=== PATIENT | female | born 1945 | race African-American/Black ===

== ENCOUNTER → 2016-07-07 | Outpatient (CLI) | payer MEDICARE, OTHER ==
[2016-07-07 16:16] LABS: HEMATOCRIT 33.7 % (36.0-47.0); HEMOGLOBIN 10.6 g/dL (12.0-15.5); HGB HCT DIFFERENCE -1.9; MEAN CORPUSCULAR HEMOGLOBIN 27.3 pg (27.0-33.4); MEAN CORPUSCULAR HGB CONC 31.4 g/dL (32.0-36.0); MEAN CORPUSCULAR VOLUME 87 fl (80-97); RED BLOOD COUNT 3.88 10^6/uL (3.72-5.28); RED CELL DISTRIBUTION WIDTH 15.1 % (11.5-14.0); WHITE BLOOD COUNT 7.3 10^3/uL (4.0-10.5)
[2016-07-07 16:33] LABS: APPEARANCE,URINE CLEAR; BILIRUBIN,URINE NEGATIVE (NEGATIVE); GLUCOSE, URINE NEGATIVE (NEGATIVE); KETONES,URINE NEGATIVE (NEGATIVE); LEUKOCYTE ESTERASE,URINE NEGATIVE (NEGATIVE); NITRITE,URINE NEGATIVE (NEGATIVE); PROTEIN,URINE NEGATIVE (NEGATIVE); URINE SPECIFIC GRAVITY 1.006; UROBILINOGEN,URINE NEGATIVE mg/dL (<2.0)
[2016-07-07 16:46] LABS: ANION GAP 14 (5-19); BLOOD UREA NITROGEN 49 mg/dL (7-20); CALCIUM 9.8 mg/dL (8.4-10.2); CARBON DIOXIDE 25 mmol/L (22-30); CHLORIDE 105 mmol/L (98-107); CREATININE RESULT 1.41 mg/dL (0.52-1.25); GLUCOSE 81 mg/dL (75-110); POTASSIUM 4.8 mmol/L (3.6-5.0); SODIUM 144.4 mmol/L (137-145)
[2016-07-09 08:38] LABS: CREATININE URINE 17.7 mg/dL (Not Estab.)
== END ==
LOC: OD 15:00
PROVIDERS: ATTEND Internal Medicine Nephrology
DX: N18.3 Chronic kidney disease, stage 3 (moderate) (principal); E11.9 Type 2 diabetes mellitus without complications; I50.9 Heart failure, unspecified; R80.9 Proteinuria, unspecified
CPT/HCPCS: 36415; 80048; 81001; 82570; 84156; 85027

== ENCOUNTER → 2016-09-15 | Outpatient (CLI) | payer MEDICARE, OTHER | LOC: RAD 15:00 | PROVIDERS: ATTEND Internal Medicine | DX: M75.121 Complete rotator cuff tear or rupture of right shoulder, not specified as traumatic (principal) | CPT/HCPCS: 36415; 80048; 81001; 82043; 82570; 85025 ==

== ENCOUNTER → 2016-09-15 | Outpatient (CLI) | payer MEDICARE, OTHER ==
[2016-09-15 17:27] LABS: ABSOLUTE EOSINOPHILS # (AUTO) 0.2 10^3/uL (0.0-0.6); ABSOLUTE LYMPHOCYTES (AUTO) 2.6 10^3/uL (0.5-4.7); ABSOLUTE MONOCYTES (AUTO) 0.5 10^3/uL (0.1-1.4); ABSOLUTE NEUT (AUTO) 3.2 10^3/uL (1.7-8.2); BASOPHILS % (AUTO) 0.7 % (0-2); EOSINOPHILS % (AUTO) 3.4 % (0-6); HEMATOCRIT 33.7 % (36.0-47.0); HGB HCT DIFFERENCE -0.7; LYMPHOCYTES % (AUTO) 39.8 % (13-45); MEAN CORPUSCULAR HEMOGLOBIN 27.4 pg (27.0-33.4); MEAN CORPUSCULAR HGB CONC 32.6 g/dL (32.0-36.0); MEAN CORPUSCULAR VOLUME 84 fl (80-97); MONOCYTES % (AUTO) 7.8 % (3-13); RED CELL DISTRIBUTION WIDTH 17.4 % (11.5-14.0); SEGMENTED NEUTROPHILS % (AUTO) 48.3 % (42-78); WHITE BLOOD COUNT 6.6 10^3/uL (4.0-10.5)
[2016-09-15 17:35] LABS: APPEARANCE,URINE CLEAR; BILIRUBIN,URINE NEGATIVE (NEGATIVE); GLUCOSE, URINE NEGATIVE (NEGATIVE); KETONES,URINE NEGATIVE (NEGATIVE); LEUKOCYTE ESTERASE,URINE NEGATIVE (NEGATIVE); NITRITE,URINE NEGATIVE (NEGATIVE); PROTEIN,URINE 30 mg/dL (NEGATIVE); URINE SPECIFIC GRAVITY 1.011; UROBILINOGEN,URINE NEGATIVE mg/dL (<2.0)
[2016-09-15 17:49] LABS: ANION GAP 13 (5-19); BLOOD UREA NITROGEN 39 mg/dL (7-20); CALCIUM 9.8 mg/dL (8.4-10.2); CARBON DIOXIDE 27 mmol/L (22-30); CHLORIDE 104 mmol/L (98-107); CREATININE RESULT 1.17 mg/dL (0.52-1.25); GLUCOSE 143 mg/dL (75-110); POTASSIUM 4.8 mmol/L (3.6-5.0); SODIUM 143.5 mmol/L (137-145)
[2016-09-17 07:38] LABS: CREATININE URINE 73.3 mg/dL (Not Estab.); MICROALBUMIN URINE 135.8 ug/mL (Not Estab.)
== END ==
LOC: OD 16:18
PROVIDERS: ATTEND Internal Medicine Nephrology
DX: N18.3 Chronic kidney disease, stage 3 (moderate) (principal); R80.9 Proteinuria, unspecified; E11.9 Type 2 diabetes mellitus without complications; I50.9 Heart failure, unspecified
CPT/HCPCS: 36415; 80048; 81001; 82043; 82570; 85025

== ENCOUNTER → 2016-09-29 | Outpatient (CLI) | payer MEDICARE, OTHER | LOC: OD 11:46 | PROVIDERS: ATTEND Internal Medicine | DX: M79.652 Pain in left thigh (principal) ==

== ENCOUNTER 2016-11-13 16:58 | Emergency (ER) | payer MEDICARE, OTHER ==
--- NOTE | 2016-11-13 19:03 | ER Document Report ---
ED Medical Screen (RME) - General Chief Complaint: Abdominal Pain Stated Complaint: ABDOMINAL PAIN/LEFT LEG PAIN Time Seen by Provider: 11/13/16 19:01 Mode of Arrival: Wheelchair Information source: Patient TRAVEL OUTSIDE OF THE [place] 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 that became infected with poor circulation, she has been seen by her primary care provider for this pain, over the past 2 days she has developed lower abdominal pain with cramping, denies nausea, vomiting or diarrhea, no dysuria or hematuria, no fever or chills, she also reports dry mouth and sore throat, blood sugar at home this morning was 197 - Related Data Allergies/Adverse Reactions: cephalexin monohydrate [From Keflex] Allergy (Unknown, Verified 11/13/16 17:34) nausea/vomiting metformin [Metformin] Allergy (Unknown, Verified 11/13/16 17:34) nausea/vomiting Sulfa (Sulfonamide Antibiotics) Allergy (Unknown, Verified 11/13/16 17:34) itching/rash Past Medical History - Past Medical History Cardiac Medical History: Reports: Hx Coronary Artery Disease, Hx Hypercholesterolemia, Hx Hypertension, Hx Heart Murmur Denies: Hx Atrial Fibrillation, Hx Congestive Heart Failure, Hx Heart Attack , Hx Peripheral Vascular Disease, Hx Pulmonary Embolism Pulmonary Medical History: Reports: Hx Pneumonia, Hx Sleep Apnea Denies: Hx Asthma, Hx Bronchitis, Hx COPD, Hx Respiratory Failure, Hx Tuberculosis Neurological Medical History: Denies: Hx Cerebrovascular Accident, Hx Seizures Endocrine Medical History: Reports: Hx Diabetes Mellitus Type 2, Hx Hypothyroidism - Being followed by logistic manager in [place]. On no medicine for this. Renal/ Medical History: Denies: Hx End Stage Renal Disease, Hx Kidney Stones, Hx Ovarian Cysts, Hx Peritoneal Dialysis, Hx Pelvic Inflammatory Disease Malignancy Medical History: Denies: Hx Breast Cancer, Hx Cervical Cancer, Hx Leukemia, Hx Lung Cancer, Hx Ovarian Cancer GI Medical History: Denies: Hx Crohn's Disease, Hx Gastroesophageal Reflux Disease, Hx Hepatitis, Hx Hiatal Hernia, Hx Irritable Bowel, Hx Liver Failure, Hx Ulcer Musculoskeltal Medical History: Reports Hx Arthritis, Denies Hx Fibromyalgia, Reports Hx Gout, Denies Hx Muscular Dystrophy Skin Medical History: Denies Hx MRSA Psychiatric Medical History: Denies: Hx Depression Traumatic Medical History: Denies: Hx Fractures Infectious Medical History: Denies: Hx Hepatitis, Hx HIV Past Surgical History: Reports: Hx Appendectomy, Hx Cardiac Surgery, Hx Coronary Artery Bypass Graft - July 07, 2014, Hx Gynecologic Surgery, Hx Herniorrhaphy, Hx Hysterectomy, Hx Orthopedic Surgery, Hx Vascular Surgery. Denies: Hx Bowel Surgery, Hx Section, Hx Cholecystectomy, Hx Colostomy , Hx Gastric Bypass Surgery, Hx Mastectomy, Hx Open Heart Surgery, Hx Pacemaker , Hx Tonsillectomy, Hx Tubal Ligation - Immunizations Hx Diphtheria, Pertussis, Tetanus Vaccination: Yes Physical Exam - Vital signs Vitals: Temp Pulse Resp BP Pulse Ox 98.7 F 68 20 169/54 H 99 11/13/16 17:34 11/13/16 17:34 11/13/16 17:34 11/13/16 17:34 11/13/16 17:34 Course - Vital Signs Vital signs: Temp Pulse Resp BP Pulse Ox 98.7 F 68 20 169/54 H 99 11/13/16 17:34 11/13/16 17:34 11/13/16 17:34 11/13/16 17:34 11/13/16 17:34
--- NOTE | 2016-11-13 20:07 | RADIOLOGY REPORT (SQ) ---
EXAM DESCRIPTION: KNEE LEFT 4 VIEW COMPLETED DATE/TIME: 11/13/2016 7:50 pm REASON FOR STUDY: pain, recent BKA COMPARISON: None. NUMBER OF VIEWS: Four views. TECHNIQUE: AP, lateral, and both oblique radiographic images acquired of the left knee. LIMITATIONS: None. FINDINGS: MINERALIZATION: Normal. BONES: No acute fracture or dislocation. Below the knee amputation. No worrisome bone lesions. JOINT: No effusion. SOFT TISSUES: No soft tissue swelling. Surgical clips and vascular stents. OTHER: No other significant finding. IMPRESSION: SURGICAL CHANGES. BELOW THE KNEE AMPUTATION. NO ACUTE FINDINGS. TECHNICAL DOCUMENTATION: JOB ID: [id number] [employer]- All Rights Reserved
[2016-11-13 20:36] LABS: ABSOLUTE EOSINOPHILS # (AUTO) 0.2 10^3/uL (0.0-0.6); ABSOLUTE LYMPHOCYTES (AUTO) 2.7 10^3/uL (0.5-4.7); ABSOLUTE MONOCYTES (AUTO) 0.8 10^3/uL (0.1-1.4); ABSOLUTE NEUT (AUTO) 5.6 10^3/uL (1.7-8.2); BASOPHILS % (AUTO) 0.4 % (0-2); EOSINOPHILS % (AUTO) 1.7 % (0-6); HEMATOCRIT 40.1 % (36.0-47.0); HEMOGLOBIN 12.7 g/dL (12.0-15.5); LYMPHOCYTES % (AUTO) 29.1 % (13-45); MEAN CORPUSCULAR HEMOGLOBIN 27.9 pg (27.0-33.4); MEAN CORPUSCULAR HGB CONC 31.6 g/dL (32.0-36.0); MEAN CORPUSCULAR VOLUME 88 fl (80-97); MONOCYTES % (AUTO) 8.7 % (3-13); RED BLOOD COUNT 4.54 10^6/uL (3.72-5.28); SEGMENTED NEUTROPHILS % (AUTO) 60.1 % (42-78); WHITE BLOOD COUNT 9.3 10^3/uL (4.0-10.5)
[2016-11-13 20:51] LABS: APPEARANCE,URINE CLEAR; BILIRUBIN,URINE NEGATIVE (NEGATIVE); GLUCOSE, URINE NEGATIVE (NEGATIVE); KETONES,URINE NEGATIVE (NEGATIVE); LEUKOCYTE ESTERASE,URINE NEGATIVE (NEGATIVE); NITRITE,URINE NEGATIVE (NEGATIVE); PROTEIN,URINE NEGATIVE (NEGATIVE); URINE SPECIFIC GRAVITY 1.004; UROBILINOGEN,URINE NEGATIVE mg/dL (<2.0)
[2016-11-13 21:01] LABS: ALANINE AMINOTRANSFERASE 42 U/L (9-52); ALBUMIN 4.1 g/dL (3.5-5.0); ALKALINE PHOSPHATASE 136 U/L (38-126); ANION GAP 12 (5-19); ASPARTATE AMINO TRANSFERASE 28 U/L (14-36); BILIRUBIN,DIRECT 0.3 mg/dL (0.0-0.4); BILIRUBIN,TOTAL 0.6 mg/dL (0.2-1.3); BLOOD UREA NITROGEN 39 mg/dL (7-20); CALCIUM 9.9 mg/dL (8.4-10.2); CARBON DIOXIDE 29 mmol/L (22-30); CHLORIDE 102 mmol/L (98-107); CREATININE RESULT 1.55 mg/dL (0.52-1.25); GLUCOSE 132 mg/dL (75-110); LIPASE 61.5 U/L (23-300); POTASSIUM 4.9 mmol/L (3.6-5.0); SODIUM 142.6 mmol/L (137-145); TOTAL PROTEIN 7.7 g/dL (6.3-8.2)
--- NOTE | 2016-11-13 22:13 | ER Document Report ---
ED General - General Chief Complaint: Abdominal Pain Stated Complaint: ABDOMINAL PAIN/LEFT LEG PAIN Time Seen by Provider: 11/13/16 19:01 Mode of Arrival: Wheelchair Notes: Patient is a 71-year-old female with a history of a left BKA who presents with 3 -4 days of stomach pain. Describes it as a severe, stabbing pain whenever she wears a prosthetic or bears weight on the extremity. Denies any pain with a prosthesis was removed and she is just laying in bed. She has an appointment with orthopedic surgeon in 2 days but states the pain became so intense tonight she came to the emergency department for further evaluation. No history of similar symptoms in the past and she had the BKA done in July 2016. Denies any swelling, erythema or discharge from the stump. Denies any injury to the area. She has tried oxycodone without any improvement of the pain. TRAVEL OUTSIDE OF THE [place] IN LAST 30 DAYS: No - Related Data Allergies/Adverse Reactions: cephalexin monohydrate [From Keflex] Allergy (Unknown, Verified 11/13/16 17:34) nausea/vomiting metformin [Metformin] Allergy (Unknown, Verified 11/13/16 17:34) nausea/vomiting Sulfa (Sulfonamide Antibiotics) Allergy (Unknown, Verified 11/13/16 17:34) itching/rash Past Medical History - General Information source: Patient - Social History Smoking Status: Never Smoker Frequency of alcohol use: None Drug Abuse: None Lives with: Family Family History: Reviewed & Not Pertinent, Hypertension Patient has suicidal ideation: No Patient has homicidal ideation: No - Past Medical History Cardiac Medical History: Reports: Hx Coronary Artery Disease, Hx Hypercholesterolemia, Hx Hypertension, Hx Heart Murmur Denies: Hx Atrial Fibrillation, Hx Congestive Heart Failure, Hx Heart Attack , Hx Peripheral Vascular Disease, Hx Pulmonary Embolism Pulmonary Medical History: Reports: Hx Pneumonia, Hx Sleep Apnea Denies: Hx Asthma, Hx Bronchitis, Hx COPD, Hx Respiratory Failure, Hx Tuberculosis Neurological Medical History: Denies: Hx Cerebrovascular Accident, Hx Seizures Endocrine Medical History: Reports: Hx Diabetes Mellitus Type 2, Hx Hypothyroidism - Being followed by wax coating machine tender in [place]. On no medicine for this. Renal/ Medical History: Denies: Hx End Stage Renal Disease, Hx Kidney Stones, Hx Ovarian Cysts, Hx Peritoneal Dialysis, Hx Pelvic Inflammatory Disease Malignancy Medical History: Denies: Hx Breast Cancer, Hx Cervical Cancer, Hx Leukemia, Hx Lung Cancer, Hx Ovarian Cancer GI Medical History: Denies: Hx Crohn's Disease, Hx Gastroesophageal Reflux Disease, Hx Hepatitis, Hx Hiatal Hernia, Hx Irritable Bowel, Hx Liver Failure, Hx Ulcer Musculoskeltal Medical History: Reports Hx Arthritis, Denies Hx Fibromyalgia, Reports Hx Gout, Denies Hx Muscular Dystrophy Skin Medical History: Denies Hx MRSA Psychiatric Medical History: Denies: Hx Depression Traumatic Medical History: Denies: Hx Fractures Infectious Medical History: Denies: Hx Hepatitis, Hx HIV Past Surgical History: Reports: Hx Appendectomy, Hx Cardiac Surgery, Hx Coronary Artery Bypass Graft - July 07, 2014, Hx Gynecologic Surgery, Hx Herniorrhaphy, Hx Hysterectomy, Hx Orthopedic Surgery, Hx Vascular Surgery. Denies: Hx Bowel Surgery, Hx Section, Hx Cholecystectomy, Hx Colostomy , Hx Gastric Bypass Surgery, Hx Mastectomy, Hx Open Heart Surgery, Hx Pacemaker , Hx Tonsillectomy, Hx Tubal Ligation - Immunizations Hx Diphtheria, Pertussis, Tetanus Vaccination: Yes Hx Pneumococcal Vaccination: 02/18/11 Review of Systems - Review of Systems Notes: Constitutional: Negative for fever. HENT: Negative for sore throat. Eyes: Negative for visual changes. Cardiovascular: Negative for chest pain. Respiratory: Negative for shortness of breath. Gastrointestinal: Negative for abdominal pain, vomiting or diarrhea. Genitourinary: Negative for dysuria. Musculoskeletal: Positive for BKA stump pain Skin: Negative for rash. Neurological: Negative for headaches, weakness or numbness. 10 point ROS negative except as marked above and in HPI. Physical Exam - Vital signs Vitals: Temp Pulse Resp BP Pulse Ox 98.7 F 68 20 169/54 H 99 11/13/16 17:34 11/13/16 17:34 11/13/16 17:34 11/13/16 17:34 11/13/16 17:34 Interpretation: Hypertensive Notes: PHYSICAL EXAMINATION: GENERAL: Well-appearing, well-nourished and in no acute distress. HEAD: Atraumatic, normocephalic. EYES: Pupils equal round and reactive to light, extraocular movements intact, sclera anicteric, conjunctiva are normal. ENT: nares patent, oropharynx clear without exudates. Moist mucous membranes. NECK: Normal range of motion, supple without lymphadenopathy LUNGS: Breath sounds clear to auscultation bilaterally and equal. No wheezes rales or rhonchi. HEART: Regular rate and rhythm without murmurs ABDOMEN: Soft, nontender, normoactive bowel sounds. No guarding, no rebound. No masses appreciated. EXTREMITIES: Left BKA; stump without evidence of erythema, edema or induration. No pain on palpation. NEUROLOGICAL: No focal neurological deficits. Moves all extremities spontaneously and on command. PSYCH: Normal mood, normal affect. SKIN: Warm, Dry, normal turgor, no rashes or lesions noted. Course - Re-evaluation Re-evalutation: 11/13/16 22:11 Patient is presenting complaining of pain to her BKA stump on the left. No evidence of infection, edema, x-ray is normal. Labs obtained in triage are also noted to be normal. Exact cause of pain at this time may be related to irritation from her prosthetic. I do not see any indications for acute antibiotics at this time. She patient has an outpatient follow-up with Dr. Ma in 2 days. In triage patient apparently complained of abdominal pain sore throat she denied these complaints both at time of triage as well as to me. I have therefore not proceed with a workup or evaluation for these listed complaints given the patient states that these are not concerns or reasons for her being in the emergency department today. At this time will discharge with return precautions and follow-up recommendations. Verbal discharge instructions given a the bedside and opportunity for questions given. Medication warnings reviewed. Patient is in agreement with this plan and has verbalized understanding of return precautions and the need for primary care follow-up in the next 24-72 hours. 11/13/16 22:15 - Vital Signs Vital signs: Temp Pulse Resp BP Pulse Ox 98.1 F 70 18 156/61 H 99 11/13/16 23:13 11/13/16 23:13 11/13/16 23:13 11/13/16 23:13 11/13/16 23:13 - Laboratory Result Diagrams: 11/13/16 19:55 11/13/16 19:55 Laboratory results interpreted by me: 11/13/16 11/13/16 19:55 19:55 MCHC 31.6 L RDW 16.0 H BUN 39 H Creatinine 1.55 H Est GFR ( Amer) 40 L Est GFR (Non-Af Amer) 33 L Glucose 132 H Alkaline Phosphatase 136 H - Diagnostic Test Radiology reviewed: Image reviewed, Reports reviewed Radiology results interpreted by me: 11/13/16 22:12 Discharge - Discharge Clinical Impression: Amputation stump pain Condition: Good Disposition: HOME, SELF-CARE Additional Instructions: Your x-rays and labs are normal today. Please follow-up with Dr. Ma as directed. For your pain: Take acetaminophen 1000 mg every 6 hours as needed for pain. If this does not control your pain you may take 15 mg of oral morphine every 4 hours as needed. Please be very careful about using the oral morphine and only use this for severe pain. Prescriptions: Morphine Sulfate [Morphine Ir 15 mg Tablet] 15 mg PO Q4HP PRN #12 tablet PRN Reason: Referrals: MARTIN WICK MD [Primary Care Provider] - Follow up as needed JOSEPH MA MD [ACTIVE STAFF] - Follow up as needed
[2016-11-13 23:15] VITALS: BP 156/61
== END 2016-11-13 23:15 | disposition home or self-care (01) ==
LOC: ER 16:58
DX: M79.662 Pain in left lower leg (principal); E11.9 Type 2 diabetes mellitus without complications; I25.10 Atherosclerotic heart disease of native coronary artery without angina pectoris; I10 Essential (primary) hypertension; Z89.512 Acquired absence of left leg below knee; Z88.1 Allergy status to other antibiotic agents; Z88.2 Allergy status to sulfonamides; Z88.8 Allergy status to other drugs, medicaments and biological substances; Z95.1 Presence of aortocoronary bypass graft
CPT/HCPCS: 36415; 80053; 81001; 83690; 85025; 87086; 87088; 87186; 99284

== ENCOUNTER → 2016-12-14 | Outpatient (CLI) | payer MEDICARE, OTHER ==
--- NOTE | 2016-12-14 13:27 | RADIOLOGY REPORT (SQ) ---
EXAM DESCRIPTION: MRI LT LOWER EXTREMITY WITHOUT COMPLETED DATE/TIME: 12/14/2016 12:11 pm REASON FOR STUDY: UNSPECIFIED COMPLICATIONS OF AMPUTATION T87.9 UNSPECIFIED COMPLICATIONS OF AMPUTA TION STUMP COMPARISON: None. TECHNIQUE: Multiplanar imaging of the left knee to include T1 and inversion recovery weighted sequen steve. CONTRAST TYPE AND DOSE: None. RENAL FUNCTION: Not applicable. LIMITATIONS: None. FINDINGS: BONE MARROW: Status post BKA. There is abnormal decreased T1 and increased T2 signal in t he tibial stump. SOFT TISSUES: Approximately 2 cm fluid collection along the posterior margin of the stump. There is a skin ulcer along the anterior margin. OTHER: No other significant finding. IMPRESSION: Positive for osteomyelitis. TECHNICAL DOCUMENTATION: JOB ID: [id number] [employer]- All Rights Reserved
== END ==
LOC: RAD 10:44
PROVIDERS: ATTEND Internal Medicine
DX: T87.9 Unspecified complications of amputation stump (principal)

== ENCOUNTER → 2016-12-29 | Outpatient (CLI) | payer MEDICARE, OTHER ==
[2016-12-29 16:24] LABS: HEMATOCRIT 36.2 % (36.0-47.0); HEMOGLOBIN 11.9 g/dL (12.0-15.5); HGB HCT DIFFERENCE -0.5; MEAN CORPUSCULAR HEMOGLOBIN 29.3 pg (27.0-33.4); MEAN CORPUSCULAR HGB CONC 32.8 g/dL (32.0-36.0); MEAN CORPUSCULAR VOLUME 89 fl (80-97); RED BLOOD COUNT 4.06 10^6/uL (3.72-5.28); RED CELL DISTRIBUTION WIDTH 15.3 % (11.5-14.0); WHITE BLOOD COUNT 7.3 10^3/uL (4.0-10.5)
[2016-12-29 16:26] LABS: APPEARANCE,URINE CLEAR; BILIRUBIN,URINE NEGATIVE (NEGATIVE); GLUCOSE, URINE NEGATIVE (NEGATIVE); KETONES,URINE NEGATIVE (NEGATIVE); LEUKOCYTE ESTERASE,URINE TRACE (NEGATIVE); NITRITE,URINE NEGATIVE (NEGATIVE); PROTEIN,URINE NEGATIVE (NEGATIVE); URINE SPECIFIC GRAVITY 1.009; UROBILINOGEN,URINE NEGATIVE mg/dL (<2.0)
[2016-12-29 16:50] LABS: ANION GAP 15 (5-19); BLOOD UREA NITROGEN 88 mg/dL (7-20); CALCIUM 9.7 mg/dL (8.4-10.2); CARBON DIOXIDE 21 mmol/L (22-30); CHLORIDE 102 mmol/L (98-107); CREATININE RESULT 2.27 mg/dL (0.52-1.25); GLUCOSE 184 mg/dL (75-110); POTASSIUM 5.5 mmol/L (3.6-5.0); SODIUM 138.1 mmol/L (137-145)
[2016-12-31 08:38] LABS: MICROALBUMIN URINE 105.9 ug/mL (Not Estab.)
== END ==
LOC: OD 14:53
PROVIDERS: ATTEND Internal Medicine Nephrology
DX: N18.3 Chronic kidney disease, stage 3 (moderate) (principal); E11.9 Type 2 diabetes mellitus without complications; R80.9 Proteinuria, unspecified; I50.9 Heart failure, unspecified
CPT/HCPCS: 36415; 80048; 81001; 82043; 82570; 85027

== ENCOUNTER → 2017-04-09 | Outpatient (CLI) | payer MEDICARE, OTHER ==
[2017-04-09 12:20] LABS: HEMATOCRIT 34.4 % (36.0-47.0); HEMOGLOBIN 11.3 g/dL (12.0-15.5); HGB HCT DIFFERENCE -0.5; MEAN CORPUSCULAR HEMOGLOBIN 29.2 pg (27.0-33.4); MEAN CORPUSCULAR HGB CONC 32.8 g/dL (32.0-36.0); MEAN CORPUSCULAR VOLUME 89 fl (80-97); RED BLOOD COUNT 3.86 10^6/uL (3.72-5.28); RED CELL DISTRIBUTION WIDTH 14.5 % (11.5-14.0)
[2017-04-09 12:31] LABS: APPEARANCE,URINE CLEAR; BILIRUBIN,URINE NEGATIVE (NEGATIVE); GLUCOSE, URINE NEGATIVE (NEGATIVE); KETONES,URINE NEGATIVE (NEGATIVE); LEUKOCYTE ESTERASE,URINE TRACE (NEGATIVE); NITRITE,URINE NEGATIVE (NEGATIVE); PROTEIN,URINE NEGATIVE (NEGATIVE); UROBILINOGEN,URINE NEGATIVE mg/dL (<2.0)
[2017-04-09 12:44] LABS: ANION GAP 13 (5-19); BLOOD UREA NITROGEN 70 mg/dL (7-20); CALCIUM 9.3 mg/dL (8.4-10.2); CARBON DIOXIDE 27 mmol/L (22-30); CHLORIDE 104 mmol/L (98-107); CREATININE RESULT 2.01 mg/dL (0.52-1.25); GLUCOSE 223 mg/dL (75-110); SODIUM 144.1 mmol/L (137-145)
== END ==
LOC: OD 11:04
PROVIDERS: ATTEND Internal Medicine Nephrology
DX: N18.3 Chronic kidney disease, stage 3 (moderate) (principal); I50.9 Heart failure, unspecified; E11.22 Type 2 diabetes mellitus with diabetic chronic kidney disease; R80.9 Proteinuria, unspecified
CPT/HCPCS: 36415; 80048; 81001; 85027

== ENCOUNTER → 2017-06-04 | Outpatient (CLI) | payer MEDICARE, OTHER ==
[2017-06-04 14:48] LABS: HEMATOCRIT 32.6 % (36.0-47.0); HEMOGLOBIN 10.7 g/dL (12.0-15.5); MEAN CORPUSCULAR HEMOGLOBIN 28.9 pg (27.0-33.4); MEAN CORPUSCULAR HGB CONC 32.7 g/dL (32.0-36.0); MEAN CORPUSCULAR VOLUME 88 fl (80-97); PLATELET COUNT 233 10^3/uL (150-450); RED BLOOD COUNT 3.69 10^6/uL (3.72-5.28); RED CELL DISTRIBUTION WIDTH 14.5 % (11.5-14.0); WHITE BLOOD COUNT 5.8 10^3/uL (4.0-10.5)
[2017-06-04 15:05] LABS: ANION GAP 12 (5-19); BLOOD UREA NITROGEN 83 mg/dL (7-20); CALCIUM 9.4 mg/dL (8.4-10.2); CARBON DIOXIDE 22 mmol/L (22-30); CHLORIDE 108 mmol/L (98-107); GLUCOSE 177 mg/dL (75-110); POTASSIUM 5.3 mmol/L (3.6-5.0); SODIUM 142.3 mmol/L (137-145)
== END ==
LOC: OD 13:12
PROVIDERS: ATTEND Internal Medicine Nephrology
DX: I12.9 Hypertensive chronic kidney disease with stage 1 through stage 4 chronic kidney disease, or unspecified chronic kidney disease (principal); N18.3 Chronic kidney disease, stage 3 (moderate); I50.9 Heart failure, unspecified; E11.9 Type 2 diabetes mellitus without complications; R80.9 Proteinuria, unspecified
CPT/HCPCS: 36415; 80048; 85027

== ENCOUNTER → 2017-07-04 | Outpatient (CLI) | payer MEDICARE, OTHER ==
[2017-07-04 15:31] LABS: HEMATOCRIT 35.7 % (36.0-47.0); HEMOGLOBIN 11.7 g/dL (12.0-15.5); MEAN CORPUSCULAR HEMOGLOBIN 28.9 pg (27.0-33.4); MEAN CORPUSCULAR HGB CONC 32.8 g/dL (32.0-36.0); MEAN CORPUSCULAR VOLUME 88 fl (80-97); PLATELET COUNT 253 10^3/uL (150-450); RED BLOOD COUNT 4.05 10^6/uL (3.72-5.28); RED CELL DISTRIBUTION WIDTH 14.6 % (11.5-14.0); WHITE BLOOD COUNT 6.3 10^3/uL (4.0-10.5)
[2017-07-04 15:45] LABS: APPEARANCE,URINE CLEAR; BILIRUBIN,URINE NEGATIVE (NEGATIVE); COLOR,URINE STRAW; GLUCOSE, URINE NEGATIVE (NEGATIVE); KETONES,URINE NEGATIVE (NEGATIVE); LEUKOCYTE ESTERASE,URINE TRACE (NEGATIVE); NITRITE,URINE NEGATIVE (NEGATIVE); PROTEIN,URINE NEGATIVE (NEGATIVE); URINE SPECIFIC GRAVITY 1.008; UROBILINOGEN,URINE NEGATIVE mg/dL (<2.0)
[2017-07-04 15:55] LABS: ANION GAP 14 (5-19); BLOOD UREA NITROGEN 62 mg/dL (7-20); CALCIUM 10.4 mg/dL (8.4-10.2); CARBON DIOXIDE 23 mmol/L (22-30); CHLORIDE 103 mmol/L (98-107); GLUCOSE 273 mg/dL (75-110); IRON(TIBC) 60.6 ug/dL (37-170); PHOSPHORUS 4.7 mg/dL (2.5-4.5); POTASSIUM 5.2 mmol/L (3.6-5.0); SODIUM 139.5 mmol/L (137-145)
[2017-07-09 16:38] LABS: ALBUMIN 2 3.6 g/dL (2.9-4.4); BETA GLOBULINS 1.1 g/dL (0.7-1.3); GAMMA GLOBULIN 1.2 g/dL (0.4-1.8); GLOBULIN TOTAL 3.5 g/dL (2.2-3.9); MONOCLONAL SPIKE 0.1 g/dL (Not Observed); PROTEIN TOTAL SERUM 7.1 g/dL (6.0-8.5)
== END ==
LOC: OD 14:51
PROVIDERS: ATTEND Internal Medicine Nephrology
DX: E11.22 Type 2 diabetes mellitus with diabetic chronic kidney disease (principal); N18.2 Chronic kidney disease, stage 2 (mild); I50.9 Heart failure, unspecified; E78.5 Hyperlipidemia, unspecified
CPT/HCPCS: 36415; 80048; 81001; 82728; 83540; 83550; 83970; 84100; 84165; 84443; 85027

== ENCOUNTER → 2017-10-05 | Outpatient (CLI) | payer MEDICARE, OTHER ==
[2017-10-05 14:02] LABS: ABSOLUTE EOSINOPHILS # (AUTO) 0.2 10^3/uL (0.0-0.6); ABSOLUTE LYMPHOCYTES (AUTO) 1.9 10^3/uL (0.5-4.7); ABSOLUTE MONOCYTES (AUTO) 0.6 10^3/uL (0.1-1.4); ABSOLUTE NEUT (AUTO) 3.3 10^3/uL (1.7-8.2); BASOPHILS % (AUTO) 0.4 % (0-2); EOSINOPHILS % (AUTO) 3.2 % (0-6); HEMATOCRIT 33.2 % (36.0-47.0); HEMOGLOBIN 10.7 g/dL (12.0-15.5); LYMPHOCYTES % (AUTO) 31.7 % (13-45); MEAN CORPUSCULAR HEMOGLOBIN 28.9 pg (27.0-33.4); MEAN CORPUSCULAR HGB CONC 32.4 g/dL (32.0-36.0); MEAN CORPUSCULAR VOLUME 90 fl (80-97); MONOCYTES % (AUTO) 9.4 % (3-13); PLATELET COUNT 268 10^3/uL (150-450); RED BLOOD COUNT 3.71 10^6/uL (3.72-5.28); RED CELL DISTRIBUTION WIDTH 14.3 % (11.5-14.0); SEGMENTED NEUTROPHILS % (AUTO) 55.3 % (42-78); TOTAL CELLS COUNTED % (AUTO) 100 %
[2017-10-05 14:13] LABS: HEMATOCRIT 33.2 % (36.0-47.0); HEMOGLOBIN 10.7 g/dL (12.0-15.5); MEAN CORPUSCULAR HEMOGLOBIN 28.9 pg (27.0-33.4); MEAN CORPUSCULAR HGB CONC 32.4 g/dL (32.0-36.0); MEAN CORPUSCULAR VOLUME 90 fl (80-97); PLATELET COUNT 268 10^3/uL (150-450); RED BLOOD COUNT 3.71 10^6/uL (3.72-5.28); RED CELL DISTRIBUTION WIDTH 14.3 % (11.5-14.0)
[2017-10-05 14:25] LABS: ALANINE AMINOTRANSFERASE 29 U/L (9-52); ALBUMIN 3.9 g/dL (3.5-5.0); ALKALINE PHOSPHATASE 111 U/L (38-126); ANION GAP 10 (5-19); ASPARTATE AMINO TRANSFERASE 14 U/L (14-36); BILIRUBIN,DIRECT 0.3 mg/dL (0.0-0.4); BILIRUBIN,TOTAL 0.4 mg/dL (0.2-1.3); BLOOD UREA NITROGEN 32 mg/dL (7-20); CARBON DIOXIDE 29 mmol/L (22-30); CHLORIDE 107 mmol/L (98-107); CHOLESTEROL 140.65 mg/dL (0-200); GLUCOSE 137 mg/dL (75-110); POTASSIUM 4.9 mmol/L (3.6-5.0); SODIUM 145.8 mmol/L (137-145); TOTAL PROTEIN 6.8 g/dL (6.3-8.2); TRIGLYCERIDES 142 mg/dL (<150)
[2017-10-05 14:27] LABS: ANION GAP 12 (5-19); BLOOD UREA NITROGEN 32 mg/dL (7-20); CALCIUM 9.2 mg/dL (8.4-10.2); CARBON DIOXIDE 27 mmol/L (22-30); CHLORIDE 106 mmol/L (98-107); GLUCOSE 132 mg/dL (75-110); POTASSIUM 4.8 mmol/L (3.6-5.0); SODIUM 145.4 mmol/L (137-145)
[2017-10-05 14:37] LABS: DIRECT LDL 56 mg/dL (<100)
[2017-10-05 14:44] LABS: FREE T4 (FREE THYROXINE) 1.06 ng/dL (0.78-2.19)
[2017-10-05 14:58] LABS: THYROID STIMULATING HORMONE 1.96 uIU/mL (0.47-4.68)
[2017-10-06 11:38] LABS: CREATININE URINE 113.6 mg/dL (Not Estab.); MICROALBUMIN URINE 125.2 ug/mL (Not Estab.)
== END ==
LOC: OD 12:42
PROVIDERS: ATTEND Internal Medicine
DX: E78.2 Mixed hyperlipidemia (principal); E11.9 Type 2 diabetes mellitus without complications; E55.9 Vitamin D deficiency, unspecified; E66.01 Morbid (severe) obesity due to excess calories; D50.0 Iron deficiency anemia secondary to blood loss (chronic); N18.3 Chronic kidney disease, stage 3 (moderate); I50.9 Heart failure, unspecified
CPT/HCPCS: 36415; 80048; 80053; 80061; 82043; 82306; 82570; 83036; 84439; 84443; 85025; 85027

== ENCOUNTER → 2018-06-17 | Outpatient (CLI) | payer MEDICARE, OTHER ==
[2018-06-17 14:01] LABS: HEMATOCRIT 34.7 % (36.0-47.0); HEMOGLOBIN 11.5 g/dL (12.0-15.5); MEAN CORPUSCULAR HEMOGLOBIN 29.9 pg (27.0-33.4); MEAN CORPUSCULAR HGB CONC 33.2 g/dL (32.0-36.0); MEAN CORPUSCULAR VOLUME 90 fl (80-97); PLATELET COUNT 248 10^3/uL (150-450); RED BLOOD COUNT 3.85 10^6/uL (3.72-5.28); RED CELL DISTRIBUTION WIDTH 14.5 % (11.5-14.0); WHITE BLOOD COUNT 6.6 10^3/uL (4.0-10.5)
[2018-06-17 14:03] LABS: APPEARANCE,URINE CLEAR; BILIRUBIN,URINE NEGATIVE (NEGATIVE); COLOR,URINE STRAW; GLUCOSE, URINE 150 mg/dL (NEGATIVE); KETONES,URINE NEGATIVE (NEGATIVE); LEUKOCYTE ESTERASE,URINE NEGATIVE (NEGATIVE); NITRITE,URINE NEGATIVE (NEGATIVE); PROTEIN,URINE 100 mg/dL (NEGATIVE); URINE SPECIFIC GRAVITY 1.011; UROBILINOGEN,URINE NEGATIVE mg/dL (<2.0)
[2018-06-17 14:22] LABS: ANION GAP 8 (5-19); BLOOD UREA NITROGEN 42 mg/dL (7-20); CALCIUM 9.4 mg/dL (8.4-10.2); CARBON DIOXIDE 28 mmol/L (22-30); CHLORIDE 106 mmol/L (98-107); GLUCOSE 322 mg/dL (75-110); POTASSIUM 5.2 mmol/L (3.6-5.0); SODIUM 142.2 mmol/L (137-145)
== END ==
LOC: OD 13:01
PROVIDERS: ATTEND Internal Medicine Nephrology
DX: I12.9 Hypertensive chronic kidney disease with stage 1 through stage 4 chronic kidney disease, or unspecified chronic kidney disease (principal); N18.3 Chronic kidney disease, stage 3 (moderate); E11.22 Type 2 diabetes mellitus with diabetic chronic kidney disease; D64.9 Anemia, unspecified
CPT/HCPCS: 36415; 80048; 81001; 84550; 85027

== ENCOUNTER → 2018-07-26 | Outpatient (CLI) | payer MEDICARE, OTHER ==
[2018-07-26 08:44] LABS: APPEARANCE,URINE CLEAR; BILIRUBIN,URINE NEGATIVE (NEGATIVE); COLOR,URINE STRAW; GLUCOSE, URINE NEGATIVE (NEGATIVE); KETONES,URINE NEGATIVE (NEGATIVE); LEUKOCYTE ESTERASE,URINE TRACE (NEGATIVE); NITRITE,URINE NEGATIVE (NEGATIVE); PROTEIN,URINE 100 mg/dL (NEGATIVE); UROBILINOGEN,URINE NEGATIVE mg/dL (<2.0)
[2018-07-26 08:46] LABS: HEMATOCRIT 33.4 % (36.0-47.0); HEMOGLOBIN 11.1 g/dL (12.0-15.5); MEAN CORPUSCULAR HEMOGLOBIN 29.7 pg (27.0-33.4); MEAN CORPUSCULAR HGB CONC 33.2 g/dL (32.0-36.0); MEAN CORPUSCULAR VOLUME 89 fl (80-97); PLATELET COUNT 248 10^3/uL (150-450); RED BLOOD COUNT 3.74 10^6/uL (3.72-5.28); RED CELL DISTRIBUTION WIDTH 13.4 % (11.5-14.0); WHITE BLOOD COUNT 6.7 10^3/uL (4.0-10.5)
[2018-07-26 09:21] LABS: ANION GAP 9 (5-19); CALCIUM 9.5 mg/dL (8.4-10.2); CARBON DIOXIDE 28 mmol/L (22-30); CHLORIDE 102 mmol/L (98-107); GLUCOSE 245 mg/dL (75-110); PHOSPHORUS 3.9 mg/dL (2.5-4.5); POTASSIUM 4.4 mmol/L (3.6-5.0); SODIUM 138.9 mmol/L (137-145)
[2018-07-26 09:23] LABS: UR PRO/CREAT RATIO RESULT 2.4 mg/mg (0.0-0.2); URINE PROTEIN 144.5 mg/dL (<12)
[2018-07-26 09:23] LABS: BLOOD UREA NITROGEN 39 mg/dL (7-20)
== END ==
LOC: OD 08:03
PROVIDERS: ATTEND Internal Medicine Nephrology
DX: N18.3 Chronic kidney disease, stage 3 (moderate) (principal); I12.9 Hypertensive chronic kidney disease with stage 1 through stage 4 chronic kidney disease, or unspecified chronic kidney disease
CPT/HCPCS: 36415; 80048; 81001; 82570; 83970; 84100; 84156; 85027

== ENCOUNTER 2019-03-04 15:23 | Emergency (ER) | payer MEDICARE, OTHER ==
[2019-03-04] MEDS ORDERED: MORPHINE SULFATE 10 MG/ML INJ IV ONE (15:49)
[2019-03-04] MEDS ORDERED: ONDANSETRON HCL INJ/PF 4 MG/2 ML SDV IV ONE ×2 (15:49→18:26)
--- NOTE | 2019-03-04 15:51 | ER Document Report ---
ED Medical Screen (RME) - General Chief Complaint: Back Pain Stated Complaint: BACK PAIN/NAUSEA Time Seen by Provider: 03/04/19 15:41 Primary Care Provider: Ubaldo DAVIS MD [Primary Care Provider] - Follow up as needed Notes: Patient is a 73-year-old female who presents to the emergency department with a chief complaint of right low back pain. She had the pain starting yesterday and the pain has progressively gotten worse. She took some Tylenol which helped, but about 1 to 2 hours ago pain got worse. Patient has a past medical history of a triple bypass surgery, diabetes with a left leg amputation, and hypertension. Patient has had a hysterectomy and hernia repair. Exam: Tenderness to right lower back. I have greeted and performed a rapid initial assessment of this patient. A comprehensive ED assessment and evaluation of the patient, analysis of test results and completion of medical decision making process will be conducted by an additional ED providers. TRAVEL OUTSIDE OF THE [place] IN LAST 30 DAYS: No - Related Data Allergies/Adverse Reactions: cephalexin monohydrate [From Keflex] Allergy (Unknown, Verified 03/04/19 15:49) nausea/vomiting metformin [Metformin] Allergy (Unknown, Verified 03/04/19 15:49) nausea/vomiting Sulfa (Sulfonamide Antibiotics) Allergy (Unknown, Verified 03/04/19 15:49) itching/rash Past Medical History - Social History Chew tobacco use (# tins/day): No Frequency of alcohol use: None Drug Abuse: None - Past Medical History Cardiac Medical History: Reports: Hx Coronary Artery Disease, Hx Hypercholesterolemia, Hx Hypertension, Hx Heart Murmur Denies: Hx Atrial Fibrillation, Hx Congestive Heart Failure, Hx Heart Attack, Hx Peripheral Vascular Disease, Hx Pulmonary Embolism Pulmonary Medical History: Reports: Hx Pneumonia, Hx Sleep Apnea Denies: Hx Asthma, Hx Bronchitis, Hx COPD, Hx Respiratory Failure, Hx Tuberculosis Neurological Medical History: Denies: Hx Cerebrovascular Accident, Hx Seizures Endocrine Medical History: Reports: Hx Diabetes Mellitus Type 2, Hx Hypothyroidism - Being followed by vehicle maintenance supervisor in [place]. On no medicine for this. Renal/ Medical History: Denies: Hx End Stage Renal Disease, Hx Kidney Stones, Hx Ovarian Cysts, Hx Peritoneal Dialysis, Hx Pelvic Inflammatory Disease Malignancy Medical History: Denies: Hx Breast Cancer, Hx Cervical Cancer, Hx Leukemia, Hx Lung Cancer, Hx Ovarian Cancer GI Medical History: Denies: Hx Crohn's Disease, Hx Gastroesophageal Reflux Disease, Hx Hepatitis, Hx Hiatal Hernia, Hx Irritable Bowel, Hx Liver Failure, Hx Pancreatitis, Hx Ulcer Musculoskeltal Medical History: Reports Hx Arthritis, Denies Hx Fibromyalgia, Reports Hx Gout, Denies Hx Muscular Dystrophy Skin Medical History: Denies Hx MRSA Psychiatric Medical History: Denies: Hx Depression Traumatic Medical History: Denies: Hx Fractures Infectious Medical History: Denies: Hx Hepatitis, Hx HIV Past Surgical History: Reports: Hx Appendectomy, Hx Cardiac Surgery, Hx Coronary Artery Bypass Graft - July 07, 2014, Hx Gynecologic Surgery, Hx Herniorrhaphy, Hx Hysterectomy, Hx Orthopedic Surgery, Hx Vascular Surgery. Denies: Hx Bowel Surgery, Hx Section, Hx Cholecystectomy, Hx Colostomy, Hx Gastric Bypass Surgery, Hx Mastectomy, Hx Open Heart Surgery, Hx Pacemaker, Hx Tonsillectomy, Hx Tubal Ligation - Immunizations Hx Diphtheria, Pertussis, Tetanus Vaccination: Yes Physical Exam - Vital signs Vitals: Temp Pulse Resp BP Pulse Ox 98.3 F 70 20 221/75 H 98 03/04/19 15:29 03/04/19 15:29 03/04/19 15:29 03/04/19 15:29 03/04/19 15:29 Course - Vital Signs Vital signs: Temp Pulse Resp BP Pulse Ox 98.3 F 70 20 221/75 H 98 03/04/19 15:29 03/04/19 15:29 03/04/19 15:29 03/04/19 15:29 03/04/19 15:29 Doctor's Discharge - Discharge Referrals: Ubaldo DAVIS MD [Primary Care Provider] - Follow up as needed
--- NOTE | 2019-03-04 16:16 | ER Document Report ---
ED General - General Chief Complaint: Back Pain Stated Complaint: BACK PAIN/NAUSEA Time Seen by Provider: 03/04/19 15:41 Primary Care Provider: Ubaldo MIN MD [ACTIVE STAFF] - Follow up as needed Notes: 73-year-old female with past medical history of hypertension, CAD status post triple bypass surgery, diabetes mellitus complicated by a diabetic neuropathy with a left BKA, gout presents to the emergency department with a chief complaint of right low back pain. The pain started yesterday evening and got ac utely worse today when she was driving in her vehicle. She took some Tylenol which helped, but about 1 to 2 hours ago pain got worse. Patient currently complains of nausea with no vomiting, denies acute shortness of breath or chest pain, denies diaphoresis, denies abdominal pain, denies urinary symptoms, denies hematuria. Patient's surgical history consists of a hysterectomy and hernia repair. TRAVEL OUTSIDE OF THE [place] IN LAST 30 DAYS: No - Related Data Allergies/Adverse Reactions: cephalexin monohydrate [From Keflex] Allergy (Unknown, Verified 03/04/19 15:49) nausea/vomiting metformin [Metformin] Allergy (Unknown, Verified 03/04/19 15:49) nausea/vomiting Sulfa (Sulfonamide Antibiotics) Allergy (Unknown, Verified 03/04/19 15:49) itching/rash Past Medical History - Social History Smoking Status: Never Smoker Chew tobacco use (# tins/day): No Frequency of alcohol use: None Drug Abuse: None Family History: Reviewed & Not Pertinent, Hypertension Patient has suicidal ideation: No Patient has homicidal ideation: No - Past Medical History Cardiac Medical History: Reports: Hx Coronary Artery Disease, Hx Hypercholesterolemia, Hx Hypertension, Hx Heart Murmur Denies: Hx Atrial Fibrillation, Hx Congestive Heart Failure, Hx Heart Attack, Hx Peripheral Vascular Disease, Hx Pulmonary Embolism Pulmonary Medical History: Reports: Hx Pneumonia, Hx Sleep Apnea Denies: Hx Asthma, Hx Bronchitis, Hx COPD, Hx Respiratory Failure, Hx Tube rculosis Neurological Medical History: Denies: Hx Cerebrovascular Accident, Hx Seizures Endocrine Medical History: Reports: Hx Diabetes Mellitus Type 2, Hx Hypothyroidism - Being followed by director of cardiology service line in [place]. On no medicine for this. Renal/ Medical History: Denies: Hx End Stage Renal Disease, Hx Kidney Stones, Hx Ovarian Cysts, Hx Peritoneal Dialysis, Hx Pelvic Inflammatory Disease Malignancy Medical History: Denies: Hx Breast Cancer, Hx Cervical Cancer, Hx Leukemia, Hx Lung Cancer, Hx Ovarian Cancer GI Medical History: Denies: Hx Crohn's Disease, Hx Gastroesophageal Reflux Disease, Hx Hepatitis, Hx Hiatal Hernia, Hx Irritable Bowel, Hx Liver Failure, Hx Pancreatitis, Hx Ulcer Musculoskeletal Medical History: Reports Hx Arthritis, Denies Hx Fibromyalgia, Reports Hx Gout, Denies Hx Muscular Dystrophy Skin Medical History: Denies Hx MRSA Psychiatric Medical History: Denies: Hx Depression Traumatic Medical History: Denies: Hx Fractures Infectious Medical History: Denies: Hx Hepatitis, Hx HIV Past Surgical History: Reports: Hx Appendectomy, Hx Cardiac Surgery, Hx Coronary Artery Bypass Graft - July 07, 2014, Hx Gynecologic Surgery, Hx Herniorrhaphy, Hx Hysterectomy, Hx Orthopedic Surgery, Hx Vascular Surgery. Denies: Hx Bowel Surgery, Hx Section, Hx Cholecystectomy, Hx Colostomy, Hx Gastric Bypass Surgery, Hx Mastectomy, Hx Open Heart Surgery, Hx Pacemaker, Hx Tonsillectomy, Hx Tubal Ligation - Immunizations Hx Diphtheria, Pertussis, Tetanus Vaccination: Yes Hx Pneumococcal Vaccination: 02/18/11 Review of Systems - Review of Systems Constitutional: See HPI EENT: No symptoms reported Cardiovascular: See HPI Respiratory: See HPI Gastrointestinal: See HPI Genitourinary: No symptoms reported Female Genitourinary: No symptoms reported Musculoskeletal: See HPI Skin: No symptoms reported Hematologic/Lymphatic: No symptoms reported Neurological/Psychological: No symptoms reported Physical Exam - Vital signs Vitals: Temp Pulse Resp BP Pulse Ox 98.3 F 70 20 221/75 H 98 03/04/19 15:29 03/04/19 15:29 03/04/19 15:29 03/04/19 15:29 03/04/19 15:29 - Notes Notes: PHYSICAL EXAMINATION: Reviewed vital signs and charting by RN GENERAL: Alert, interacts well. No acute distress. HEAD: Normocephalic, atraumatic. EYES: Pupils equal and round. Extraocular movements intact. ENT: Oral mucosa moist, tongue midline. NECK: Full range of motion. Trachea midline. LUNGS: Clear to auscultation bilaterally, no wheezes, rales, or rhonchi. No respiratory distress. HEART: Regular rate and rhythm. No murmur ABDOMEN: soft, non-tender. No distention. Bowel sounds present BACK: Right CVAT EXTREMITIES: Moves all 4 extremities spontaneously. Left lower extremity prosthesis below the knee present PSYCH: Normal affect, normal mood. SKIN: Warm, dry, normal turgor. No rashes or lesions noted. Course - Re-evaluation Re-evalutation: 03/04/19 18:21 Patient initially appears in very mild distress but is very pleasant. Lab work all unremarkable, creatinine 1.39 consistent with patient's history of renal in sufficiency. Patient received morphine 4 mg IV once and reported feeling much better. Patient received Zofran and reports that it improved her nausea. CT abdomen pelvis with IV contrast showed a complex 3.4 cm mass on the lower pole of the right kidney potentially explain her symptoms. I will give her follow-up with Dr. De Paz who is Dr. Min's associate. At this time I explained everything to patient and she understands and agrees with plan. Vital signs all within normal limits. She is stable for discharge - Vital Signs Vital signs: Temp Pulse Resp BP Pulse Ox 98.3 F 70 16 202/67 H 99 03/04/19 15:29 03/04/19 15:29 03/04/19 17:01 03/04/19 17:01 03/04/19 17:09 - Laboratory Result Diagrams: 03/04/19 16:00 03/04/19 16:00 Laboratory results interpreted by me: 03/04/19 03/04/19 03/04/19 16:00 16:00 16:00 RBC 3.59 L Hgb 10.3 L Hct 31.5 L RDW 14.9 H BUN 34 H Creatinine 1.39 H Est GFR ( Amer) 45 L Est GFR (MDRD) Non-Af 37 L Glucose 187 H Urine Protein >=500 H Ur Leukocyte Esterase TRACE H Urine Ascorbic Acid 20 H Discharge - Discharge Clinical Impression: Right flank pain Condition: Good Disposition: HOME, SELF-CARE Additional Instructions: You were seen in the emergency department for right flank pain. Your work-up d id show on CT that you have a mass in your right kidney which could explain your symptoms. There was no infection of your kidneys and all of your blood work was all very reassuring. I have given you information for Dr. De Paz, Dr. Min's associate in nephrology, to follow-up in the morning. Please return to the emergency department if you develop severe abdominal pain, intractable nausea or vomiting, severe chest pain or acute shortness of breath, or you have any other concerning symptoms. Referrals: Ubaldo MIN MD [ACTIVE STAFF] - Follow up as needed BOSSMAN BRUCE MD [ACTIVE STAFF] - 03/05/19
[2019-03-04 16:32] LABS: ABSOLUTE BASOPHILS # (AUTO) 0.1 10^3/uL (0.0-0.2); ABSOLUTE EOSINOPHILS # (AUTO) 0.2 10^3/uL (0.0-0.6); ABSOLUTE MONOCYTES (AUTO) 0.6 10^3/uL (0.1-1.4); ABSOLUTE NEUT (AUTO) 3.4 10^3/uL (1.7-8.2); BASOPHILS % (AUTO) 1.2 % (0-2); EOSINOPHILS % (AUTO) 3.1 % (0-6); HEMATOCRIT 31.5 % (36.0-47.0); HEMOGLOBIN 10.3 g/dL (12.0-15.5); LYMPHOCYTES % (AUTO) 31.5 % (13-45); MEAN CORPUSCULAR HEMOGLOBIN 28.7 pg (27.0-33.4); MEAN CORPUSCULAR HGB CONC 32.8 g/dL (32.0-36.0); MEAN CORPUSCULAR VOLUME 88 fl (80-97); PLATELET COUNT 238 10^3/uL (150-450); RED BLOOD COUNT 3.59 10^6/uL (3.72-5.28); RED CELL DISTRIBUTION WIDTH 14.9 % (11.5-14.0); SEGMENTED NEUTROPHILS % (AUTO) 54.2 % (42-78); TOTAL CELLS COUNTED % (AUTO) 100 %; WHITE BLOOD COUNT 6.3 10^3/uL (4.0-10.5)
[2019-03-04 16:43] LABS: APPEARANCE,URINE CLEAR; BILIRUBIN,URINE NEGATIVE (NEGATIVE); COLOR,URINE YELLOW; GLUCOSE, URINE NEGATIVE (NEGATIVE); KETONES,URINE NEGATIVE (NEGATIVE); LEUKOCYTE ESTERASE,URINE TRACE (NEGATIVE); NITRITE,URINE NEGATIVE (NEGATIVE); PROTEIN,URINE >=500 mg/dL (NEGATIVE); URINE SPECIFIC GRAVITY 1.012; UROBILINOGEN,URINE NEGATIVE mg/dL (<2.0)
[2019-03-04 16:51] LABS: ALBUMIN 3.5 g/dL (3.5-5.0); ALKALINE PHOSPHATASE 117 U/L (38-126); ANION GAP 8 (5-19); ASPARTATE AMINO TRANSFERASE 26 U/L (14-36); BILIRUBIN,DIRECT 0.1 mg/dL (0.0-0.4); BILIRUBIN,TOTAL 0.4 mg/dL (0.2-1.3); BLOOD UREA NITROGEN 34 mg/dL (7-20); CARBON DIOXIDE 29 mmol/L (22-30); CHLORIDE 106 mmol/L (98-107); GLUCOSE 187 mg/dL (75-110); POTASSIUM 4.1 mmol/L (3.6-5.0); TOTAL PROTEIN 6.6 g/dL (6.3-8.2)
--- NOTE | 2019-03-04 17:55 | RADIOLOGY REPORT (SQ) ---
EXAM DESCRIPTION: CT ABD/PELVIS WITH IV ONLY COMPLETED DATE/TIME: 03/04/2019 5:16 pm REASON FOR STUDY: R flank pain, abdominal pain COMPARISON: None. TECHNIQUE: CT scan of the abdomen and pelvis performed using helical scanning technique with dynamic intravenous contrast injection. No oral contrast. Images reviewed with lung, soft tissue, and bone w indows. Reconstructed coronal and sagittal MPR images reviewed. Delayed images for evaluation of the urinary system also acquired. All images stored on PACS. All CT scanners at this facility use dose modulation, iterative reconstruction, and/or weight based d osing when appropriate to reduce radiation dose to as low as reasonably achievable (ALARA). [facility]: Dose Right [facility]: CareDose [facility]: Dose Right [facility]: Teradose 4D [facility]: [facility] CONTRAST TYPE AND DOSE: contrast/concentration: Isovue 300.00 mg/ml; Total Contrast Delivered: 89.0 ml; Total Saline Delivered: 23.0 ml RENAL FUNCTION: BUN 34 creatinine 1.39 RADIATION DOSE: CT Rad equipment meets quality standard of care and radiation dose reduction techniq ues were employed. CTDIvol: 19.8 - 20.9 mGy. DLP: 2162 mGy-cm.. LIMITATIONS: None. FINDINGS: LOWER CHEST: Mild right basilar scarring -pleural thickening. LIVER: Normal size. No enhancing masses. No dilated ducts. SPLEEN: Normal size. No focal lesions. PANCREAS: No masses identified. No significant calcifications. No adjacent inflammation or peripancre atic fluid collections. Pancreatic duct not dilated. GALLBLADDER: No calcified stones. No inflammatory changes to suggest cholecystitis. ADRENAL GLANDS: No significant masses. RIGHT KIDNEY AND URETER: 3.4 cm complex mass in the lower pole of the right kidney. No calcified ston es. No hydronephrosis or hydroureter. Scattered small cysts. LEFT KIDNEY AND URETER: Scattered small cysts identified. No solid masses identified. No calcified st ones. No hydronephrosis or hydroureter. AORTA AND VESSELS: No aneurysm. No dissection. Renal arteries, SMA, celiac without significant stenos is. RETROPERITONEUM: No bulky retroperitoneal adenopathy. BOWEL AND PERITONEAL CAVITY: No obstruction or inflammatory changes. No free fluid. APPENDIX: Not visualized. PELVIS: Prior hysterectomy. No free fluid. Unremarkable bladder. ABDOMINAL WALL: No masses. No hernias. BONES: No acute findings. OTHER: No other significant finding. IMPRESSION: 3.4 cm complex mass in the lower pole of the right kidney. TECHNICAL DOCUMENTATION: JOB ID: [id number] [place]-72 Quality ID # [id number]: Final reports with documentation of one or more dose reduction techniques (e.g., Au tomated exposure control, adjustment of the mA and/or kV according to patient size, use of iterative reconstruction technique) 2010 [employer]- All Rights Reserved Reading location - IP/workstation name: [email or web address]
--- NOTE | 2019-03-04 17:59 | EKG REPORT ---
SEVERITY:- ABNORMAL ECG - SINUS RHYTHM LVH WITH IVCD, LAD AND SECONDARY REPOL ABNRM : Confirmed by: Justyna Estrella 04-Mar-2019 17:59:14
[2019-03-04 18:35] VITALS: BP 193/80
== END 2019-03-04 18:48 | disposition home or self-care (01) ==
LOC: ER 15:23
DX: R10.9 Unspecified abdominal pain (principal); M54.9 Dorsalgia, unspecified; R11.2 Nausea with vomiting, unspecified; I25.10 Atherosclerotic heart disease of native coronary artery without angina pectoris; I10 Essential (primary) hypertension; E11.40 Type 2 diabetes mellitus with diabetic neuropathy, unspecified; Z89.512 Acquired absence of left leg below knee
CPT/HCPCS: 93005; 36415; 83690; 85025; 80053; 81001; 84484; 74177; 93010; J2270; J2405

== ENCOUNTER 2019-03-12 21:51 | Inpatient (IN) | payer MEDICARE, OTHER ==
[2019-03-12 22:18] LABS: ABSOLUTE BASOPHILS # (AUTO) 0.1 10^3/uL (0.0-0.2); ABSOLUTE EOSINOPHILS # (AUTO) 0.2 10^3/uL (0.0-0.6); ABSOLUTE LYMPHOCYTES (AUTO) 1.6 10^3/uL (0.5-4.7); HEMATOCRIT 29.5 % (36.0-47.0); HEMOGLOBIN 9.5 g/dL (12.0-15.5); TOTAL CELLS COUNTED % (AUTO) 100 %; WHITE BLOOD COUNT 9.3 10^3/uL (4.0-10.5)
[2019-03-12 22:21] LABS: ABSOLUTE MONOCYTES (AUTO) 0.9 10^3/uL (0.1-1.4); ABSOLUTE NEUT (AUTO) 6.5 10^3/uL (1.7-8.2); BASOPHILS % (AUTO) 1.3 % (0-2); EOSINOPHILS % (AUTO) 2.4 % (0-6); LYMPHOCYTES % (AUTO) 16.8 % (13-45); MEAN CORPUSCULAR HEMOGLOBIN 28.8 pg (27.0-33.4); MEAN CORPUSCULAR HGB CONC 32.4 g/dL (32.0-36.0); MEAN CORPUSCULAR VOLUME 89 fl (80-97); MONOCYTES % (AUTO) 9.3 % (3-13); PLATELET COUNT 290 10^3/uL (150-450); RED BLOOD COUNT 3.32 10^6/uL (3.72-5.28); SEGMENTED NEUTROPHILS % (AUTO) 70.2 % (42-78)
--- NOTE | 2019-03-12 22:23 | RADIOLOGY REPORT (SQ) ---
EXAM DESCRIPTION: XR CHEST 1 VIEW COMPLETED DATE/TME: 03/12/2019 21:57 CLINICAL HISTORY: 73 years, Female, difficulty breathing COMPARISON: 07/01/2015 chest NUMBER OF VIEWS: 1 TECHNIQUE: Portable chest LIMITATIONS: Heart is mildly enlarged and stable postsurgical change. Mild interstitial edema. Suspected tiny bibasilar effusions. Subsegmental atelectasis bilaterally. No pneumothorax FINDINGS: Mild cardiomegaly. Mild interstitial edema. Tiny bibasilar effusions. IMPRESSION: copyright 2010 [employer]- All Rights Reserved
[2019-03-12] MEDS ORDERED: FUROSEMIDE INJ/PF 100 MG/10 ML SDV IV ONE (22:28)
[2019-03-12] MEDS ORDERED: NITROGLYCERIN 2% OINTMENT 1 GM PACKET TP ONE (22:29)
[2019-03-12] MEDS ORDERED: ENALAPRILAT DIHYDRATE INJ/PF 1.25 MG/1 ML SDV IV ONE (22:35)
[2019-03-12 22:38] LABS: ALBUMIN 3.7 g/dL (3.5-5.0); ALKALINE PHOSPHATASE 162 U/L (38-126); ANION GAP 10 (5-19); ASPARTATE AMINO TRANSFERASE 57 U/L (14-36); BILIRUBIN,DIRECT 0.1 mg/dL (0.0-0.4); BILIRUBIN,TOTAL 0.4 mg/dL (0.2-1.3); BLOOD UREA NITROGEN 48 mg/dL (7-20); CARBON DIOXIDE 25 mmol/L (22-30); CHLORIDE 103 mmol/L (98-107); CREATINE KINASE 114 U/L (30-135); GLUCOSE 231 mg/dL (75-110); POTASSIUM 5.2 mmol/L (3.6-5.0); TOTAL PROTEIN 6.9 g/dL (6.3-8.2)
[2019-03-12] MEDS ORDERED: ONDANSETRON HCL INJ/PF 4 MG/2 ML SDV IV ONE (22:41)
--- NOTE | 2019-03-12 22:41 | ER Document Report ---
ED General - General Chief Complaint: Shortness Of Breath Stated Complaint: SHORTNESS OF BREATH Time Seen by Provider: 03/12/19 22:27 Primary Care Provider: MARTIN WICK MD [Primary Care Provider] - Follow up as needed Mode of Arrival: Medic Information source: Patient TRAVEL OUTSIDE OF THE [place] IN LAST 30 DAYS: No - HPI Notes: Patient is a 73-year-old female history of chronic renal insufficiency with creatinines ago was high as 2.5 in the past in 2017, history of coronary bypass surgery in 2014 with an episode of CHF, and was seen with a creatinine of 1.39 on 03/04/2019 with right flank pain had a CT scan with IV contrast which showed a complex 3.4 cm right renal mass. The patient was sent in follow-up to [place] where she was noted to have a creatinine to rise up to 2.3 and later went up to 2.45 according to the patient. Based upon this, the patient had her Lasix and her lisinopril discontinued and she was noted to have difficulty breathing after IV fluids prior to discharge from [facility]. Prior to discharge they gave her 1 dose of IV Lasix. She went home noticing progressive dyspnea, and when trying to undress, she developed significant dyspnea and dropped her oxygen saturations for EMS in the 70s to 80s. She reports having increased lower extremity swelling over the past week. Patient did report mild prior tightness in the chest, but currently denies any chest pain. The patient still reports the chronic right flank pain which is unchanged over the last 10 days. The patient reports a mild nausea but denies any vomiting. She denies any constipation or diarrhea or dysuria. No fever or chills. No productive cough. No abdominal pain or hematuria. - Related Data Allergies/Adverse Reactions: cephalexin monohydrate [From Keflex] Allergy (Unknown, Verified 03/12/19 22:58) nausea/vomiting metformin [Metformin] Allergy (Unknown, Verified 03/12/19 22:58) nausea/vomiting Sulfa (Sulfonamide Antibiotics) Allergy (Unknown, Verified 03/12/19 22:58) itching/rash promethazine [From Phenergan] Adverse Reaction (Mild, Verified 03/12/19 22:58) Hallucinations Past Medical History - General Information source: Patient - Social History Smoking Status: Never Smoker Chew tobacco use (# tins/day): No Frequency of alcohol use: None Drug Abuse: None Lives with: Family Family History: Reviewed & Not Pertinent, Hypertension Patient has suicidal ideation: No Patient has homicidal ideation: No - Past Medical History Cardiac Medical History: Reports: Hx Coronary Artery Disease, Hx Hypercholesterolemia, Hx Hypertension, Hx Heart Murmur Denies: Hx Atrial Fibrillation, Hx Congestive Heart Failure, Hx Heart Attack, Hx Peripheral Vascular Disease, Hx Pulmonary Embolism Pulmonary Medical History: Reports: Hx Pneumonia, Hx Sleep Apnea Denies: Hx Asthma, Hx Bronchitis, Hx COPD, Hx Respiratory Failure, Hx Tuberculosis Neurological Medical History: Denies: Hx Cerebrovascular Accident, Hx Seizures Endocrine Medical History: Reports: Hx Diabetes Mellitus Type 2, Hx Hypothyroidism - Being followed by bead builder in [place]. On no medicine for this. Renal/ Medical History: Denies: Hx End Stage Renal Disease, Hx Kidney Stones, Hx Ovarian Cysts, Hx Peritoneal Dialysis, Hx Pelvic Inflammatory Disease Malignancy Medical History: Denies: Hx Breast Cancer, Hx Cervical Cancer, Hx Leukemia, Hx Lung Cancer, Hx Ovarian Cancer GI Medical History: Denies: Hx Crohn's Disease, Hx Gastroesophageal Reflux Disease, Hx Hepatitis, Hx Hiatal Hernia, Hx Irritable Bowel, Hx Liver Failure, Hx Pancreatitis, Hx Ulcer Musculoskeletal Medical History: Reports Hx Arthritis, Denies Hx Fibromyalgia, Reports Hx Gout, Denies Hx Muscular Dystrophy Skin Medical History: Denies Hx MRSA Psychiatric Medical History: Denies: Hx Depression Traumatic Medical History: Denies: Hx Fractures Infectious Medical History: Denies: Hx Hepatitis, Hx HIV Past Surgical History: Reports: Hx Appendectomy, Hx Cardiac Surgery, Hx Coronary Artery Bypass Graft - July 07, 2014, Hx Gynecologic Surgery, Hx Herniorrhaphy, Hx Hysterectomy, Hx Orthopedic Surgery, Hx Vascular Surgery. Denies: Hx Bowel Surgery, Hx Section, Hx Cholecystectomy, Hx Colostomy, Hx Gastric Bypass Surgery, Hx Mastectomy, Hx Open Heart Surgery, Hx Pacemaker, Hx Tonsillectomy, Hx Tubal Ligation - Immunizations Hx Diphtheria, Pertussis, Tetanus Vaccination: Yes Hx Pneumococcal Vaccination: 02/18/11 Review of Systems - Review of Systems -: Yes All other systems reviewed and negative Physical Exam - Vital signs Vitals: Temp Pulse Resp BP 98.7 F 99 28 H 205/86 H 03/12/19 21:52 03/12/19 21:52 03/12/19 21:52 03/12/19 21:52 - Notes Notes: PHYSICAL EXAMINATION: GENERAL: Well-appearing, well-nourished and in obvious distress with dyspnea on arrival, but patient quickly improved after BiPAP.. HEAD: Atraumatic, normocephalic. EYES: Pupils equal round and reactive to light, extraocular movements intact, conjunctiva are normal. ENT: Nares patent, oropharynx clear without exudates. Moist mucous membranes. NECK: Normal range of motion, supple without lymphadenopathy. JVD noted. LUNGS: Breath sounds coarse to auscultation bilaterally and equal with obvious mid to lower lung field rales. No rhonchi. HEART: Regular rate and rhythm with a 1/6 NIELS murmur over apex. ABDOMEN: Soft, nontender, nondistended abdomen. No guarding, no rebound. No masses appreciated. Female : deferred Musculoskeletal: Normal range of motion. No cyanosis. Patient has a left BKA. She has 2+ edema right lower extremity. Negative Homans. No palpable cord. NEUROLOGICAL: Cranial nerves grossly intact. Normal speech, normal gait. Normal sensory, motor exams PSYCH: Normal mood, normal affect. SKIN: Warm, Dry, normal turgor, no rashes or lesions noted. Course - Re-evaluation Re-evalutation: 03/12/19 22:44 On arrival, the patient was placed upon BiPAP with significant improvement in her O2 sats went from initial EMS report of 70s to 80s up to 100%. She remained completely alert and interactive throughout. The patient denied ever having any chest pain. Patient was given Lasix 80 mg IV, 2 inches of nitroglycerin paste, IV enalapril, and Zofran for nausea with improvement. Patient diuresed close to 1 L of urine with further improvement in her blood pressure from initial 202/92 and felt much better with O2 sats 98% on 2 L of oxygen. However, when the patient was taken off of oxygen, her O2 sats dropped down to 88% and she developed more dyspnea. Patient was sat upright and placed back on her oxygen with improvement. Repeat lung exam showed no significant wheezing, but this still was mid to lower lung field crackles noted. Initial and repeat troponin were negative. Discussion was undertaken with the patient and her family and they were in agreement with the patient being admitted for further evaluation and care and diuresis and repeat cardiac evaluation. Discussion was undertaken with the hospitalist Dr. Bridges who agreed to admit the patient. No obvious evidence for acute AR or ischemia. No evidence for pneumonia or CHF. Given the gradual worsening of discomfort and dyspnea related to stopping the patient's Lasix and lisinopril, this fits more with the CHF episode. Patient's creatinine of 2.4 is consistent with more recent and also remote values with her chronic renal insufficiency. 03/13/19 05:14 Repeat EKG #2 done at 0 430 as interpreted by me showed normal sinus rhythm heart rate of 63. There again was LVH with repolarization changes. There is no gross evidence for acute AR or ischemia noted. Mild lead placement variation is noted from prior EKG. 03/13/19 05:18 - Vital Signs Vital signs: Temp Pulse Resp BP Pulse Ox 98.7 F 99 21 H 152/67 H 100 03/12/19 21:52 03/12/19 21:52 03/13/19 04:01 03/13/19 04:01 03/13/19 04:01 - Laboratory Result Diagrams: 03/12/19 22:02 03/12/19 22:02 Laboratory results interpreted by me: 03/12/19 03/12/19 03/12/19 22:02 22:02 22:02 RBC 3.32 L Hgb 9.5 L Hct 29.5 L RDW 15.0 H Potassium 5.2 H BUN 48 H Creatinine 2.40 H Est GFR ( Amer) 24 L Est GFR (MDRD) Non-Af 20 L Glucose 231 H Magnesium 2.8 H AST 57 H Alkaline Phosphatase 162 H NT-Pro-B Natriuret Pep Urine Protein 03/12/19 03/12/19 22:02 22:51 RBC Hgb Hct RDW Potassium BUN Creatinine Est GFR ( Amer) Est GFR (MDRD) Non-Af Glucose Magnesium AST Alkaline Phosphatase NT-Pro-B Natriuret Pep 1890 H Urine Protein 100 H - EKG Interpretation by [place] EKG shows normal: Sinus rhythm Additional EKG results interpreted by me: 03/12/19 22:45 EKG is interpreted by oh showed normal sinus rhythm heart rate of 71. There is no gross evidence for acute AR or ischemia noted. There is LVH with repolarization abnormality and nonspecific interventricular conduction delay. No old EKG available for comparison. Discharge - Discharge Clinical Impression: Renal mass, right, Hypoxia, Renal insufficiency CHF (congestive heart failure) Qualifiers: Heart failure type: unspecified Heart failure chronicity: acute on chronic Qualified Code(s): I50.9 - Heart failure, unspecified Condition: Stable Disposition: ADMITTED INPATIENT Admitting Provider: Cyrus (Hospitalist) Unit Admitted: IMCU Referrals: MARTIN WICK MD [Primary Care Provider] - Follow up as needed
[2019-03-12 22:50] LABS: CREATINE KINASE MB 1.05 ng/mL (<4.55)
[2019-03-12 22:55] LABS: TROPONIN I < 0.012 ng/mL
[2019-03-12 23:26] LABS: APPEARANCE,URINE CLEAR; BILIRUBIN,URINE NEGATIVE (NEGATIVE); COLOR,URINE STRAW; GLUCOSE, URINE NEGATIVE (NEGATIVE); KETONES,URINE NEGATIVE (NEGATIVE); LEUKOCYTE ESTERASE,URINE NEGATIVE (NEGATIVE); NITRITE,URINE NEGATIVE (NEGATIVE); PROTEIN,URINE 100 mg/dL (NEGATIVE); UROBILINOGEN,URINE NEGATIVE mg/dL (<2.0)
[2019-03-13] MEDS ORDERED: DEXTROSE 40% GEL 15 GM TUBE PO PRN ×2 (05:17)
[2019-03-13] MEDS ORDERED: DEXTROSE 50%-WATER 25 GM/50 ML DISP.SYRIN IV PRN ×2 (05:17)
[2019-03-13] MEDS ORDERED: GLUCAGON,HUMAN RECOMB 1 MG INJ IM PRN (05:17)
[2019-03-13] MEDS ORDERED: MAGNESIUM HYDROXIDE SUSP 30 ML UDCUP PO PRN (05:17)
[2019-03-13] MEDS: HEPARIN SOD (PORCINE) 5,000 UNIT/ML 1 ML VIAL SUBCUT SCH ×3 (05:36→22:53)
[2019-03-13] MEDS ORDERED: LACTULOSE SYRUP 20 GM/30 ML UDCUP PO ONE (06:00)
--- NOTE | 2019-03-13 06:21 | PDOC H&P ---
History of Present Illness Admission Date/PCP: 03/13/19 05:34 MARTIN WICK Patient complains of: Shortness of breath History of Present Illness: JAQUELIN SKELTON is a 73 year old female with a past medical history of type 2 diabetes, hypertension, dyslipidemia, peripheral vascular disease, coronary artery disease status post bypass graft in 2014, obstructive sleep apnea with noncompliance, CKD 3, 3.4 cm right renal mass. Diet and lifestyle noncompliance. Patient presents with shortness of breath. Patient was seen March 04, 2019 with right flank pain prompting a IV contrasted CT showing a 3.4 cm right renal mass. Subsequent follow-up in [place] she is found to have a creatinine of 2.4 resulting in discontinuation of Lasix and lisinopril. Over the last 5 days she has had significant orthopnea and dyspnea with exertion. EMS records pulse oximetry of 80%. She denies chest pain nausea vomiting or diaphoresis. In the emergency room she is found to have systolic pressure of 210, hypoxia and tachypnea. She receives IV Lasix, BiPAP and referred to the hospitalist for admission. Patient admits to blood sugars in the 250 range, noncompliance with BiPAP and using temazepam for sleep. Past Medical History Cardiac Medical History: Reports: Coronary Artery Disease, Hyperlipidema, Hypertension, Heart Murmur Denies: Atrial Fibrillation, Congestive Heart Failure, Myocardial Infarction, Peripheral Vascular Disease, Pulmonary Embolism Pulmonary Medical History: Reports: Pneumonia, Sleep Apnea Denies: Asthma, Bronchitis, Chronic Obstructive Pulmonary Disease (COPD), Respiratory Failure, Tuberculosis Neurological Medical History: Denies: Seizures Endocrine Medical History: Reports: Diabetes Mellitus Type 2, Hypothyroidism - Being followed by harvesting contractor in [place]. On no medicine for this. Renal/ Medical History: Denies: End Stage Renal Disease Malignancy Medical History: Denies: Breast Cancer, Cervical Cancer, Leukemia, Lung Cancer, Ovarian Cancer GI Medical History: Denies: Crohn's Disease, Gastroesophageal Reflux Disease, Hepatitis, Hiatal Hernia Musculoskeltal Medical History: Reports: Arthritis, Gout Denies: Fibromyalgia Psychiatric Medical History: Denies: Depression Hematology: Denies: Anemia, Hemophilia, Sickle Cell Disease Infectious Medical History: Denies: HIV Past Surgical History Past Surgical History: Reports: Appendectomy, Coronary Artery Bypass Graft - July 07, 2014, Herniorrhaphy, Hysterectomy, Orthopedic Surgery, Vascular Surgery Denies: Amputation, Section, Cholecystectomy, Colostomy, Gastric Bypass Surgery, Mastectomy, Pacemaker, Tonsillectomy, Tubal Ligation Social History Information Source: Patient, [facility] Records Lives with: Family Smoking Status: Never Smoker Electronic Cigarette use?: No Frequency of Alcohol Use: None Hx Recreational Drug Use: No Drugs: None Hx Prescription Drug Abuse: No - Advance Directive Resuscitation Status: Full Code Family History Family History: Hypertension Parental Family History Reviewed: Yes Children Family History Reviewed: Yes Sibling(s) Family History Reviewed.: Yes Medication/Allergy Home Medications: Acetaminophen [Tylenol] 325 mg PO Q6 06/22/15 Allopurinol [Zyloprim 100 mg Tablet] 100 mg PO DAILY 06/22/15 Amlodipine Besylate 5 mg PO DAILY 06/22/15 Atorvastatin Calcium 40 mg PO DAILY 06/22/15 Docusate Sodium [Colace 100 mg Capsule] 100 mg PO DAILY 06/22/15 Furosemide 40 mg PO DAILY 06/22/15 Insulin Glargine,Hum.rec.anlog [Lantus] 20 unit SQ QHS 06/22/15 Insulin Glulisine [Apidra Insulin (Glulisine) 100 unit/mL] 6 unit SUBCUT PRN 06/22/15 Multivit,Calc,Mins/Iron/Folic [Thera M Plus Tablet] 1 each PO DAILY 06/22/15 Polyethylene Glycol 3350 [Miralax Powder 17 gm/Packet] 1 packet PO BID PRN 06/22/15 Spironolactone [Aldactone 25 mg Tablet] 12.5 mg PO ASDIR 06/22/15 Temazepam [Restoril 15 mg Capsule] 15 mg PO QHS PRN 06/22/15 Aspirin [Aspirin 81 mg Chewable Tablet] 81 mg PO DAILY #0 tab.chew 06/25/15 Azithromycin 500 mg PO DAILY #7 tablet 06/25/15 Ferrous Sulfate [Feosol 325 mg Tablet] 325 mg PO BIDPCBS #0 tablet 06/25/15 Hydrocodone/Acetaminophen [[place] 5-325 mg Tablet] 1 tab PO BID #0 06/25/15 Morphine Sulfate [Morphine Ir 15 mg Tablet] 15 mg PO Q4HP PRN #12 tablet 11/13/16 Allergies/Adverse Reactions: cephalexin monohydrate [From Keflex] Allergy (Unknown, Verified 03/12/19 22:58) nausea/vomiting metformin [Metformin] Allergy (Unknown, Verified 03/12/19 22:58) nausea/vomiting Sulfa (Sulfonamide Antibiotics) Allergy (Unknown, Verified 03/12/19 22:58) itching/rash promethazine [From Phenergan] Adverse Reaction (Mild, Verified 03/12/19 22:58) Hallucinations Review of Systems ROS unobtainable: Other - Shortness of breath Physical Exam Vital Signs: Temp Pulse Resp BP Pulse Ox 98.4 F 60 15 152/67 H 97 03/13/19 04:55 03/13/19 05:10 03/13/19 05:45 03/13/19 04:01 03/13/19 05:45 Intake & Output 03/11/19 03/12/19 03/13/19 11:59 11:59 11:59 Output Total 900 Balance -900 Weight 112.8 kg General appearance: PRESENT: cooperative, disheveled, morbidly obese, severe distress, well-developed, well-nourished Head exam: PRESENT: atraumatic, normocephalic Eye exam: PRESENT: conjunctiva pink, EOMI, PERRLA. ABSENT: scleral icterus Ear exam: PRESENT: normal external ear exam Mouth exam: PRESENT: moist, tongue midline Neck exam: PRESENT: JVD. ABSENT: carotid bruit, lymphadenopathy, thyromegaly Respiratory exam: PRESENT: clear to auscultation ricki, crackles, prolonged expiratory phas, wheezes. ABSENT: rales, rhonchi Cardiovascular exam: PRESENT: gallop, RRR. ABSENT: diastolic murmur, rubs, systolic murmur Pulses: PRESENT: normal dorsalis pedis pul Vascular exam: PRESENT: normal capillary refill GI/Abdominal exam: PRESENT: distended, hypoactive bowel sounds, normal bowel s ounds, soft. ABSENT: guarding, mass, organolmegaly, rebound, tenderness Rectal exam: PRESENT: deferred Extremities exam: PRESENT: +1 edema Neurological exam: PRESENT: alert, awake, oriented to person, oriented to place, oriented to time, oriented to situation, CN II-XII grossly intact. ABSENT: motor sensory deficit Psychiatric exam: PRESENT: appropriate affect, normal mood. ABSENT: homicidal ideation, suicidal ideation Skin exam: PRESENT: dry, intact, warm. ABSENT: cyanosis, rash Results Laboratory Results: 03/12/19 22:02 03/12/19 22:02 03/12/19 03/12/19 03/12/19 22:02 22:02 22:02 WBC 9.3 RBC 3.32 L Hgb 9.5 L Hct 29.5 L MCV 89 MCH 28.8 MCHC 32.4 RDW 15.0 H Plt Count 290 Seg Neutrophils % 70.2 Sodium 138.3 Potassium 5.2 H Chloride 103 Carbon Dioxide 25 Anion Gap 10 BUN 48 H Creatinine 2.40 H Est GFR ( Amer) 24 L Glucose 231 H Calcium 9.0 Magnesium 2.8 H Total Bilirubin 0.4 AST 57 H Alkaline Phosphatase 162 H Total Protein 6.9 Albumin 3.7 Urine Color Urine Appearance Urine pH Ur Specific [place] Urine Protein Urine Glucose (UA) Urine Ketones Urine Blood Urine Nitrite Ur Leukocyte Esterase Urine WBC (Auto) Urine RBC (Auto) 03/12/19 22:51 WBC RBC Hgb Hct MCV MCH MCHC RDW Plt Count Seg Neutrophils % Sodium Potassium Chloride Carbon Dioxide Anion Gap BUN Creatinine Est GFR ( Amer) Glucose Calcium Magnesium Total Bilirubin AST Alkaline Phosphatase Total Protein Albumin Urine Color STRAW Urine Appearance CLEAR Urine pH 5.0 Ur Specific [place] 1.010 Urine Protein 100 H Urine Glucose (UA) NEGATIVE Urine Ketones NEGATIVE Urine Blood NEGATIVE Urine Nitrite NEGATIVE Ur Leukocyte Esterase NEGATIVE Urine WBC (Auto) 2 Urine RBC (Auto) 0 03/12/19 03/12/19 03/12/19 22:02 22:02 22:02 Creatine Kinase 114 CK-MB (CK-2) 1.05 Troponin I < 0.012 NT-Pro-B Natriuret Pep 1890 H 03/13/19 01:13 Creatine Kinase CK-MB (CK-2) Troponin I < 0.012 NT-Pro-B Natriuret Pep Impressions: Chest X-Ray 03/12/19 21:57 IMPRESSION: copyright 2010 [employer]- All Rights Reserved Assessment and Plan - Diagnosis (1) CHF (congestive heart failure) Qualifiers: Heart failure type: unspecified Heart failure chronicity: acute on chronic Qualified Code(s): I50.9 - Heart failure, unspecified Is this a current diagnosis for this admission?: Yes Plan: Multifactorial diastolic failure exacerbation secondary to diet and lifestyle noncompliance, CHF care set deployed, gentle diuresis for volume reduction, blood pressure control, nitrate, BiPAP, education (2) Renal mass, right Is this a current diagnosis for this admission?: Yes Plan: Unclear work-up, follow-up medical record from [facility] requested. (3) Anemia Is this a current diagnosis for this admission?: Yes Plan: Follow-up anemia labs (4) CKD (chronic kidney disease) Is this a current diagnosis for this admission?: Yes Plan: Acute exacerbation of chronic kidney disease secondary to aggressive diuresis, avoid nephrotoxic meds and doses, follow-up chemistry (5) Diabetes Is this a current diagnosis for this admission?: Yes Plan: Humalog sliding scale, follow-up medication reconciliation (6) RENETTA treated with BiPAP Is this a current diagnosis for this admission?: Yes Plan: BiPAP ordered, limit temazepam, education (7) Morbid obesity Is this a current diagnosis for this admission?: Yes Plan: Morbid obesity will evaluate for metabolic cause with evaluation of thyroid function and dietitian consultation - Time Time Spent with patient: 35 or more minutes - Inpatient Certification Medical Necessity: Significant Comorbidiites Make Outpatient Treatment Too Risky, Need Close Monitoring Due to Risk of Patient Decompensation
[2019-03-13 06:38] LABS: ABSOLUTE RETICS # 0.059 10^6/uL (0.028-0.122)
[2019-03-13 06:53] LABS: IRON(TIBC) 34.1 ug/dL (37-170)
[2019-03-13 08:12] LABS: FOLATE > 20.00 ng/mL (>2.76)
[2019-03-13] MEDS: INSULIN LISPRO 100 UNIT/ML 3 ML VIAL SUBCUT SCH ×3 (08:57→16:40)
[2019-03-13] MEDS ORDERED: FUROSEMIDE INJ/PF 40 MG/4 ML SDV IV SCH (10:00)
[2019-03-13] MEDS: LACTULOSE SYRUP 20 GM/30 ML UDCUP PO SCH (10:29)
[2019-03-13] MEDS: METOPROLOL TARTRATE 50 MG TABLET PO SCH ×2 (10:29→22:54)
[2019-03-13] MEDS: LOSARTAN POTASSIUM 50 MG TABLET PO SCH (10:30)
[2019-03-13] MEDS: ASPIRIN 81 MG TABLET, ENT COATED PO SCH (10:30)
[2019-03-13] MEDS: NITROGLYCERIN 10 MG (0.4 MG/HR) PATCH.TD24 TD SCH (10:30)
[2019-03-13] MEDS ORDERED: NA PHOS,M-B/NA PHOS,DI-BA (ADULT) 133 ML ENEMA PR PRN (16:11)
[2019-03-13] MEDS ORDERED: BISACODYL 10 MG SUPP.RECT PR ONE (16:30)
[2019-03-13] MEDS: MAG HYDROX/AL HYDROX/SIMETH SUSP 30 ML UDCUP PO PRN (16:40)
[2019-03-13] MEDS: ACETAMINOPHEN 325 MG TABLET PO PRN (16:40)
--- NOTE | 2019-03-13 20:16 | EKG REPORT ---
SEVERITY:- ABNORMAL ECG - SINUS RHYTHM NONSPECIFIC INTRAVENTRICULAR CONDUCTION DELAY LVH WITH SECONDARY REPOLARIZATION ABNORMALITY : Confirmed by: Roxi Anderson MD 13-Mar-2019 20:15:38
--- NOTE | 2019-03-13 20:16 | EKG REPORT ---
SEVERITY:- ABNORMAL ECG - SINUS RHYTHM NONSPECIFIC INTRAVENTRICULAR CONDUCTION DELAY PROBABLE LVH WITH SECONDARY REPOL ABNRM : Confirmed by: Roxi Anderson MD 13-Mar-2019 20:15:43
--- NOTE | 2019-03-13 20:39 | PDOC CONSULTATION ---
Consultation Consult Date: 03/13/19 Provider Consulted: BOSSMAN BRUCE Consult reason:: I was asked to see the patient due to acute worsening of kidney function and the presence of right renal mass. History of Present Illness Admission Date/PCP: 03/13/19 05:34 MARTIN WICK History of Present Illness: JAQUELIN SKELTON is a 73 year old female with history of coronary artery disease status post CABG x3, diabetes mellitus type 2, hypertension, peripheral vascular disease status post left BKA, persistent right pleural effusion status post pleurodesis, obstructive sleep apnea, chronic kidney disease stage III followed [address] Dr[address] Min, and a chronic complex right renal mass who was admitted last n [facility] because of worsening shortness of breath. Patient was admitted at [facility] from March 08 and was discharged yesterday, March 12 because of right flank pain. Patient was found to have this complex 3.4 cm right renal mass from a CT scan of the abdomen with IV contrast on March 04, 2019 when she presented in the emergency room here in the [facility] for the same compla int of right flank pain. Upon my discussion with my partner, Dr. Min, patient actually has this right renal mass for few years but has been stable. After that ER visit on March 04, patient followed up with Dr. Min on March 05 and the pain was improved. Dr. Min gave her 2 options either to be referred to an interventional radiologist for possible drainage of the complex renal mass for a suspicion for hemorrhage causing the right flank pain or be referred to urologist, Dr. Rosales of [facility]. Since the pain is better, the referral to the interventional radiologist was not pursued. Patient was also advised that if the pain gets worse again that she needs to present herself at [facility] emergency room since they have urologist take care of it. So patient just did that and presented at [facility] last March 08. Records from [facility] is currently still unavailable to us. Patient states that she was seen by urologist, Dr. Mathew while she was admitted to [facility]. They did a CT scan and found non-obstructive kidney stone and gallbladder stone. Her creatinine was also elevated to 2.3. Her baseline creatinine for the last few months runs anywhere between 1.6-1.[address] iMn' records. She was told that no intervention can be done which requires contrast because of her worsening kidney function. While she was there the lisinopril and her diuretics, Lasix were held because of the kidney function. Patient was then discharged yesterday, finally made at home at around 6:30 PM. However while at home, her shortness of breath which actually started while she was still at [facility] has gotten worse. A relative of hers check her pulse oxygenation and was found to be 88% and was advised to present herself to the emergency room again. Patient said that when she reached [facility] emergency room her oxygen saturation was 79%. Upon presentation in the emergency room patient had a chest x-ray which showed m ild interstitial edema with tiny by basilar effusion. She had a BUN of 48, creatinine of 2.4 with EGFR of 24. Her potassium was mildly elevated at 5.2. She was given furosemide 80 mg IV x1 dose and started diuresing. She is currently Lasix 40 mg IV daily. Patient said that she presented with leg edema as as well as the shortness of breath. While I am seeing her she said she still feels tired and tight in her body. She still has right flank pain. She has a little bit of nausea. She denies any cough, fever, vomiting nor diarrhea. 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 On no medicine for this. Renal/ Medical History: Reports: Chronic Kidney Disease Stage III, Other - Chronic complex right renal cyst Musculoskeltal Medical History: Reports: Arthritis, Gout Infectious History Note: History of sternal abscess with MSSA August 2014 complicated with cardiac arrest. Hematology Medical History: Reports Anemia Past Surgical History Past Surgical History: Reports: Appendectomy, Coronary Artery Bypass Graft - X3, July 07, 2014, Herniorrhaphy, Hysterectomy, Orthopedic Surgery - 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 on July 2016 Social History Information Source: Patient Lives with: Family - Spouse and daughter Smoking Status: Never Smoker Electronic Cigarette use?: No Frequency of Alcohol Use: None Hx Recreational Drug Use: No Drugs: None Hx Prescription Drug Abuse: No - Advance Directive Resuscitation Status: Full Code Family History Family History: CAD - Her son of [place] at age of 37, Chronic Kidney Disease - Her mother and sister were on dialysis, DM - Runs in the family, Hypertension - Runs in the family Parental Family History Reviewed: Yes Children Family History Reviewed: Yes Sibling(s) Family History Reviewed.: Yes Medication/Allergy Home Medications: Acetaminophen [Tylenol] 650 mg PO DAILYP PRN 03/13/19 Acyclovir 1 applic TP QID 03/13/19 Allopurinol [Zyloprim 100 mg Tablet] 100 mg PO DAILY 03/13/19 Amlodipine Besylate [Norvasc 5 mg Tablet] 5 mg PO DAILY 03/13/19 Aspirin [Ecotrin 81 mg EC Tablet] 81 mg PO DAILY 03/13/19 Atorvastatin Calcium [Lipitor 40 mg Tablet] 40 mg PO QHS 03/13/19 Clopidogrel Bisulfate [Plavix 75 mg Tablet] 75 mg PO DAILY 03/13/19 Ergocalciferol (Vitamin D2) [Vitamin D2] 50 mcg PO Q7D 03/13/19 Fluconazole [Diflucan] 150 mg PO ONCE 03/13/19 Furosemide [Lasix 40 mg Tablet] 40 mg PO DAILY 03/13/19 Gabapentin [Neurontin 100 mg Capsule] 100 mg PO DAILY 03/13/19 Insulin Glargine,Hum.rec.anlog [Lantus Insulin 100 Unit/1 ml 10 ml] 20 unit SUBCUT QHS 03/13/19 Insulin Glulisine [Apidra Insulin (Glulisine) 100 unit/mL] 6 unit SUBCUT DAILY 03/13/19 Lactulose [Kristalose 20 gm Packet] 20 gm PO BID 03/13/19 Lisinopril [Prinivil 5 mg Tablet] 5 mg PO DAILY 03/13/19 Multivitamin [Multivitamins] 1 each PO DAILY 03/13/19 Temazepam [Restoril 15 mg Capsule] 15 mg PO HSP PRN 03/13/19 Triamcinolone Acetonide [Aristocort 0.5% Cream 15 gm] 1 applic TP ASDIR PRN 03/13/19 Valacyclovir HCl [Valtrex] 1,000 mg PO BID 03/13/19 Allergies/Adverse Reactions: cephalexin monohydrate [From Plaxica] Allergy (Unknown, Verified 03/12/19 22:58) nausea/vomiting metformin [Metformin] Allergy (Unknown, Verified 03/12/19 22:58) nausea/vomiting Sulfa (Sulfonamide Antibiotics) Allergy (Unknown, Verified 03/12/19 22:58) itching/rash promethazine [From Phenergan] Adverse Reaction (Mild, Verified 03/12/19 22:58) Hallucinations Review of Systems All systems: reviewed and no additional remarkable complaints except as stated Review of Systems: Constitutional: ABSENT: chills, fatigue, fever(s), headache(s), weight gain, weight loss Eyes: ABSENT: visual disturbances Ears: ABSENT: hearing changes Cardiovascular: ABSENT: chest pain, orthropnea, palpitations; admits dyspnea and leg swelling. Respiratory: ABSENT: cough, hemoptysis Gastrointestinal: ABSENT: abdominal pain, constipation, diarrhea, hematemesis, hematochezia, vomiting; admits nausea Genitourinary: ABSENT: dysuria, hematuria; admits right flank pain Musculoskeletal: ABSENT: joint swelling Integumentary: ABSENT: rash, wounds Neurological: ABSENT: abnormal gait, abnormal speech, confusion, dizziness, focal weakness, numbness, syncope Psychiatric: ABSENT: anxiety, depression Endocrine: ABSENT: cold intolerance, heat intolerance, polydipsia, polyuria Hematologic/Lymphatic: ABSENT: easy bleeding, easy bruising, lymphadenopathy Physical Exam Vital Signs: Temp Pulse Resp BP Pulse Ox 98.7 F 64 14 156/59 H 96 03/13/19 07:48 03/13/19 07:48 03/13/19 08:54 03/13/19 07:48 03/13/19 08:54 Intake & Output 03/12/19 03/13/19 03/14/19 06:59 06:59 06:59 Output Total 2400 Balance -2400 Weight 112.8 kg 109.8 kg Exam: General appearance: No acute distress, cooperative, well-developed, well- nourished Head exam: PRESENT: atraumatic, normocephalic Eye exam: PRESENT: Conjunctiva [place], EOMI, PERRLA. ABSENT: conjunctival injection, scleral icterus Mouth exam: PRESENT: moist, neck supple, tongue midline Neck exam: PRESENT: full ROM. ABSENT: carotid bruit, JVD, lymphadenopathy, thyromegaly Respiratory exam: PRESENT: Diminished to auscultation bilaterally. Positive bilateral basal crackles ABSENT: Rhonchi, stridor, wheezes Cardiovascular exam: PRESENT: RRR, +S1, +S2. ABSENT: systolic murmur Pulses: PRESENT: normal radial pulses, normal dorsalis pedis pulses GI/Abdominal exam: PRESENT: normal bowel sounds, soft. ABSENT: guarding, mass, tenderness Rectal exam: Deferred Extremities exam: PRESENT: full ROM. Status post left BKA ABSENT: calf tenderness, pedal edema Musculoskeletal: PRESENT: full ROM. ABSENT: deformity Neurological exam: PRESENT: alert, Awake, Oriented to person, Oriented to place, Oriented to time, reflexes normal, CN II-XII grossly intact. ABSENT: motor sensory deficit Psychiatric exam: PRESENT: appropriate affect, normal mood. ABSENT: homicidal ideation, suicidal ideation Skin exam: PRESENT: intact, dry, warm. ABSENT: rash Results Laboratory Results: 03/12/19 22:02 03/12/19 22:02 03/12/19 03/12/19 03/12/19 22:02 22:02 22:02 WBC 9.3 RBC 3.32 L Hgb 9.5 L Hct 29.5 L MCV 89 MCH 28.8 MCHC 32.4 RDW 15.0 H Plt Count 290 Seg Neutrophils % 70.2 Retic Count (auto) Sodium 138.3 Potassium 5.2 H Chloride 103 Carbon Dioxide 25 Anion Gap 10 BUN 48 H Creatinine 2.40 H Est GFR ( Amer) 24 L Glucose 231 H Calcium 9.0 Magnesium 2.8 H Iron TIBC % Saturation Ferritin Total Bilirubin 0.4 AST 57 H Alkaline Phosphatase 162 H Total Protein 6.9 Albumin 3.7 Vitamin B12 Folate TSH Urine Color Urine Appearance Urine pH Ur Specific [place] Urine Protein Urine Glucose (UA) Urine Ketones Urine Blood Urine Nitrite Ur Leukocyte Esterase Urine WBC (Auto) Urine RBC (Auto) 03/12/19 03/12/19 03/13/19 22:02 22:51 06:25 WBC RBC Hgb Hct MCV MCH MCHC RDW Plt Count Seg Neutrophils % Retic Count (auto) 1.90 Sodium Potassium Chloride Carbon Dioxide Anion Gap BUN Creatinine Est GFR ( Amer) Glucose Calcium Magnesium Iron TIBC % Saturation Ferritin Total Bilirubin AST Alkaline Phosphatase Total Protein Albumin Vitamin B12 Folate TSH 2.42 Urine Color STRAW Urine Appearance CLEAR Urine pH 5.0 Ur Specific [place] 1.010 Urine Protein 100 H Urine Glucose (UA) NEGATIVE Urine Ketones NEGATIVE Urine Blood NEGATIVE Urine Nitrite NEGATIVE Ur Leukocyte Esterase NEGATIVE Urine WBC (Auto) 2 Urine RBC (Auto) 0 03/13/19 06:25 WBC RBC Hgb Hct MCV MCH MCHC RDW Plt Count Seg Neutrophils % Retic Count (auto) Sodium Potassium Chloride Carbon Dioxide Anion Gap BUN Creatinine Est GFR ( Amer) Glucose Calcium Magnesium Iron 34.1 L TIBC 259 % Saturation 13 Ferritin 64.00 Total Bilirubin AST Alkaline Phosphatase Total Protein Albumin Vitamin B12 828.0 Folate > 20.00 TSH Urine Color Urine Appearance Urine pH Ur Specific [place] Urine Protein Urine Glucose (UA) Urine Ketones Urine Blood Urine Nitrite Ur Leukocyte Esterase Urine WBC (Auto) Urine RBC (Auto) 03/12/19 03/12/19 03/12/19 22:02 22:02 22:02 Creatine Kinase 114 CK-MB (CK-2) 1.05 Troponin I < 0.012 NT-Pro-B Natriuret Pep 1890 H 03/13/19 01:13 Creatine Kinase CK-MB (CK-2) Troponin I < 0.012 NT-Pro-B Natriuret Pep Impressions: Chest X-Ray 03/12/19 21:57 IMPRESSION: copyright 2010 [email or web address]- All Rights Reserved Assessment & Plan - Diagnosis (1) NINI (acute kidney injury) Is this a current diagnosis for this admission?: Yes Plan: No acute worsening of the kidney function essentially be due to the IV contrast given last week and other prerenal factors including acute congestive heart failure. Patient is nonoliguric. Good diuretic response with IV furosemide. Need to monitor kidney function while on furosemide. She currently has no indication for any acute emergent renal replacement therapy. Avoid nephrotoxic medications. Continue to monitor kidney function. (2) Chronic kidney disease, stage 3 Is this a current diagnosis for this admission?: Yes Plan: Patient has baseline creatinine around 1.6-1.9 with known proteinuria. This is most likely secondary to combination of diabetic nephropathy and hypertensive nephrosclerosis. (3) CHF (congestive heart failure) Qualifiers: Heart failure type: unspecified Heart failure chronicity: acute on chronic Qualified Code(s): I50.9 - Heart failure, unspecified Is this a current diagnosis for this admission?: Yes Plan: Ejection fraction was 40 to 50%. Patient presented with decompensation due to holding diuretics for a few days. Currently on IV furosemide. (4) Right flank pain Is this a current diagnosis for this admission?: Yes Plan: Patient's right flank pain currently does not seem to be very impressive as the patient is more concerned about her shortness of breathing. We will monitor this for now. If it worsens drainage of the right complex renal cyst by IR as an inpatient is a consideration otherwise patient can just follow-up with urology on an outpatient basis. (5) Complex renal cyst Is this a current diagnosis for this admission?: Yes Plan: Chronic. Continue to monitor for consideration of possible acute hemorrhage if the pain worsens. (6) Anemia Is this a current diagnosis for this admission?: Yes Plan: Contributory factors would be chronic kidney disease. (8) DM2 (diabetes mellitus, type 2) Is this a current diagnosis for this admission?: Yes Plan: Needs adequate control. (9) Hypertension Is this a current diagnosis for this admission?: Yes Plan: Resume amlodipine. Continue metoprolol. Patient was on lisinopril and is currently on losartan. (10) Morbid obesity Is this a current diagnosis for this admission?: Yes - Notes Notes: Thank you very much for this consultation. I will follow the patient with you. Will review records from [facility] once available. - Time Time Spent: Greater than 70 Minutes
[2019-03-13] MEDS ORDERED: AMLODIPINE BESYLATE 5 MG TABLET PO SCH (22:00)
[2019-03-14] MEDS: HEPARIN SOD (PORCINE) 5,000 UNIT/ML 1 ML VIAL SUBCUT SCH ×3 (05:14→21:48)
[2019-03-14 05:37] LABS: ABSOLUTE BASOPHILS # (AUTO) 0.1 10^3/uL (0.0-0.2); ABSOLUTE EOSINOPHILS # (AUTO) 0.3 10^3/uL (0.0-0.6); ABSOLUTE LYMPHOCYTES (AUTO) 1.5 10^3/uL (0.5-4.7); ABSOLUTE MONOCYTES (AUTO) 0.8 10^3/uL (0.1-1.4); ABSOLUTE NEUT (AUTO) 4.9 10^3/uL (1.7-8.2); BASOPHILS % (AUTO) 0.9 % (0-2); EOSINOPHILS % (AUTO) 3.5 % (0-6); HEMATOCRIT 26.8 % (36.0-47.0); HEMOGLOBIN 8.7 g/dL (12.0-15.5); LYMPHOCYTES % (AUTO) 19.9 % (13-45); MEAN CORPUSCULAR HEMOGLOBIN 28.5 pg (27.0-33.4); MEAN CORPUSCULAR HGB CONC 32.4 g/dL (32.0-36.0); MEAN CORPUSCULAR VOLUME 88 fl (80-97); PLATELET COUNT 276 10^3/uL (150-450); RED BLOOD COUNT 3.05 10^6/uL (3.72-5.28); RED CELL DISTRIBUTION WIDTH 14.6 % (11.5-14.0); SEGMENTED NEUTROPHILS % (AUTO) 64.7 % (42-78); TOTAL CELLS COUNTED % (AUTO) 100 %; WHITE BLOOD COUNT 7.5 10^3/uL (4.0-10.5)
[2019-03-14 06:00] LABS: ANION GAP 6 (5-19); BLOOD UREA NITROGEN 46 mg/dL (7-20); CALCIUM 8.7 mg/dL (8.4-10.2); CARBON DIOXIDE 29 mmol/L (22-30); CHLORIDE 105 mmol/L (98-107); GLUCOSE 187 mg/dL (75-110); POTASSIUM 5.3 mmol/L (3.6-5.0)
[2019-03-14] MEDS: ACETAMINOPHEN 325 MG TABLET PO PRN ×2 (06:10→20:19)
[2019-03-14] MEDS: INSULIN LISPRO 100 UNIT/ML 3 ML VIAL SUBCUT SCH ×4 (08:43→21:57)
--- NOTE | 2019-03-14 09:24 | RADIOLOGY REPORT (SQ) ---
EXAM DESCRIPTION: CHEST SINGLE VIEW COMPLETED DATE/TIME: 03/14/2019 9:13 am REASON FOR STUDY: reassess congestion COMPARISON: 03/12/2019. EXAM PARAMETERS: NUMBER OF VIEWS: One view. TECHNIQUE: Single frontal radiographic view of the chest acquired. RADIATION DOSE: NA LIMITATIONS: None. FINDINGS: LUNGS AND PLEURA: Unchanged right pleural effusion and patchy bibasilar opacities. There is no pneumothorax. MEDIASTINUM AND HILAR STRUCTURES: Stable mediastinal and hilar contours HEART AND VASCULAR STRUCTURES: Stable cardiomegaly. The pulmonary vasculature is distended. BONES: No acute findings. HARDWARE: ACDF hardware in the cervical spine, mediastinal anatomy wires, and mediastinal surgical cl ips. OTHER: No other finding. IMPRESSION: Unchanged radiographic appearance of the chest with a right pleural effusion, cardiomega ly, distention of the pulmonary vasculature, and patchy bibasilar opacities. TECHNICAL DOCUMENTATION: JOB ID: [id number] [email or web address]- All Rights Reserved Reading location - IP/workstation name: [email or web address]
[2019-03-14] MEDS: FUROSEMIDE INJ/PF 40 MG/4 ML SDV IV SCH (10:30)
[2019-03-14] MEDS: LACTULOSE SYRUP 20 GM/30 ML UDCUP PO SCH (10:30)
[2019-03-14] MEDS: NITROGLYCERIN 10 MG (0.4 MG/HR) PATCH.TD24 TD SCH (10:30)
[2019-03-14] MEDS: ASPIRIN 81 MG TABLET, ENT COATED PO SCH (10:41)
[2019-03-14] MEDS: METOPROLOL TARTRATE 50 MG TABLET PO SCH ×2 (10:41→21:46)
--- NOTE | 2019-03-14 12:47 | PDOC PROGRESS REPORT ---
Subjective Progress Note for:: 03/14/19 Subjective:: This is a 73 yr old female with CKD, CAD, prior CABG, DM 2, HTN and PVD with prior left BKA, hx of right pleural effusions with prior pleurodesis and complex right renal mass who was recently discharge at [facility]. She presented with increasing shortness of breath which reports has been worsening since she was still at [facility]. She was found to have acute on chronic renal failure on presentation and was also noted to have pulmonary congestion. Elvira humphries was started on IV Lasix. she was also noted to be hypoxic and required BiPAP. No acute event overnight. She was she says she is her shortness of breath has improved overnight. She has been weaned off BiPAP. She is currently saturating well on 2 L nasal cannula. Right flank pain is better. She is diuresing well. Reason For Visit: CKD, MORBID OBESITY, HEART FAILURE Physical Exam Vital Signs: Temp Pulse Resp BP Pulse Ox 98.3 F 62 16 164/51 H 100 03/14/19 07:33 03/14/19 07:33 03/14/19 07:33 03/14/19 07:33 03/14/19 07:33 Intake & Output 03/13/19 03/14/19 03/15/19 06:59 06:59 06:59 Intake Total 250 Output Total 2400 1850 Balance -2400 -1600 Weight 248 lb 10.903 oz 237 lb 14.06 oz General appearance: PRESENT: no acute distress, obese Head exam: PRESENT: atraumatic, normocephalic Eye exam: PRESENT: conjunctiva pink, EOMI, PERRLA. ABSENT: scleral icterus Ear exam: PRESENT: normal external ear exam Mouth exam: PRESENT: moist, tongue midline Neck exam: ABSENT: carotid bruit, JVD, lymphadenopathy, thyromegaly Respiratory exam: PRESENT: rhonchi. ABSENT: rales, wheezes Cardiovascular exam: PRESENT: RRR. ABSENT: diastolic murmur, rubs, systolic murmur Pulses: PRESENT: normal dorsalis pedis pul GI/Abdominal exam: PRESENT: normal bowel sounds, soft. ABSENT: distended, guarding, mass, organolmegaly, rebound, tenderness Rectal exam: PRESENT: deferred Extremities exam: PRESENT: full ROM. ABSENT: calf tenderness, clubbing, pedal edema Musculoskeletal exam: PRESENT: other - left BKA stump Neurological exam: PRESENT: alert, awake, oriented to person, oriented to place, oriented to time, oriented to situation, CN II-XII grossly intact. ABSENT: motor sensory deficit Results Laboratory Results: 03/14/19 05:15 03/14/19 05:15 03/13/19 03/14/19 03/14/19 06:25 05:15 05:15 WBC 7.5 RBC 3.05 L Hgb 8.7 L Hct 26.8 L MCV 88 MCH 28.5 MCHC 32.4 RDW 14.6 H Plt Count 276 Seg Neutrophils % 64.7 Sodium 140.3 Potassium 5.3 H Chloride 105 Carbon Dioxide 29 Anion Gap 6 BUN 46 H Creatinine 2.13 H Est GFR ( Amer) 27 L Glucose 187 H Calcium 8.7 Iron 34.1 L TIBC 259 % Saturation 13 Ferritin 64.00 Vitamin B12 828.0 Folate > 20.00 03/12/19 03/12/19 03/12/19 22:02 22:02 22:02 Creatine Kinase 114 CK-MB (CK-2) 1.05 Troponin I < 0.012 NT-Pro-B Natriuret Pep 1890 H 03/13/19 01:13 Creatine Kinase CK-MB (CK-2) Troponin I < 0.012 NT-Pro-B Natriuret Pep Impressions: Chest X-Ray 03/12/19 21:57 IMPRESSION: copyright 2010 [employer]- All Rights Reserved Assessment and Plan - Diagnosis (1) Acute respiratory failure with hypoxia Is this a current diagnosis for this admission?: Yes Plan: Secondary to pulmonary congestion/fluid overload. Off BIPAP. Saturating well on 2 L of nasal cannula. (2) CHF (congestive heart failure) Qualifiers: Heart failure type: unspecified Heart failure chronicity: acute on chronic Qualified Code(s): I50.9 - Heart failure, unspecified Is this a current diagnosis for this admission?: Yes Plan: Possibly related to acute on chronic renal failure. Will review records from [place] and see if she had an echo done there. Continue IV Lasix. (3) Acute on chronic renal failure Is this a current diagnosis for this admission?: Yes Plan: Acute renal failure likely multifactorial from recent contrast studies in the setting of being on lisinopril diuretics. Creatinine slightly improved today. Nephrology following. (4) Renal mass, right Is this a current diagnosis for this admission?: Yes Plan: Patient will need close outpatient urology follow-up for this. (5) CAD (coronary artery disease) Is this a current diagnosis for this admission?: Yes Plan: Stable. (6) DM2 (diabetes mellitus, type 2) Is this a current diagnosis for this admission?: Yes (7) Hypertension Is this a current diagnosis for this admission?: Yes - Time Time Spent with patient: 25-34 minutes
[2019-03-14] MEDS ORDERED: CEFTRIAXONE 1 GM/D5W RTU 1 GM/50 ML RTUPB IV SCH (13:00)
--- NOTE | 2019-03-14 13:45 | PDOC PROGRESS REPORT ---
Subjective Progress Note for:: 03/14/19 Subjective:: Patient states that she feels better. She is now on nasal cannula and has been weaned off from BiPAP. She states that her right flank pain is also improved. She continues to make adequate amount of urine output with diuresis and has made 1850 mL of urine for the past 24 hours. Records from [facility] reviewed. Patient had imaging studies including chest CT, CT stone protocol, CT of the abdomen all without contrast and a kidney ultrasound which showed 2.0 cm cyst on the right kidney which is probably the same complex renal cyst of about 3.4 cm seen on his CT with IV contrast done here at [facility] on March 04. Urologist, Dr. Bridges has seen the patient in March 09 at [facility] and recommended an outpatient evaluation which is being arranged anyway with Dr. Rosales. Cholelithiasis was also incidentally found on the CT scans. Reason For Visit: CKD, MORBID OBESITY, HEART FAILURE Physical Exam Vital Signs: Temp Pulse Resp BP Pulse Ox 98.4 F 59 L 16 160/53 H 100 03/14/19 12:05 03/14/19 12:05 03/14/19 12:05 03/14/19 12:05 03/14/19 12:05 Intake & Output 03/13/19 03/14/19 03/15/19 06:59 06:59 06:59 Intake Total 250 Output Total 2400 1850 Balance -2400 -1600 Weight 112.8 kg 107.9 kg Exam: General appearance: PRESENT: no acute distress, cooperative, well-developed, well-nourished Head exam: PRESENT: atraumatic, normocephalic Eye exam: PRESENT: conjunctiva slightly pale, PERRLA. ABSENT: scleral icterus Neck exam: ABSENT: JVD Respiratory exam: PRESENT: Diminished breath sounds. Crackles that I heard yesterday were no longer audible today. ABSENT: crackles, rales, rhonchi, unlabored, wheezes Cardiovascular exam: PRESENT: Regular rate rhythm -+S1, +S2. ABSENT: diastolic murmur, systolic murmur GI/Abdominal exam: PRESENT: normal bowel sounds, soft. ABSENT: guarding, mass, tenderness Extremities exam: ABSENT: No edema; left BKA Neurological exam: PRESENT: alert, awake, oriented to person, place and time. Skin exam: PRESENT: dry, warm, Results Laboratory Results: 03/14/19 05:15 03/14/19 05:15 03/14/19 03/14/19 05:15 05:15 WBC 7.5 RBC 3.05 L Hgb 8.7 L Hct 26.8 L MCV 88 MCH 28.5 MCHC 32.4 RDW 14.6 H Plt Count 276 Seg Neutrophils % 64.7 Sodium 140.3 Potassium 5.3 H Chloride 105 Carbon Dioxide 29 Anion Gap 6 BUN 46 H Creatinine 2.13 H Est GFR ( Amer) 27 L Glucose 187 H Calcium 8.7 03/12/19 03/12/19 03/12/19 22:02 22:02 22:02 Creatine Kinase 114 CK-MB (CK-2) 1.05 Troponin I < 0.012 NT-Pro-B Natriuret Pep 1890 H 03/13/19 01:13 Creatine Kinase CK-MB (CK-2) Troponin I < 0.012 NT-Pro-B Natriuret Pep Impressions: Chest X-Ray 03/14/19 08:30 IMPRESSION: Unchanged radiographic appearance of the chest with a right pleural effusion, cardiomegaly, distention of the pulmonary vasculature, and patchy bibasilar opacities. Assessment & Plan - Diagnosis (1) NINI (acute kidney injury) Is this a current diagnosis for this admission?: Yes Plan: Nonoliguric with improving kidney function. Baseline creatinine around 1.6-1.9. Acute worsening of kidney function likely a combination of IV contrast and CHF. No need of any renal replacement therapy. If the kidney function continues to improve in the next 24 hours I think the patient can be discharged home from nephrology standpoint provided that all other issues are are also improved. (2) Chronic kidney disease, stage 3 Is this a current diagnosis for this admission?: Yes (3) CHF (congestive heart failure) Qualifiers: Heart failure type: unspecified Heart failure chronicity: acute on chronic Qualified Code(s): I50.9 - Heart failure, unspecified Is this a current diagnosis for this admission?: Yes Plan: Clinically improved with diuresis. Continue oral furosemide upon discharge. (4) Right flank pain Is this a current diagnosis for this admission?: Yes Plan: Likely secondary to the complex right renal cyst. Today the patient did not even have tenderness on palpation. I think it is appropriate to just have the patient follow-up as an outpatient with the urologist, Dr. Rosales. Patient received a call from Dr. franklin office today and was told to call his office upon discharge to schedule appointment. (5) Complex renal cyst Is this a current diagnosis for this admission?: Yes Plan: Chronic. (6) Anemia Is this a current diagnosis for this admission?: Yes Plan: Patient is iron deficiency anemia and most likely a combination of anemia of chronic kidney disease. To start with I will give the patient a dose of IV Injectafer today. Patient is to continue with oral ferrous sulfate upon discharge. Check stool for occult blood. Blood count needs to be repeated as an outpatient and possibly needs to be initiated on Procrit upon follow-up with Dr. Min. (7) Hyperkalemia Is this a current diagnosis for this admission?: Yes Plan: Mild secondary to NINI/CKD. Low potassium diet. (8) Hypertension Is this a current diagnosis for this admission?: Yes Plan: Increase amlodipine to 10 mg p.o. daily. (9) DM2 (diabetes mellitus, type 2) Is this a current diagnosis for this admission?: Yes (10) Morbid obesity Is this a current diagnosis for this admission?: Yes - Time Time with patient: 15-25 minutes
[2019-03-14] MEDS ORDERED: FERRIC CARBOXYMALTOSE 750 MG in NORMAL SALINE 100 ML IV ONE (15:00)
[2019-03-14] MEDS: CEFTRIAXONE 1 GM/D5W RTU 1 GM/50 ML RTUPB IV SCH (15:20)
[2019-03-14] MEDS: AMLODIPINE BESYLATE 10 MG TABLET PO SCH (21:46)
[2019-03-14] MEDS: SODIUM CHLORIDE NASAL SPRAY 44 ML NAREB SCH (21:47)
[2019-03-14] MEDS ORDERED: AMLODIPINE BESYLATE 5 MG TABLET PO SCH (22:00)
[2019-03-14] MEDS: MAG HYDROX/AL HYDROX/SIMETH SUSP 30 ML UDCUP PO PRN (23:19)
[2019-03-14] MEDS ORDERED: LACTULOSE SYRUP 20 GM/30 ML UDCUP PO ONE (23:45)
[2019-03-14] MEDS ORDERED: INSULIN GLARGINE,HUM.REC.ANLOG 1,000 UNIT/10 ML VIAL (PYX) SUBCUT PRN (23:47)
[2019-03-15] MEDS ORDERED: INSULIN GLARGINE,HUM.REC.ANLOG 1,000 UNIT/10 ML VIAL SUBCUT ONE (01:00)
[2019-03-15] MEDS ORDERED: INSULIN GLARGINE,HUM.REC.ANLOG 1,000 UNIT/10 ML VIAL (PYX) SUBCUT ONE (02:38)
[2019-03-15] MEDS: ACETAMINOPHEN 325 MG TABLET PO PRN ×2 (02:43→21:24)
[2019-03-15] MEDS: HEPARIN SOD (PORCINE) 5,000 UNIT/ML 1 ML VIAL SUBCUT SCH ×3 (05:33→21:22)
[2019-03-15] MEDS: INSULIN LISPRO 100 UNIT/ML 3 ML VIAL SUBCUT SCH ×4 (07:37→21:23)
[2019-03-15 09:16] LABS: ANION GAP 7 (5-19); BLOOD UREA NITROGEN 39 mg/dL (7-20); CALCIUM 8.9 mg/dL (8.4-10.2); CARBON DIOXIDE 29 mmol/L (22-30); CHLORIDE 103 mmol/L (98-107); GLUCOSE 174 mg/dL (75-110)
[2019-03-15] MEDS: NITROGLYCERIN 10 MG (0.4 MG/HR) PATCH.TD24 TD SCH (09:54)
[2019-03-15] MEDS: LACTULOSE SYRUP 20 GM/30 ML UDCUP PO SCH (09:55)
[2019-03-15] MEDS: ASPIRIN 81 MG TABLET, ENT COATED PO SCH (09:55)
[2019-03-15] MEDS: SODIUM CHLORIDE NASAL SPRAY 44 ML NAREB SCH ×2 (09:55→21:22)
[2019-03-15] MEDS: FUROSEMIDE INJ/PF 40 MG/4 ML SDV IV SCH (09:55)
[2019-03-15] MEDS: METOPROLOL TARTRATE 50 MG TABLET PO SCH ×2 (09:55→21:23)
[2019-03-15] MEDS: CEFTRIAXONE 1 GM/D5W RTU 1 GM/50 ML RTUPB IV SCH (11:58)
--- NOTE | 2019-03-15 13:23 | PDOC PROGRESS REPORT ---
Subjective Progress Note for:: 03/15/19 Subjective:: This is a 73 yr old female with CKD, CAD, CHF, prior CABG, DM 2, HTN and PVD with prior left BKA, hx of right pleural effusions with prior pleurodesis and complex right renal mass who was recently discharge at [facility]. She presented with increasing shortness of breath which reports has been worsening since she was still at [facility]. She was found to have acute on chronic renal failure on presentation and was also noted to have pulmonary congestion. Patient was started on IV Lasix. she was also noted to be hypoxic and required BiPAP. 03/14: She was she says she is her shortness of breath has improved overnight. She has been weaned off BiPAP. She is currently saturating well on 2 L nasal cannula. Right flank pain is better. She is diuresing well. 03/15: No acute event overnight. She says her shortness of breath continued to improve. Denies chest pain. Denies abdominal or flank pain. Reason For Visit: CKD, MORBID OBESITY, HEART FAILURE Physical Exam Vital Signs: Temp Pulse Resp BP Pulse Ox 97.6 F 59 L 18 154/46 H 95 03/15/19 07:27 03/15/19 07:27 03/15/19 07:27 03/15/19 07:27 03/15/19 10:22 Intake & Output 03/14/19 03/15/19 03/16/19 06:59 06:59 06:59 Intake Total 250 1560 Output Total 1850 2700 Balance -1600 -1140 Weight 237 lb 14.06 oz 231 lb 0.711 oz General appearance: PRESENT: no acute distress, well-developed, well-nourished Head exam: PRESENT: atraumatic, normocephalic Eye exam: PRESENT: conjunctiva pink, EOMI, PERRLA. ABSENT: scleral icterus Ear exam: PRESENT: normal external ear exam Mouth exam: PRESENT: moist, tongue midline Neck exam: ABSENT: carotid bruit, JVD, lymphadenopathy, thyromegaly Respiratory exam: PRESENT: rhonchi. ABSENT: rales, wheezes Cardiovascular exam: PRESENT: RRR. ABSENT: diastolic murmur, rubs, systolic murmur Pulses: PRESENT: normal dorsalis pedis pul GI/Abdominal exam: PRESENT: normal bowel sounds, soft. ABSENT: distended, guarding, mass, organolmegaly, rebound, tenderness Rectal exam: PRESENT: deferred Extremities exam: PRESENT: +2 edema Neurological exam: PRESENT: alert, awake, oriented to person, oriented to place, oriented to time, oriented to situation, CN II-XII grossly intact. ABSENT: motor sensory deficit Results Laboratory Results: 03/14/19 05:15 03/15/19 08:52 03/15/19 08:52 Sodium 138.7 Potassium 5.0 Chloride 103 Carbon Dioxide 29 Anion Gap 7 BUN 39 H Creatinine 1.80 H Est GFR ( Amer) 33 L Glucose 174 H Calcium 8.9 03/12/19 03/12/19 03/12/19 22:02 22:02 22:02 Creatine Kinase 114 CK-MB (CK-2) 1.05 Troponin I < 0.012 NT-Pro-B Natriuret Pep 1890 H 03/13/19 01:13 Creatine Kinase CK-MB (CK-2) Troponin I < 0.012 NT-Pro-B Natriuret Pep Impressions: Chest X-Ray 03/14/19 08:30 IMPRESSION: Unchanged radiographic appearance of the chest with a right pleural effusion, cardiomegaly, distention of the pulmonary vasculature, and patchy bibasilar opacities. Assessment and Plan - Diagnosis (1) Acute respiratory failure with hypoxia Is this a current diagnosis for this admission?: Yes Plan: Secondary to pulmonary congestion/fluid overload. Off BIPAP. Saturating well on 2 L of nasal cannula. 03/15: Improving. (2) CHF (congestive heart failure) Qualifiers: Heart failure type: unspecified Heart failure chronicity: acute on chronic Qualified Code(s): I50.9 - Heart failure, unspecified Is this a current diagnosis for this admission?: Yes Plan: Possibly related to acute on chronic renal failure of top of CHF. Will review records from [place] and see if she had an echo done there. Continue IV Lasix. (3) Acute on chronic renal failure Is this a current diagnosis for this admission?: Yes Plan: Acute renal failure likely multifactorial from recent contrast studies in the setting of being on lisinopril diuretics. Creatinine slightly improved today. Nephrology following. 03/15: Continue to improve. Crea down to 1.8. (4) Renal mass, right Is this a current diagnosis for this admission?: Yes Plan: Patient will need close outpatient urology follow-up for this. (5) CAD (coronary artery disease) Is this a current diagnosis for this admission?: Yes Plan: Stable. (6) DM2 (diabetes mellitus, type 2) Is this a current diagnosis for this admission?: Yes (7) Hypertension Is this a current diagnosis for this admission?: Yes
[2019-03-15] MEDS: INSULIN GLARGINE,HUM.REC.ANLOG 1,000 UNIT/10 ML VIAL SUBCUT SCH (21:22)
[2019-03-15] MEDS: AMLODIPINE BESYLATE 10 MG TABLET PO SCH (21:23)
[2019-03-16] MEDS: HEPARIN SOD (PORCINE) 5,000 UNIT/ML 1 ML VIAL SUBCUT SCH ×3 (05:28→21:40)
[2019-03-16 05:55] LABS: ANION GAP 7 (5-19); BLOOD UREA NITROGEN 35 mg/dL (7-20); CARBON DIOXIDE 31 mmol/L (22-30); CHLORIDE 102 mmol/L (98-107); GLUCOSE 93 mg/dL (75-110)
[2019-03-16] MEDS: INSULIN LISPRO 100 UNIT/ML 3 ML VIAL SUBCUT SCH ×4 (08:11→21:43)
--- NOTE | 2019-03-16 09:21 | RADIOLOGY REPORT (SQ) ---
EXAM DESCRIPTION: CHEST SINGLE VIEW COMPLETED DATE/TIME: 03/16/2019 7:48 am REASON FOR STUDY: comparison with previous COMPARISON: 03/14/2019 EXAM PARAMETERS: NUMBER OF VIEWS: One view. TECHNIQUE: Single frontal radiographic view of the chest acquired. RADIATION DOSE: NA LIMITATIONS: None. FINDINGS: LUNGS AND PLEURA: No opacities, masses or pneumothorax. No pleural effusion. MEDIASTINUM AND HILAR STRUCTURES: No masses. Contour normal. HEART AND VASCULAR STRUCTURES: Heart normal in size. Normal vasculature. BONES: No acute findings. HARDWARE: None in the chest. OTHER: No other significant finding. IMPRESSION: Chest radiograph appears clear. Resolved vascular congestion. TECHNICAL DOCUMENTATION: JOB ID: [id number] [employer]- All Rights Reserved Reading location - IP/workstation name: [email or web address]
[2019-03-16] MEDS: CEFTRIAXONE 1 GM/D5W RTU 1 GM/50 ML RTUPB IV SCH (11:17)
[2019-03-16] MEDS: LACTULOSE SYRUP 20 GM/30 ML UDCUP PO SCH (11:17)
[2019-03-16] MEDS: ASPIRIN 81 MG TABLET, ENT COATED PO SCH (11:17)
[2019-03-16] MEDS: NITROGLYCERIN 10 MG (0.4 MG/HR) PATCH.TD24 TD SCH (11:17)
[2019-03-16] MEDS: FUROSEMIDE INJ/PF 40 MG/4 ML SDV IV SCH (11:18)
[2019-03-16] MEDS: SODIUM CHLORIDE NASAL SPRAY 44 ML NAREB SCH ×2 (11:18→21:44)
[2019-03-16] MEDS: METOPROLOL TARTRATE 50 MG TABLET PO SCH ×2 (11:18→21:43)
--- NOTE | 2019-03-16 12:47 | PDOC PROGRESS REPORT ---
Subjective Progress Note for:: 03/16/19 Subjective:: This is a 73 yr old female with CKD, CAD, CHF, prior CABG, DM 2, HTN and PVD with prior left BKA, hx of right pleural effusions with prior pleurodesis and complex right renal mass who was recently discharge at [facility]. She presented with increasing shortness of breath which reports has been worsening since she was still at [facility]. She was found to have acute on chronic renal failure on presentation and was also noted to have pulmonary congestion. Patient was started on IV Lasix. she was also noted to be hypoxic and required BiPAP. 03/14: She was she says she is her shortness of breath has improved overnight. She has been weaned off BiPAP. She is currently saturating well on 2 L nasal cannula. Right flank pain is better. She is diuresing well. 03/15: She says her shortness of breath continued to improve. Denies chest pain. Denies abdominal or flank pain. 03/16: No acute event overnight. She continues to improve. Patient says she feels like she is almost at her baseline. She needs supplemental home oxygen. Reason For Visit: CKD, MORBID OBESITY, HEART FAILURE Physical Exam Vital Signs: Temp Pulse Resp BP Pulse Ox 98.6 F 64 16 153/62 H 100 03/16/19 07:50 03/16/19 07:50 03/16/19 07:50 03/16/19 07:50 03/16/19 07:50 Intake & Output 03/15/19 03/16/19 03/17/19 06:59 06:59 06:59 Intake Total 1560 630 Output Total 2700 2400 Balance -1140 -1770 Weight 231 lb 0.711 oz 228 lb 6.382 oz General appearance: PRESENT: no acute distress, well-developed, well-nourished Head exam: PRESENT: atraumatic, normocephalic Eye exam: PRESENT: conjunctiva pink, EOMI, PERRLA. ABSENT: scleral icterus Ear exam: PRESENT: normal external ear exam Mouth exam: PRESENT: moist, tongue midline Neck exam: ABSENT: carotid bruit, JVD, lymphadenopathy, thyromegaly Respiratory exam: PRESENT: clear to auscultation ricki. ABSENT: rales, rhonchi, wheezes Cardiovascular exam: PRESENT: RRR. ABSENT: diastolic murmur, rubs, systolic murmur Pulses: PRESENT: normal dorsalis pedis pul GI/Abdominal exam: PRESENT: normal bowel sounds, soft. ABSENT: distended, guarding, mass, organolmegaly, rebound, tenderness Rectal exam: PRESENT: deferred Extremities exam: PRESENT: +1 edema Neurological exam: PRESENT: alert, awake, oriented to person, oriented to place, oriented to time, oriented to situation, CN II-XII grossly intact. ABSENT: motor sensory deficit Results Laboratory Results: 03/14/19 05:15 03/16/19 04:37 03/16/19 04:37 Sodium 140.1 Potassium 5.0 Chloride 102 Carbon Dioxide 31 H Anion Gap 7 BUN 35 H Creatinine 1.70 H Est GFR ( Amer) 36 L Glucose 93 Calcium 9.0 03/12/19 03/12/19 03/12/19 22:02 22:02 22:02 Creatine Kinase 114 CK-MB (CK-2) 1.05 Troponin I < 0.012 NT-Pro-B Natriuret Pep 1890 H 03/13/19 01:13 Creatine Kinase CK-MB (CK-2) Troponin I < 0.012 NT-Pro-B Natriuret Pep Impressions: Chest X-Ray 03/16/19 06:00 IMPRESSION: Chest radiograph appears clear. Resolved vascular congestion. Assessment and Plan - Diagnosis (1) Acute respiratory failure with hypoxia Is this a current diagnosis for this admission?: Yes Plan: Secondary to pulmonary congestion/fluid overload. Off BIPAP. Saturating well on 2 L of nasal cannula. 03/15: Improving. 03/15: Patient qualifies for supplemental home O2. (2) CHF (congestive heart failure) Qualifiers: Heart failure type: unspecified Heart failure chronicity: acute on chronic Qualified Code(s): I50.9 - Heart failure, unspecified Is this a current diagnosis for this admission?: Yes Plan: Possibly related to acute on chronic renal failure of top of CHF. Will review records from [place] and see if she had an echo done there. Continue IV Lasix. 03/16: Resolving. Will switch to PO Lasix today. (3) Acute on chronic renal failure Is this a current diagnosis for this admission?: Yes Plan: Acute renal failure likely multifactorial from recent contrast studies in the setting of being on lisinopril diuretics. Creatinine slightly improved today. Nephrology following. 03/15: Continue to improve. Crea down to 1.8. 03/16: Crea cotninue to trend down to 1.7. (4) Renal mass, right Is this a current diagnosis for this admission?: Yes Plan: Patient will need close outpatient urology follow-up for this. (5) CAD (coronary artery disease) Is this a current diagnosis for this admission?: Yes Plan: Stable. (6) DM2 (diabetes mellitus, type 2) Is this a current diagnosis for this admission?: Yes (7) Hypertension Is this a current diagnosis for this admission?: Yes - Time Time Spent with patient: 25-34 minutes
--- NOTE | 2019-03-16 14:40 | EKG REPORT ---
SEVERITY:- ABNORMAL ECG - SINUS RHYTHM NONSPECIFIC IVCD WITH LAD LVH WITH SECONDARY REPOLARIZATION ABNORMALITY : Confirmed by: Roxi Anderson MD 16-Mar-2019 14:40:07
[2019-03-16] MEDS: INSULIN GLARGINE,HUM.REC.ANLOG 1,000 UNIT/10 ML VIAL SUBCUT SCH (21:40)
[2019-03-16] MEDS: LOSARTAN POTASSIUM 50 MG TABLET PO SCH (21:42)
[2019-03-16] MEDS: AMLODIPINE BESYLATE 10 MG TABLET PO SCH (21:43)
[2019-03-17] MEDS: HEPARIN SOD (PORCINE) 5,000 UNIT/ML 1 ML VIAL SUBCUT SCH ×2 (05:29→14:30)
[2019-03-17] MEDS: INSULIN LISPRO 100 UNIT/ML 3 ML VIAL SUBCUT SCH ×2 (09:05→14:29)
[2019-03-17] MEDS: NITROGLYCERIN 10 MG (0.4 MG/HR) PATCH.TD24 TD SCH (09:41)
[2019-03-17] MEDS: SODIUM CHLORIDE NASAL SPRAY 44 ML NAREB SCH (09:41)
[2019-03-17] MEDS: LOSARTAN POTASSIUM 50 MG TABLET PO SCH (09:41)
[2019-03-17] MEDS: METOPROLOL TARTRATE 50 MG TABLET PO SCH (09:41)
[2019-03-17] MEDS: LACTULOSE SYRUP 20 GM/30 ML UDCUP PO SCH (09:41)
[2019-03-17] MEDS: ASPIRIN 81 MG TABLET, ENT COATED PO SCH (09:41)
[2019-03-17] MEDS ORDERED: FUROSEMIDE 40 MG TABLET PO SCH (10:00)
--- NOTE | 2019-03-17 12:55 | PDOC PROGRESS REPORT ---
Subjective Progress Note for:: 03/17/19 Reason For Visit: Patient seen today in the hospital. Reviewed previous notes and discussions were done with the treating nurse. Patient admitted with right flank pains as well as shortness of breath. She was found to be in early congestive heart failure and has responded to conservative measures. Abdominal pain is all relieved currently. She is ready for discharge. No complaints of any fever or chills. Labs and medications were reviewed. Physical Exam Vital Signs: Temp Pulse Resp BP Pulse Ox 98.9 F 64 16 156/45 H 100 03/17/19 08:28 03/17/19 08:28 03/17/19 08:28 03/17/19 08:28 03/17/19 08:28 Intake & Output 03/16/19 03/17/19 03/18/19 06:59 06:59 06:59 Intake Total 630 50 Output Total 2400 700 Balance -1770 -650 Weight 103.6 kg 98.8 kg General appearance: PRESENT: no acute distress Respiratory exam: PRESENT: clear to auscultation ricki, decreased breath sounds. ABSENT: crackles Cardiovascular exam: PRESENT: +S1, +S2 GI/Abdominal exam: PRESENT: normal bowel sounds. ABSENT: organomegaly, soft, tenderness Extremities exam: PRESENT: pedal edema Neurological exam: PRESENT: alert, altered, oriented to person, oriented to place Psychiatric exam: PRESENT: appropriate affect Results Laboratory Results: 03/14/19 05:15 03/16/19 04:37 03/12/19 03/12/19 03/12/19 22:02 22:02 22:02 Creatine Kinase 114 CK-MB (CK-2) 1.05 Troponin I < 0.012 NT-Pro-B Natriuret Pep 1890 H 03/13/19 01:13 Creatine Kinase CK-MB (CK-2) Troponin I < 0.012 NT-Pro-B Natriuret Pep Impressions: Chest X-Ray 03/16/19 06:00 IMPRESSION: Chest radiograph appears clear. Resolved vascular congestion. Assessment & Plan - Diagnosis (1) Acute respiratory failure with hypoxia Is this a current diagnosis for this admission?: Yes Plan: Currently oxygen dependent and being discharged with O2. (2) CHF (congestive heart failure) Qualifiers: Heart failure type: unspecified Heart failure chronicity: acute on chronic Qualified Code(s): I50.9 - Heart failure, unspecified Is this a current diagnosis for this admission?: Yes Plan: Has responded quite well to conservative measures. However still oxygen dependent. As per hospitalist. (3) Cholelithiasis Is this a current diagnosis for this admission?: Yes Plan: Finding on imaging studies. (4) Complex renal cyst Is this a current diagnosis for this admission?: Yes Plan: Possibility of hemorrhage producing acute pain of the right flank. Patient has been arranged to see Dr. Rosales/urology as an outpatient soon. (5) Right flank pain Is this a current diagnosis for this admission?: Yes Plan: Presently relieved. (6) Diabetes Is this a current diagnosis for this admission?: Yes Plan: Advised tight control. (7) Hypertension Is this a current diagnosis for this admission?: Yes Plan: Relatively controlled. (8) RENETTA treated with BiPAP Is this a current diagnosis for this admission?: Yes Plan: Advised compliance.
[2019-03-17 14:06] VITALS: BP 141/44
--- NOTE | 2019-03-17 14:23 | PDOC DISCHARGE SUMMARY ---
Impression - Admit/DC Date/PCP Admission Date/Primary Care Provider: 03/13/19 05:34 MARTIN WICK Discharge Date: 03/17/19 - Discharge Diagnosis (1) Acute respiratory failure with hypoxia Is this a current diagnosis for this admission?: Yes (2) CHF (congestive heart failure) Is this a current diagnosis for this admission?: Yes (3) Acute on chronic renal failure Is this a current diagnosis for this admission?: Yes (4) Renal mass, right Is this a current diagnosis for this admission?: Yes (5) CAD (coronary artery disease) Is this a current diagnosis for this admission?: Yes (6) DM2 (diabetes mellitus, type 2) Is this a current diagnosis for this admission?: Yes (7) Hypertension Is this a current diagnosis for this admission?: Yes - Additional Information Resuscitation Status: Full Code Discharge Diet: Cardiac, Diabetic Discharge Activity: Activity As Tolerated, Balance Activity w/Rest, Weigh Daily Referrals: AUSTIN RODGERS MD [NO LOCAL MD] - 03/24/19 2:15 pm (Will be seen at [place] office. [facility] ) MARTIN WICK MD [Primary Care Provider] - 03/25/19 1:00 pm Ubaldo DAVIS MD [ACTIVE STAFF] - (The office will contact the patient.) Prescriptions: Metoprolol Tartrate [Lopressor 50 mg Tablet] 50 mg PO Q12 #60 tablet Home Medications: Acetaminophen [Tylenol] 650 mg PO DAILYP PRN 03/13/19 Acyclovir 1 applic TP QID 03/13/19 Allopurinol [Zyloprim 100 mg Tablet] 100 mg PO DAILY 03/13/19 Amlodipine Besylate [Norvasc 5 mg Tablet] 5 mg PO DAILY 03/13/19 Aspirin [Ecotrin 81 mg EC Tablet] 81 mg PO DAILY 03/13/19 Atorvastatin Calcium [Lipitor 40 mg Tablet] 40 mg PO QHS 03/13/19 Clopidogrel Bisulfate [Plavix 75 mg Tablet] 75 mg PO DAILY 03/13/19 Ergocalciferol (Vitamin D2) [Vitamin D2] 50 mcg PO Q7D 03/13/19 Furosemide [Lasix 40 mg Tablet] 40 mg PO DAILY 03/13/19 Gabapentin [Neurontin 100 mg Capsule] 100 mg PO DAILY 03/13/19 Insulin Glargine,Hum.rec.anlog [Lantus Insulin 100 Unit/1 ml 10 ml] 20 unit SUBC UT QHS 03/13/19 Insulin Glulisine [Apidra Insulin (Glulisine) 100 unit/mL] 6 unit SUBCUT DAILY 03/13/19 Lactulose [Kristalose 20 gm Packet] 20 gm PO BID 03/13/19 Lisinopril [Prinivil 5 mg Tablet] 5 mg PO DAILY 03/13/19 Multivitamin [Multivitamins] 1 each PO DAILY 03/13/19 Temazepam [Restoril 15 mg Capsule] 15 mg PO HSP PRN 03/13/19 Triamcinolone Acetonide [Aristocort 0.5% Cream 15 gm] 1 applic TP ASDIR PRN 03/13/19 Valacyclovir HCl [Valtrex] 1,000 mg PO BID 03/13/19 Metoprolol Tartrate [Lopressor 50 mg Tablet] 50 mg PO Q12 #60 tablet 03/17/19 History of Present Illiness History of Present Illness: Admitting hospitalist's H&P: JAQUELIN SKELTON is a 73 year old female with a past medical history of type 2 diabetes, hypertension, dyslipidemia, peripheral vascular disease, coronary artery disease status post bypass graft in 2014, obstructive sleep apnea with noncompliance, CKD 3, 3.4 cm right renal mass. Diet and lifestyle noncompliance. Patient presents with shortness of breath. Patient was seen March 04, 2019 with right flank pain prompting a IV contrasted CT showing a 3.4 cm right renal mass. Subsequent follow-up in [place] she is found to have a creatinine of 2.4 resulting in discontinuation of Lasix and lisinopril. Over the last 5 days she has had significant orthopnea and dyspnea with exertion. EMS records pulse oximetry of 80%. She denies chest pain nausea vomiting or diaphoresis. In the emergency room she is found to have systolic pressure of 210, hypoxia and tachypnea. She receives IV Lasix, BiPAP and referred to the hospitalist for admission. Patient admits to blood sugars in the 250 range, noncompliance with BiPAP and using temazepam for sleep. Hospital Course Hospital Course: This is a 73 yr old female with CKD, CAD, CHF, prior CABG, DM 2, HTN and PVD with prior left BKA, hx of right pleural effusions with prior pleurodesis and complex right renal mass who was recently discharge at [facility]. She presented with increasing shortness of breath which reports has been worsening since she was still at [facility]. Her Lasxi was held when she was in [facility] as she was in [place]. She was found to have acute on chronic renal failure on presentation and was also noted to have pulmonary congestion. Patient was started on IV Lasix. She was also noted to be hypoxic and required BiPAP. She significantly responded and improved with IV diuresis. Her congestion resolved on repeat chest x-ray. Her creatinine also improved and significantly trended down to her previous baseline. She is weaned off BiPAP and was only requiring minimal O2 nasal cannula. She did qualify for supplemental home O2. She will be discharged back on her oral Lasix. She will closely follow-up with nephrology and urology for her renal cyst/mass. Physical Exam Vital Signs: Temp Pulse Resp BP Pulse Ox 97.8 F 60 16 141/44 H 100 03/17/19 11:39 03/17/19 11:39 03/17/19 11:39 03/17/19 11:39 03/17/19 11:39 Intake & Output 03/16/19 03/17/19 03/18/19 06:59 06:59 06:59 Intake Total 630 50 Output Total 2400 700 Balance -1770 -650 Weight 228 lb 6.382 oz 217 lb 13.067 oz General appearance: PRESENT: no acute distress, obese Head exam: PRESENT: atraumatic, normocephalic Eye exam: PRESENT: conjunctiva pink, EOMI, PERRLA. ABSENT: scleral icterus Ear exam: PRESENT: normal external ear exam Mouth exam: PRESENT: moist, tongue midline Neck exam: ABSENT: carotid bruit, JVD, lymphadenopathy, thyromegaly Respiratory exam: PRESENT: clear to auscultation ricki. ABSENT: rales, rhonchi, wheezes Cardiovascular exam: PRESENT: RRR. ABSENT: diastolic murmur, rubs, systolic murmur Pulses: PRESENT: normal dorsalis pedis pul GI/Abdominal exam: PRESENT: normal bowel sounds, soft. ABSENT: distended, guarding, mass, organolmegaly, rebound, tenderness Rectal exam: PRESENT: deferred Extremities exam: PRESENT: pedal edema Neurological exam: PRESENT: alert, awake, oriented to person, oriented to place, oriented to time, oriented to situation, CN II-XII grossly intact. ABSENT: motor sensory deficit Results Laboratory Results: WBC 7.5 10^3/uL (4.0-10.5) 03/14/19 05:15 RBC 3.05 10^6/uL (3.72-5.28) L 03/14/19 05:15 Hgb 8.7 g/dL (12.0-15.5) L 03/14/19 05:15 Hct 26.8 % (36.0-47.0) L 03/14/19 05:15 MCV 88 fl (80-97) 03/14/19 05:15 MCH 28.5 pg (27.0-33.4) 03/14/19 05:15 MCHC 32.4 g/dL (32.0-36.0) 03/14/19 05:15 RDW 14.6 % (11.5-14.0) H 03/14/19 05:15 Plt Count 276 10^3/uL (150-450) 03/14/19 05:15 Lymph % (Auto) 19.9 % (13-45) 03/14/19 05:15 [place] % (Auto) 11.0 % (3-13) 03/14/19 05:15 Eos % (Auto) 3.5 % (0-6) 03/14/19 05:15 Baso % (Auto) 0.9 % (0-2) 03/14/19 05:15 Reticulocyte # 0.059 10^6/uL (0.028-0.122) 03/13/19 06:25 Absolute Neuts (auto) 4.9 10^3/uL (1.7-8.2) 03/14/19 05:15 Absolute Lymphs (auto) 1.5 10^3/uL (0.5-4.7) 03/14/19 05:15 Absolute Monos (auto) 0.8 10^3/uL (0.1-1.4) 03/14/19 05:15 Absolute Eos (auto) 0.3 10^3/uL (0.0-0.6) 03/14/19 05:15 Absolute Basos (auto) 0.1 10^3/uL (0.0-0.2) 03/14/19 05:15 Seg Neutrophils % 64.7 % (42-78) 03/14/19 05:15 Retic Count (auto) 1.90 % (0.66-2.85) 03/13/19 06:25 Sodium 140.1 mmol/L (137-145) 03/16/19 04:37 Potassium 5.0 mmol/L (3.6-5.0) 03/16/19 04:37 Chloride 102 mmol/L (98-107) 03/16/19 04:37 Carbon Dioxide 31 mmol/L (22-30) H 03/16/19 04:37 Anion Gap 7 (5-19) 03/16/19 04:37 BUN 35 mg/dL (7-20) H 03/16/19 04:37 Creatinine 1.70 mg/dL (0.52-1.25) H 03/16/19 04:37 Est GFR ( Amer) 36 (>60) L 03/16/19 04:37 Est GFR (MDRD) Non-Af 29 (>60) L 03/16/19 04:37 Glucose 93 mg/dL (75-110) 03/16/19 04:37 POC Glucose 129 mg/dL (70-110) H 03/17/19 11:38 Calcium 9.0 mg/dL (8.4-10.2) 03/16/19 04:37 Magnesium 2.8 mg/dL (1.6-2.3) H 03/12/19 22:02 Iron 34.1 ug/dL (37-170) L 03/13/19 06:25 TIBC 259 ug/dL (250-450) 03/13/19 06:25 % Saturation 13 % 03/13/19 06:25 Ferritin 64.00 ng/mL (11.1-264.0) 03/13/19 06:25 Total Bilirubin 0.4 mg/dL (0.2-1.3) 03/12/19 22:02 Direct Bilirubin 0.1 mg/dL (0.0-0.4) 03/12/19 22:02 Neonat Total Bilirubin Not Reportable 03/12/19 22:02 Neonat Direct Bilirubin Not Reportable 03/12/19 22:02 Neonat Indirect Bili Not Reportable 03/12/19 22:02 AST 57 U/L (14-36) H 03/12/19 22:02 ALT 48 U/L (<35) 03/12/19 22:02 Alkaline Phosphatase 162 U/L (38-126) H 03/12/19 22:02 Creatine Kinase 114 U/L (30-135) 03/12/19 22:02 CK-MB (CK-2) 1.05 ng/mL (<4.55) 03/12/19 22:02 Troponin I < 0.012 ng/mL 03/13/19 01:13 NT-Pro-B Natriuret Pep 1890 pg/mL (5-900) H 03/12/19 22:02 Total Protein 6.9 g/dL (6.3-8.2) 03/12/19 22:02 Albumin 3.7 g/dL (3.5-5.0) 03/12/19 22:02 Vitamin B12 828.0 pg/mL (239-931) 03/13/19 06:25 Folate > 20.00 ng/mL (>2.76) 03/13/19 06:25 TSH 2.42 uIU/mL (0.47-4.68) 03/12/19 22:02 Urine Color STRAW 03/12/19 22:51 Urine Appearance CLEAR 03/12/19 22:51 Urine pH 5.0 (5.0-9.0) 03/12/19 22:51 Ur Specific [place] 1.010 03/12/19 22:51 Urine Protein 100 mg/dL (NEGATIVE) H 03/12/19 22:51 Urine Glucose (UA) NEGATIVE mg/dL (NEGATIVE) 03/12/19 22:51 Urine Ketones NEGATIVE mg/dL (NEGATIVE) 03/12/19 22:51 Urine Blood NEGATIVE (NEGATIVE) 03/12/19 22:51 Urine Nitrite NEGATIVE (NEGATIVE) 03/12/19 22:51 Urine Bilirubin NEGATIVE (NEGATIVE) 03/12/19 22:51 Urine Urobilinogen NEGATIVE mg/dL (<2.0) 03/12/19 22:51 Ur Leukocyte Esterase NEGATIVE (NEGATIVE) 03/12/19 22:51 Urine WBC (Auto) 2 /HPF 03/12/19 22:51 Urine RBC (Auto) 0 /HPF 03/12/19 22:51 U Hyaline Cast (Auto) 3 /LPF 03/12/19 22:51 Urine Bacteria (Auto) TRACE /HPF 03/12/19 22:51 Urine Mucus (Auto) RARE /LPF 03/12/19 22:51 Urine Yeast (Budding) PRESENT /HPF 03/12/19 22:51 Urine Ascorbic Acid NEGATIVE (NEGATIVE) 03/12/19 22:51 03/12/19 03/12/19 03/13/19 22:02 22:02 01:13 CK-MB (CK-2) 1.05 Troponin I < 0.012 < 0.012 NT-Pro-B Natriuret Pep 1890 H Impressions: Chest X-Ray 03/12/19 21:57 IMPRESSION: copyright 2011 [employer]- All Rights Reserved Chest X-Ray 03/14/19 08:30 IMPRESSION: Unchanged radiographic appearance of the chest with a right pleural effusion, cardiomegaly, distention of the pulmonary vasculature, and patchy bibasilar opacities. Chest X-Ray 03/16/19 06:00 IMPRESSION: Chest radiograph appears clear. Resolved vascular congestion. Stroke Is this a Stroke Patient?: No Acute Heart Failure - Is this a Heart Failure Patient?: Yes Documentation of LVEF assessment?: No, Document reason LVEF < 40%?: No- if no continue to question #3 3. Anticoagulant therapy for permanect/persistent/paraoxysmal Afib or Aflutter: N/A
== END 2019-03-17 16:55 | disposition home or self-care (01) | DRG 291 ==
LOC: ER 21:51 → EH 03-13 05:34 → 3W 03-13 07:11
PROVIDERS: ADMIT Internal Medicine; ATTEND Internal Medicine
PROC: 5A09457 Assistance with Respiratory Ventilation, 24-96 Consecutive Hours, Continuous Positive Airway Pressure (ICD-10-PCS; principal; 2019-03-13)
DX: I13.0 Hypertensive heart and chronic kidney disease with heart failure and stage 1 through stage 4 chronic kidney disease, or unspecified chronic kidney disease (principal); I50.33 Acute on chronic diastolic (congestive) heart failure; J96.01 Acute respiratory failure with hypoxia; N17.9 Acute kidney failure, unspecified; E66.01 Morbid (severe) obesity due to excess calories; E11.22 Type 2 diabetes mellitus with diabetic chronic kidney disease; I25.10 Atherosclerotic heart disease of native coronary artery without angina pectoris; E78.5 Hyperlipidemia, unspecified; N18.3 Chronic kidney disease, stage 3 (moderate); Z91.19 Patient's noncompliance with other medical treatment and regimen; G47.33 Obstructive sleep apnea (adult) (pediatric); N28.1 Cyst of kidney, acquired; N20.0 Calculus of kidney; K80.20 Calculus of gallbladder without cholecystitis without obstruction; E03.9 Hypothyroidism, unspecified; M10.9 Gout, unspecified; E11.21 Type 2 diabetes mellitus with diabetic nephropathy; Z95.1 Presence of aortocoronary bypass graft; Z90.710 Acquired absence of both cervix and uterus; Z79.4 Long term (current) use of insulin; Z89.512 Acquired absence of left leg below knee; D50.9 Iron deficiency anemia, unspecified; E87.5 Hyperkalemia; E11.51 Type 2 diabetes mellitus with diabetic peripheral angiopathy without gangrene; Z79.82 Long term (current) use of aspirin; Z79.899 Other long term (current) drug therapy; Z88.1 Allergy status to other antibiotic agents; Z88.2 Allergy status to sulfonamides; Z88.8 Allergy status to other drugs, medicaments and biological substances; Z82.49 Family history of ischemic heart disease and other diseases of the circulatory system; Z84.1 Family history of disorders of kidney and ureter; Z90.49 Acquired absence of other specified parts of digestive tract; D63.1 Anemia in chronic kidney disease
CPT/HCPCS: 36415; 71045; 80048; 80053; 81001; 82550; 82553; 82607; 82728; 82746; 82962; 83540; 83550; 83735; 83880; 84443; 84484; 85025; 85045; 93005; 93010; 94660; 96374; 96375; 99285; J0696; J1439; J1644; J1815; J1940; J2405; J3490; J7050

== ENCOUNTER → 2019-04-01 | Outpatient (CLI) | payer MEDICARE, OTHER ==
[2019-04-01 11:23] LABS: APPEARANCE,URINE SLIGHTLY-CLOUDY; BILIRUBIN,URINE NEGATIVE (NEGATIVE); COLOR,URINE YELLOW; GLUCOSE, URINE NEGATIVE (NEGATIVE); KETONES,URINE NEGATIVE (NEGATIVE); LEUKOCYTE ESTERASE,URINE SMALL (NEGATIVE); NITRITE,URINE NEGATIVE (NEGATIVE); PROTEIN,URINE 100 mg/dL (NEGATIVE); URINE SPECIFIC GRAVITY 1.013; UROBILINOGEN,URINE NEGATIVE mg/dL (<2.0)
[2019-04-01 11:37] LABS: ABSOLUTE BASOPHILS # (AUTO) 0.1 10^3/uL (0.0-0.2); ABSOLUTE EOSINOPHILS # (AUTO) 0.2 10^3/uL (0.0-0.6); ABSOLUTE LYMPHOCYTES (AUTO) 1.7 10^3/uL (0.5-4.7); ABSOLUTE MONOCYTES (AUTO) 0.5 10^3/uL (0.1-1.4); ABSOLUTE NEUT (AUTO) 2.8 10^3/uL (1.7-8.2); EOSINOPHILS % (AUTO) 4.3 % (0-6); HEMATOCRIT 31.6 % (36.0-47.0); HEMOGLOBIN 10.6 g/dL (12.0-15.5); LYMPHOCYTES % (AUTO) 31.5 % (13-45); MEAN CORPUSCULAR HEMOGLOBIN 29.8 pg (27.0-33.4); MEAN CORPUSCULAR HGB CONC 33.5 g/dL (32.0-36.0); MEAN CORPUSCULAR VOLUME 89 fl (80-97); MONOCYTES % (AUTO) 9.4 % (3-13); PLATELET COUNT 232 10^3/uL (150-450); RED BLOOD COUNT 3.56 10^6/uL (3.72-5.28); RED CELL DISTRIBUTION WIDTH 15.5 % (11.5-14.0); SEGMENTED NEUTROPHILS % (AUTO) 53.8 % (42-78); TOTAL CELLS COUNTED % (AUTO) 100 %; WHITE BLOOD COUNT 5.3 10^3/uL (4.0-10.5)
[2019-04-01 11:44] LABS: UR PRO/CREAT RATIO RESULT 1.2 mg/mg (0.0-0.2); URINE CREATININE 109.8 mg/dL (15-278); URINE PROTEIN 135.3 mg/dL (<12)
[2019-04-01 12:04] LABS: ANION GAP 12 (5-19); BLOOD UREA NITROGEN 53 mg/dL (7-20); CALCIUM 9.3 mg/dL (8.4-10.2); CARBON DIOXIDE 24 mmol/L (22-30); CHLORIDE 109 mmol/L (98-107); GLUCOSE 193 mg/dL (75-110); POTASSIUM 4.8 mmol/L (3.6-5.0)
== END ==
LOC: OD 10:21
PROVIDERS: ATTEND Internal Medicine Nephrology
DX: I12.9 Hypertensive chronic kidney disease with stage 1 through stage 4 chronic kidney disease, or unspecified chronic kidney disease (principal); N18.3 Chronic kidney disease, stage 3 (moderate); E11.22 Type 2 diabetes mellitus with diabetic chronic kidney disease; N39.0 Urinary tract infection, site not specified
CPT/HCPCS: 36415; 80048; 81001; 82570; 84156; 85025; 87086

== ENCOUNTER → 2019-04-07 | Outpatient (CLI) | payer MEDICARE, OTHER ==
[2019-04-07 14:23] VITALS: BP 161/52
--- NOTE | 2019-04-07 17:10 | RADIOLOGY REPORT (SQ) ---
EXAM DESCRIPTION: CT ABDOMEN COMBO COMPLETED DATE/TIME: 04/07/2019 10:48 am REASON FOR STUDY: RENAL MASS (N28.89) N28.89 OTHER SPECIFIED DISORDERS OF KIDNEY AND URETER COMPARISON: 03/04/2019 TECHNIQUE: CT scan of the abdomen performed with and without intravenous contrast, and without oral contrast. Contrasted imaging performed using helical scanning technique with dynamic intravenous cont rast injection. Images reviewed with lung, soft tissue, and bone windows. Reconstructed coronal and s agittal MPR images reviewed. Delayed images for evaluation of the urinary system also acquired and ev aluated. All images stored on PACS. All CT scanners at this facility use dose modulation, iterative reconstruction, and/or weight based d osing when appropriate to reduce radiation dose to as low as reasonably achievable (ALARA). [facility]: Dose Right [facility]: CareDose [facility]: Dose Right [facility]: Teradose 4D [facility]: FLS Energy CONTRAST TYPE AND DOSE: contrast/concentration: Isovue 350.00 mg/ml; Total Contrast Delivered: 100.0 ml; Total Saline Delivered: 72.0 ml RENAL FUNCTION: Not recorded here. Refer to certified nuclear medicine technologist's notes. RADIATION DOSE: CT Rad equipment meets quality standard of care and radiation dose reduction techniq ues were employed. CTDIvol: 24.4 - 29.2 mGy. DLP: 2881 mGy-cm.. LIMITATIONS: None. FINDINGS: NONCONTRASTED IMAGING: No significant renal or bladder calcifications. No other significan t organ calcifications. POSTCONTRASTED IMAGING: LOWER CHEST: No significant findings. No nodules or infiltrates. LIVER: Normal size. No masses. No dilated ducts. SPLEEN: Normal size. No focal lesions. PANCREAS: No masses. No significant calcifications. No adjacent inflammation or peripancreatic fluid collections. Pancreatic duct not dilated. GALLBLADDER: No identified stones by CT criteria. No inflammatory changes to suggest cholecystitis. ADRENAL GLANDS: No significant masses or asymmetry. RIGHT KIDNEY AND URETER: There is a 33 mm heterogeneous mass in the mid to lower pole of the right ki dney. No significant calcifications. No hydronephrosis or hydroureter. LEFT KIDNEY AND URETER: No solid masses. No significant calcifications. No hydronephrosis or hydr oureter. AORTA AND VESSELS: No aneurysm. No dissection. Renal arteries, SMA, celiac without stenosis. RETROPERITONEUM: No retroperitoneal adenopathy, hemorrhage or masses. BOWEL AND PERITONEAL CAVITY: No masses or inflammatory changes. No free fluid or peritoneal masses. APPENDIX: Not identified. ABDOMINAL WALL: No masses. No hernias. BONES: No significant or acute findings. OTHER: No other significant finding. IMPRESSION: 33 mm heterogeneous mass in the mid to lower pole the right kidney appears stable. TECHNICAL DOCUMENTATION: JOB ID: [id number] Quality ID # [id number]: Final reports with documentation of one or more dose reduction techniques (e.g., Au tomated exposure control, adjustment of the mA and/or kV according to patient size, use of iterative reconstruction technique) 2010 [employer] ???- All Rights Reserved Reading location - IP/workstation name: [email or web address]
== END ==
LOC: RAD 07:01
PROVIDERS: ATTEND Urology
DX: N28.89 Other specified disorders of kidney and ureter (principal)
CPT/HCPCS: 74170; 96360; 96361

== ENCOUNTER → 2019-04-08 | Outpatient (CLI) | payer MEDICARE, OTHER ==
[2019-04-08 17:51] LABS: ANION GAP 13 (5-19); BLOOD UREA NITROGEN 51 mg/dL (7-20); CARBON DIOXIDE 23 mmol/L (22-30); CHLORIDE 105 mmol/L (98-107); GLUCOSE 208 mg/dL (75-110); POTASSIUM 4.1 mmol/L (3.6-5.0)
== END ==
LOC: OD 16:23
PROVIDERS: ATTEND Internal Medicine Nephrology
DX: N18.3 Chronic kidney disease, stage 3 (moderate) (principal)
CPT/HCPCS: 36415; 80048

== ENCOUNTER → 2019-05-01 | Outpatient (CLI) | payer MEDICARE, OTHER ==
--- NOTE | 2019-05-01 15:13 | RADIOLOGY REPORT (SQ) ---
EXAM DESCRIPTION: NM RENAL SCAN COMPLETED DATE/TIME: 05/01/2019 3:02 pm REASON FOR STUDY: OTHER SPECIFIED DISORDERS OF KIDNEY AND URETER N28.89 OTHER SPECIFIED DISORDERS O F KIDNEY AND URETER COMPARISON: None. RADIONUCLIDE AND DOSE: 5.34 millicuries Tc-99m MAG 3 The route of agent administration: Intravenous TECHNIQUE: Following administration of the radionuclide, flow images of the kidneys were acquired fo llowed by sequential imaging for 30 minutes. Time activity curves were generated. LIMITATIONS: None. FINDINGS: ACTIVITY LEFT KIDNEY: 36.8 %. ACTIVITY RIGHT KIDNEY: 63.2 %. There is prompt uptake of activity in the kidneys bilaterally simultaneous with passage of the aorti c bolus. There is normal excretion with progression of activity from the renal cortex into the myesha ecting system and subsequently into the ureters. Time activity curves demonstrate normal excretory pattern with no abnormal retention. No obstructive changes. IMPRESSION: DIFFERENTIAL RENAL FUNCTION, 36.8% IN THE LEFT KIDNEY AND 63.2% IN THE RIGHT KIDNEY. NO OBSTRUCTIVE CHANGES. TECHNICAL DOCUMENTATION: JOB ID: [id number] [employer]- All Rights Reserved Reading location - IP/workstation name: [email or web address]
== END ==
LOC: RAD 13:05
PROVIDERS: ATTEND Urology
DX: N28.89 Other specified disorders of kidney and ureter (principal)
CPT/HCPCS: 78707; A9562

== ENCOUNTER → 2019-05-20 | Outpatient (CLI) | payer MEDICARE, OTHER ==
[2019-05-20 13:11] LABS: ABSOLUTE BASOPHILS # (AUTO) 0.1 10^3/uL (0.0-0.2); ABSOLUTE EOSINOPHILS # (AUTO) 0.3 10^3/uL (0.0-0.6); ABSOLUTE LYMPHOCYTES (AUTO) 1.9 10^3/uL (0.5-4.7); ABSOLUTE MONOCYTES (AUTO) 0.5 10^3/uL (0.1-1.4); ABSOLUTE NEUT (AUTO) 3.6 10^3/uL (1.7-8.2); EOSINOPHILS % (AUTO) 4.2 % (0-6); HEMATOCRIT 33.5 % (36.0-47.0); HEMOGLOBIN 11.2 g/dL (12.0-15.5); LYMPHOCYTES % (AUTO) 29.5 % (13-45); MEAN CORPUSCULAR HEMOGLOBIN 30.1 pg (27.0-33.4); MEAN CORPUSCULAR HGB CONC 33.6 g/dL (32.0-36.0); MEAN CORPUSCULAR VOLUME 90 fl (80-97); MONOCYTES % (AUTO) 8.6 % (3-13); PLATELET COUNT 239 10^3/uL (150-450); RED BLOOD COUNT 3.74 10^6/uL (3.72-5.28); RED CELL DISTRIBUTION WIDTH 14.6 % (11.5-14.0); SEGMENTED NEUTROPHILS % (AUTO) 56.7 % (42-78); TOTAL CELLS COUNTED % (AUTO) 100 %; WHITE BLOOD COUNT 6.3 10^3/uL (4.0-10.5)
[2019-05-20 13:35] LABS: ALBUMIN 3.8 g/dL (3.5-5.0); ALKALINE PHOSPHATASE 109 U/L (38-126); ANION GAP 12 (5-19); ASPARTATE AMINO TRANSFERASE 16 U/L (14-36); BILIRUBIN,DIRECT 0.2 mg/dL (0.0-0.4); BILIRUBIN,TOTAL 0.6 mg/dL (0.2-1.3); BLOOD UREA NITROGEN 39 mg/dL (7-20); CALCIUM 9.3 mg/dL (8.4-10.2); CARBON DIOXIDE 27 mmol/L (22-30); CHLORIDE 103 mmol/L (98-107); GLUCOSE 271 mg/dL (75-110); PHOSPHORUS 4.7 mg/dL (2.5-4.5); POTASSIUM 4.2 mmol/L (3.6-5.0); TOTAL PROTEIN 7.2 g/dL (6.3-8.2)
[2019-05-20 13:41] LABS: APPEARANCE,URINE CLEAR; BILIRUBIN,URINE NEGATIVE (NEGATIVE); COLOR,URINE YELLOW; GLUCOSE, URINE 50 mg/dL (NEGATIVE); KETONES,URINE NEGATIVE (NEGATIVE); LEUKOCYTE ESTERASE,URINE TRACE (NEGATIVE); NITRITE,URINE NEGATIVE (NEGATIVE); PROTEIN,URINE >=500 mg/dL (NEGATIVE); URINE SPECIFIC GRAVITY 1.011; UROBILINOGEN,URINE NEGATIVE mg/dL (<2.0)
== END ==
LOC: OD 12:35
PROVIDERS: ATTEND Internal Medicine Nephrology
DX: I13.0 Hypertensive heart and chronic kidney disease with heart failure and stage 1 through stage 4 chronic kidney disease, or unspecified chronic kidney disease (principal); I50.9 Heart failure, unspecified; N18.3 Chronic kidney disease, stage 3 (moderate); E11.22 Type 2 diabetes mellitus with diabetic chronic kidney disease
CPT/HCPCS: 36415; 80053; 81001; 83970; 84100; 85025

== ENCOUNTER → 2019-06-16 | Outpatient (CLI) | payer MEDICARE, OTHER ==
[2019-06-16 14:30] LABS: APPEARANCE,URINE CLEAR; BILIRUBIN,URINE NEGATIVE (NEGATIVE); COLOR,URINE YELLOW; GLUCOSE, URINE NEGATIVE (NEGATIVE); KETONES,URINE NEGATIVE (NEGATIVE); LEUKOCYTE ESTERASE,URINE NEGATIVE (NEGATIVE); NITRITE,URINE NEGATIVE (NEGATIVE); PROTEIN,URINE 100 mg/dL (NEGATIVE); URINE SPECIFIC GRAVITY 1.009; UROBILINOGEN,URINE NEGATIVE mg/dL (<2.0)
== END ==
LOC: OD 13:09
PROVIDERS: ATTEND Internal Medicine Nephrology
DX: N18.3 Chronic kidney disease, stage 3 (moderate) (principal); R30.9 Painful micturition, unspecified
CPT/HCPCS: 81001

== ENCOUNTER → 2019-07-24 | Outpatient (CLI) | payer MEDICARE, OTHER ==
--- NOTE | 2019-07-24 17:14 | RADIOLOGY REPORT (SQ) ---
EXAM DESCRIPTION: CT CHEST WITHOUT COMPLETED DATE/TIME: 07/24/2019 3:45 pm REASON FOR STUDY: C64.1 MALIGNANT NEOPLASM OF RIGHT KIDNEY, EXCEPT RENAL PELVIS, N28.89 OTHER C64.1 MALIGNANT NEOPLASM OF RIGHT KIDNEY, EXCEPT RENAL PELVI N28.89 OTHER SPECIFIED DISORDERS OF KIDNEY A ND URETER COMPARISON: CT chest 08/28/2014, 02/12/2010 TECHNIQUE: CT scan performed of the chest without intravenous contrast. Images reviewed with lung, soft tissue and bone windows. Reconstructed coronal and sagittal MPR images reviewed. All images st ored on PACS. All CT scanners at this facility use dose modulation, iterative reconstruction, and/or weight based d osing when appropriate to reduce radiation dose to as low as reasonably achievable (ALARA). [facility]: Dose Right [facility]: CareDose [facility]: Dose Right [facility]: Teradose 4D [facility]: [employer] RADIATION DOSE: CT Rad equipment meets quality standard of care and radiation dose reduction techniq ues were employed. CTDIvol: 18.6 mGy. DLP: 725 mGy-cm. mGy. LIMITATIONS: No technical limitations. FINDINGS: LUNGS AND PLEURA: Minimal chronic scarring is present in the right lung base. No worrisome pulmonary nodules or metastatic disease. No pleural effusion. No pneumothorax. Minima l pleural thickening/ pleural calcification in the anterior right upper chest. HILAR AND MEDIASTINAL STRUCTURES: No identified masses or abnormal nodes. No obvious aneurysm. HEART AND VASCULAR STRUCTURES: Mild cardiomegaly. Old sternotomy for CABG. UPPER ABDOMEN: Right lower pole renal mass seen on CT exam 04/07/2019 is not in the field of view THYROID AND OTHER SOFT TISSUES: No masses. No adenopathy. BONES: No significant finding. HARDWARE: None in the chest. OTHER: No other significant findings. IMPRESSION: No gross evidence of metastatic disease to the chest given history of right renal neopla sm TECHNICAL DOCUMENTATION: JOB ID: [id number] Quality ID # [id number]: Final reports with documentation of one or more dose reduction techniques (e.g., Au tomated exposure control, adjustment of the mA and/or kV according to patient size, use of iterative reconstruction technique) 2010 [employer]- All Rights Reserved Reading location - IP/workstation name: [email or web address]
== END ==
LOC: RAD 15:00
PROVIDERS: ATTEND Internal Medicine Cardiovascular Disease
DX: C64.1 Malignant neoplasm of right kidney, except renal pelvis (principal)
CPT/HCPCS: 71250; 82565

== ENCOUNTER → 2019-08-01 | Outpatient (CLI) | payer MEDICARE, OTHER ==
[2019-08-01 10:15] LABS: APPEARANCE,URINE SLIGHTLY-CLOUDY; BILIRUBIN,URINE NEGATIVE (NEGATIVE); COLOR,URINE STRAW; GLUCOSE, URINE NEGATIVE (NEGATIVE); KETONES,URINE NEGATIVE (NEGATIVE); LEUKOCYTE ESTERASE,URINE TRACE (NEGATIVE); NITRITE,URINE NEGATIVE (NEGATIVE); PROTEIN,URINE 100 mg/dL (NEGATIVE); URINE SPECIFIC GRAVITY 1.009; UROBILINOGEN,URINE NEGATIVE mg/dL (<2.0)
[2019-08-01 10:17] LABS: ABSOLUTE EOSINOPHILS # (AUTO) 0.2 10^3/uL (0.0-0.6); ABSOLUTE LYMPHOCYTES (AUTO) 1.9 10^3/uL (0.5-4.7); ABSOLUTE MONOCYTES (AUTO) 0.5 10^3/uL (0.1-1.4); ABSOLUTE NEUT (AUTO) 2.8 10^3/uL (1.7-8.2); BASOPHILS % (AUTO) 0.8 % (0-2); EOSINOPHILS % (AUTO) 3.3 % (0-6); HEMATOCRIT 31.8 % (36.0-47.0); HEMOGLOBIN 10.8 g/dL (12.0-15.5); LYMPHOCYTES % (AUTO) 34.6 % (13-45); MEAN CORPUSCULAR HEMOGLOBIN 30.2 pg (27.0-33.4); MEAN CORPUSCULAR HGB CONC 33.9 g/dL (32.0-36.0); MEAN CORPUSCULAR VOLUME 89 fl (80-97); MONOCYTES % (AUTO) 9.2 % (3-13); PLATELET COUNT 207 10^3/uL (150-450); RED BLOOD COUNT 3.57 10^6/uL (3.72-5.28); RED CELL DISTRIBUTION WIDTH 14.8 % (11.5-14.0); SEGMENTED NEUTROPHILS % (AUTO) 52.1 % (42-78); TOTAL CELLS COUNTED % (AUTO) 100 %; WHITE BLOOD COUNT 5.3 10^3/uL (4.0-10.5)
[2019-08-01 10:37] LABS: ALBUMIN 3.7 g/dL (3.5-5.0); ALKALINE PHOSPHATASE 110 U/L (38-126); ANION GAP 8 (5-19); ASPARTATE AMINO TRANSFERASE 22 U/L (14-36); BILIRUBIN,TOTAL 0.4 mg/dL (0.2-1.3); BLOOD UREA NITROGEN 70 mg/dL (7-20); CALCIUM 8.9 mg/dL (8.4-10.2); CARBON DIOXIDE 24 mmol/L (22-30); CHLORIDE 107 mmol/L (98-107); GLUCOSE 214 mg/dL (75-110); POTASSIUM 4.5 mmol/L (3.6-5.0); TOTAL PROTEIN 6.8 g/dL (6.3-8.2)
[2019-08-01 10:45] LABS: UR PRO/CREAT RATIO RESULT 1.5 mg/mg (0.0-0.2); URINE CREATININE 47.1 mg/dL (15-278); URINE PROTEIN 72.5 mg/dL (<12)
== END ==
LOC: OD 09:43
PROVIDERS: ATTEND Internal Medicine Nephrology
DX: I13.0 Hypertensive heart and chronic kidney disease with heart failure and stage 1 through stage 4 chronic kidney disease, or unspecified chronic kidney disease (principal); I50.9 Heart failure, unspecified; N18.3 Chronic kidney disease, stage 3 (moderate); E11.22 Type 2 diabetes mellitus with diabetic chronic kidney disease
CPT/HCPCS: 36415; 80053; 81001; 82306; 82570; 83970; 84156; 85025

== ENCOUNTER → 2019-09-17 | Outpatient (CLI) | payer MEDICARE, OTHER ==
[2019-09-17 17:10] LABS: ABSOLUTE EOSINOPHILS # (AUTO) 0.2 10^3/uL (0.0-0.6); ABSOLUTE LYMPHOCYTES (AUTO) 1.1 10^3/uL (0.5-4.7); ABSOLUTE MONOCYTES (AUTO) 0.6 10^3/uL (0.1-1.4); ABSOLUTE NEUT (AUTO) 2.4 10^3/uL (1.7-8.2); BASOPHILS % (AUTO) 0.6 % (0-2); HEMATOCRIT 30.6 % (36.0-47.0); HEMOGLOBIN 10.4 g/dL (12.0-15.5); LYMPHOCYTES % (AUTO) 25.8 % (13-45); MEAN CORPUSCULAR HEMOGLOBIN 30.1 pg (27.0-33.4); MEAN CORPUSCULAR VOLUME 88 fl (80-97); MONOCYTES % (AUTO) 13.3 % (3-13); PLATELET COUNT 165 10^3/uL (150-450); RED BLOOD COUNT 3.47 10^6/uL (3.72-5.28); RED CELL DISTRIBUTION WIDTH 15.3 % (11.5-14.0); SEGMENTED NEUTROPHILS % (AUTO) 56.3 % (42-78); TOTAL CELLS COUNTED % (AUTO) 100 %; WHITE BLOOD COUNT 4.3 10^3/uL (4.0-10.5)
[2019-09-17 17:28] LABS: ANION GAP 10 (5-19); BLOOD UREA NITROGEN 47 mg/dL (7-20); CALCIUM 8.6 mg/dL (8.4-10.2); CARBON DIOXIDE 24 mmol/L (22-30); CHLORIDE 105 mmol/L (98-107); GLUCOSE 105 mg/dL (75-110); POTASSIUM 4.3 mmol/L (3.6-5.0)
== END ==
LOC: OD 16:10
PROVIDERS: ATTEND Internal Medicine Nephrology
DX: I12.9 Hypertensive chronic kidney disease with stage 1 through stage 4 chronic kidney disease, or unspecified chronic kidney disease (principal); N18.3 Chronic kidney disease, stage 3 (moderate); E11.22 Type 2 diabetes mellitus with diabetic chronic kidney disease
CPT/HCPCS: 36415; 80048; 85025

== ENCOUNTER 2019-09-20 17:52 | Emergency (ER) | payer MEDICARE, OTHER ==
--- NOTE | 2019-09-20 18:16 | ER Document Report ---
ED General - General Chief Complaint: Shortness Of Breath Stated Complaint: FEVER Time Seen by Provider: 09/20/19 18:11 Primary Care Provider: Ubaldo DAVIS MD [Primary Care Provider] - Follow up as needed Mode of Arrival: Ambulatory Information source: Patient TRAVEL OUTSIDE OF THE [place] IN LAST 30 DAYS: No - HPI Onset: Other - over the last week Onset/Duration: Gradual Quality of pain: No pain Severity: Moderate Pain Level: Denies Associated symptoms: Nonproductive cough, Fever - low grade, Shortness of breath, Weakness, Other - leg swelling Exacerbated by: Denies Relieved by: Denies Similar symptoms previously: Yes - with prior fluid retention Recently seen / treated by doctor: Yes - patient had radiation of her kidney the first 2 weeks of August Notes: 74 year old female with a history of Kidney Cancer currently undergoing Radiation (last done 2 weeks ago), DM, HTN, HLD, CAD, PVD s/p left leg amputation, Hypothyroidism here in the ER for 1 week of shortness of breath, generalized weakness, sensation of fluid retention, and low grade fevers. Exertion and laying flat make her breathing worse. The patient says she has felt like this before when she was volume overloaded. The patient is on lasix and she took an extra dose last Sunday and Yesterday. The patient apparently called the [facility] COVID line and was told to come to the ER to be tested but the patient is not endorsing URI like symptoms. - Related Data Allergies/Adverse Reactions: cephalexin monohydrate [From Keflex] Allergy (Unknown, Verified 03/12/19 22:58) nausea/vomiting metformin [Metformin] Allergy (Unknown, Verified 03/12/19 22:58) nausea/vomiting Sulfa (Sulfonamide Antibiotics) Allergy (Unknown, Verified 03/12/19 22:58) itching/rash promethazine [From Phenergan] Adverse Reaction (Mild, Verified 03/12/19 22:58) Hallucinations Past Medical History - General Information source: Patient - Social History Smoking Status: Never Smoker Frequency of alcohol use: None Drug Abuse: None Lives with: Family Family History: Hypertension Patient has homicidal ideation: No - Past Medical History Cardiac Medical History: Reports: Hx Coronary Artery Disease, Hx Hypercholester olemia, Hx Hypertension, Hx Peripheral Vascular Disease, Hx Heart Murmur Denies: Hx Atrial Fibrillation, Hx Congestive Heart Failure, Hx Heart Attack, Hx Pulmonary Embolism Pulmonary Medical History: Reports: Hx Pneumonia, Hx Sleep Apnea - Currently not using CPAP. Denies: Hx Asthma, Hx Bronchitis, Hx COPD, Hx Respiratory Failure, Hx Tuberculosis Neurological Medical History: Denies: Hx Cerebrovascular Accident, Hx Seizures Endocrine Medical History: Reports: Hx Diabetes Mellitus Type 2, Hx Hypothyroidism - Being followed by manager development in [place]. On no medicine for this. Renal/ Medical History: Denies: Hx End Stage Renal Disease, Hx Kidney Stones, Hx Ovarian Cysts, Hx Peritoneal Dialysis, Hx Pelvic Inflammatory Disease Malignancy Medical History: Denies: Hx Breast Cancer, Hx Cervical Cancer, Hx Leukemia, Hx Lung Cancer, Hx Ovarian Cancer GI Medical History: Denies: Hx Crohn's Disease, Hx Gastroesophageal Reflux Disease, Hx Hepatitis, Hx Hiatal Hernia, Hx Irritable Bowel, Hx Liver Failure, Hx Pancreatitis, Hx Ulcer Musculoskeletal Medical History: Reports Hx Arthritis, Denies Hx Fibromyalgia, Reports Hx Gout, Denies Hx Muscular Dystrophy Skin Medical History: Denies Hx MRSA Psychiatric Medical History: Denies: Hx Depression Traumatic Medical History: Denies: Hx Fractures Infectious Medical History: Denies: Hx Hepatitis, Hx HIV Past Surgical History: Reports: Hx Appendectomy, Hx Cardiac Surgery, Hx Coronary Artery Bypass Graft - X3, July 07, 2014, Hx Gynecologic Surgery, Hx Herniorrhaphy, Hx Hysterectomy, Hx Orthopedic Surgery - 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 on July 2016, Hx Vascular Surgery. Denies: Hx Bowel Surgery, Hx Section, Hx Cholecystectomy, Hx Colostomy, Hx Gastric Bypass Surgery, Hx Mastectomy, Hx Open Heart Surgery, Hx Pacemaker, Hx Tonsillectomy, Hx Tubal Ligation - Immunizations Hx Diphtheria, Pertussis, Tetanus Vaccination: Yes Hx Pneumococcal Vaccination: 02/18/11 Review of Systems - Review of Systems Constitutional: Fever - loew grade EENT: No symptoms reported Cardiovascular: Orthopnea, Dyspnea Respiratory: Cough, Short of breath Gastrointestinal: No symptoms reported Genitourinary: No symptoms reported Female Genitourinary: No symptoms reported Musculoskeletal: No symptoms reported Skin: No symptoms reported Hematologic/Lymphatic: No symptoms reported Neurological/Psychological: No symptoms reported -: Yes All other systems reviewed and negative Physical Exam - Vital signs Vitals: Temp Pulse Resp BP Pulse Ox 98.6 F 70 20 157/67 H 96 09/20/19 17:55 09/20/19 17:55 09/20/19 17:55 09/20/19 17:55 09/20/19 17:55 - Notes Notes: GENERAL: Well-appearing, well-nourished and in no acute distress. HEAD: Atraumatic, normocephalic. EYES: Pupils equal round and reactive to light, extraocular movements intact, sclera anicteric, conjunctiva are normal. ENT: External ears normal, nares patent, oropharynx clear without exudates. Moist mucous membranes. NECK: Normal range of motion, supple without lymphadenopathy or JVD. LUNGS: Breath sounds clear to auscultation bilaterally and equal. No wheezes rales or rhonchi. HEART: Regular rate and rhythm without murmurs, rubs or gallops. ABDOMEN: Soft, nontender, normoactive bowel sounds. No guarding, no rebound. No masses appreciated. EXTREMITIES: Left leg ampuation. Normal range of motion, mild leg edema. No clubbing or cyanosis. NEUROLOGICAL: Cranial nerves II through XII grossly intact. Normal speech, normal gait. PSYCH: Normal mood, normal affect. SKIN: Warm, Dry, normal turgor, no rashes or lesions noted. Course - Re-evaluation Re-evalutation: 09/20/19 21:04 The patient is here for shortness of breath and feeling volume overloaded. She recently had radiation on her right kidney tumor. Patient's BNP is slightly up from her baseline and her chest xray looks slightly volume overloaded to me but Radiology read it as normal. Patient was given 40mg IV Lasix in the ER. Patient's UA looks infected. Will culture urine and treat with Cipro. Patient told to follow up with her PCP. No need for admission at this time. - Vital Signs Vital signs: Temp Pulse Resp BP Pulse Ox 98.3 F 70 24 H 172/66 H 93 09/20/19 19:55 09/20/19 19:55 09/20/19 20:14 09/20/19 20:14 09/20/19 20:14 - Laboratory Result Diagrams: 09/20/19 19:50 09/20/19 19:50 Laboratory results interpreted by me: 09/20/19 09/20/19 09/20/19 19:50 19:50 19:50 RBC 3.67 L Hgb 11.0 L Hct 32.6 L RDW 15.0 H Potassium 5.1 H BUN 53 H Creatinine 2.02 H Est GFR ( Amer) 29 L Est GFR (MDRD) Non-Af 24 L Glucose 72 L NT-Pro-B Natriuret Pep 2090 H Urine Protein Ur Leukocyte Esterase 09/20/19 20:24 RBC Hgb Hct RDW Potassium BUN Creatinine Est GFR ( Amer) Est GFR (MDRD) Non-Af Glucose NT-Pro-B Natriuret Pep Urine Protein 100 H Ur Leukocyte Esterase MODERATE H - Diagnostic Test Radiology reviewed: Image reviewed, Reports reviewed - EKG Interpretation by Me EKG shows normal: Sinus rhythm Rate: Normal Rhythm: NSR Brutus/QRS: Left axis deviation Additional EKG results interpreted by me: 09/20/19 21:02 Atrial Premature Complexes, Intraventricular Conduction Delay Discharge - Discharge Clinical Impression: UTI (urinary tract infection) Qualifiers: Urinary tract infection type: site unspecified Hematuria presence: without hematuria Qualified Code(s): N39.0 - Urinary tract infection, site not specified Heart failure Qualifiers: Heart failure type: unspecified Heart failure chronicity: acute Qualified Code(s): I50.9 - Heart failure, unspecified Condition: Stable Disposition: HOME, SELF-CARE Instructions: Urinary Tract Infection ([facility]), Congestive Heart Failure ([facility]) Additional Instructions: Take Levaquin (antibiotic) as prescribed. Follow up with your primary care doctor to ensure resolution of symptoms. You can take an extra dose of lasix if you feel volume overloaded. Prescriptions: Levofloxacin [Levaquin 750 mg Tablet] 750 mg PO DAILY #5 tablet Referrals: Ubaldo DAVIS MD [Primary Care Provider] - Follow up as needed
[2019-09-20 20:11] LABS: ABSOLUTE BASOPHILS # (AUTO) 0.1 10^3/uL (0.0-0.2); ABSOLUTE EOSINOPHILS # (AUTO) 0.2 10^3/uL (0.0-0.6); ABSOLUTE LYMPHOCYTES (AUTO) 1.3 10^3/uL (0.5-4.7); ABSOLUTE MONOCYTES (AUTO) 0.5 10^3/uL (0.1-1.4); ABSOLUTE NEUT (AUTO) 2.5 10^3/uL (1.7-8.2); BASOPHILS % (AUTO) 1.2 % (0-2); EOSINOPHILS % (AUTO) 4.5 % (0-6); HEMATOCRIT 32.6 % (36.0-47.0); MEAN CORPUSCULAR HEMOGLOBIN 30.1 pg (27.0-33.4); MEAN CORPUSCULAR HGB CONC 33.8 g/dL (32.0-36.0); MEAN CORPUSCULAR VOLUME 89 fl (80-97); MONOCYTES % (AUTO) 11.6 % (3-13); PLATELET COUNT 189 10^3/uL (150-450); RED BLOOD COUNT 3.67 10^6/uL (3.72-5.28); SEGMENTED NEUTROPHILS % (AUTO) 54.7 % (42-78); TOTAL CELLS COUNTED % (AUTO) 100 %; WHITE BLOOD COUNT 4.5 10^3/uL (4.0-10.5)
[2019-09-20 20:31] LABS: ALBUMIN 4.1 g/dL (3.5-5.0); ALKALINE PHOSPHATASE 117 U/L (38-126); ANION GAP 8 (5-19); ASPARTATE AMINO TRANSFERASE 23 U/L (14-36); BILIRUBIN,TOTAL 0.6 mg/dL (0.2-1.3); BLOOD UREA NITROGEN 53 mg/dL (7-20); CALCIUM 9.2 mg/dL (8.4-10.2); CARBON DIOXIDE 28 mmol/L (22-30); CHLORIDE 104 mmol/L (98-107); GLUCOSE 72 mg/dL (75-110); POTASSIUM 5.1 mmol/L (3.6-5.0); TOTAL PROTEIN 7.3 g/dL (6.3-8.2)
[2019-09-20 20:39] LABS: NT PRO BNP 2090 pg/mL (<125)
--- NOTE | 2019-09-20 20:39 | RADIOLOGY REPORT (SQ) ---
EXAM DESCRIPTION: XR CHEST 1 VIEW COMPLETED DATE/TME: 09/20/2019 18:14 CLINICAL HISTORY: 74 years Female eval for SOB COMPARISON: 07/23/2049. FINDINGS: Cardiac enlargement. Median sternotomy wires are present. There is a small linear area of scarring or atelectasis in the left upper lobe which was present on the patient's previous CT examination. Some increased density in the lateral right lung base which may correlate with previous area of scarring and/or atelectasis. No new infiltrate is noted. IMPRESSION: Stable appearance of the chest when compared to previous CT
[2019-09-20 20:40] LABS: TROPONIN I < 0.012 ng/mL
[2019-09-20] MEDS ORDERED: FUROSEMIDE INJ/PF 20 MG/2 ML SDV IV ONE (20:56)
[2019-09-20] MEDS ORDERED: FUROSEMIDE INJ/PF 40 MG/4 ML SDV IV ONE (21:02)
[2019-09-20 21:08] LABS: APPEARANCE,URINE SLIGHTLY-CLOUDY; BILIRUBIN,URINE NEGATIVE (NEGATIVE); COLOR,URINE STRAW; GLUCOSE, URINE NEGATIVE (NEGATIVE); KETONES,URINE NEGATIVE (NEGATIVE); LEUKOCYTE ESTERASE,URINE MODERATE (NEGATIVE); NITRITE,URINE NEGATIVE (NEGATIVE); PROTEIN,URINE 100 mg/dL (NEGATIVE); URINE SPECIFIC GRAVITY 1.009; UROBILINOGEN,URINE NEGATIVE mg/dL (<2.0)
[2019-09-20] MEDS ORDERED: LEVOFLOXACIN 750 MG TABLET PO ONE (21:15)
[2019-09-20] MEDS ORDERED: FUROSEMIDE 40 MG TABLET PO ONE (21:18)
--- NOTE | 2019-09-20 21:23 | EKG REPORT ---
SEVERITY:- ABNORMAL ECG - SINUS RHYTHM MULTIPLE ATRIAL PREMATURE COMPLEXES NONSPECIFIC INTRAVENTRICULAR CONDUCTION DELAY LVH WITH SECONDARY REPOLARIZATION ABNORMALITY : Confirmed by: Roxi Anderson MD 20-Sep-2019 21:23:19
[2019-09-20 21:52] VITALS: BP 166/55
== END 2019-09-20 21:52 | disposition home or self-care (01) ==
LOC: ER 17:52
DX: I11.0 Hypertensive heart disease with heart failure (principal); I50.9 Heart failure, unspecified; N39.0 Urinary tract infection, site not specified; R06.02 Shortness of breath; R06.01 Orthopnea; R50.9 Fever, unspecified; R05 Cough; R53.1 Weakness; I49.1 Atrial premature depolarization; C64.9 Malignant neoplasm of unspecified kidney, except renal pelvis; E11.51 Type 2 diabetes mellitus with diabetic peripheral angiopathy without gangrene; I25.10 Atherosclerotic heart disease of native coronary artery without angina pectoris; Z95.5 Presence of coronary angioplasty implant and graft; Z79.899 Other long term (current) drug therapy; Z89.512 Acquired absence of left leg below knee; Z88.1 Allergy status to other antibiotic agents; Z88.8 Allergy status to other drugs, medicaments and biological substances; Z88.2 Allergy status to sulfonamides
CPT/HCPCS: 93005; 99285; 36415; 87086; 85025; 87088; 80053; 81001; 84484; 87186; 83880; 71045; 93010; A9270 ×2

== ENCOUNTER → 2019-10-24 | Outpatient (CLI) | payer MEDICARE, OTHER ==
--- NOTE | 2019-10-24 10:24 | RADIOLOGY REPORT (SQ) ---
EXAM DESCRIPTION: CHEST PA/LATERAL IMAGES COMPLETED DATE/TIME: 10/24/2019 10:07 am REASON FOR STUDY: CHRONIC SYSTOLIC (CONGESTIVE) HEART FAILURE COMPARISON: AP view of the chest from 09/20/2019 EXAM PARAMETERS: NUMBER OF VIEWS: Two views. TECHNIQUE: PA and lateral views of the chest were obtained. RADIATION DOSE: NA. LIMITATIONS: None. FINDINGS: LUNGS AND PLEURA: Calcified pleural plaques and mild acute prominence of the interstitium. The costophrenic sulci are blunted. The linear opacities in the mid aspect of the left hemithorax are unchanged. There is no pneumothorax. MEDIASTINUM AND HILAR STRUCTURES: Stable mediastinal and hilar contours. HEART AND VASCULAR STRUCTURES: Stable enlarged cardiac silhouette. BONES: No acute findings. HARDWARE: Status post median sternotomy. OTHER: No other finding. IMPRESSION: Cardiomegaly, bilateral pleural effusions and mild acute prominence of the interstitium. Clinical correlation for signs and symptoms of CHF/interstitial edema is recommended. TECHNICAL DOCUMENTATION: JOB ID: [id number] 2010 [employer]- All Rights Reserved Reading location - IP/workstation name: [email or web address]
== END ==
LOC: OD 09:55
PROVIDERS: ATTEND Physician Assistant Medical
DX: I50.22 Chronic systolic (congestive) heart failure (principal); I51.7 Cardiomegaly; J90 Pleural effusion, not elsewhere classified
CPT/HCPCS: 71046

== ENCOUNTER 2019-11-05 14:00 | Outpatient (CLI) | payer MEDICARE, OTHER ==
[2019-11-05 14:22] VITALS: BP 173/51
[2019-11-05] MEDS ORDERED: FERRIC CARBOXYMALTOSE 750 MG in NORMAL SALINE 250 ML IV ONE (15:00)
== END 2019-11-05 15:18 | disposition home or self-care (01) ==
LOC: II 14:00 → 5TH 14:08 → II 15:18
PROVIDERS: ATTEND Physician Assistant Medical
DX: D50.8 Other iron deficiency anemias (principal)
CPT/HCPCS: 96365; J7050; J1439

== ENCOUNTER 2019-11-18 18:44 | Emergency (ER) | payer MEDICARE ==
--- NOTE | 2019-11-18 19:51 | ER Document Report ---
ED Medical Screen (RME) - General Chief Complaint: Leg Pain Stated Complaint: LEFT LEG PAIN, SWELLING Time Seen by Provider: 11/18/19 19:38 Primary Care Provider: LUIS OCASIO PA-C [Primary Care Provider] - Follow up as needed Notes: Patient states that she had a stump revision 6 days ago. Patient complains of increased pain and swelling to the lower extremity with shortness of breath. Patient states she was advised by her surgeon to come here for evaluation for possible blood clot in the leg. I have greeted and performed a rapid initial assessment of this patient. A comprehensive ED assessment and evaluation of the patient, analysis of test results and completion of the medical decision making process will be conducted by additional ED providers. TRAVEL OUTSIDE OF THE [place] IN LAST 30 DAYS: No - Related Data Allergies/Adverse Reactions: cephalexin monohydrate [From Keflex] Allergy (Unknown, Verified 11/18/19 19:49) nausea/vomiting metformin [Metformin] Allergy (Unknown, Verified 11/18/19 19:49) nausea/vomiting Sulfa (Sulfonamide Antibiotics) Allergy (Unknown, Verified 11/18/19 19:49) itching/rash promethazine [From Phenergan] Adverse Reaction (Mild, Verified 11/18/19 19:49) Hallucinations Past Medical History - Past Medical History Cardiac Medical History: Reports: Hx Coronary Artery Disease, Hx Hypercholesterolemia, Hx Hypertension, Hx Peripheral Vascular Disease, Hx Heart Murmur Denies: Hx Atrial Fibrillation, Hx Congestive Heart Failure, Hx Heart Attack, Hx Pulmonary Embolism Pulmonary Medical History: Reports: Hx Pneumonia, Hx Sleep Apnea - Currently not using CPAP. Denies: Hx Asthma, Hx Bronchitis, Hx COPD, Hx Respiratory Failure, Hx Tuberculosis Neurological Medical History: Denies: Hx Cerebrovascular Accident, Hx Seizures Endocrine Medical History: Reports: Hx Diabetes Mellitus Type 2, Hx Hypothyroidism - Being followed by machine brusher in [place]. On no medicine for this. Renal/ Medical History: Denies: Hx End Stage Renal Disease, Hx Kidney Stones, Hx Ovarian Cysts, Hx Peritoneal Dialysis, Hx Pelvic Inflammatory Disease Malignancy Medical History: Denies: Hx Breast Cancer, Hx Cervical Cancer, Hx Leukemia, Hx Lung Cancer, Hx Ovarian Cancer GI Medical History: Denies: Hx Crohn's Disease, Hx Gastroesophageal Reflux Disease, Hx Hepatitis, Hx Hiatal Hernia, Hx Irritable Bowel, Hx Liver Failure, Hx Pancreatitis, Hx Ulcer Musculoskeltal Medical History: Reports Hx Arthritis, Denies Hx Fibromyalgia, Reports Hx Gout, Denies Hx Muscular Dystrophy Skin Medical History: Denies Hx MRSA Psychiatric Medical History: Denies: Hx Depression Traumatic Medical History: Denies: Hx Fractures Infectious Medical History: Denies: Hx Hepatitis, Hx HIV Past Surgical History: Reports: Hx Appendectomy, Hx Cardiac Surgery, Hx Coronary Artery Bypass Graft - X3, July 07, 2014, Hx Gynecologic Surgery, Hx Herniorrhaphy, Hx Hysterectomy, Hx Orthopedic Surgery - 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 on July 2016, Hx Vascular Surgery. Denies: Hx Bowel Surgery, Hx Section, Hx Cholecystectomy, Hx Colostomy, Hx Gastric Bypass Surgery, Hx Mastectomy, Hx Open Heart Surgery, Hx Pacemaker, Hx Tonsillectomy, Hx Tubal Ligation - Immunizations Hx Diphtheria, Pertussis, Tetanus Vaccination: Yes Physical Exam - Vital signs Vitals: Temp Pulse Resp BP Pulse Ox 98.9 F 62 20 172/44 H 96 11/18/19 18:50 11/18/19 18:50 11/18/19 18:50 11/18/19 18:50 11/18/19 18:50 - Extremities General lower extremity: Tender - Left BKA stump with dressing in place Course - Vital Signs Vital signs: Temp Pulse Resp BP Pulse Ox 98.9 F 62 20 172/44 H 96 11/18/19 18:50 11/18/19 18:50 11/18/19 18:50 11/18/19 18:50 11/18/19 18:50 Doctor's Discharge - Discharge Referrals: LUIS OCASIO PA-C [Primary Care Provider] - Follow up as needed
--- NOTE | 2019-11-18 20:23 | RADIOLOGY REPORT (SQ) ---
EXAM DESCRIPTION: X-ray, two views of the chest CLINICAL HISTORY: 74 years Female, sob COMPARISON: Two views of the chest 10/24/2019 FINDINGS: Lungs: Scattered linear volume loss is present in the midlungs bilaterally. There is mild upper lobe vessel recruitment and distention. Trace fluid is seen in the fissure. When compared to the previous examination the appearance is similar. Mediastinum: Heart size is enlarged and the mediastinum is widened. Bones: Postsurgical change in the sternum and lower cervical spine. There is flowing syndesmophytes in the thoracic spine. IMPRESSION: Linear volume loss in the lung bases with probable small pleural effusions. The appearance is similar to the previous exam.
[2019-11-18 21:01] LABS: ABSOLUTE EOSINOPHILS # (AUTO) 0.3 10^3/uL (0.0-0.6); ABSOLUTE MONOCYTES (AUTO) 0.7 10^3/uL (0.1-1.4); ABSOLUTE NEUT (AUTO) 5.6 10^3/uL (1.7-8.2); BASOPHILS % (AUTO) 0.5 % (0-2); EOSINOPHILS % (AUTO) 3.9 % (0-6); HEMATOCRIT 30.5 % (36.0-47.0); HEMOGLOBIN 9.8 g/dL (12.0-15.5); MEAN CORPUSCULAR HEMOGLOBIN 29.4 pg (27.0-33.4); MEAN CORPUSCULAR HGB CONC 32.3 g/dL (32.0-36.0); MEAN CORPUSCULAR VOLUME 91 fl (80-97); MONOCYTES % (AUTO) 9.7 % (3-13); PLATELET COUNT 206 10^3/uL (150-450); RED BLOOD COUNT 3.35 10^6/uL (3.72-5.28); RED CELL DISTRIBUTION WIDTH 17.3 % (11.5-14.0); SEGMENTED NEUTROPHILS % (AUTO) 72.9 % (42-78); TOTAL CELLS COUNTED % (AUTO) 100 %; WHITE BLOOD COUNT 7.7 10^3/uL (4.0-10.5)
[2019-11-18 21:30] LABS: ALBUMIN 3.9 g/dL (3.5-5.0); ALKALINE PHOSPHATASE 98 U/L (38-126); ANION GAP 7 (5-19); ASPARTATE AMINO TRANSFERASE 17 U/L (14-36); BILIRUBIN,TOTAL 0.8 mg/dL (0.2-1.3); BLOOD UREA NITROGEN 76 mg/dL (7-20); CALCIUM 9.4 mg/dL (8.4-10.2); CARBON DIOXIDE 30 mmol/L (22-30); CHLORIDE 100 mmol/L (98-107); GLUCOSE 193 mg/dL (75-110); POTASSIUM 4.5 mmol/L (3.6-5.0); TOTAL PROTEIN 7.1 g/dL (6.3-8.2)
--- NOTE | 2019-11-18 22:13 | ER Document Report ---
ED General - General Chief Complaint: Leg Pain Stated Complaint: LEFT LEG PAIN, SWELLING Time Seen by Provider: 11/18/19 19:38 Primary Care Provider: LUIS OCASIO PA-C [Primary Care Provider] - Follow up tomorrow Mode of Arrival: Wheelchair Information source: Patient Notes: 74-year-old female presented to ED for complaint of increased swelling to bilateral lower extremities. She states she had a recent revision of her left stump and was advised by her surgeon to come to the emergency room to have evaluation for blood clots to the stump. She states she had said shortness of breath for a long time and there is no new notes to the shortness of breath. She denied any chest pain. She states the main reason she came to the emergency room was to be evaluated for any blood clots. TRAVEL OUTSIDE OF THE [place] IN LAST 30 DAYS: No - HPI Onset: Other - Stump revision was done since 6 days ago she was advised by her surgeon to come to the emergency room on 12/18/2019 Onset/Duration: Gradual Quality of pain: Pressure Severity: Moderate Pain Level: 2 Associated symptoms: Leg swelling Exacerbated by: Other - When legs are hanging down Relieved by: Denies Similar symptoms previously: Yes Recently seen / treated by doctor: Yes - Related Data Allergies/Adverse Reactions: cephalexin monohydrate [From Keflex] Allergy (Unknown, Verified 11/18/19 19:49) nausea/vomiting metformin [Metformin] Allergy (Unknown, Verified 11/18/19 19:49) nausea/vomiting Sulfa (Sulfonamide Antibiotics) Allergy (Unknown, Verified 11/18/19 19:49) itching/rash promethazine [From Phenergan] Adverse Reaction (Mild, Verified 11/18/19 19:49) Hallucinations Past Medical History - General Information source: Patient - Social History Smoking Status: Never Smoker Frequency of alcohol use: None Drug Abuse: None Lives with: Family Family History: Hypertension Patient has homicidal ideation: No - Past Medical History Cardiac Medical History: Reports: Hx Coronary Artery Disease, Hx H ypercholesterolemia, Hx Hypertension, Hx Peripheral Vascular Disease, Hx Heart Murmur Pulmonary Medical History: Reports: Hx Pneumonia, Hx Sleep Apnea - Currently not using CPAP. EENT Medical History: Reports: None Neurological Medical History: Reports: None Endocrine Medical History: Reports: Hx Diabetes Mellitus Type 2, Hx Hypothyroidism - Being followed by inbound telemarketer in [place]. On no medicine for this. Renal/ Medical History: Reports: None Malignancy Medical History: Reports: Hx Renal (Kidney) Cancer - XRT Musculoskeletal Medical History: Reports Hx Arthritis, Reports Hx Gout Skin Medical History: Reports None Psychiatric Medical History: Reports: None Traumatic Medical History: Reports: None Infectious Medical History: Reports: None Past Surgical History: Reports: Hx Appendectomy, Hx Cardiac Surgery, Hx Coronary Artery Bypass Graft - X3, July 07, 2014, Hx Gynecologic Surgery, Hx Herniorrhaphy, Hx Hysterectomy, Hx Orthopedic Surgery - 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 on July 2016 revision 11/12/19, Hx Vascular Surgery - Immunizations Hx Diphtheria, Pertussis, Tetanus Vaccination: Yes Hx Pneumococcal Vaccination: 02/18/11 Review of Systems - Review of Systems Constitutional: No symptoms reported EENT: No symptoms reported Cardiovascular: Edema Respiratory: No symptoms reported Gastrointestinal: No symptoms reported Genitourinary: No symptoms reported Female Genitourinary: No symptoms reported Musculoskeletal: Leg swelling Skin: No symptoms reported Hematologic/Lymphatic: No symptoms reported Neurological/Psychological: No symptoms reported -: Yes All other systems reviewed and negative Physical Exam - Vital signs Vitals: Temp Pulse Resp BP Pulse Ox 98.9 F 62 20 172/44 H 96 11/18/19 18:50 11/18/19 18:50 11/18/19 18:50 11/18/19 18:50 11/18/19 18:50 Interpretation: Normal - General General appearance: Appears well, Alert - HEENT Head: Normocephalic, Atraumatic Eyes: Normal Pupils: PERRL - Respiratory Respiratory status: No respiratory distress Chest status: Nontender Breath sounds: Normal Chest palpation: Normal - Cardiovascular Rhythm: Regular Heart sounds: Normal auscultation Murmur: No - Abdominal Inspection: Normal Distension: No distension Bowel sounds: Normal Tenderness: Nontender Organomegaly: No organomegaly - Back Back: Normal, Nontender - Extremities General upper extremity: Nontender, Normal color, Normal ROM, Normal temperature General lower extremity: Nontender, Normal color, Normal ROM, Normal temperature, Normal weight bearing. No: Sumaya's sign Thigh: Other - Edema Knee: Other - Edema Calf: Other - Left BKA, bilateral edema Ankle: Other - Left BKA, edema right Foot: Tender - Left BKA edema right - Neurological Neuro grossly intact: Yes Cognition: Normal Orientation: AAOx4 Keke Coma Scale Eye Opening: Spontaneous Ruth Coma Scale Verbal: Oriented Ruth Coma Scale Motor: Obeys Commands Keke Coma Scale Total: 15 Speech: Normal Motor strength normal: LUE, RUE, LLE, RLE Sensory: Normal - Psychological Associated symptoms: Normal affect, Normal mood - Skin Skin Temperature: Warm Skin Moisture: Dry Skin Color: Normal Course - Re-evaluation Re-evalutation: 11/19/19 08:42 Labs and Doppler discussed with patient and written report of labs and Doppler given the patient to follow-up with primary care and surgeon. Patient verbalized understanding and agreement with treatment plan patient was discharged home. - Vital Signs Vital signs: Temp Pulse Resp BP Pulse Ox 98.2 F 60 20 152/52 H 100 11/18/19 23:58 11/18/19 23:58 11/18/19 23:58 11/18/19 23:58 11/18/19 23:58 - Laboratory Result Diagrams: 11/18/19 20:32 11/18/19 20:32 Laboratory results interpreted by me: 11/18/19 11/18/19 20:32 20:32 RBC 3.35 L Hgb 9.8 L Hct 30.5 L RDW 17.3 H Sodium 136.5 L BUN 76 H Creatinine 2.14 H Est GFR ( Amer) 27 L Est GFR (MDRD) Non-Af 23 L Glucose 193 H - Diagnostic Test Radiology reviewed: Image reviewed, Reports reviewed Discharge - Discharge Clinical Impression: Swelling of left lower extremity Condition: Stable Disposition: HOME, SELF-CARE Additional Instructions: Your venous Doppler did not show any deep vein thrombosis in either leg. Edema, Peripheral You have swelling in your legs. This is called peripheral edema. It can be caused by "leaky capillaries," inflammation, disease of the leg veins, or excess salt and water in your body. Edema may be a sign of heart, kidney, or liver disease. A medical evaluation can determine if there is a serious underlying cause for your edema. Avoid prolonged standing. If you must sit for a long time, occasionally get up and walk around or elevate your legs. Support stockings can be helpful in limiting swelling. Often diuretic or water pills are used to remove excess salt and water from your body. Call the doctor or return if you develop increased swelling, pain, or redness, shortness of breath, chest pain, or any other significant change. I have given you a copy of your Doppler report as well as your lab reports. Please take these with you to your primary care your surgeon and your kidney doctor. FOLLOW-UP CARE: If you have been referred to a physician for follow-up care, call the physicians office for an appointment as you were instructed or within the next two days. If you experience worsening or a significant change in your symptoms, notify the physician immediately or return to the Emergency Department at any time for re-evaluation. Forms: Elevated Blood Pressure Referrals: LUIS OCASIO PA-C [Primary Care Provider] - Follow up tomorrow
--- NOTE | 2019-11-18 22:17 | RADIOLOGY REPORT (SQ) ---
EXAM DESCRIPTION: [facility]: US EXTREMITY VEINS BILATERAL CLINICAL HISTORY: 74 years Female; LE pain, swelling, hx surgery, sob TECHNIQUE: Multiple grayscale sonographic images of both legs were obtained utilizing a high-frequency linear array transducer supplemented with color Doppler, compression and augmentation techniques. COMPARISON: None. FINDINGS: Right leg veins: Common femoral: normal Greater saphenous: normal upper Superficial femoral: normal mid Superficial femoral: normal lower Superficial femoral: normal Popliteal: normal Posterior Tibial: normal Left leg veins: Common femoral: normal Greater saphenous: normal upper Superficial femoral: normal mid Superficial femoral: normal lower Superficial femoral: normal There has been a below the knee amputation. IMPRESSION: 1. No sonographic evidence for lower extremity deep venous thrombosis in either leg.
[2019-11-18 23:59] VITALS: BP 152/52
--- NOTE | 2019-11-19 02:24 | EKG REPORT ---
SEVERITY:- ABNORMAL ECG - SINUS RHYTHM FIRST DEGREE AV BLOCK PROBABLE LEFT ATRIAL ABNORMALITY NONSPECIFIC INTRAVENTRICULAR CONDUCTION DELAY LVH WITH SECONDARY REPOLARIZATION ABNORMALITY : Confirmed by: Roxi Anderson MD 19-Nov-2019 02:23:39
== END 2019-11-19 00:37 | disposition home or self-care (01) ==
LOC: ER 18:44
DX: R22.42 Localized swelling, mass and lump, left lower limb (principal); M79.605 Pain in left leg; Z88.2 Allergy status to sulfonamides; E78.00 Pure hypercholesterolemia, unspecified; I10 Essential (primary) hypertension; E11.9 Type 2 diabetes mellitus without complications; Z95.1 Presence of aortocoronary bypass graft
CPT/HCPCS: 36415; 71046; 80053; 84484; 85025; 93005; 93010; 93970; 99284

== ENCOUNTER → 2019-12-02 | Outpatient (CLI) | payer MEDICARE, OTHER ==
--- NOTE | 2019-12-02 21:29 | XCELERA REPORT ---
[address] [address] Transthoracic Echocardiogram Report Name: JAQUELIN SKELTON Age: 74 yrs Gender: Female : 1945 Patient Status: Outpatient Patient Location: Study Date: 12/02/2019 01:35 PM History: Dyspnea Height: 64 in Weight: 231 lb BSA: 2.1 m2 Procedure: A complete two-dimensional transthoracic echocardiogram was performed (2D, M-mode, spectral and color flow Doppler). The study was technically difficult with many images being suboptimal in quality. Poor acoustic windows Endocardial definition is very poor. Reason For Study: DYSPNEA Previous Evaluation: A previous study was performed on 07/25/2010. History: Shortness of breath. Ordering Physician: MARTIN WICK Performed By: Aliyah Smith Interpretation Summary Left ventricular systolic function is normal. The Ejection Fraction estimate is 55-60% The right ventricular systolic function is borderline reduced. There is a trace amount of mitral regurgitation There is no aortic valve stenosis Doppler interrogation of tricuspid valve is suboptimal. There is no pericardial effusion. MMode/2D Measurements & Calculations RVDd: 2.1 cm LVIDd: 5.0 cm FS: 30.5 % Ao root diam: 2.6 cm IVSd: 0.86 cm LVIDs: 3.5 cm EDV(Teich): 121.0 ml Ao root area: 5.2 cm2 LVPWd: 1.0 cm ESV(Teich): 51.1 ml EF(Teich): 57.7 % Doppler Measurements & Calculations MV E max gale: MV dec slope: Ao V2 max: LV V1 max P.9 cm/sec 631.8 cm/sec2 114.4 cm/sec 2.4 mmHg MV A max gale: MV dec time: 0.18 sec Ao max PG: LV V1 max: 128.8 cm/sec 5.2 mmHg 77.7 cm/sec MV E/A: 0.86 PA V2 max: PI end-d gale: 78.1 cm/sec 88.8 cm/sec PA max P.4 mmHg Left Ventricle The left ventricle is borderline dilated. There is borderline concentric left ventricular hypertrophy. Left ventricular systolic function is normal. The Ejection Fraction estimate is 55-60%. Doppler measurements suggest pseudonormalized left ventricular relaxation, which is associated with grade II/IV or mild to moderate diastolic dysfunction. Regional wall motion abnormalities cannot be excluded due to limited visualization. Right Ventricle The right ventricle is normal size. The right ventricular systolic function is borderline reduced. Atria The right atrium is normal. The left atrium is mildly dilated. The interatrial septum is intact with no evidence for an atrial septal defect. There is no Doppler evidence for an interatrial shunt. Mitral Valve The mitral valve is grossly normal. There is a trace amount of mitral regurgitation. Aortic Valve The aortic valve is not well visualized secondary to technical limitations. There is no aortic valve stenosis. No aortic regurgitation is present. Tricuspid Valve The tricuspid valve is not well visualized secondary to technical limitations. Doppler interrogation of tricuspid valve is suboptimal. Pulmonic Valve The pulmonic valve is not well visualized. There is a trace amount of pulmonic regurgitation. Great Vessels The aortic root is normal size. Mild atherosclerotic plaque(s) in the descending aorta. The IVC has a measurement of 2 cm mm. Effusions There is no pericardial effusion. : MATRIN WICK, Jaleel
== END ==
LOC: SP 13:57
PROVIDERS: ATTEND Internal Medicine
DX: R06.00 Dyspnea, unspecified (principal)
CPT/HCPCS: 93306

== ENCOUNTER 2019-12-14 17:17 | Inpatient (IN) | payer MEDICARE, OTHER ==
--- NOTE | 2019-12-14 20:15 | RADIOLOGY REPORT (SQ) ---
EXAM DESCRIPTION: XR CHEST 1 VIEW COMPLETED DATE/TME: 12/14/2019 19:20 CLINICAL HISTORY: 74 years, Female, sob chf COMPARISON: Prior study from 11/18/2019 NUMBER OF VIEWS: 2 TECHNIQUE: 2 views were obtained. LIMITATIONS: None. FINDINGS: Status post median sternotomy. Cardiac and mediastinal contours are stable. Bilateral perihilar opacity with vascular indistinctness is noted along with margination of the minor fissure. No pleural effusion or pneumothorax. IMPRESSION: Findings suggest mild pulmonary edema. copyright 2010 [employer]- All Rights Reserved
[2019-12-14 20:22] LABS: ABSOLUTE BASOPHILS # (AUTO) 0.1 10^3/uL (0.0-0.2); ABSOLUTE EOSINOPHILS # (AUTO) 0.2 10^3/uL (0.0-0.6); ABSOLUTE LYMPHOCYTES (AUTO) 1.2 10^3/uL (0.5-4.7); ABSOLUTE MONOCYTES (AUTO) 0.5 10^3/uL (0.1-1.4); ABSOLUTE NEUT (AUTO) 4.9 10^3/uL (1.7-8.2); BASOPHILS % (AUTO) 0.8 % (0-2); EOSINOPHILS % (AUTO) 2.6 % (0-6); HEMOGLOBIN 9.7 g/dL (12.0-15.5); LYMPHOCYTES % (AUTO) 16.8 % (13-45); MEAN CORPUSCULAR HEMOGLOBIN 29.3 pg (27.0-33.4); MEAN CORPUSCULAR HGB CONC 32.4 g/dL (32.0-36.0); MEAN CORPUSCULAR VOLUME 90 fl (80-97); MONOCYTES % (AUTO) 7.8 % (3-13); PLATELET COUNT 197 10^3/uL (150-450); RED BLOOD COUNT 3.32 10^6/uL (3.72-5.28); RED CELL DISTRIBUTION WIDTH 17.5 % (11.5-14.0); TOTAL CELLS COUNTED % (AUTO) 100 %; WHITE BLOOD COUNT 6.9 10^3/uL (4.0-10.5)
[2019-12-14] MEDS ORDERED: ALBUTEROL SULFATE 0.083% NEB 2.5 MG/3 ML AMPUL NEB ONE (20:24)
[2019-12-14 20:25] LABS: INTERNATIONAL RATION (INR) 1.04; PROTHROMBIN TIME 13.6 SEC (11.4-15.4)
[2019-12-14 20:26] LABS: PARTIAL THROMBOPLASTIN TIME 32.2 SEC (23.5-35.8)
[2019-12-14 20:37] LABS: ALBUMIN 4.3 g/dL (3.5-5.0); ALKALINE PHOSPHATASE 117 U/L (38-126); ANION GAP 8 (5-19); ASPARTATE AMINO TRANSFERASE 22 U/L (14-36); BILIRUBIN,DIRECT 0.1 mg/dL (0.0-0.4); BILIRUBIN,TOTAL 0.7 mg/dL (0.2-1.3); BLOOD UREA NITROGEN 78 mg/dL (7-20); CALCIUM 9.1 mg/dL (8.4-10.2); CARBON DIOXIDE 28 mmol/L (22-30); CHLORIDE 101 mmol/L (98-107); GLUCOSE 225 mg/dL (75-110); TOTAL PROTEIN 7.6 g/dL (6.3-8.2)
[2019-12-14 21:00] LABS: NT PRO BNP 2450 pg/mL (<125)
[2019-12-14 21:01] LABS: TROPONIN I < 0.012 ng/mL
[2019-12-14] MEDS ORDERED: FUROSEMIDE INJ/PF 100 MG/10 ML SDV IV ONE (21:10)
--- NOTE | 2019-12-15 00:19 | ER Document Report ---
ED General - General Chief Complaint: Shortness Of Breath Stated Complaint: SHORT OF BREATH,BODY SWELLING Primary Care Provider: MARTIN WICK MD [Primary Care Provider] - Follow up as needed TRAVEL OUTSIDE OF THE [place] IN LAST 30 DAYS: No - HPI Notes: 74-year-old female history of hypertension, diabetes, CHF presents with shortness of breath, exercise intolerance, and lower extremity edema for 2 days. Onset of symptoms was gradual. Patient endorses having pain in her left leg which has a BKA and feels like there is more swelling in her left leg than the right but both are swollen. Patient has been compliant with her Lasix. Patient does not normally ambulate secondary to BKA. Patient hospitalized 4 weeks ago for revision of BKA without complication. Patient denies any cough, smoking his tory or any other family exposures, asthma history, chest pain, DVT PE history, fever, sick contacts - Related Data Allergies/Adverse Reactions: cephalexin monohydrate [From Keflex] Allergy (Unknown, Verified 11/18/19 19:49) nausea/vomiting metformin [Metformin] Allergy (Unknown, Verified 11/18/19 19:49) nausea/vomiting Sulfa (Sulfonamide Antibiotics) Allergy (Unknown, Verified 11/18/19 19:49) itching/rash promethazine [From Phenergan] Adverse Reaction (Mild, Verified 11/18/19 19:49) Hallucinations Past Medical History - General Information source: Patient, [facility] Records - Social History Smoking Status: Never Smoker Family History: Hypertension - Past Medical History Cardiac Medical History: Reports: Hx Coronary Artery Disease, Hx Hypercholesterolemia, Hx Hypertension, Hx Peripheral Vascular Disease, Hx Heart Murmur Denies: Hx Atrial Fibrillation, Hx Congestive Heart Failure, Hx Heart Attack, Hx Pulmonary Embolism Pulmonary Medical History: Reports: Hx Pneumonia, Hx Sleep Apnea - Currently not using CPAP. 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 On no medicine for this. Renal/ Medical History: Denies: Hx End Stage Renal Disease, Hx Kidney Stones, Hx Ovarian Cysts, Hx Peritoneal Dialysis, Hx Pelvic Inflammatory Disease Malignancy Medical History: Reports: Hx Renal (Kidney) Cancer - XRT. Denies: Hx Breast Cancer, Hx Cervical Cancer, Hx Leukemia, Hx Lung Cancer, Hx Ovarian Cancer GI Medical History: Denies: Hx Crohn's Disease, Hx Gastroesophageal Reflux Disease, Hx Hepatitis, Hx Hiatal Hernia, Hx Irritable Bowel, Hx Liver Failure, Hx Pancreatitis, Hx Ulcer Musculoskeletal Medical History: Reports Hx Arthritis, Denies Hx Fibromyalgia, Reports Hx Gout, Denies Hx Muscular Dystrophy Skin Medical History: Denies Hx MRSA Psychiatric Medical History: Denies: Hx Depression Traumatic Medical History: Denies: Hx Fractures Infectious Medical History: Denies: Hx Hepatitis, Hx HIV Past Surgical History: Reports: Hx Appendectomy, Hx Cardiac Surgery, Hx Coronary Artery Bypass Graft - X3, July 07, 2014, Hx Gynecologic Surgery, Hx Herniorrhaphy, Hx Hysterectomy, Hx Orthopedic Surgery - 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 on July 2016 revision 11/12/19, Hx Vascular Surgery. Denies: Hx Bowel Surgery, Hx Section, Hx Cholecystectomy, Hx Colostomy, Hx Gastric Bypass Surgery, Hx Mastectomy, Hx Open Heart Surgery, Hx Pacemaker, Hx Tonsillectomy, Hx Tubal Ligation - Immunizations Hx Diphtheria, Pertussis, Tetanus Vaccination: Yes Hx Pneumococcal Vaccination: 02/18/11 Review of Systems - Review of Systems Notes: REVIEW OF SYSTEMS: CONSTITUTIONAL : Denies fever, chills, or sweats. EENT: Denies recent cold/sinus symptoms, denies throat pain CARDIOVASCULAR: Denies chest pain, +DANIEL RESPIRATORY: Denies cough, +shortness of breath. GASTROINTESTINAL: Denies abdominal pain, nausea/vomiting. GENITOURINARY: Denies difficulty urinating, painful urination. FEMALE GENITOURINARY: Denies abnormal vaginal bleeding, vaginal discharge. MUSCULOSKELETAL: Denies neck pain, back pain. SKIN: Denies rash or skin lesions. HEMATOLOGIC : Denies easy bruising or bleeding. LYMPHATIC: Denies swollen, enlarged glands. NEUROLOGICAL: Denies headache, denies change in gait. PSYCHIATRIC: Denies anxiety or stress or depression. Physical Exam - Vital signs Vitals: Temp Pulse Resp BP Pulse Ox 99.1 F 69 22 H 166/61 H 96 12/14/19 17:40 12/14/19 17:40 12/14/19 17:40 12/14/19 17:40 12/14/19 17:40 - Notes Notes: PHYSICAL EXAMINATION: GENERAL: Well-appearing, well-nourished and in no acute distress. HEAD: Atraumatic, normocephalic. EYES: Pupils equal round and appropriate constriction, sclera anicteric, conjunctiva are normal. ENT: nares patent, moist mucous membranes. NECK: Normal range of motion, supple without lymphadenopathy LUNGS: Normal respiratory rate and effort, speaking in full sentences, managing secretions, no tripoding, no accessory muscle use, good air movement but diffuse expiratory wheezing HEART: Regular rate and rhythm without murmurs ABDOMEN: Soft, nontender, no guarding, no masses, no CVAT EXTREMITIES: Mild symmetric nonpitting lower extremity edema, left leg BKA well- healed NEUROLOGICAL: Awake, alert, conversing appropriately, moves all extremities spontaneously. PSYCH: Normal mood, normal affect. SKIN: Warm, Dry, normal turgor, no rashes or lesions noted. Course - Re-evaluation Re-evalutation: 12/15/19 00:19 Symptoms most likely secondary to CHF exacerbation. Obtained EKG and troponin to rule out SD having precipitated CHF exacerbation which showed no acute findings. Patient had expiratory wheezing on exam although has never had any reactive airway disease and no known risk factors, I gave her a trial of albuterol and patient felt improved and will discharge her albuterol to be further worked up for possible RAD by PCP. Given patient complaining of pain in the left lower leg at the greater swelling left lower leg and surgery 4 weeks ago I obtained a d-dimer which was positive. However, given patient's CKD, unable to obtain CTA so I ordered VQ scan which is pending. Dispel pending VQ scan scan. 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 12/15/19 02:16 Patient is VQ scan negative, but patient has new lateral T wave inversions from her prior EKG, and NINI as well as CHF exacerbation. Discussed case with Dr. Samano who has accepted patient to [facility]. I informed patient of the decision to admit and she is in agreement, respiratory status remains improved, patient denies having any needs at this time and did not have any other questions or concerns. - Vital Signs Vital signs: Temp Pulse Resp BP Pulse Ox 98.4 F 63 12 180/60 H 100 12/14/19 22:19 12/14/19 22:19 12/15/19 00:01 12/15/19 00:01 12/15/19 00:01 - Laboratory Result Diagrams: 12/14/19 19:31 12/14/19 19:31 Laboratory results interpreted by me: 12/14/19 12/14/19 12/14/19 19:31 19:31 19:31 RBC 3.32 L Hgb 9.7 L Hct 30.0 L RDW 17.5 H D-Dimer BUN 78 H Creatinine 3.07 H Est GFR ( Amer) 18 L Est GFR (MDRD) Non-Af 15 L Glucose 225 H NT-Pro-B Natriuret Pep 2450 H 12/14/19 19:31 RBC Hgb Hct RDW D-Dimer 1.51 H BUN Creatinine Est GFR ( Amer) Est GFR (MDRD) Non-Af Glucose NT-Pro-B Natriuret Pep - EKG Interpretation by Me Additional EKG results interpreted by me: 12/15/19 02:18 Heart rate 62, normal sinus rhythm, LAFB, lateral T wave inversions new from prior EKG - Transfer of Care Care transferred to following provider: Dr. Samano Discharge - Discharge Clinical Impression: CHF exacerbation Qualifiers: Heart failure type: unspecified Qualified Code(s): I50.9 - Heart failure, unspecified Acute kidney failure Qualifiers: Acute renal failure type: unspecified Qualified Code(s): N17.9 - Acute kidney failure, unspecified Disposition: ADMITTED INPATIENT Admitting Provider: Jazmyne (Hospitalist) Unit Admitted: IMCU Referrals: MARTIN WICK MD [Primary Care Provider] - Follow up as needed
--- NOTE | 2019-12-15 00:36 | EKG REPORT ---
SEVERITY:- ABNORMAL ECG - SINUS RHYTHM LEFT ANTERIOR FASCICULAR BLOCK NONSPECIFIC T CHANGES IVCD : Confirmed by: Justyna Estrella 15-Dec-2019 00:35:32
--- NOTE | 2019-12-15 01:50 | RADIOLOGY REPORT (SQ) ---
Perfusion lung scan: Clinical indication: 74-year old patient with dyspnea. Comparison: Chest radiograph performed elevated and abnormal d-dimer level. Technique: Following the intravenous injection of 5.17 mCi of technetium 99m labeled MAA, planar images of the chest were obtained in multiple projections. No ventilation imaging was obtained. Findings: There is homogeneous radiotracer distribution in the lungs on perfusion images. No segmental or subsegmental defects are seen to suggest a pulmonary artery embolism. Impression: There are no findings to suggest a pulmonary artery embolism.
[2019-12-15] MEDS ORDERED: MAGNESIUM HYDROXIDE SUSP 30 ML UDCUP PO PRN (02:55)
[2019-12-15] MEDS ORDERED: ONDANSETRON HCL INJ/PF 4 MG/2 ML SDV IV PRN (02:55)
[2019-12-15] MEDS ORDERED: MORPHINE SULFATE 10 MG/ML INJ IV PRN ×4 (03:06→03:56)
[2019-12-15] MEDS ORDERED: MELATONIN 5 MG TABLET PO PRN (03:06)
[2019-12-15] MEDS ORDERED: HYDRALAZINE HCL INJ/PF 20 MG/1 ML SDV IV PRN (03:06)
[2019-12-15] MEDS ORDERED: LORAZEPAM INJ 2 MG/1 ML VIAL IV PRN (03:06)
[2019-12-15] MEDS ORDERED: METOPROLOL TARTRATE PF/INJ 5 MG/5 ML SDV IV PRN (03:06)
[2019-12-15] MEDS ORDERED: GUAIFENESIN SYRP 200 MG/10 ML UDC PO PRN (03:06)
[2019-12-15] MEDS ORDERED: GLUCAGON,HUMAN RECOMB 1 MG INJ IM PRN (03:08)
[2019-12-15] MEDS ORDERED: DEXTROSE 50%-WATER 25 GM/50 ML DISP.SYRIN IV PRN ×2 (03:08)
[2019-12-15] MEDS ORDERED: DEXTROSE 40% GEL 15 GM TUBE PO PRN ×2 (03:08)
[2019-12-15] MEDS: FUROSEMIDE INJ/PF 40 MG/4 ML SDV IV SCH ×3 (06:02→22:27)
[2019-12-15] MEDS: NITROGLYCERIN 2% OINTMENT 1 GM PACKET TP SCH ×3 (06:02→18:51)
[2019-12-15] MEDS: HEPARIN SOD (PORCINE) 5,000 UNIT/ML 1 ML VIAL SUBCUT SCH ×3 (06:03→22:27)
[2019-12-15] MEDS: PANTOPRAZOLE SODIUM 40 MG TABLET.DR PO SCH (06:03)
--- NOTE | 2019-12-15 06:28 | PDOC H&P ---
History of Present Illness Admission Date/PCP: 12/15/2019 02:20 MARTIN WICK Patient complains of: Dyspnea History of Present Illness: JAQUELIN SKELTON is a 74 year old female who presented the emergency room with a 3-day history of dyspnea. She admits progressively worsening dyspnea over the course of the last 2 days becoming severe on the afternoon of 06/15/2019. Her dyspnea was worsened on exertion, was accompanied by orthopnea and wheezing, and was associated with leg swelling and a subjective fever that resolved with Tylenol. Her dyspnea did not improve with her nebulizer treatments at home. She denies other associated or accompanying signs and symptoms. She admits prior similar episodes. She has not identified any additional aggravating or ameliorating factors for her dyspnea. EMS found her to have an O2 sat less than 80 on room air at the time of their arrival. In the emergency room patient was found to have pulmonary edema on her chest x-ray, and acute kidney injury and hypoxic respiratory failure. She was subsequently admitted to the hospital for further evaluation and treatment on the congestive heart failure protocol. Past Medical History Cardiac Medical History: Reports: Coronary Artery Disease, Hyperlipidema, Hy pertension, Peripheral Vascular Disease, Heart Murmur Denies: Atrial Fibrillation, Congestive Heart Failure, Myocardial Infarction, Pulmonary Embolism Pulmonary Medical History: Reports: Pneumonia, Sleep Apnea - Currently not using CPAP. Denies: Asthma, Bronchitis, Chronic Obstructive Pulmonary Disease (COPD), Respiratory Failure, Tuberculosis EENT Medical History: Denies: Cataracts, Ears - Hearing aids Neurological Medical History: Reports: Other - Diabetic peripheral neuropathy Denies: Hemorrhagic CVA, Ischemic CVA, Seizures Endocrine Medical History: Reports: Diabetes Mellitus Type 2, Hypothyroidism - Being followed by project management in [place]. On no medicine for this., Obesity Denies: Diabetes Mellitus Type 1, Hyperthyroidism Renal/ Medical History: Reports: Chronic Kidney Disease Denies: Nephrolithiasis Malignancy Medical History: Reports: Renal (Kidney) Cancer GI Medical History: Reports: Other Denies: Cirrhosis, Crohn's Disease, Gastroesophageal Reflux Disease, Hepatitis, Hiatal Hernia, Peptic Ulcer Disease, Ulcerative Colitis Musculoskeltal Medical History: Reports: Arthritis, Gout, Other - Chronic back pain, chronic neck pain Denies: Fibromyalgia Skin Medical History: Denies: Eczema, Psoriasis Psychiatric Medical History: Denies: Alcohol Dependency, Depression, Substance Abuse, Tobacco Dependency Traumatic Medical History: Reports: None Hematology: Reports: Anemia Denies: Hemophilia, Bleeding Tendencies Infectious Medical History: Reports: None Past Surgical History Past Surgical History: Reports: Appendectomy, Cardiac Catheterization, Coronary Artery Bypass Graft - X3, July 07, 2014, Herniorrhaphy, Hysterectomy, Orthopedic Surgery - 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 on July 2016 revision 11/12/19, Vascular Surgery, Other - Cervical fusion Social History Information Source: Patient Lives with: Spouse/Significant other Smoking Status: Never Smoker Electronic Cigarette use?: No Frequency of Alcohol Use: None Hx Recreational Drug Use: No Drugs: None Hx Prescription Drug Abuse: No - Advance Directive Resuscitation Status: Full Code Surrogate healthcare decision maker:: Rajesh Skelton Family History Family History: CAD, DM, Hypertension Parental Family History Reviewed: Yes Children Family History Reviewed: No Sibling(s) Family History Reviewed.: Yes Medication/Allergy Home Medications: Acetaminophen [Tylenol] 650 mg PO DAILYP PRN 03/13/19 Acyclovir 1 applic TP QID 03/13/19 Allopurinol [Zyloprim 100 mg Tablet] 100 mg PO DAILY 03/13/19 Amlodipine Besylate [Norvasc 5 mg Tablet] 5 mg PO DAILY 03/13/19 Aspirin [Ecotrin 81 mg EC Tablet] 81 mg PO DAILY 03/13/19 Atorvastatin Calcium [Lipitor 40 mg Tablet] 40 mg PO QHS 03/13/19 Clopidogrel Bisulfate [Plavix 75 mg Tablet] 75 mg PO DAILY 03/13/19 Ergocalciferol (Vitamin D2) [Vitamin D2] 50 mcg PO Q7D 03/13/19 Furosemide [Lasix 40 mg Tablet] 40 mg PO DAILY 03/13/19 Gabapentin [Neurontin 100 mg Capsule] 100 mg PO DAILY 03/13/19 Insulin Glargine,Hum.rec.anlog [Lantus Insulin 100 Unit/1 ml 10 ml] 20 unit SUBCUT QHS 03/13/19 Insulin Glulisine [Apidra Insulin (Glulisine) 100 unit/mL] 6 unit SUBCUT DAILY 03/13/19 Lactulose [Kristalose 20 gm Packet] 20 gm PO BID 03/13/19 Lisinopril [Prinivil 5 mg Tablet] 5 mg PO DAILY 03/13/19 Multivitamin [Multivitamins] 1 each PO DAILY 03/13/19 Temazepam [Restoril 15 mg Capsule] 15 mg PO HSP PRN 03/13/19 Triamcinolone Acetonide [Aristocort 0.5% Cream 15 gm] 1 applic TP ASDIR PRN 03/13/19 Valacyclovir HCl [Valtrex] 1,000 mg PO BID 03/13/19 Metoprolol Tartrate [Lopressor 50 mg Tablet] 50 mg PO Q12 #60 tablet 03/17/19 Levofloxacin [Levaquin 750 mg Tablet] 750 mg PO DAILY #5 tablet 09/20/19 Allergies/Adverse Reactions: cephalexin monohydrate [From Keflex] Allergy (Unknown, Verified 11/18/19 19:49) nausea/vomiting metformin [Metformin] Allergy (Unknown, Verified 11/18/19 19:49) nausea/vomiting Sulfa (Sulfonamide Antibiotics) Allergy (Unknown, Verified 11/18/19 19:49) itching/rash promethazine [From Phenergan] Adverse Reaction (Mild, Verified 11/18/19 19:49) Hallucinations Review of Systems Constitutional: ABSENT: chills, fever(s) Eyes: ABSENT: visual disturbances, other - Eye pain Ears: ABSENT: hearing changes, other - Ear pain Nose, Mouth, and Throat: ABSENT: headache(s), sore throat Cardiovascular: PRESENT: as per HPI, dyspnea on exertion, orthropnea. ABSENT: chest pain, edema, palpitations Respiratory: PRESENT: as per HPI, dyspnea. ABSENT: cough, hemoptysis, sputum Gastrointestinal: ABSENT: abdominal pain, constipation, diarrhea, nausea, vomiting Genitourinary: ABSENT: dysuria, hematuria Musculoskeletal: PRESENT: back pain - Chronic, other - Chronic neck pain, phantom pain in the left lower extremity. ABSENT: joint swelling Integumentary: ABSENT: pruritus, rash Neurological: ABSENT: confusion, convulsions, focal weakness, memory loss, syncope Psychiatric: ABSENT: anxiety, depression Endocrine: ABSENT: cold intolerance, heat intolerance Hematologic/Lymphatic: ABSENT: easy bleeding, easy bruising Allergic/Immunologic: PRESENT: seasonal rhinorrhea Physical Exam Vital Signs: Temp Pulse Resp BP Pulse Ox 98.4 F 63 12 180/60 H 100 12/14/19 22:19 12/14/19 22:19 12/15/19 00:01 12/15/19 00:01 12/15/19 00:01 Intake & Output 0712/14/19 12/15/19 23:59 23:59 23:59 Weight 108.862 kg General appearance: PRESENT: no acute distress, cooperative, obese Head exam: PRESENT: atraumatic, normocephalic Eye exam: PRESENT: conjunctiva pink. ABSENT: conjunctival injection, scleral icterus Ear exam: PRESENT: normal external ear exam. ABSENT: bleeding, drainage Mouth exam: PRESENT: dry mucosa, neck supple Neck exam: ABSENT: thyromegaly, tracheal deviation Respiratory exam: PRESENT: decreased breath sounds - Mildly decreased breath sounds at both bases, rales - Fine bibasilar rales noted, symmetrical Cardiovascular exam: PRESENT: gallop - Faint S4 gallop, RRR. ABSENT: clicks, rubs Pulses: PRESENT: normal radial pulses, normal dorsalis pedis pul Vascular exam: PRESENT: normal capillary refill. ABSENT: pallor GI/Abdominal exam: PRESENT: normal bowel sounds, soft. ABSENT: tenderness Rectal exam: PRESENT: deferred Extremities exam: PRESENT: pedal edema - right, +1 edema - right pretibial, other - Status post left BKA. ABSENT: joint swelling Musculoskeletal exam: ABSENT: deformity, dislocation Neurological exam: PRESENT: alert, oriented to person, oriented to place, oriented to time, oriented to situation, CN II-XII grossly intact. ABSENT: motor sensory deficit Psychiatric exam: PRESENT: appropriate affect, normal mood Skin exam: PRESENT: dry, intact, warm. ABSENT: jaundice, rash, urticaria Results Laboratory Results: 12/14/19 19:31 12/14/19 19:31 12/14/19 12/14/19 19:31 19:31 WBC 6.9 RBC 3.32 L Hgb 9.7 L Hct 30.0 L MCV 90 MCH 29.3 MCHC 32.4 RDW 17.5 H Plt Count 197 Seg Neutrophils % 72.0 Sodium 137.0 Potassium 5.0 Chloride 101 Carbon Dioxide 28 Anion Gap 8 BUN 78 H Creatinine 3.07 H Est GFR ( Amer) 18 L Glucose 225 H Calcium 9.1 Total Bilirubin 0.7 AST 22 Alkaline Phosphatase 117 Total Protein 7.6 Albumin 4.3 12/14/19 19:31 Troponin I < 0.012 NT-Pro-B Natriuret Pep 2450 H Impressions: Chest X-Ray 12/14/19 19:20 IMPRESSION: Findings suggest mild pulmonary edema. copyright 2011 [employer]- All Rights Reserved Assessment and Plan - Diagnosis (1) Acute pulmonary edema with congestive heart failure Is this a current diagnosis for this admission?: Yes (2) Acute respiratory failure with hypoxia Is this a current diagnosis for this admission?: Yes (3) Acute kidney injury superimposed on chronic kidney disease Is this a current diagnosis for this admission?: Yes (4) Anemia associated with stage 3 chronic renal failure Is this a current diagnosis for this admission?: Yes (5) CAD (coronary artery disease) Qualifiers: Coronary Disease-Associated Artery/Lesion type: [place] artery [place] vs. transplanted heart: [place] heart Associated angina: without angina Qualified Code(s): I25.10 - Atherosclerotic heart disease of [place] coronary artery without angina pectoris Is this a current diagnosis for this admission?: Yes (6) Hypertension Qualifiers: Hypertension type: essential hypertension Qualified Code(s): I10 - Essential (primary) hypertension Is this a current diagnosis for this admission?: Yes (7) RENET[place] treated with BiPAP Is this a current diagnosis for this admission?: Yes (8) Morbid obesity Is this a current diagnosis for this admission?: Yes - Plan Summary Summary: Patient will be admitted to the [facility] where she will receive routine supportive and symptomatic cares. She will be admitted on the congestive heart failure protocol. Cardiology consultation with Dr. Crowe will be obtained. Laboratory and evaluation will be obtained as per the congestive heart failure protocol. She will receive Lasix 40 mg IV every 12 hours and 1 g of 2% nitroglycerin ointment will be applied topically every 6 hours. She will receive morphine sulfate 2 mg IV every hour as needed for severe dyspnea. She will receive supplemental oxygen via nasal cannula with the possible use of noninvasive airway pressure support devices such as BiPAP. The patient will be placed on BiPAP while asleep for her sleep apnea. She will receive Ativan 1 mg IV every 4 hours as needed anxiety or restlessness. She will receive morphine sulfate 2 to 4 mg IV every 2 hours as needed for pain. She will have before meals and at bedtime Accu-Cheks performed with sliding scale insulin to cover hyperglycemia and a hypoglycemic protocol in place. CBCs, metabolic profiles, magnesium levels and additional laboratory and/or radiographic evaluations will be obtained as needed. Patient will be placed on a cardiac, prerenal and diabetic restricted diet. Patient's home medications will be restarted, as appropriate, when her medication list has been verified and reconciled. - Time Time Spent with patient: 15-24 minutes Medications reviewed and adjusted accordingly: Yes Anticipated Discharge Disposition: Home with Home Health Anticipated Discharge: Other - Undetermined - Inpatient Certification Based on my medical assessment, after consideration of the patient's comorbidities, presenting symptoms, or acuity I expect that the services needed warrant INPATIENT care.: Yes I certify that my determination is in accordance with my understanding of Medicare's requirements for reasonable and necessary INPATIENT services [42 CFR 412.3e].: Yes Medical Necessity: Significant Comorbidiites Make Outpatient Treatment Too Risky, Need Close Monitoring Due to Risk of Patient Decompensation, Need For Continuous Telemetry Monitoring, Risk of Complication if Not Cared For in Hospital
[2019-12-15 07:31] LABS: CREATINE KINASE MB 0.57 ng/mL (<4.55)
[2019-12-15 07:38] LABS: TROPONIN I < 0.012 ng/mL
[2019-12-15 09:47] LABS: APPEARANCE,URINE SLIGHTLY-CLOUDY; BILIRUBIN,URINE NEGATIVE (NEGATIVE); COLOR,URINE STRAW; GLUCOSE, URINE NEGATIVE (NEGATIVE); KETONES,URINE NEGATIVE (NEGATIVE); PROTEIN,URINE 30 mg/dL (NEGATIVE); URINE SPECIFIC GRAVITY 1.008; UROBILINOGEN,URINE NEGATIVE mg/dL (<2.0)
[2019-12-15] MEDS: ACETAMINOPHEN 325 MG TABLET PO PRN ×2 (10:50→16:40)
[2019-12-15] MEDS: INSULIN REG, HUMAN 100 UNIT/ML 3 ML VIAL (PYX) SUBCUT PRN ×2 (10:51→16:40)
[2019-12-15] MEDS: DOCUSATE SODIUM 100 MG CAPSULE PO SCH (10:51)
[2019-12-15] MEDS: CLOPIDOGREL BISULFATE 75 MG TABLET PO SCH (10:51)
--- NOTE | 2019-12-15 11:32 | PDOC CONSULTATION ---
Consultation Consult Date: 12/15/19 Attending physician:: VELIA BORREGO Provider Consulted: IKE CASAS Consult reason:: CHF History of Present Illness Admission Date/PCP: 12/15/19 02:30 MARTIN WICK History of Present Illness: The patient is a 74-year-old female history of coronary artery disease status post bypass surgery approximately 2 years ago, peripheral vascular disease status post BKA, hypertension, diabetes, CHF, stage III CKD followed by Dr. Min who is consulted to our service for evaluation of heart failure. She presented to our emergency room with shortness of breath, exercise intolerance, and lower extremity edema for 2 days. Of note, the patient was hospitalized in October 2019 for BKA revision. She is resting comfortably this morning and feeling slightly better. She denies ischemic symptoms. Physical exam on 12/15/2019: GENERAL: Pleasant and conversational. Oriented x3 with normal mood. Not in acute distress. Well groomed and well developed. Obese. HEENT: Normocephalic, atraumatic. Pupils equal. Sclerae anicteric. Orop harynx moist. NECK: No JVD. No carotid bruits. LUNGS: Coarse breath sounds bilaterally. Normal respiratory effort without the use of accessory muscles or intercostal retractions. CARDIOVASCULAR: Regular rate and rhythm, normal S1 and S2 without murmurs, rubs, or gallops. PMI not displaced. ABDOMEN: No masses or tenderness to palpation. No bruit. No splenomegaly or hepatomegaly. No abdominal aorta bruit noted. EXTREMITIES: 1+ pitting edema on the right, left leg is amputated below the knee. SKIN: No lesions or rashes. MUSCULOSKELETAL: No chest tenderness to palpation. NEUROLOGIC: Nonfocal. No gross sensory or motor deficits bilateral upper or lower extremities. Past Medical History Cardiac Medical History: Reports: Coronary Artery Disease, Hyperlipidema, Hypertension, Peripheral Vascular Disease, Heart Murmur Denies: Atrial Fibrillation, Congestive Heart Failure, Myocardial Infarction, Pulmonary Embolism Pulmonary Medical History: Reports: Pneumonia, Sleep Apnea - Currently not using CPAP. Denies: Asthma, Bronchitis, Chronic Obstructive Pulmonary Disease (COPD), Respiratory Failure, Tuberculosis EENT Medical History: Denies: Cataracts, Ears - Hearing aids Neurological Medical History: Reports: Other - Diabetic peripheral neuropathy Denies: Hemorrhagic CVA, Ischemic CVA, Seizures Endocrine Medical History: Reports: Diabetes Mellitus Type 2, Hypothyroidism - Being followed by video photographer in [place]. On no medicine for this., Obesity Denies: Diabetes Mellitus Type 1, Hyperthyroidism Renal/ Medical History: Reports: Chronic Kidney Disease Denies: End Stage Renal Disease, Nephrolithiasis Malignancy Medical History: Reports: Renal (Kidney) Cancer Denies: Breast Cancer, Cervical Cancer, Leukemia, Lung Cancer, Ovarian Cancer GI Medical History: Reports: Other Denies: Cirrhosis, Crohn's Disease, Gastroesophageal Reflux Disease, H epatitis, Hiatal Hernia, Peptic Ulcer Disease, Ulcerative Colitis Musculoskeltal Medical History: Reports: Arthritis, Gout, Other - Chronic back pain, chronic neck pain Denies: Fibromyalgia Skin Medical History: Denies: Eczema, Psoriasis Psychiatric Medical History: Denies: Alcohol Dependency, Depression, Substance Abuse, Tobacco Dependency Traumatic Medical History: Reports: None Hematology: Reports: Anemia Denies: Hemophilia, Sickle Cell Disease, Bleeding Tendencies Infectious Medical History: Reports: None Denies: HIV Past Surgical History Past Surgical History: Reports: Appendectomy, Cardiac Catheterization, Coronary Artery Bypass Graft - X3, July 07, 2014, Herniorrhaphy, Hysterectomy, Orthopedic Surgery - 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 on July 2016 revision 11/12/19, Vascular Surgery, Other - Cervical fusion Denies: Amputation, Section, Cholecystectomy, Colostomy, Gastric Bypass Surgery, Mastectomy, Pacemaker, Tonsillectomy, Tubal Ligation Social History Lives with: Spouse/Significant other Smoking Status: Never Smoker Electronic Cigarette use?: No Frequency of Alcohol Use: None Hx Recreational Drug Use: No Drugs: None Hx Prescription Drug Abuse: No - Advance Directive Resuscitation Status: Full Code Family History Family History: CAD, DM, Hypertension Parental Family History Reviewed: Yes Children Family History Reviewed: Yes Sibling(s) Family History Reviewed.: Yes Medication/Allergy Home Medications: Allopurinol [Zyloprim 100 mg Tablet] 100 mg PO DAILY 03/13/19 Aspirin [Ecotrin 81 mg EC Tablet] 81 mg PO DAILY 03/13/19 Atorvastatin Calcium [Lipitor 40 mg Tablet] 40 mg PO QHS 03/13/19 Clopidogrel Bisulfate [Plavix 75 mg Tablet] 75 mg PO DAILY 03/13/19 Ergocalciferol (Vitamin D2) [Vitamin D2] 50 mcg PO WE@1000 03/13/19 Furosemide [Lasix 40 mg Tablet] 80 mg PO QAM 03/13/19 Gabapentin [Neurontin 100 mg Capsule] 100 mg PO Q12 03/13/19 Insulin Glargine,Hum.rec.anlog [Lantus Insulin 100 Unit/1 ml 10 ml] 35 unit SUBCUT QAM 03/13/19 Amlodipine Besylate [Norvasc 10 mg Tablet] 10 mg PO DAILY 12/15/19 Apidra Solostar 0 units SUBCUT .SLIDING SCALE 12/15/19 Carvedilol 25 mg PO Q12 12/15/19 Furosemide [Lasix 40 mg Tablet] 40 mg PO QPM 12/15/19 Hydralazine HCl [Apresoline 25 mg Tablet] 25 mg PO Q12 12/15/19 Lactulose 20 gm PO BID 12/15/19 Multivitamin [Tab-A-Mahnaz (Multiple Vitamin) Tablet] 1 tab PO DAILY 12/15/19 Oxycodone HCl [Oxy-Ir 5 mg Tablet] 5 mg PO BIDP PRN 12/15/19 Pantoprazole Sodium [Protonix [address] Tablet] 40 mg PO QAM 12/15/19 Allergies/Adverse Reactions: cephalexin monohydrate [From Keflex] Allergy (Unknown, Verified 11/18/19 19:49) nausea/vomiting metformin [Metformin] Allergy (Unknown, Verified 11/18/19 19:49) nausea/vomiting Sulfa (Sulfonamide Antibiotics) Allergy (Unknown, Verified 11/18/19 19:49) itching/rash promethazine [From Phenergan] Adverse Reaction (Mild, Verified 11/18/19 19:49) Hallucinations Physical Exam Vital Signs: Temp Pulse Resp BP Pulse Ox 97.0 F 59 L 11 L 155/61 H 99 12/15/19 08:00 12/15/19 08:00 12/15/19 08:00 12/15/19 08:00 12/15/19 08:00 Intake & Output 12/14/19 12/15/19 12/16/19 06:59 06:59 06:59 Output Total 300 300 Balance -300 -300 Weight 110.5 kg Results Laboratory Results: 12/14/19 19:31 12/14/19 19:31 12/14/19 12/14/19 12/15/19 19:31 19:31 09:20 WBC 6.9 RBC 3.32 L Hgb 9.7 L Hct 30.0 L MCV 90 MCH 29.3 MCHC 32.4 RDW 17.5 H Plt Count 197 Seg Neutrophils % 72.0 Sodium 137.0 Potassium 5.0 Chloride 101 Carbon Dioxide 28 Anion Gap 8 BUN 78 H Creatinine 3.07 H Est GFR ( Amer) 18 L Glucose 225 H Calcium 9.1 Total Bilirubin 0.7 AST 22 Alkaline Phosphatase 117 Total Protein 7.6 Albumin 4.3 Urine Color STRAW Urine Appearance SLIGHTLY-CLOUDY Urine pH 5.0 Ur Specific [place] 1.008 Urine Protein 30 H Urine Glucose (UA) NEGATIVE Urine Ketones NEGATIVE Urine Blood MODERATE H Urine RBC (Auto) 15 12/14/19 12/15/19 12/15/19 19:31 06:55 06:55 Creatine Kinase 59 CK-MB (CK-2) 0.57 Troponin I < 0.012 < 0.012 NT-Pro-B Natriuret Pep 2450 H Impressions: Chest X-Ray 12/14/19 19:20 IMPRESSION: Findings suggest mild pulmonary edema. copyright 2010 [employer]- All Rights Reserved 12/14/19 19:31 12/14/19 19:31 MCV 90 fl (80-97) 12/14/19 19:31 MCH 29.3 pg (27.0-33.4) 12/14/19 19:31 MCHC 32.4 g/dL (32.0-36.0) 12/14/19 19:31 RDW 17.5 % (11.5-14.0) H 12/14/19 19:31 Seg Neutrophils % 72.0 % (42-78) 12/14/19 19:31 Chloride 101 mmol/L (98-107) 12/14/19 19:31 Carbon Dioxide 28 mmol/L (22-30) 12/14/19 19:31 Anion Gap 8 (5-19) 12/14/19 19:31 Est GFR ( Amer) 18 (>60) L 12/14/19 19:31 Glucose 225 mg/dL (75-110) H 12/14/19 19:31 Calcium 9.1 mg/dL (8.4-10.2) 12/14/19 19:31 Total Bilirubin 0.7 mg/dL (0.2-1.3) 12/14/19 19:31 AST 22 U/L (14-36) 12/14/19 19:31 Alkaline Phosphatase 117 U/L (38-126) 12/14/19 19:31 Total Protein 7.6 g/dL (6.3-8.2) 12/14/19 19:31 Albumin 4.3 g/dL (3.5-5.0) 12/14/19 19:31 Urine Color STRAW 12/15/19 09:20 Urine Appearance SLIGHTLY-CLOUDY 12/15/19 09:20 Urine pH 5.0 (5.0-9.0) 12/15/19 09:20 Ur Specific [place] 1.008 12/15/19 09:20 Urine Protein 30 mg/dL (NEGATIVE) H 12/15/19 09:20 Urine Glucose (UA) NEGATIVE mg/dL (NEGATIVE) 12/15/19 09:20 Urine Ketones NEGATIVE mg/dL (NEGATIVE) 12/15/19 09:20 Urine Blood MODERATE (NEGATIVE) H 12/15/19 09:20 Urine RBC (Auto) 15 /HPF 12/15/19 09:20 12/14/19 12/15/19 12/15/19 19:31 06:55 06:55 Creatine Kinase 59 CK-MB (CK-2) 0.57 Troponin I < 0.012 < 0.012 NT-Pro-B Natriuret Pep 2450 H Current Medication List Generic Name Dose Route Start Last Admin Trade Name Luisq PRN Reason Stop Dose Admin Acetaminophen 650 mg 12/15/19 02:55 12/15/19 10:50 Tylenol 325 Mg Tablet PO 01/14/20 02:54 650 mg Q4HP PRN Administration pain or temp greater than 101F Al Hydrox/Mg Hydrox/Simethicone 30 ml 12/15/19 02:55 Maalox Plus Susp 30 Udcup PO 01/14/20 02:54 Q4HP PRN HEARTBURN Clopidogrel Bisulfate 75 mg 12/15/19 10:00 12/15/19 10:51 Plavix 75 Mg Tablet PO 01/14/20 09:59 75 mg DAILY ROSE Administration Dextrose 12.5 gm 12/15/19 03:08 Dextrose Inj 50% Syringe (25 Gm/50 Ml) IV 01/14/20 03:07 PRN PRN FOR BG 50-69 IN ALERT PATIENT Protocol Dextrose 25 gm 12/15/19 03:08 Dextrose Inj 50% Syringe (25 Gm/50 Ml) IV 01/14/20 03:07 PRN PRN PER PROTOCOL Protocol Docusate Sodium 100 mg 12/15/19 10:00 12/15/19 10:51 Colace 100 Mg Capsule PO 01/14/20 09:59 100 mg DAILY ROSE Administration Furosemide 40 mg 12/15/19 03:15 12/15/19 10:51 Lasix Inj/Pf 40 Mg/4 Ml Sdv IV 01/14/20 03:14 40 mg Q12 ROSE Administration Glucagon 1 mg 12/15/19 03:08 Glucagen Inj 1 Mg Vial IM 01/14/20 03:07 PRN PRN Evaluate for BG < 70 Protocol Glucose 15 gm 12/15/19 03:08 Glutose 40% Gel 15 Gm Tube PO 01/14/20 03:07 PRN PRN FOR BG 50-69 IN ALERT PATIENT Protocol Glucose 30 gm 12/15/19 03:08 Glutose 40% Gel 15 Gm Tube PO 01/14/20 03:07 PRN PRN FOR BG < 50 IN ALERT PATIENT Protocol Guaifenesin 200 mg 12/15/19 03:06 Robitussin Syrup 200 Mg/10 Ml Ud Cup PO 01/14/20 03:05 Q4HP PRN COUGH Heparin Sodium (Porcine) 5,000 unit 12/15/19 06:00 12/15/19 06:03 Heparin Inj 5,000 Units/Ml 1 Ml Vial SUBCUT 01/14/20 05:59 5,000 unit Q8 ROSE Administration Hydralazine HCl 20 mg 12/15/19 03:06 Apresoline Inj/Pf 20 Mg/1 Ml Sdv IV 01/14/20 03:05 Q4HP PRN Give For Sbp > 160 / Dbp > 100 Insulin Human Regular 0 - 15 unit 12/15/19 03:06 12/15/19 10:51 Humulin R (Pyxis) Insulin 100 Unit/Ml 3ml SUBCUT 01/14/20 03:05 1 unit ACHSP PRN Administration PER PROTOCOL Protocol Lorazepam 1 mg 12/15/19 03:06 Ativan Inj 2 Mg/1 Ml Vial IV 12/22/19 03:05 Q4HP PRN ANXIETY/AGITATION Magnesium Hydroxide 30 ml 12/15/19 02:55 Milk Of Magnesia 30 Ml Udcup PO 01/14/20 02:54 HSP PRN FOR CONSTIPATION Melatonin 10 mg 07/27/20 03:06 Melatonin 5 Mg Tablet PO 01/14/20 03:05 HSP PRN SLEEP OR INSOMNIA Metoprolol Tartrate 5 mg 12/15/19 03:06 Lopressor Inj/Pf 5 Mg/5 Ml Sdv IV 01/14/20 03:05 Q4HP PRN Give For Sbp > 160 / Dbp > 100 Morphine Sulfate 2 mg 12/15/19 03:06 Morphine 10 Mg/Ml Inj IV 12/22/19 03:05 Q1HP PRN Acute Severe Dyspnea Morphine Sulfate 2 mg 12/15/19 03:55 Morphine 10 Mg/Ml Inj IV 12/22/19 03:54 Q2HP PRN PAIN SCALE OF 2 Morphine Sulfate 3 mg 12/15/19 03:56 Morphine 10 Mg/Ml Inj IV 12/22/19 03:55 Q2HP PRN PAIN SCALE OF 3-4 Morphine Sulfate 4 mg 12/15/19 03:56 Morphine 10 Mg/Ml Inj IV 12/22/19 03:55 Q2HP PRN PAIN SCALE OF 5 Nitroglycerin 1 gm 12/15/19 06:00 12/15/19 06:02 Nitrol 2% Ointment 1gm Packet TP 01/14/20 05:59 1 gm Q6 ROSE Administration Ondansetron HCl 4 mg 12/15/19 02:55 Zofran Inj/Pf 4 Mg/2 Ml Sdv IV 01/14/20 02:54 Q6HP PRN FOR NAUSEA/VOMITING Pantoprazole Sodium 40 mg 12/15/19 06:00 12/15/19 06:[address] Tablet PO 01/14/20 05:59 40 mg Q6AM ROSE Administration Sodium Chloride 2.5 ml 12/15/19 06:00 12/15/19 06:03 Saline Flush 2.5 Ml Monoject Prefil Syrin IV 01/14/20 05:59 Not Given Q8 ROSE Discontinued Medications Generic Name Dose Route Start Last Admin Trade Name Freq PRN Reason Stop Dose Admin Albuterol 2.5 mg 12/14/19 20:24 12/14/19 20:29 Ventolin 0.083% Neb 2.5 Mg/3 Ml Ampul NEB 12/14/19 20:25 2.5 mg NOW ONE Administration Furosemide 100 mg 12/14/19 21:10 12/14/19 22:30 Lasix Inj/Pf 100 Mg/10 Ml Sdv IV 12/14/19 21:11 100 mg NOW ONE Administration Morphine Sulfate 2 - 4 mg 12/15/19 03:06 Morphine 10 Mg/Ml Inj IV 12/22/19 03:05 Q2HP PRN See protocol Protocol Assessment & Plan - Diagnosis (1) CHF exacerbation Qualifiers: Heart failure type: unspecified Qualified Code(s): I50.9 - Heart failure, unspecified Is this a current diagnosis for this admission?: Yes Plan: The patient is currently doing well. Unfortunately his management will be complicated by her renal disease. I do not have the list of her outpatient medications and she is currently just on Lasix. Recommendations: -Continue with current medical management for now. -Obtain an accurate list of her outpatient medications and restart them JOLIE. -Echocardiogram today. -Consult nephrology to assist with diuresis. -Restrict fluid intake to 1500 cc daily. -Low sodium diet, less than 1500 mg daily. -Strict intake and output. -Daily weights. -Daily BMPs and replace electrolytes as needed. (2) CAD (coronary artery disease) Qualifiers: Coronary Disease-Associated Artery/Lesion type: [place] artery [place] vs. transplanted heart: [place] heart Associated angina: without angina Qualified Code(s): I25.10 - Atherosclerotic heart disease of [place] coronary artery without angina pectoris Is this a current diagnosis for this admission?: Yes Plan: The patient is currently chest pain-free. 2 sets of cardiac troponins are negative. Recommendations: -Obtain accurate list of outpatient medications and restart them JOLIE. -Discontinue nitroglycerin paste. -We will continue to follow-up with you. (3) Acute on chronic renal failure Plan: Her initial creatinine was 2.74 and has increased to 3.07. Hopefully it will return to her baseline with diuresis. Recommendations: -Consult nephrology. -Further management per hospitalist and nephrology teams.
[2019-12-15 13:59] LABS: CREATINE KINASE MB 0.65 ng/mL (<4.55)
[2019-12-15 14:05] LABS: TROPONIN I < 0.012 ng/mL
[2019-12-15] MEDS: MAG HYDROX/AL HYDROX/SIMETH SUSP 30 ML UDCUP PO PRN (16:38)
[2019-12-15] MEDS ORDERED: LACTULOSE 20 GM PO SCH (18:00)
[2019-12-15] MEDS: LEVOFLOXACIN 500 MG/D5W RTU 500 MG/100 ML RTUPB IV SCH (18:50)
[2019-12-15 19:29] LABS: CREATINE KINASE MB 0.51 ng/mL (<4.55)
[2019-12-15] MEDS: LACTULOSE SYRUP 20 GM/30 ML UDCUP PO SCH ×2 (19:33→20:46)
[2019-12-15 19:37] LABS: TROPONIN I < 0.012 ng/mL
--- NOTE | 2019-12-15 19:48 | EKG REPORT ---
SEVERITY:- ABNORMAL ECG - SINUS RHYTHM LEFT BUNDLE BRANCH BLOCK : Confirmed by: Roxi Anderson MD 15-Dec-2019 19:46:52
[2019-12-15] MEDS: MORPHINE SULFATE 10 MG/ML INJ IV PRN (20:32)
[2019-12-15] MEDS ORDERED: (PENDING PHARMACY ID) (Carvedilol [Carvedilol] 25 MG) PO SCH (22:00)
[2019-12-15] MEDS: ATORVASTATIN CALCIUM 40 MG TABLET PO SCH (22:27)
[2019-12-15] MEDS: GABAPENTIN 100 MG CAPSULE PO SCH (22:28)
[2019-12-15] MEDS: CARVEDILOL 12.5 MG TABLET PO SCH (22:28)
[2019-12-15] MEDS: HYDRALAZINE HCL 25 MG TABLET PO SCH (22:28)
[2019-12-16] MEDS: NITROGLYCERIN 2% OINTMENT 1 GM PACKET TP SCH ×5 (00:06→23:10)
[2019-12-16] MEDS: ACETAMINOPHEN 325 MG TABLET PO PRN (03:40)
[2019-12-16] MEDS: HEPARIN SOD (PORCINE) 5,000 UNIT/ML 1 ML VIAL SUBCUT SCH ×3 (05:08→21:27)
[2019-12-16] MEDS: PANTOPRAZOLE SODIUM 40 MG TABLET.DR PO SCH (05:08)
[2019-12-16 05:38] LABS: ABSOLUTE EOSINOPHILS # (AUTO) 0.1 10^3/uL (0.0-0.6); ABSOLUTE LYMPHOCYTES (AUTO) 0.8 10^3/uL (0.5-4.7); ABSOLUTE MONOCYTES (AUTO) 0.5 10^3/uL (0.1-1.4); ABSOLUTE NEUT (AUTO) 2.8 10^3/uL (1.7-8.2); BASOPHILS % (AUTO) 0.5 % (0-2); EOSINOPHILS % (AUTO) 3.3 % (0-6); HEMATOCRIT 25.6 % (36.0-47.0); HEMOGLOBIN 8.6 g/dL (12.0-15.5); LYMPHOCYTES % (AUTO) 19.1 % (13-45); MEAN CORPUSCULAR HEMOGLOBIN 29.6 pg (27.0-33.4); MEAN CORPUSCULAR HGB CONC 33.4 g/dL (32.0-36.0); MEAN CORPUSCULAR VOLUME 89 fl (80-97); MONOCYTES % (AUTO) 11.8 % (3-13); PLATELET COUNT 166 10^3/uL (150-450); RED BLOOD COUNT 2.89 10^6/uL (3.72-5.28); RED CELL DISTRIBUTION WIDTH 17.2 % (11.5-14.0); SEGMENTED NEUTROPHILS % (AUTO) 65.3 % (42-78); TOTAL CELLS COUNTED % (AUTO) 100 %; WHITE BLOOD COUNT 4.3 10^3/uL (4.0-10.5)
[2019-12-16 05:54] LABS: ANION GAP 7 (5-19); BLOOD UREA NITROGEN 82 mg/dL (7-20); CALCIUM 8.8 mg/dL (8.4-10.2); CARBON DIOXIDE 29 mmol/L (22-30); CHLORIDE 101 mmol/L (98-107); CHOLESTEROL 128.81 mg/dL (0-200); GLUCOSE 163 mg/dL (75-110); POTASSIUM 4.6 mmol/L (3.6-5.0); TRIGLYCERIDES 137 mg/dL (<150)
[2019-12-16 06:05] LABS: DIRECT LDL 53 mg/dL (<100)
[2019-12-16 06:11] LABS: FREE T3 2.14 pg/mL (2.77-5.27)
[2019-12-16 06:25] LABS: THYROID STIMULATING HORMONE 3.45 uIU/mL (0.47-4.68)
[2019-12-16] MEDS: HYDRALAZINE HCL 25 MG TABLET PO SCH ×2 (10:34→21:28)
[2019-12-16] MEDS: GABAPENTIN 100 MG CAPSULE PO SCH ×2 (10:34→21:28)
[2019-12-16] MEDS: ASPIRIN 81 MG TABLET, ENT COATED PO SCH (10:35)
[2019-12-16] MEDS: CLOPIDOGREL BISULFATE 75 MG TABLET PO SCH (10:35)
[2019-12-16] MEDS: DOCUSATE SODIUM 100 MG CAPSULE PO SCH (10:35)
[2019-12-16] MEDS: CARVEDILOL 12.5 MG TABLET PO SCH ×2 (10:35→21:28)
[2019-12-16] MEDS: AMLODIPINE BESYLATE 10 MG TABLET PO SCH (10:35)
[2019-12-16] MEDS: INSULIN GLARGINE,HUM.REC.ANLOG 1,000 UNIT/10 ML VIAL SUBCUT SCH (10:35)
[2019-12-16] MEDS: ALLOPURINOL 100 MG TABLET PO SCH (10:35)
[2019-12-16] MEDS: MULTIVITAMIN TABLET PO SCH (10:35)
[2019-12-16] MEDS: FUROSEMIDE INJ/PF 40 MG/4 ML SDV IV SCH (10:36)
[2019-12-16] MEDS: LACTULOSE SYRUP 20 GM/30 ML UDCUP PO SCH ×3 (10:36→18:00)
--- NOTE | 2019-12-16 10:46 | PDOC PROGRESS REPORT ---
Subjective Progress Note for:: 12/16/19 Subjective:: 74 year old female who presented the emergency room with a 3-day history of dyspnea. She admits progressively worsening dyspnea over the course of the last 2 days becoming severe on the afternoon of 06/15/2019. Her dyspnea was worsened on exertion, was accompanied by orthopnea and wheezing, and was associated with leg swelling and a subjective fever that resolved with Tylenol. Her dyspnea did not improve with her nebulizer treatments at home. She denies other associated or accompanying signs and symptoms. She admits prior similar episodes. She has not identified any additional aggravating or ameliorating factors for her dyspnea. EMS found her to have an O2 sat less than 80 on room air at the time of their arrival. In the emergency room patient was found to have pulmonary edema on her chest x-ray, and acute kidney injury and hypoxic respiratory fail ure. She was subsequently admitted to the hospital for further evaluation and treatment on the congestive heart failure protocol. 12/[id number]-old female with multiple medical problems including congestive heart failure, chronic kidney disease admitted with shortness of breath. COVID test is pending. Dr. Lind following the patient on regular basis. Comfortably in the bed communicating well complaining of slight chest tightness requesting nebulizer treatments. Dr. Lind at bedside at the time of my examination. Reason For Visit: ACUTE PULMONARY EDEMA WITH CONGESTIVE HEART Physical Exam Vital Signs: Temp Pulse Resp BP Pulse Ox 98.6 F 60 18 145/41 H 100 12/16/19 07:33 12/16/19 07:33 12/16/19 07:33 12/16/19 07:33 12/16/19 10:18 Intake & Output 12/15/19 12/16/19 12/17/19 06:59 06:59 06:59 Intake Total 320 Output Total 300 2450 Balance -300 -2130 Weight 110.5 kg 105.8 kg General appearance: PRESENT: no acute distress, morbidly obese Head exam: PRESENT: atraumatic Eye exam: PRESENT: PERRLA Ear exam: PRESENT: normal external ear exam Mouth exam: PRESENT: neck supple Teeth exam: PRESENT: poor dentation Neck exam: ABSENT: carotid bruit, JVD, lymphadenopathy, thyromegaly Respiratory exam: PRESENT: decreased breath sounds Cardiovascular exam: PRESENT: RRR. ABSENT: diastolic murmur, rubs, systolic murmur Pulses: PRESENT: normal dorsalis pedis pul GI/Abdominal exam: PRESENT: normal bowel sounds, soft. ABSENT: distended, guarding, mass, organolmegaly, rebound, tenderness Rectal exam: PRESENT: deferred Gentrourinary exam: PRESENT: indwelling catheter Extremities exam: PRESENT: other - She has a left BKA. 1+ edema present in the right lower leg. Neurological exam: PRESENT: alert, awake, oriented to person, oriented to place, oriented to time, oriented to situation, CN II-XII grossly intact. ABSENT: motor sensory deficit Psychiatric exam: PRESENT: appropriate affect, normal mood. ABSENT: homicidal ideation, suicidal ideation Results Laboratory Results: 12/16/19 05:02 12/16/19 05:02 12/16/19 12/16/19 12/16/19 05:02 05:02 05:02 WBC 4.3 RBC 2.89 L Hgb 8.6 L Hct 25.6 L MCV 89 MCH 29.6 MCHC 33.4 RDW 17.2 H Plt Count 166 Seg Neutrophils % 65.3 Sodium 137.1 Potassium 4.6 Chloride 101 Carbon Dioxide 29 Anion Gap 7 BUN 82 H Creatinine 2.74 H Est GFR ( Amer) 20 L Glucose 163 H Calcium 8.8 Magnesium 2.6 H Triglycerides 137 Cholesterol 128.81 LDL Cholesterol Direct 53 VLDL Cholesterol 27.0 HDL Cholesterol 31 L TSH 3.45 Free T3 pg/mL 2.14 L 12/14/19 12/15/19 12/15/19 19:31 06:55 06:55 Creatine Kinase 59 CK-MB (CK-2) 0.57 Troponin I < 0.012 < 0.012 NT-Pro-B Natriuret Pep 2450 H 12/15/19 12/15/19 12/15/19 13:20 13:20 18:40 Creatine Kinase 56 56 CK-MB (CK-2) 0.65 Troponin I < 0.012 NT-Pro-B Natriuret Pep 12/15/19 12/16/19 18:40 05:02 Creatine Kinase CK-MB (CK-2) 0.51 Troponin I < 0.012 NT-Pro-B Natriuret Pep 2230 H Impressions: Chest X-Ray 12/14/19 19:20 IMPRESSION: Findings suggest mild pulmonary edema. copyright 2011 [employer]- All Rights Reserved Assessment and Plan - Diagnosis (1) Acute pulmonary edema with congestive heart failure Is this a current diagnosis for this admission?: Yes Plan: 12/16/2019-patient admitted for pulmonary edema secondary to CHF exacerbation. Cardiology consult was requested. Patient is receiving Lasix 40 mg IV every 12 hours. Urinary output is good. Patient is also receiving morphine as needed for diuresis. Echocardiogram that was done 14 of this month shows EF of 55 to 60%. Right ventricle systolic function is borderline reduced. So patient has chronic right heart failure. (2) Acute kidney injury superimposed on chronic kidney disease Is this a current diagnosis for this admission?: Yes Plan: 12/16/2019-creatinine peaked to 3.07 and improved to 2.74 today. Patient has a stage III kidney disease. She follows with Dr. Min as an outpatient. Patient is urinating well. (3) Anemia associated with stage 3 chronic renal failure Is this a current diagnosis for this admission?: No Plan: 12/16/2019-patient has history of chronic anemia due to CKD. Latest hemoglobin is 8.6. And is to closely monitor the labs today. On admission hemoglobin is 9.7. No signs of bleeding present. (4) CKD (chronic kidney disease) Is this a current diagnosis for this admission?: No Plan: 12/16/2019-patient has history of chronic kidney disease stage III follows [address] Min. (5) Obstructive sleep apnea Is this a current diagnosis for this admission?: No Plan: 12/08/2019-patient has obstructive sleep apnea and BiPAP. Please resume the BiPAP while she was asleep during the hospital stay. (6) Morbid obesity Is this a current diagnosis for this admission?: No Plan: 12/08/2019-patient BMI is 40 diet exercise weight loss lifestyle modifications discussed with the patient. - Plan Summary Summary: Patient will be admitted to the [facility] where she will receive routine supportive and symptomatic cares. She will be admitted on the congestive heart failure protocol. Cardiology consultation with Dr. Crowe will be obtained. Laboratory and evaluation will be obtained as per the congestive heart failure protocol. She will receive Lasix 40 mg IV every 12 hours and 1 g of 2% nitroglycerin ointment will be applied topically every 6 hours. She will receive morphine sulfate 2 mg IV every hour as needed for severe dyspnea. She will receive supplemental oxygen via nasal cannula with the possible use of noninvasive airway pressure support devices such as BiPAP. The patient will be placed on BiPAP while asleep for her sleep apnea. She will receive Ativan 1 mg IV every 4 hours as needed anxiety or restlessness. She will receive morphine sulfate 2 to 4 mg IV every 2 hours as needed for pain. She will have before meals and at bedtime Accu-Cheks performed with sliding scale insulin to cover hyperglycemia and a hypoglycemic protocol in place. CBCs, metabolic profiles, magnesium levels and additional laboratory and/or radiographic evaluations will be obtained as needed. Patient will be placed on a cardiac, prerenal and diabetic restricted diet. Patient's home medications will be restarted, as appropriate, when her medication list has been verified and reconciled. - Time Anticipated Discharge Disposition: Home, Self Care Anticipated Discharge: within 72 hours
--- NOTE | 2019-12-16 10:52 | PDOC PROGRESS REPORT ---
Subjective Progress Note for:: 12/16/19 Subjective:: The patient is a 74-year-old female history of coronary artery disease status post bypass surgery approximately 2 years ago, peripheral vascular disease status post BKA, hypertension, diabetes, CHF, stage III CKD followed by Dr. Min who is consulted to our service for evaluation of heart failure. She presented to our emergency room with shortness of breath, exercise intolerance, and lower extremity edema for 2 days. Of note, the patient was hospitalized in October 2019 for BKA revision. She is resting comfortably this morning and feeling slightly better. She denies ischemic symptoms. 12/16/2019: The patient had an uneventful night and feels much better this morning. She specifically denies ischemic and heart failure symptoms. Unfortunately her anemia has worsened since admission however her renal function is slightly improved. Her troponin was negative x2 and her fluid balance is -2.4 L. Her telemetry shows normal sinus rhythm. Her blood pressure is above goal. Physical exam on 12/16/2019: GENERAL: Pleasant and conversational. Oriented x3 with normal mood. Not in acute distress. Well groomed and well developed. Obese. HEENT: Normocephalic, atraumatic. Pupils equal. Sclerae anicteric. Oropharynx moist. NECK: No JVD. No carotid bruits. LUNGS: Coarse breath sounds bilaterally. Normal respiratory effort without the use of accessory muscles or intercostal retractions. CARDIOVASCULAR: Regular rate and rhythm, normal S1 and S2 without murmurs, rubs, or gallops. PMI not displaced. ABDOMEN: No masses or tenderness to palpation. No bruit. No splenomegaly or hepatomegaly. No abdominal aorta bruit noted. EXTREMITIES: Trace pitting edema on the right, left leg is amputated below the knee. SKIN: No lesions or rashes. MUSCULOSKELETAL: No chest tenderness to palpation. NEUROLOGIC: Nonfocal. No gross sensory or motor deficits bilateral upper or lower extremities. Cardiac studies: Echocardiogram on 12/02/2019 at [facility]: -LV systolic function is normal. -EF 55 to 60%. -Right ventricular systolic function is borderline reduced. -Trace MR. Reason For Visit: ACUTE PULMONARY EDEMA WITH CONGESTIVE HEART Physical Exam Vital Signs: Temp Pulse Resp BP Pulse Ox 98.1 F 65 13 158/49 H 96 12/16/19 03:25 12/16/19 03:25 12/16/19 05:15 12/16/19 03:25 12/16/19 05:15 Intake & Output 12/15/19 12/16/19 12/17/19 06:59 06:59 06:59 Intake Total 320 Output Total 300 2450 Balance -300 -2130 Weight 110.5 kg 105.8 kg Results Laboratory Results: 12/16/19 05:02 12/16/19 05:02 12/15/19 12/16/19 12/16/19 09:20 05:02 05:02 WBC 4.3 RBC 2.89 L Hgb 8.6 L Hct 25.6 L MCV 89 MCH 29.6 MCHC 33.4 RDW 17.2 H Plt Count 166 Seg Neutrophils % 65.3 Sodium 137.1 Potassium 4.6 Chloride 101 Carbon Dioxide 29 Anion Gap 7 BUN 82 H Creatinine 2.74 H Est GFR ( Amer) 20 L Glucose 163 H Calcium 8.8 Magnesium 2.6 H Triglycerides 137 Cholesterol 128.81 LDL Cholesterol Direct 53 VLDL Cholesterol 27.0 HDL Cholesterol 31 L TSH Free T3 pg/mL Urine Color STRAW Urine Appearance SLIGHTLY-CLOUDY Urine pH 5.0 Ur Specific [place] 1.008 Urine Protein 30 H Urine Glucose (UA) NEGATIVE Urine Ketones NEGATIVE Urine Blood MODERATE H Urine RBC (Auto) 12/16/19 05:02 WBC RBC Hgb Hct MCV MCH MCHC RDW Plt Count Seg Neutrophils % Sodium Potassium Chloride Carbon Dioxide Anion Gap BUN Creatinine Est GFR ( Amer) Glucose Calcium Magnesium Triglycerides Cholesterol LDL Cholesterol Direct VLDL Cholesterol HDL Cholesterol TSH 3.45 Free T3 pg/mL 2.14 L Urine Color Urine Appearance Urine pH Ur Specific [place] Urine Protein Urine Glucose (UA) Urine Ketones Urine Blood Urine RBC (Auto) 12/14/19 12/15/19 12/15/19 19:31 06:55 06:55 Creatine Kinase 59 CK-MB (CK-2) 0.57 Troponin I < 0.012 < 0.012 NT-Pro-B Natriuret Pep 2450 H 12/15/19 12/15/19 12/15/19 13:20 13:20 18:40 Creatine Kinase 56 56 CK-MB (CK-2) 0.65 Troponin I < 0.012 NT-Pro-B Natriuret Pep 12/15/19 12/16/19 18:40 05:02 Creatine Kinase CK-MB (CK-2) 0.51 Troponin I < 0.012 NT-Pro-B Natriuret Pep 2230 H Impressions: Chest X-Ray 12/14/19 19:20 IMPRESSION: Findings suggest mild pulmonary edema. copyright 2011 [employer]- All Rights Reserved 12/16/19 05:02 12/16/19 05:02 MCV 89 fl (80-97) 12/16/19 05:02 MCH 29.6 pg (27.0-33.4) 12/16/19 05:02 MCHC 33.4 g/dL (32.0-36.0) 12/16/19 05:02 RDW 17.2 % (11.5-14.0) H 12/16/19 05:02 Seg Neutrophils % 65.3 % (42-78) 12/16/19 05:02 Chloride 101 mmol/L (98-107) 12/16/19 05:02 Carbon Dioxide 29 mmol/L (22-30) 12/16/19 05:02 Anion Gap 7 (5-19) 12/16/19 05:02 Est GFR ( Amer) 20 (>60) L 12/16/19 05:02 Glucose 163 mg/dL (75-110) H 12/16/19 05:02 Calcium 8.8 mg/dL (8.4-10.2) 12/16/19 05:02 Magnesium 2.6 mg/dL (1.6-2.3) H 12/16/19 05:02 Total Bilirubin 0.7 mg/dL (0.2-1.3) 12/14/19 19:31 AST 22 U/L (14-36) 12/14/19 19:31 Alkaline Phosphatase 117 U/L (38-126) 12/14/19 19:31 Total Protein 7.6 g/dL (6.3-8.2) 12/14/19 19:31 Albumin 4.3 g/dL (3.5-5.0) 12/14/19 19:31 Triglycerides 137 mg/dL (<150) 12/16/19 05:02 Cholesterol 128.81 mg/dL (0-200) 12/16/19 05:02 LDL Cholesterol Direct 53 mg/dL (<100) 12/16/19 05:02 VLDL Cholesterol 27.0 mg/dL (10-31) 12/16/19 05:02 HDL Cholesterol 31 mg/dL (>40) L 12/16/19 05:02 TSH 3.45 uIU/mL (0.47-4.68) 12/16/19 05:02 Free T3 pg/mL 2.14 pg/mL (2.77-5.27) L 12/16/19 05:02 Urine Color STRAW 12/15/19 09:20 Urine Appearance SLIGHTLY-CLOUDY 12/15/19 09:20 Urine pH 5.0 (5.0-9.0) 12/15/19 09:20 Ur Specific [place] 1.008 12/15/19 09:20 Urine Protein 30 mg/dL (NEGATIVE) H 12/15/19 09:20 Urine Glucose (UA) NEGATIVE mg/dL (NEGATIVE) 12/15/19 09:20 Urine Ketones NEGATIVE mg/dL (NEGATIVE) 12/15/19 09:20 Urine Blood MODERATE (NEGATIVE) H 12/15/19 09:20 Urine RBC (Auto) 15 /HPF 12/15/19 09:20 12/14/19 12/15/19 12/15/19 19:31 06:55 06:55 Creatine Kinase 59 CK-MB (CK-2) 0.57 Troponin I < 0.012 < 0.012 NT-Pro-B Natriuret Pep 2450 H 12/15/19 12/15/19 12/15/19 13:20 13:20 18:40 Creatine Kinase 56 56 CK-MB (CK-2) 0.65 Troponin I < 0.012 NT-Pro-B Natriuret Pep 12/15/19 12/16/19 18:40 05:02 Creatine Kinase CK-MB (CK-2) 0.51 Troponin I < 0.012 NT-Pro-B Natriuret Pep 2230 H Current Medication List Generic Name Dose Route Start Last Admin Trade Name Freq PRN Reason Stop Dose Admin Acetaminophen 650 mg 12/15/19 02:55 12/16/19 03:40 Tylenol 325 Mg Tablet PO 01/14/20 02:54 650 mg Q4HP PRN Administration pain or temp greater than 101F Al Hydrox/Mg Hydrox/Simethicone 30 ml 12/15/19 02:55 12/15/19 16:38 Maalox Plus Susp 30 Udcup PO 01/14/20 02:54 30 ml Q4HP PRN Administration HEARTBURN Allopurinol 100 mg 12/16/19 10:00 Zyloprim 100 Mg Tablet PO 01/15/20 09:59 DAILY ROSE Amlodipine Besylate 10 mg 12/16/19 10:00 Norvasc 10 Mg Tablet PO 01/15/20 09:59 DAILY ROSE Aspirin 81 mg 12/16/19 10:00 Ecotrin 81 Mg Ec Tablet PO 01/15/20 09:59 DAILY ROSE Atorvastatin Calcium 40 mg 12/15/19 22:00 12/15/19 22:27 Lipitor 40 Mg Tablet PO 01/14/20 21:59 40 mg QHS ROSE Administration Carvedilol 25 mg 12/15/19 22:00 12/15/19 22:28 Coreg 12.5 Mg Tablet PO 01/14/20 21:59 25 mg Q12 ROSE Administration Clopidogrel Bisulfate 75 mg 12/15/19 10:00 12/15/19 10:51 Plavix 75 Mg Tablet PO 01/14/20 09:59 75 mg DAILY ROSE Administration Dextrose 12.5 gm 12/15/19 03:08 Dextrose Inj 50% Syringe (25 Gm/50 Ml) IV 01/14/20 03:07 PRN PRN FOR BG 50-69 IN ALERT PATIENT Protocol Dextrose 25 gm 12/15/19 03:08 Dextrose Inj 50% Syringe (25 Gm/50 Ml) IV 01/14/20 03:07 PRN PRN PER PROTOCOL Protocol Docusate Sodium 100 mg 12/15/19 10:00 12/15/19 10:51 Colace 100 Mg Capsule PO 01/14/20 09:59 100 mg DAILY ROSE Administration Furosemide 40 mg 12/15/19 03:15 12/15/19 22:27 Lasix Inj/Pf 40 Mg/4 Ml Sdv IV 01/14/20 03:14 40 mg Q12 ROSE Administration Gabapentin 100 mg 12/15/19 22:00 12/15/19 22:28 Neurontin 100 Mg Capsule PO 01/14/20 21:59 100 mg Q12 ROSE Administration Glucagon 1 mg 12/15/19 03:08 Glucagen Inj 1 Mg Vial IM 01/14/20 03:07 PRN PRN Evaluate for BG < 70 Protocol Glucose 15 gm 12/15/19 03:08 Glutose 40% Gel 15 Gm Tube PO 01/14/20 03:07 PRN PRN FOR BG 50-69 IN ALERT PATIENT Protocol Glucose 30 gm 12/15/19 03:08 Glutose 40% Gel 15 Gm Tube PO 01/14/20 03:07 PRN PRN FOR BG < 50 IN ALERT PATIENT Protocol Guaifenesin 200 mg 12/15/19 03:06 Robitussin Syrup 200 Mg/10 Ml Ud Cup PO 01/14/20 03:05 Q4HP PRN COUGH Heparin Sodium (Porcine) 5,000 unit 12/15/19 06:00 12/16/19 05:08 Heparin Inj 5,000 Units/Ml 1 Ml Vial SUBCUT 01/14/20 05:59 5,000 unit Q8 ROSE Administration Hydralazine HCl 20 mg 12/15/19 03:06 12/15/19 15:56 Apresoline Inj/Pf 20 Mg/1 Ml Sdv IV 01/14/20 03:05 20 mg Q4HP PRN Administration Give For Sbp > 160 / Dbp > 100 Hydralazine HCl 25 mg 12/15/19 22:00 12/15/19 22:28 Apresoline 25 Mg Tablet PO 01/14/20 21:59 25 mg Q12 ROSE Administration Levofloxacin/Dextrose 500 mg in 100 mls @ 100 mls/hr 12/15/19 18:00 12/15/19 19:50 Levaquin Rtu 500mg/D5w 100 Ml Premix IV 12/22/19 17:59 Infused QPM ROSE Infusion Insulin Glargine 35 unit 12/16/19 08:00 Lantus Insulin 100 Unit/1 Ml 10 Ml SUBCUT 01/15/20 07:59 QAM [facility] Insulin Human Regular 0 - 15 unit 12/15/19 03:06 12/15/19 16:40 Humulin R (Pyxis) Insulin 100 Unit/Ml 3ml SUBCUT 01/14/20 03:05 3 unit ACHSP PRN Administration PER PROTOCOL Protocol Lactulose 20 gm 12/15/19 19:00 12/15/19 20:46 Cephulac Syrup 20 Gm/30 Ml Udcup PO 01/14/20 18:59 Not Given BID ROSE Lorazepam 1 mg 12/15/19 03:06 Ativan Inj 2 Mg/1 Ml Vial IV 12/22/19 03:05 Q4HP PRN ANXIETY/AGITATION Magnesium Hydroxide 30 ml 12/15/19 02:55 Milk Of Magnesia 30 Ml Udcup PO 01/14/20 02:54 HSP PRN FOR CONSTIPATION Melatonin 10 mg 12/15/19 03:06 Melatonin 5 Mg Tablet PO 01/14/20 03:05 HSP PRN SLEEP OR INSOMNIA Metoprolol Tartrate 5 mg 12/15/19 03:06 Lopressor Inj/Pf 5 Mg/5 Ml Sdv IV 01/14/20 03:05 Q4HP PRN Give For Sbp > 160 / Dbp > 100 Morphine Sulfate 2 mg 12/15/19 03:06 Morphine 10 Mg/Ml Inj IV 12/22/19 03:05 Q1HP PRN Acute Severe Dyspnea Morphine Sulfate 2 mg 12/15/19 03:55 12/15/19 20:32 Morphine 10 Mg/Ml Inj IV 12/22/19 03:54 2 mg Q2HP PRN Administration PAIN SCALE OF 2 Morphine Sulfate 3 mg 12/15/19 03:56 Morphine 10 Mg/Ml Inj IV 12/22/19 03:55 Q2HP PRN PAIN SCALE OF 3-4 Morphine Sulfate 4 mg 12/15/19 03:56 Morphine 10 Mg/Ml Inj IV 12/22/19 03:55 Q2HP PRN PAIN SCALE OF 5 Multivitamins 1 tab 12/16/19 10:00 Tab-A-Mahnaz (Multiple Vitamin) Tablet PO 01/15/20 09:59 DAILY ROSE Nitroglycerin 1 gm 12/15/19 06:00 12/16/19 05:08 Nitrol 2% Ointment 1gm Packet TP 01/14/20 05:59 1 gm Q6 ROSE Administration Ondansetron HCl 4 mg 12/15/19 02:55 Zofran Inj/Pf 4 Mg/2 Ml Sdv IV 01/14/20 02:54 Q6HP PRN FOR NAUSEA/VOMITING Pantoprazole Sodium 40 mg 12/15/19 06:00 12/16/19 05:[address] Tablet PO 01/14/20 05:59 40 mg Q6AM ROSE Administration Patient Own Medication 50 mcg 12/17/19 10:00 Ergocalciferol (Vitamin D2) [Vitamin D2] PO 01/16/20 09:59 WE@1000 ROSE Sodium Chloride 2.5 ml 12/15/19 06:00 12/16/19 05:09 Saline Flush 2.5 Ml Monoject Prefil Syrin IV 01/14/20 05:59 2.5 ml Q8 ROSE Administration Discontinued Medications Generic Name Dose Route Start Last Admin Trade Name Kathy PRN Reason Stop Dose Admin Albuterol 2.5 mg 12/14/19 20:24 12/14/19 20:29 Ventolin 0.083% Neb 2.5 Mg/3 Ml Ampul NEB 12/14/19 20:25 2.5 mg NOW ONE Administration Furosemide 100 mg 12/14/19 21:10 12/14/19 22:30 Lasix Inj/Pf 100 Mg/10 Ml Sdv IV 12/14/19 21:11 100 mg NOW ONE Administration Morphine Sulfate 2 - 4 mg 12/15/19 03:06 Morphine 10 Mg/Ml Inj IV 12/22/19 03:05 Q2HP PRN See protocol Protocol Assessment & Plan - Diagnosis (1) CHF exacerbation Qualifiers: Heart failure type: unspecified Qualified Code(s): I50.9 - Heart failure, unspecified Is this a current diagnosis for this admission?: Yes Plan: The patient is currently doing well and asymptomatic from the cardiovascular standpoint. She is responding well to the current dose of Lasix with a negative fluid balance of -2.4 L. Her blood pressure is above goal and, at this point, I believe the patient would benefit from BiDil. Recommendations: -Continue with current diuretic regimen for now. -Discontinue hydralazine. -Start BiDil 20 mg / 37.5 mg p.o. every 8 hours. -Restrict fluid intake to 1500 cc daily. -Low sodium diet, less than 1500 mg daily. -Strict intake and output. -Daily weights. -Daily BMPs and replace electrolytes as needed. (2) CAD (coronary artery disease) Qualifiers: Coronary Disease-Associated Artery/Lesion type: [place] artery [place] vs. transplanted heart: [place] heart Associated angina: without angina Qualified Code(s): I25.10 - Atherosclerotic heart disease of [place] coronary artery without angina pectoris Is this a current diagnosis for this admission?: Yes Plan: The patient is currently chest pain-free. 2 sets of cardiac troponins are negative. Recommendations: -Discontinue nitroglycerin paste. -We will continue to follow-up with you. (3) Acute on chronic renal failure Is this a current diagnosis for this admission?: Yes Plan: I will defer further management to primary team.
[2019-12-16] MEDS: IPRATROPIUM/ALBUTEROL 0.5-2.5 MG/3 ML AMPUL NEB PRN (11:36)
--- NOTE | 2019-12-16 12:32 | PDOC CONSULTATION ---
Consultation Consult Date: 12/16/19 Provider Consulted: Ubaldo MIN Consult reason:: NINI History of Present Illness Admission Date/PCP: 12/15/19 02:30 MARTIN WICK History of Present Illness: JAQUELIN SKELTON is a 74 year old female history of CAD s/p bypass surgery 2 years ago, PVD s/p BKA, htn, DM2, CHF, CKD3 followed by Dr. Min. Was being treated at [facility] for RCC. She presented to our emergency room with SOB for the past 2 days. She noticed that it was worse with exertion and that her leg was swollen. She previously was feeling good with no SOB. She claims that she had no swelling. The only significant event that she can think of was that she had heart palpitations and then became SOB a short time later. She also had a fever that went away with tylenol. She was following with me at the beginning of October for SOB and increased swelling. At the time her creatinine was 2.3 and the BUN was 65. She was on 80mg of furosemide bid. SOB on follow up visit was slowly improving. She was to come back in two weeks for a follow up appointment and labs to be drawn. Unfortunately she was hospitalized at the end of October for BKA revision and never follow up. In the ER she had a chest x-ray that showed mild pulmonary edema. A VQ scan was done to rule out PE. Her creatinine was 3.07 with a bun of 78, hemoglobin of 9.7. She was given IV furosemide, started on her home meds, saw the card iologist, Dr. Croew, placed on bipap, and was swabbed for possible COVID. At this time she is in the COVID section of the hospital as a PUI. Her creatinine was 2.74, bun 82, hemoglobin of 8.6 today. She urinated 2.4L yesterday and early this morning with 40mg of IV furosemide. She is still SOB today, swelling has decreased. At this time she denies chest pain. She was awaiting her breathing treatment. She is off the bipap but still requires breathing treatments. Past Medical History Cardiac Medical History: Reports: Coronary Artery Disease, Heart Murmur, Hyperlipidemia, Hypertension-primary, Peripheral Vascular Disease Denies: Atrial Fibrillation, Myocardial Infarction, Pulmonary Embolism Pulmonary Medical History: Reports: Pneumonia, Sleep Apnea - Currently not using CPAP. Denies: Asthma, Bronchitis, Chronic Obstructive Pulmonary Disease (COPD), Respiratory Failure, Tuberculosis EENT Medical History: Denies: Cataracts, Ears - Hearing aids Neurological Medical History: Reports: Other - Diabetic peripheral neuropathy Denies: Hemorrhagic CVA, Ischemic CVA, Seizures Endocrine Medical History: Reports: Diabetes Mellitus Type 2, Hypothyroidism - Being followed by heddler in [place]. On no medicine for this., Obesity Denies: Diabetes Mellitus Type 1, Hyperthyroidism Complications of Diabetes: Reports: None Renal/ Medical History: Reports: Chronic Kidney Disease Stage III Denies: Benign Prostatic Hyperplasia, End Stage Renal Disease, Nephrolithiasis Malignancy Medical History: Reports: Renal (Kidney) Cancer Denies: Breast Cancer, Cervical Cancer, Leukemia, Lung Cancer, Ovarian Cancer GI Medical History: Reports: Other Denies: Cirrhosis, Crohn's Disease, Gastroesophageal Reflux Disease, Hepatitis, Hiatal Hernia, Peptic Ulcer Disease, Ulcerative Colitis Musculoskeltal Medical History: Reports: Arthritis, Gout, Other - Chronic back pain, chronic neck pain Denies: Fibromyalgia, Rheumatoid Arthritis Skin Medical History: Denies: Eczema, Psoriasis Psychiatric Medical History: Denies: Alcohol Dependency, Depression, Substance Abuse, Tobacco Dependency Traumatic Medical History: Reports: None Infectious Medical History: Reports: None Denies: HIV Past Surgical History Past Surgical History: Reports: Appendectomy, Cardiac Catheterization, Coronary Artery Bypass Graft - X3, July 07, 2014, Herniorrhaphy, Hysterectomy, Orthopedic Surgery - 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 on July 2016 revision 11/12/19, Vascular Surgery, Other - Cervical fusion Denies: Section, Cholecystectomy, Colostomy, Gastric Bypass Surgery, Mastectomy, Pacemaker, Tonsillectomy, Tubal Ligation Social History Lives with: Spouse/Significant other Smoking Status: Never Smoker Electronic Cigarette use?: No Frequency of Alcohol Use: None Hx Recreational Drug Use: No Drugs: None Hx Prescription Drug Abuse: No - Advance Directive Resuscitation Status: Full Code Family History Parental Family History Reviewed: Yes Children Family History Reviewed: Yes Sibling(s) Family History Reviewed.: Unknown Medication/Allergy Home Medications: Allopurinol [Zyloprim 100 mg Tablet] 100 mg PO DAILY 03/13/19 Aspirin [Ecotrin 81 mg EC Tablet] 81 mg PO DAILY 03/13/19 Atorvastatin Calcium [Lipitor 40 mg Tablet] 40 mg PO QHS 03/13/19 Clopidogrel Bisulfate [Plavix 75 mg Tablet] 75 mg PO DAILY 03/13/19 Furosemide [Lasix 40 mg Tablet] 80 mg PO QAM 03/13/19 Gabapentin [Neurontin 100 mg Capsule] 100 mg PO Q12 03/13/19 Insulin Glargine,Hum.rec.anlog [Lantus Insulin 100 Unit/1 ml 10 ml] 35 unit SUBCUT QAM 03/13/19 Amlodipine Besylate [Norvasc 10 mg Tablet] 10 mg PO DAILY 12/15/19 Apidra Solostar 0 units SUBCUT .SLIDING SCALE 12/15/19 Carvedilol 25 mg PO Q12 12/15/19 Furosemide [Lasix 40 mg Tablet] 40 mg PO QPM 12/15/19 Hydralazine HCl [Apresoline 25 mg Tablet] 25 mg PO Q12 12/15/19 Lactulose 20 gm PO BID 12/15/19 Multivitamin [Tab-A-Mahnaz (Multiple Vitamin) Tablet] 1 tab PO DAILY 12/15/19 Oxycodone HCl [Oxy-Ir 5 mg Tablet] 5 mg PO BIDP PRN 12/15/19 Pantoprazole Sodium [Protonix [address] Tablet] 40 mg PO QAM 12/15/19 Ergocalciferol (Vitamin D2) [Drisdol 50,000 Unit (1.25MG) Capsule] 50,000 unit PO WE@1000 12/16/19 Allergies/Adverse Reactions: cephalexin monohydrate [From Keflex] Allergy (Unknown, Verified 11/18/19 19:49) nausea/vomiting metformin [Metformin] Allergy (Unknown, Verified 11/18/19 19:49) nausea/vomiting Sulfa (Sulfonamide Antibiotics) Allergy (Unknown, Verified 11/18/19 19:49) itching/rash promethazine [From Phenergan] Adverse Reaction (Mild, Verified 11/18/19 19:49) Hallucinations Review of Systems Constitutional: PRESENT: fatigue, fever(s). ABSENT: chills, weakness Eyes: ABSENT: visual disturbances Cardiovascular: PRESENT: dyspnea on exertion, edema, orthropnea, palpitations. ABSENT: chest pain Respiratory: PRESENT: dyspnea. ABSENT: cough, sputum Gastrointestinal: ABSENT: constipation, diarrhea, nausea, vomiting Genitourinary: ABSENT: difficulty urinating, dysuria Neurological: ABSENT: confusion, weakness Physical Exam Vital Signs: Temp Pulse Resp BP Pulse Ox 98.6 F 60 16 145/41 H 95 12/16/19 07:33 12/16/19 11:36 12/16/19 11:36 12/16/19 07:33 12/16/19 11:36 Intake & Output 12/15/19 12/16/19 12/17/19 06:59 06:59 06:59 Intake Total 320 Output Total 300 2450 Balance -300 -2130 Weight 110.5 kg 105.8 kg General appearance: PRESENT: no acute distress, obese, well-developed, well- nourished Mouth exam: PRESENT: neck supple Neck exam: ABSENT: JVD, tracheal deviation Respiratory exam: PRESENT: crackles, rales, wheezes. ABSENT: accessory muscle use, clear to auscultation ricki Cardiovascular exam: PRESENT: +S1, +S2 GI/Abdominal exam: PRESENT: soft. ABSENT: tenderness Extremities exam: PRESENT: +1 edema - /trace+. ABSENT: +2 edema Musculoskeletal exam: PRESENT: deformity - -left leg amputation. ABSENT: normal inspection Neurological exam: PRESENT: alert, awake, oriented to person, oriented to place, oriented to time, oriented to situation Psychiatric exam: PRESENT: appropriate affect, normal mood Skin exam: PRESENT: dry, intact, warm. ABSENT: cyanosis Results Laboratory Results: 12/16/19 05:02 12/16/19 05:02 12/16/19 12/16/19 12/16/19 05:02 05:02 05:02 WBC 4.3 RBC 2.89 L Hgb 8.6 L Hct 25.6 L MCV 89 MCH 29.6 MCHC 33.4 RDW 17.2 H Plt Count 166 Seg Neutrophils % 65.3 Sodium 137.1 Potassium 4.6 Chloride 101 Carbon Dioxide 29 Anion Gap 7 BUN 82 H Creatinine 2.74 H Est GFR ( Amer) 20 L Glucose 163 H Calcium 8.8 Magnesium 2.6 H Triglycerides 137 Cholesterol 128.81 LDL Cholesterol Direct 53 VLDL Cholesterol 27.0 HDL Cholesterol 31 L TSH 3.45 Free T3 pg/mL 2.14 L 12/14/19 12/15/19 12/15/19 19:31 06:55 06:55 Creatine Kinase 59 CK-MB (CK-2) 0.57 Troponin I < 0.012 < 0.012 NT-Pro-B Natriuret Pep 2450 H 12/15/19 12/15/19 12/15/19 13:20 13:20 18:40 Creatine Kinase 56 56 CK-MB (CK-2) 0.65 Troponin I < 0.012 NT-Pro-B Natriuret Pep 12/15/19 12/16/19 18:40 05:02 Creatine Kinase CK-MB (CK-2) 0.51 Troponin I < 0.012 NT-Pro-B Natriuret Pep 2230 H Impressions: Chest X-Ray 12/14/19 19:20 IMPRESSION: Findings suggest mild pulmonary edema. copyright 2010 [employer]- All Rights Reserved Assessment & Plan - Diagnosis (1) Acute kidney injury superimposed on chronic kidney disease Is this a current diagnosis for this admission?: Yes Plan: nonoliguric, looks prerenal from fluid overload. Looks to have produced a significant amount of urine with IV furosemide. Will decrease IV furosemide to 20mg q8. Will need strict I's&O's and to be cautious with avoiding overdiuresis with how well she responded to the furosemide. Will follow up tomorrow with labs. If BUN elevates or creatinine elevates than diuretics may need to be cut back. (2) Acute respiratory failure with hypoxia Is this a current diagnosis for this admission?: Yes Plan: looks to be partially from pulmonary edema. awaiting covid testing. On breathing treatments and oxygen during the day. On BIpap at night. (3) Acute pulmonary edema with congestive heart failure Is this a current diagnosis for this admission?: Yes Plan: adjusting on furosemide currently, strict Is&Os. Looks to only have mild decreased RV function. Left is intake according to her echo on 12/02/19. (4) Anemia associated with stage 3 chronic renal failure Is this a current diagnosis for this admission?: No Plan: getting anemia labs (5) Hypertension Qualifiers: Hypertension type: essential hypertension Qualified Code(s): I10 - Essential (primary) hypertension Is this a current diagnosis for this admission?: Yes Plan: improving with fluid removal. Will revaluate once more fluid is removed. (6) Diabetes Plan: needs to get better control of her blood sugars. (7) Renal mass, right Plan: follows with [facility] and saw them recently in the past month. She claims it was determined that the cancer was improving after radiation and she did not need to follow for 6 months. Will look to get records. (8) Obstructive sleep apnea Is this a current diagnosis for this admission?: No Plan: on bipap at night
[2019-12-16 13:02] LABS: IRON(TIBC) 27.6 ug/dL (37-170)
[2019-12-16 13:04] LABS: ABSOLUTE RETICS # 0.054 10^6/uL (0.028-0.122); RETICULOCYTE COUNT (AUTO) 1.81 % (0.66-2.85)
[2019-12-16 14:14] LABS: FOLATE > 20.00 ng/mL (>2.76)
[2019-12-16] MEDS: LEVOFLOXACIN 500 MG/D5W RTU 500 MG/100 ML RTUPB IV SCH (17:46)
[2019-12-16] MEDS: MORPHINE SULFATE 10 MG/ML INJ IV PRN (19:54)
[2019-12-16] MEDS: ATORVASTATIN CALCIUM 40 MG TABLET PO SCH (21:28)
[2019-12-16] MEDS: FUROSEMIDE INJ/PF 20 MG/2 ML SDV IV SCH (21:28)
[2019-12-17] MEDS: FUROSEMIDE INJ/PF 20 MG/2 ML SDV IV SCH ×2 (05:41→13:05)
[2019-12-17] MEDS: PANTOPRAZOLE SODIUM 40 MG TABLET.DR PO SCH (05:41)
[2019-12-17] MEDS: NITROGLYCERIN 2% OINTMENT 1 GM PACKET TP SCH ×3 (05:41→17:56)
[2019-12-17] MEDS: HEPARIN SOD (PORCINE) 5,000 UNIT/ML 1 ML VIAL SUBCUT SCH ×3 (05:41→21:50)
[2019-12-17] MEDS: IPRATROPIUM/ALBUTEROL 0.5-2.5 MG/3 ML AMPUL NEB PRN (09:35)
[2019-12-17] MEDS: HYDRALAZINE HCL 25 MG TABLET PO SCH (09:58)
[2019-12-17] MEDS: ASPIRIN 81 MG TABLET, ENT COATED PO SCH (09:58)
[2019-12-17] MEDS: CARVEDILOL 12.5 MG TABLET PO SCH ×2 (09:58→21:49)
[2019-12-17] MEDS: GABAPENTIN 100 MG CAPSULE PO SCH ×2 (09:58→21:49)
[2019-12-17] MEDS: ALLOPURINOL 100 MG TABLET PO SCH (09:58)
[2019-12-17] MEDS: AMLODIPINE BESYLATE 10 MG TABLET PO SCH (09:59)
[2019-12-17] MEDS: LACTULOSE SYRUP 20 GM/30 ML UDCUP PO SCH ×3 (09:59→17:55)
[2019-12-17] MEDS: MULTIVITAMIN TABLET PO SCH (09:59)
[2019-12-17] MEDS: INSULIN GLARGINE,HUM.REC.ANLOG 1,000 UNIT/10 ML VIAL SUBCUT SCH (09:59)
[2019-12-17] MEDS: CLOPIDOGREL BISULFATE 75 MG TABLET PO SCH (09:59)
[2019-12-17] MEDS ORDERED: ERGOCALCIFEROL (VITAMIN D2) 50000 UNIT (1.25 MG) CAPSULE PO SCH ×2 (10:00)
[2019-12-17] MEDS: DOCUSATE SODIUM 100 MG CAPSULE PO SCH (10:00)
[2019-12-17] MEDS ORDERED: (PENDING PHARMACY ID) (Ergocalciferol (Vitamin D2) [Vitamin D2] 50 MCG) PO SCH ×2 (10:00)
--- NOTE | 2019-12-17 10:30 | PDOC PROGRESS REPORT ---
Subjective Progress Note for:: 12/17/19 Subjective:: The patient is a 74-year-old female history of coronary artery disease status post bypass surgery approximately 2 years ago, peripheral vascular disease status post BKA, hypertension, diabetes, CHF, stage III CKD followed by Dr. Min who is consulted to our service for evaluation of heart failure. She presented to our emergency room with shortness of breath, exercise intolerance, and lower extremity edema for 2 days. Of note, the patient was hospitalized in October 2019 for BKA revision. She is resting comfortably this morning and feeling slightly better. She denies ischemic symptoms. 12/17/2019: The patient had an uneventful night and continues to feel better this morning. Her COVID test was negative and is awaiting transport to a regular room. She sp ecifically denies ischemic and heart failure symptoms. She is now followed by nephrology who adjusted her diuretic regimen. Her fluid balance is -2.0 L. Her telemetry shows normal sinus rhythm. Her blood pressure continues to be above goal. Physical exam on 12/17/2019: GENERAL: Pleasant and conversational. Oriented x3 with normal mood. Not in acute distress. Well groomed and well developed. Obese. HEENT: Normocephalic, atraumatic. Pupils equal. Sclerae anicteric. Oropharynx moist. NECK: No JVD. No carotid bruits. LUNGS: Coarse breath sounds bilaterally. Normal respiratory effort without the use of accessory muscles or intercostal retractions. CARDIOVASCULAR: Regular rate and rhythm, normal S1 and S2 without murmurs, rubs, or gallops. PMI not displaced. ABDOMEN: No masses or tenderness to palpation. No bruit. No splenomegaly or hepatomegaly. No abdominal aorta bruit noted. EXTREMITIES: Trace pitting edema on the right, left leg is amputated below the knee. SKIN: No lesions or rashes. MUSCULOSKELETAL: No chest tenderness to palpation. NEUROLOGIC: Nonfocal. No gross sensory or motor deficits bilateral upper or lower extremities. Cardiac studies: Echocardiogram on 12/02/2019 at [facility]: -LV systolic function is normal. -EF 55 to 60%. -Right ventricular systolic function is borderline reduced. -Trace MR. Reason For Visit: ACUTE PULMONARY EDEMA WITH CONGESTIVE HEART Physical Exam Vital Signs: Temp Pulse Resp BP Pulse Ox 98.6 F 66 17 146/42 H 98 12/17/19 05:02 12/17/19 05:02 12/17/19 05:02 12/17/19 05:02 12/17/19 05:02 Intake & Output 12/16/19 12/17/19 12/18/19 06:59 06:59 06:59 Intake Total 320 1609 Output Total 245 1675 Balance -2130 -66 Weight 105.8 kg 105.8 kg Results Laboratory Results: 12/16/19 05:02 12/16/19 05:02 12/16/19 12/16/19 05:02 05:02 Retic Count (auto) 1.81 Iron 27.6 L TIBC 219 L % Saturation 13 Ferritin 302.00 H Vitamin B12 967.0 H Folate > 20.00 12/15/19 09:20 Catheterized Urine Urine Culture - Final Yeast, Not Mary Albicans 12/14/19 12/15/19 12/15/19 19:31 06:55 06:55 Creatine Kinase 59 CK-MB (CK-2) 0.57 Troponin I < 0.012 < 0.012 NT-Pro-B Natriuret Pep 2450 H 12/15/19 12/15/19 12/15/19 13:20 13:20 18:40 Creatine Kinase 56 56 CK-MB (CK-2) 0.65 Troponin I < 0.012 NT-Pro-B Natriuret Pep 12/15/19 12/16/19 18:40 05:02 Creatine Kinase CK-MB (CK-2) 0.51 Troponin I < 0.012 NT-Pro-B Natriuret Pep 2230 H Impressions: Chest X-Ray 12/14/19 19:20 IMPRESSION: Findings suggest mild pulmonary edema. copyright 2011 [employer]- All Rights Reserved 12/16/19 05:02 12/16/19 05:02 MCV 89 fl (80-97) 12/16/19 05:02 MCH 29.6 pg (27.0-33.4) 12/16/19 05:02 MCHC 33.4 g/dL (32.0-36.0) 12/16/19 05:02 RDW 17.2 % (11.5-14.0) H 12/16/19 05:02 Seg Neutrophils % 65.3 % (42-78) 12/16/19 05:02 Retic Count (auto) 1.81 % (0.66-2.85) 12/16/19 05:02 Chloride 101 mmol/L (98-107) 12/16/19 05:02 Carbon Dioxide 29 mmol/L (22-30) 12/16/19 05:02 Anion Gap 7 (5-19) 12/16/19 05:02 Est GFR ( Amer) 20 (>60) L 12/16/19 05:02 Glucose 163 mg/dL (75-110) H 12/16/19 05:02 Calcium 8.8 mg/dL (8.4-10.2) 12/16/19 05:02 Magnesium 2.6 mg/dL (1.6-2.3) H 12/16/19 05:02 Iron 27.6 ug/dL (37-170) L 12/16/19 05:02 TIBC 219 ug/dL (250-450) L 12/16/19 05:02 % Saturation 13 % 12/16/19 05:02 Ferritin 302.00 ng/mL (11.1-264.0) H 12/16/19 05:02 Total Bilirubin 0.7 mg/dL (0.2-1.3) 12/14/19 19:31 AST 22 U/L (14-36) 12/14/19 19:31 Alkaline Phosphatase 117 U/L (38-126) 12/14/19 19:31 Total Protein 7.6 g/dL (6.3-8.2) 12/14/19 19:31 Albumin 4.3 g/dL (3.5-5.0) 12/14/19 19:31 Triglycerides 137 mg/dL (<150) 12/16/19 05:02 Cholesterol 128.81 mg/dL (0-200) 12/16/19 05:02 LDL Cholesterol Direct 53 mg/dL (<100) 12/16/19 05:02 VLDL Cholesterol 27.0 mg/dL (10-31) 12/16/19 05:02 HDL Cholesterol 31 mg/dL (>40) L 12/16/19 05:02 Vitamin B12 967.0 pg/mL (239-931) H 12/16/19 05:02 Folate > 20.00 ng/mL (>2.76) 12/16/19 05:02 TSH 3.45 uIU/mL (0.47-4.68) 12/16/19 05:02 Free T3 pg/mL 2.14 pg/mL (2.77-5.27) L 12/16/19 05:02 Urine Color STRAW 12/15/19 09:20 Urine Appearance SLIGHTLY-CLOUDY 12/15/19 09:20 Urine pH 5.0 (5.0-9.0) 12/15/19 09:20 Ur Specific [place] 1.008 12/15/19 09:20 Urine Protein 30 mg/dL (NEGATIVE) H 12/15/19 09:20 Urine Glucose (UA) NEGATIVE mg/dL (NEGATIVE) 12/15/19 09:20 Urine Ketones NEGATIVE mg/dL (NEGATIVE) 12/15/19 09:20 Urine Blood MODERATE (NEGATIVE) H 12/15/19 09:20 Urine RBC (Auto) 15 /HPF 12/15/19 09:20 12/15/19 09:20 Catheterized Urine Urine Culture - Final Yeast, Not Mary Albicans 12/14/19 12/15/19 12/15/19 19:31 06:55 06:55 Creatine Kinase 59 CK-MB (CK-2) 0.57 Troponin I < 0.012 < 0.012 NT-Pro-B Natriuret Pep 2450 H 12/15/19 12/15/19 12/15/19 13:20 13:20 18:40 Creatine Kinase 56 56 CK-MB (CK-2) 0.65 Troponin I < 0.012 NT-Pro-B Natriuret Pep 12/15/19 12/16/19 18:40 05:02 Creatine Kinase CK-MB (CK-2) 0.51 Troponin I < 0.012 NT-Pro-B Natriuret Pep 2230 H Current Medication List Generic Name Dose Route Start Last Admin Trade Name Freq PRN Reason Stop Dose Admin Acetaminophen 650 mg 12/15/19 02:55 12/16/19 03:40 Tylenol 325 Mg Tablet PO 01/14/20 02:54 650 mg Q4HP PRN Administration pain or temp greater than 101F Al Hydrox/Mg Hydrox/Simethicone 30 ml 12/15/19 02:55 12/15/19 16:38 Maalox Plus Susp 30 Udcup PO 01/14/20 02:54 30 ml Q4HP PRN Administration HEARTBURN Albuterol/Ipratropium 3 ml 12/16/19 10:32 12/16/19 11:36 Duoneb 3 Ml Ampul NEB 01/15/20 10:31 3 ml RTQ4HP PRN Administration SHORTNESS OF BREATH Allopurinol 100 mg 12/16/19 10:00 12/16/19 10:35 Zyloprim 100 Mg Tablet PO 01/15/20 09:59 100 mg DAILY ROSE Administration Amlodipine Besylate 10 mg 12/16/19 10:00 12/16/19 10:35 Norvasc 10 Mg Tablet PO 01/15/20 09:59 10 mg DAILY ROSE Administration Aspirin 81 mg 12/16/19 10:00 12/16/19 10:35 Ecotrin 81 Mg Ec Tablet PO 01/15/20 09:59 81 mg DAILY ROSE Administration Atorvastatin Calcium 40 mg 12/15/19 22:00 12/16/19 21:28 Lipitor 40 Mg Tablet PO 01/14/20 21:59 40 mg QHS ROSE Administration Carvedilol 25 mg 12/15/19 22:00 12/16/19 21:28 Coreg 12.5 Mg Tablet PO 01/14/20 21:59 25 mg Q12 ROSE Administration Clopidogrel Bisulfate 75 mg 12/15/19 10:00 12/16/19 10:35 Plavix 75 Mg Tablet PO 01/14/20 09:59 75 mg DAILY ROSE Administration Dextrose 12.5 gm 12/15/19 03:08 Dextrose Inj 50% Syringe (25 Gm/50 Ml) IV 01/14/20 03:07 PRN PRN FOR BG 50-69 IN ALERT PATIENT Protocol Dextrose 25 gm 12/15/19 03:08 Dextrose Inj 50% Syringe (25 Gm/50 Ml) IV 01/14/20 03:07 PRN PRN PER PROTOCOL Protocol Docusate Sodium 100 mg 12/15/19 10:00 12/16/19 10:35 Colace 100 Mg Capsule PO 01/14/20 09:59 100 mg DAILY ROSE Administration Ergocalciferol 50,000 unit 12/17/19 10:00 Drisdol 50,000 Unit (1.25mg) Capsule PO 01/16/20 09:59 We@1000 ROSE Furosemide 20 mg 12/16/19 22:00 12/17/19 05:41 Lasix Inj/Pf 20 Mg/2 Ml Sdv IV 01/15/20 21:59 20 mg Q8 ROSE Administration Gabapentin 100 mg 12/15/19 22:00 12/16/19 21:28 Neurontin 100 Mg Capsule PO 01/14/20 21:59 100 mg Q12 ROSE Administration Glucagon 1 mg 12/15/19 03:08 Glucagen Inj 1 Mg Vial IM 01/14/20 03:07 PRN PRN Evaluate for BG < 70 Protocol Glucose 15 gm 12/15/19 03:08 Glutose 40% Gel 15 Gm Tube PO 01/14/20 03:07 PRN PRN FOR BG 50-69 IN ALERT PATIENT Protocol Glucose 30 gm 12/15/19 03:08 Glutose 40% Gel 15 Gm Tube PO 01/14/20 03:07 PRN PRN FOR BG < 50 IN ALERT PATIENT Protocol Guaifenesin 200 mg 12/15/19 03:06 Robitussin Syrup 200 Mg/10 Ml Ud Cup PO 01/14/20 03:05 Q4HP PRN COUGH Heparin Sodium (Porcine) 5,000 unit 12/15/19 06:00 12/17/19 05:41 Heparin Inj 5,000 Units/Ml 1 Ml Vial SUBCUT 01/14/20 05:59 5,000 unit Q8 ROSE Administration Hydralazine HCl 20 mg 12/15/19 03:06 12/15/19 15:56 Apresoline Inj/Pf 20 Mg/1 Ml Sdv IV 01/14/20 03:05 20 mg Q4HP PRN Administration Give For Sbp > 160 / Dbp > 100 Hydralazine HCl 25 mg 12/15/19 22:00 12/16/19 21:28 Apresoline 25 Mg Tablet PO 01/14/20 21:59 25 mg Q12 ROSE Administration Levofloxacin/Dextrose 500 mg in 100 mls @ 100 mls/hr 12/15/19 18:00 12/16/19 18:46 Levaquin Rtu 500mg/D5w 100 Ml Premix IV 12/22/19 17:59 Infused QPM ROSE Infusion Insulin Glargine 35 unit 12/16/19 08:00 12/16/19 10:35 Lantus Insulin 100 Unit/1 Ml 10 Ml SUBCUT 01/15/20 07:59 35 unit QAM ROSE Administration Insulin Human Regular 0 - 15 unit 12/15/19 03:06 12/15/19 16:40 Humulin R (Pyxis) Insulin 100 Unit/Ml 3ml SUBCUT 01/14/20 03:05 3 unit ACHSP PRN Administration PER PROTOCOL Protocol Lactulose 20 gm 12/15/19 19:00 12/16/19 18:00 Cephulac Syrup 20 Gm/30 Ml Udcup PO 01/14/20 18:59 Not Given BID ROSE Lorazepam 1 mg 12/15/19 03:06 Ativan Inj 2 Mg/1 Ml Vial IV 12/22/19 03:05 Q4HP PRN ANXIETY/AGITATION Magnesium Hydroxide 30 ml 12/15/19 02:55 Milk Of Magnesia 30 Ml Udcup PO 01/14/20 02:54 HSP PRN FOR CONSTIPATION Melatonin 10 mg 12/15/19 03:06 Melatonin 5 Mg Tablet PO 01/14/20 03:05 HSP PRN SLEEP OR INSOMNIA Metoprolol Tartrate 5 mg 12/15/19 03:06 Lopressor Inj/Pf 5 Mg/5 Ml Sdv IV 01/14/20 03:05 Q4HP PRN Give For Sbp > 160 / Dbp > 100 Morphine Sulfate 2 mg 12/15/19 03:06 Morphine 10 Mg/Ml Inj IV 12/22/19 03:05 Q1HP PRN Acute Severe Dyspnea Morphine Sulfate 2 mg 12/15/19 03:55 12/16/19 19:54 Morphine 10 Mg/Ml Inj IV 12/22/19 03:54 2 mg Q2HP PRN Administration PAIN SCALE OF 2 Morphine Sulfate 3 mg 12/15/19 03:56 Morphine 10 Mg/Ml Inj IV 12/22/19 03:55 Q2HP PRN PAIN SCALE OF 3-4 Morphine Sulfate 4 mg 12/15/19 03:56 Morphine 10 Mg/Ml Inj IV 12/22/19 03:55 Q2HP PRN PAIN SCALE OF 5 Multivitamins 1 tab 12/16/19 10:00 12/16/19 10:35 Tab-A-Mahnaz (Multiple Vitamin) Tablet PO 01/15/20 09:59 1 tab DAILY ROSE Administration Nitroglycerin 1 gm 12/15/19 06:00 12/17/19 05:41 Nitrol 2% Ointment 1gm Packet TP 01/14/20 05:59 1 gm Q6 ROSE Administration Ondansetron HCl 4 mg 12/15/19 02:55 Zofran Inj/Pf 4 Mg/2 Ml Sdv IV 01/14/20 02:54 Q6HP PRN FOR NAUSEA/VOMITING Pantoprazole Sodium 40 mg 12/15/19 06:00 12/17/19 05:[address] Tablet PO 01/14/20 05:59 40 mg Q6AM ROSE Administration Sodium Chloride 2.5 ml 12/15/19 06:00 12/17/19 05:41 Saline Flush 2.5 Ml Monoject Prefil Syrin IV 01/14/20 05:59 2.5 ml Q8 ROSE Administration Discontinued Medications Generic Name Dose Route Start Last Admin Trade Name Freq PRN Reason Stop Dose Admin Albuterol 2.5 mg 12/14/19 20:24 12/14/19 20:29 Ventolin 0.083% Neb 2.5 Mg/3 Ml Ampul NEB 12/14/19 20:25 2.5 mg NOW ONE Administration Furosemide 100 mg 12/14/19 21:10 12/14/19 22:30 Lasix Inj/Pf 100 Mg/10 Ml Sdv IV 12/14/19 21:11 100 mg NOW ONE Administration Furosemide 40 mg 12/15/19 03:15 12/16/19 10:36 Lasix Inj/Pf 40 Mg/4 Ml Sdv IV 01/14/20 03:14 40 mg Q12 ROSE Administration Morphine Sulfate 2 - 4 mg 12/15/19 03:06 Morphine 10 Mg/Ml Inj IV 12/22/19 03:05 Q2HP PRN See protocol Protocol Patient Own Medication 50 mcg 12/17/19 10:00 Ergocalciferol (Vitamin D2) [Vitamin D2] PO 01/16/20 09:59 WE@1000 [facility] Assessment & Plan - Diagnosis (1) CHF exacerbation Qualifiers: Heart failure type: unspecified Qualified Code(s): I50.9 - Heart failure, unspecified Is this a current diagnosis for this admission?: Yes Plan: The patient is currently doing well and asymptomatic from the cardiovascular standpoint. Her diuretic regimen has been adjusted by nephrology who is now following the patient therefore I will defer to them further management. Her blood pressure is above goal management of which will be deferred to nephrology. Recommendations: -Continue with current diuretic regimen for now. -Discontinue hydralazine. -Start BiDil 20 mg / 37.5 mg p.o. every 8 hours. -Restrict fluid intake to 1500 cc daily. -Low sodium diet, less than 1500 mg daily. -Strict intake and output. -Daily weights. -Daily BMPs and replace electrolytes as needed. -Nephrology now managing the patient's diuretic regimen therefore I will defer to them and will sign off the case for now. Reconsult if clinically necessary. (2) CAD (coronary artery disease) Qualifiers: Coronary Disease-Associated Artery/Lesion type: [place] artery [place] vs. transplanted heart: [place] heart Associated angina: without angina Qualified Code(s): I25.10 - Atherosclerotic heart disease of [place] coronary artery without angina pectoris Is this a current diagnosis for this admission?: Yes Plan: The patient is currently chest pain-free. 2 sets of cardiac troponins are negative. Recommendations: -Discontinue nitroglycerin paste. -Continue with clinical follow-up. -We will sign off the case for now, please reconsult if clinically necessary. (3) Acute on chronic renal failure Is this a current diagnosis for this admission?: Yes Plan: I will defer further management to primary team as well as nephrology.. (4) Hypertension Qualifiers: Hypertension type: essential hypertension Qualified Code(s): I10 - Essential (primary) hypertension Is this a current diagnosis for this admission?: Yes Plan: Above goal of 130/80 or below. Nephrology team is following the patient therefore I will defer further management to them.
[2019-12-17 10:32] LABS: ANION GAP 7 (5-19); BLOOD UREA NITROGEN 81 mg/dL (7-20); CALCIUM 8.9 mg/dL (8.4-10.2); CARBON DIOXIDE 30 mmol/L (22-30); CHLORIDE 99 mmol/L (98-107); GLUCOSE 161 mg/dL (75-110); POTASSIUM 4.6 mmol/L (3.6-5.0)
[2019-12-17] MEDS ORDERED: FERRIC CARBOXYMALTOSE INJ 750 MG/15 ML VIAL IV PRN (13:16)
[2019-12-17] MEDS: ACETAMINOPHEN 325 MG TABLET PO PRN ×2 (14:06→22:00)
[2019-12-17] MEDS ORDERED: FERRIC CARBOXYMALTOSE 750 MG in NORMAL SALINE 250 ML IV ONE (15:00)
--- NOTE | 2019-12-17 16:03 | PDOC PROGRESS REPORT ---
Subjective Progress Note for:: 12/17/19 Subjective:: Patient was just determined to be COVID19 negative. She is currently doing better today. She does still have some SOB when she talks. She denies chest pain, n/v/d/c. She did produce 1600mL of urine but also consumed over 1600mL if fluid. Reason For Visit: ACUTE PULMONARY EDEMA WITH CONGESTIVE HEART Physical Exam Vital Signs: Temp Pulse Resp BP Pulse Ox 99.1 F 64 16 154/39 H 100 12/17/19 11:57 12/17/19 14:00 12/17/19 11:57 12/17/19 11:57 12/17/19 11:57 Intake & Output 12/16/19 12/17/19 12/18/19 06:59 06:59 06:59 Intake Total 320 1609 240 Output Total 2450 1675 700 Balance -2130 -66 -460 Weight 105.8 kg 105.8 kg General appearance: PRESENT: no acute distress, well-developed, well-nourished Mouth exam: PRESENT: moist, neck supple Neck exam: ABSENT: JVD, tracheal deviation Respiratory exam: PRESENT: clear to auscultation ricki, crackles, rales. ABSENT: accessory muscle use, wheezes Cardiovascular exam: PRESENT: +S1, +S2 GI/Abdominal exam: PRESENT: soft. ABSENT: tenderness Extremities exam: PRESENT: +1 edema. ABSENT: +2 edema Musculoskeletal exam: PRESENT: deformity - -left bka. ABSENT: normal inspection Neurological exam: PRESENT: alert, awake, oriented to person, oriented to place, oriented to time, oriented to situation Psychiatric exam: PRESENT: appropriate affect, normal mood Skin exam: PRESENT: dry, intact, warm. ABSENT: cyanosis Results Laboratory Results: 12/16/19 05:02 12/17/19 09:47 12/17/19 09:47 Sodium 135.9 L Potassium 4.6 Chloride 99 Carbon Dioxide 30 Anion Gap 7 BUN 81 H Creatinine 2.91 H Est GFR ( Amer) 19 L Glucose 161 H Calcium 8.9 12/15/19 09:20 Catheterized Urine Urine Culture - Final Yeast, Not Mary Albicans 12/14/19 12/15/19 12/15/19 19:31 06:55 06:55 Creatine Kinase 59 CK-MB (CK-2) 0.57 Troponin I < 0.012 < 0.012 NT-Pro-B Natriuret Pep 2450 H 12/15/19 12/15/19 12/15/19 13:20 13:20 18:40 Creatine Kinase 56 56 CK-MB (CK-2) 0.65 Troponin I < 0.012 NT-Pro-B Natriuret Pep 12/15/19 12/16/19 18:40 05:02 Creatine Kinase CK-MB (CK-2) 0.51 Troponin I < 0.012 NT-Pro-B Natriuret Pep 2230 H Impressions: Chest X-Ray 12/14/19 19:20 IMPRESSION: Findings suggest mild pulmonary edema. copyright 2010 [employer]- All Rights Reserved Assessment & Plan - Diagnosis (1) Acute kidney injury superimposed on chronic kidney disease Is this a current diagnosis for this admission?: Yes Plan: Creatinine is stable and so is the BUN. She was about even on her I's and O's. Will look to increase furosemide to 40mg BID and see if she gets more urine output. (2) Acute respiratory failure with hypoxia Is this a current diagnosis for this admission?: Yes Plan: COVID negative, still has some fluid on. Will look to increase furosemide to 40mg BID and see if she gets more urine output. (3) Acute pulmonary edema with congestive heart failure Is this a current diagnosis for this admission?: Yes Plan: Will look to increase furosemide to 40mg BID and see if she gets more urine output. (4) Anemia associated with stage 3 chronic renal failure Is this a current diagnosis for this admission?: No Plan: looks to be related to low iron levels. She received IV Injectofer last month. Will look to load one dose of IV injectofer and check her stool for blood. (5) Hypertension Qualifiers: Hypertension type: essential hypertension Qualified Code(s): I10 - E ssential (primary) hypertension Is this a current diagnosis for this admission?: Yes Plan: will look to see if it improves with more fluid removal. (7) Renal mass, right Plan: see consult note (8) Obstructive sleep apnea Is this a current diagnosis for this admission?: No Plan: on bipap at night.
--- NOTE | 2019-12-17 17:27 | PDOC PROGRESS REPORT ---
Subjective Progress Note for:: 12/17/19 Subjective:: Patient still feels short of breath but is improved from admission. Her biggest complaint is burning and itching in the vaginal area. Reason For Visit: ACUTE PULMONARY EDEMA WITH CONGESTIVE HEART Physical Exam Vital Signs: Temp Pulse Resp BP Pulse Ox 99.1 F 64 16 154/39 H 100 12/17/19 11:57 12/17/19 14:00 12/17/19 11:57 12/17/19 11:57 12/17/19 11:57 Intake & Output 12/16/19 12/17/19 12/18/19 06:59 06:59 06:59 Intake Total 320 1609 505 Output Total 2450 1675 700 Balance -2130 -66 -195 Weight 105.8 kg 105.8 kg General appearance: PRESENT: cooperative, morbidly obese, well-developed Head exam: PRESENT: atraumatic, normocephalic Eye exam: PRESENT: conjunctiva pale. ABSENT: scleral icterus Ear exam: PRESENT: normal external ear exam. ABSENT: bleeding, drainage Mouth exam: PRESENT: moist, tongue midline Respiratory exam: PRESENT: clear to auscultation ricki, symmetrical, unlabored. ABSENT: rales, rhonchi, tachypnea, wheezes Cardiovascular exam: PRESENT: RRR, +S1, +S2 GI/Abdominal exam: PRESENT: normal bowel sounds, soft. ABSENT: distended, tenderness Rectal exam: PRESENT: deferred Gentrourinary exam: ABSENT: indwelling catheter Extremities exam: ABSENT: pedal edema Musculoskeletal exam: PRESENT: other - Left BKA Neurological exam: PRESENT: alert, awake, oriented to person, oriented to place, oriented to time, oriented to situation, CN II-XII grossly intact Psychiatric exam: PRESENT: flat affect. ABSENT: agitated, anxious Focused psych exam: ABSENT: delusional, paranoid, restlessness Skin exam: PRESENT: dry, warm Results Laboratory Results: 12/16/19 05:02 12/17/19 09:47 12/17/19 09:47 Sodium 135.9 L Potassium 4.6 Chloride 99 Carbon Dioxide 30 Anion Gap 7 BUN 81 H Creatinine 2.91 H Est GFR ( Amer) 19 L Glucose 161 H Calcium 8.9 12/15/19 09:20 Catheterized Urine Urine Culture - Final Yeast, Not Mary Albicans 12/14/19 12/15/19 12/15/19 19:31 06:55 06:55 Creatine Kinase 59 CK-MB (CK-2) 0.57 Troponin I < 0.012 < 0.012 NT-Pro-B Natriuret Pep 2450 H 12/15/19 12/15/19 12/15/19 13:20 13:20 18:40 Creatine Kinase 56 56 CK-MB (CK-2) 0.65 Troponin I < 0.012 NT-Pro-B Natriuret Pep 12/15/19 12/16/19 18:40 05:02 Creatine Kinase CK-MB (CK-2) 0.51 Troponin I < 0.012 NT-Pro-B Natriuret Pep 2230 H Impressions: Chest X-Ray 12/14/19 19:20 IMPRESSION: Findings suggest mild pulmonary edema. copyright 2010 [employer]- All Rights Reserved Assessment and Plan - Diagnosis (1) Acute pulmonary edema with congestive heart failure Is this a current diagnosis for this admission?: Yes Plan: 12/16/2019-patient admitted for pulmonary edema secondary to CHF exacerbation. Cardiology consult was requested. Patient is receiving Lasix 40 mg IV every 12 hours. Urinary output is good. Patient is also receiving morphine as needed for diuresis. Echocardiogram that was done 14 of this month shows EF of 55 to 60%. Right ventricle systolic function is borderline reduced. So patient has chronic right heart failure. 12/17/2019-net negative fluid balance. Per Dr. Crowe will start BiDil every 8 hours. 1.5 L fluid restriction. Continue low-fat low-salt diet. (2) Acute kidney injury superimposed on chronic kidney disease Is this a current diagnosis for this admission?: Yes Plan: 12/16/2019-creatinine peaked to 3.07 and improved to 2.74 today. Patient has a stage III kidney disease. She follows with Dr. Min as an outpatient. Patient is urinating well. 12/17/2019-creatinine is slightly higher today. Nephrology continues to follow. (3) Anemia associated with stage 3 chronic renal failure Is this a current diagnosis for this admission?: No Plan: 12/16/2019-patient has history of chronic anemia due to CKD. Latest hemoglobin is 8.6. And is to closely monitor the labs today. On admission hemoglobin is 9.7. No signs of bleeding present. 12/17/2019-hemoglobin was 8.6 yesterday. Will recheck tomorrow. (4) Chronic kidney disease, stage 3 Is this a current diagnosis for this admission?: Yes Plan: 12/17/2019-patient of Dr. Min. Nephrology is consulting. (5) Obstructive sleep apnea Is this a current diagnosis for this admission?: No Plan: 12/08/2019-patient has obstructive sleep apnea and BiPAP. Please resume the BiPAP while she was asleep during the hospital stay. 12/17/2019-continue BiPAP. At night and if sleeping during the day. (6) Morbid obesity Is this a current diagnosis for this admission?: No Plan: 12/08/2019-patient BMI is 40 diet exercise weight loss lifestyle modifications discussed with the patient. 12/17/2019-most realistic weight loss modality would be aggressive dietary management at this time. - Plan Summary Summary: Patient will be admitted to the [facility] where she will receive routine supportive and symptomatic cares. She will be admitted on the congestive heart failure protocol. Cardiology consultation with Dr. Crowe will be obtained. Laboratory and evaluation will be obtained as per the congestive heart failure protocol. She will receive Lasix 40 mg IV every 12 hours and 1 g of 2% nitroglycerin ointment will be applied topically every 6 hours. She will receive morphine sulfate 2 mg IV every hour as needed for severe dyspnea. She will receive supplemental oxygen via nasal cannula with the possible use of noninvasive airway pressure support devices such as BiPAP. The patient will be placed on BiPAP while asleep for her sleep apnea. She will receive Ativan 1 mg IV every 4 hours as needed anxiety or restlessness. She will receive morphine sulfate 2 to 4 mg IV every 2 hours as needed for pain. She will have before meals and at bedtime Accu-Cheks performed with sliding scale insulin to cover hyperglycemia and a hypoglycemic protocol in place. CBCs, metabolic profiles, magnesium levels and additional laboratory and/or radiographic evaluations will be obtained as needed. Patient will be placed on a cardiac, prerenal and diabetic restricted diet. Patient's home medications will be restarted, as appropriate, when her medication list has been verified and reconciled. - Time Time Spent with patient: 15-24 minutes Medications reviewed and adjusted accordingly: Yes Anticipated Discharge Disposition: Home with Home Health Anticipated Discharge Timeframe: within 72 hours
[2019-12-17] MEDS: LEVOFLOXACIN 500 MG/D5W RTU 500 MG/100 ML RTUPB IV SCH (17:55)
[2019-12-17] MEDS ORDERED: FLUCONAZOLE 100 MG TABLET PO ONE (18:00)
[2019-12-17] MEDS: MORPHINE SULFATE 10 MG/ML INJ IV PRN (18:01)
[2019-12-17] MEDS: ISOSORB DINIT/HYDRALAZINE HCL 20-37.5 MG TABLET PO SCH (21:49)
[2019-12-17] MEDS: ATORVASTATIN CALCIUM 40 MG TABLET PO SCH (21:49)
[2019-12-17] MEDS: FUROSEMIDE INJ/PF 40 MG/4 ML SDV IV SCH (21:50)
[2019-12-17] MEDS: INSULIN REG, HUMAN 100 UNIT/ML 3 ML VIAL (PYX) SUBCUT PRN (21:50)
[2019-12-18] MEDS: NITROGLYCERIN 2% OINTMENT 1 GM PACKET TP SCH ×4 (00:20→17:46)
[2019-12-18 04:44] LABS: ABSOLUTE EOSINOPHILS # (AUTO) 0.2 10^3/uL (0.0-0.6); ABSOLUTE MONOCYTES (AUTO) 0.7 10^3/uL (0.1-1.4); ABSOLUTE NEUT (AUTO) 3.6 10^3/uL (1.7-8.2); BASOPHILS % (AUTO) 0.8 % (0-2); EOSINOPHILS % (AUTO) 2.8 % (0-6); HEMATOCRIT 27.2 % (36.0-47.0); HEMOGLOBIN 9.1 g/dL (12.0-15.5); LYMPHOCYTES % (AUTO) 17.8 % (13-45); MEAN CORPUSCULAR HEMOGLOBIN 29.6 pg (27.0-33.4); MEAN CORPUSCULAR HGB CONC 33.3 g/dL (32.0-36.0); MEAN CORPUSCULAR VOLUME 89 fl (80-97); MONOCYTES % (AUTO) 12.2 % (3-13); PLATELET COUNT 163 10^3/uL (150-450); RED BLOOD COUNT 3.06 10^6/uL (3.72-5.28); RED CELL DISTRIBUTION WIDTH 17.2 % (11.5-14.0); SEGMENTED NEUTROPHILS % (AUTO) 66.4 % (42-78); TOTAL CELLS COUNTED % (AUTO) 100 %; WHITE BLOOD COUNT 5.5 10^3/uL (4.0-10.5)
[2019-12-18 05:10] LABS: ALBUMIN 3.6 g/dL (3.5-5.0); ANION GAP 9 (5-19); BLOOD UREA NITROGEN 86 mg/dL (7-20); CALCIUM 8.9 mg/dL (8.4-10.2); CARBON DIOXIDE 27 mmol/L (22-30); CHLORIDE 98 mmol/L (98-107); GLUCOSE 128 mg/dL (75-110); POTASSIUM 4.5 mmol/L (3.6-5.0)
[2019-12-18] MEDS: ISOSORB DINIT/HYDRALAZINE HCL 20-37.5 MG TABLET PO SCH ×3 (06:20→21:48)
[2019-12-18] MEDS: HEPARIN SOD (PORCINE) 5,000 UNIT/ML 1 ML VIAL SUBCUT SCH ×3 (06:20→21:49)
[2019-12-18] MEDS: PANTOPRAZOLE SODIUM 40 MG TABLET.DR PO SCH (06:22)
[2019-12-18] MEDS: INSULIN GLARGINE,HUM.REC.ANLOG 1,000 UNIT/10 ML VIAL SUBCUT SCH (07:56)
[2019-12-18] MEDS: CLOPIDOGREL BISULFATE 75 MG TABLET PO SCH (09:43)
[2019-12-18] MEDS: FUROSEMIDE INJ/PF 40 MG/4 ML SDV IV SCH ×2 (09:43→21:49)
[2019-12-18] MEDS: DOCUSATE SODIUM 100 MG CAPSULE PO SCH (09:43)
[2019-12-18] MEDS: ACETAMINOPHEN 325 MG TABLET PO PRN (09:43)
[2019-12-18] MEDS: ASPIRIN 81 MG TABLET, ENT COATED PO SCH (09:43)
[2019-12-18] MEDS: AMLODIPINE BESYLATE 10 MG TABLET PO SCH (09:43)
[2019-12-18] MEDS: ALLOPURINOL 100 MG TABLET PO SCH (09:43)
[2019-12-18] MEDS: GABAPENTIN 100 MG CAPSULE PO SCH ×2 (09:43→21:48)
[2019-12-18] MEDS: CARVEDILOL 12.5 MG TABLET PO SCH ×2 (09:43→21:48)
[2019-12-18] MEDS: LACTULOSE SYRUP 20 GM/30 ML UDCUP PO SCH ×2 (09:43→17:55)
[2019-12-18] MEDS: MULTIVITAMIN TABLET PO SCH (09:43)
--- NOTE | 2019-12-18 10:55 | PDOC PROGRESS REPORT ---
Subjective Progress Note for:: 12/18/19 Subjective:: 74 year old female who presented the emergency room with a 3-day history of dyspnea. She admits progressively worsening dyspnea over the course of the last 2 days becoming severe on the afternoon of 06/15/2019. Her dyspnea was worsened on exertion, was accompanied by orthopnea and wheezing, and was associated with leg swelling and a subjective fever that resolved with Tylenol. Her dyspnea did not improve with her nebulizer treatments at home. She denies other associated or accompanying signs and symptoms. She admits prior similar episodes. She has not identified any additional aggravating or ameliorating factors for her dyspnea. EMS found her to have an O2 sat less than 80 on room air at the time of their arrival. In the emergency room patient was found to have pulmonary edema on her chest x-ray, and acute kidney injury and hypoxic respiratory fail ure. She was subsequently admitted to the hospital for further evaluation and treatment on the congestive heart failure protocol. 12/[id number]-cuou-old female with multiple medical problems including congestive heart failure, chronic kidney disease admitted with shortness of breath. COVID test is pending. Dr. Lind following the patient on regular basis. Comfortably in the bed communicating well complaining of slight chest tightness requesting nebulizer treatments. Dr. Lind at bedside at the time of my examination. 12/17/2019-Patient still feels short of breath but is improved from admission. Her biggest complaint is burning and itching in the vaginal area. 12/18/2019-patient is comfortably up in the bed on oxygen supplementations no complaints no concerns expressed by the patient. Urine culture is growing yeast. Creatinine went up to 3.00 today. Patient is presently on Lasix 40 mg every 12 hours. Nephrology is on board. Reason For Visit: ACUTE PULMONARY EDEMA WITH CONGESTIVE HEART Physical Exam Vital Signs: Temp Pulse Resp BP Pulse Ox 98.3 F 59 L 20 155/41 H 99 12/18/19 07:32 12/18/19 07:32 12/18/19 07:32 12/18/19 07:32 12/18/19 07:32 Intake & Output 12/17/19 12/18/19 12/19/19 06:59 06:59 06:59 Intake Total 1609 1235 Output Total 1675 2125 Balance -66 -890 Weight 105.8 kg 112.3 kg General appearance: PRESENT: no acute distress, morbidly obese Head exam: PRESENT: atraumatic Eye exam: PRESENT: conjunctiva pale, PERRLA Mouth exam: PRESENT: moist, tongue midline Teeth exam: PRESENT: poor dentation Neck exam: ABSENT: carotid bruit, JVD, lymphadenopathy, thyromegaly Respiratory exam: PRESENT: decreased breath sounds Cardiovascular exam: PRESENT: RRR. ABSENT: diastolic murmur, rubs, systolic murmur GI/Abdominal exam: PRESENT: normal bowel sounds, soft. ABSENT: distended, guarding, mass, organolmegaly, rebound, tenderness Rectal exam: PRESENT: deferred Gentrourinary exam: PRESENT: indwelling catheter Extremities exam: PRESENT: other - Patient has a left BKA Neurological exam: PRESENT: alert, awake, oriented to person, oriented to place, oriented to time, oriented to situation, CN II-XII grossly intact. ABSENT: motor sensory deficit Psychiatric exam: PRESENT: appropriate affect, normal mood. ABSENT: homicidal ideation, suicidal ideation Results Laboratory Results: 12/18/19 04:00 12/18/19 04:00 12/18/19 12/18/19 04:00 04:00 WBC 5.5 RBC 3.06 L Hgb 9.1 L Hct 27.2 L MCV 89 MCH 29.6 MCHC 33.3 RDW 17.2 H Plt Count 163 Seg Neutrophils % 66.4 Sodium 134.4 L Potassium 4.5 Chloride 98 Carbon Dioxide 27 Anion Gap 9 BUN 86 H Creatinine 2.99 H Est GFR ( Amer) 19 L Glucose 128 H Calcium 8.9 Phosphorus 5.0 H Magnesium 2.5 H Albumin 3.6 12/14/19 12/15/19 12/15/19 19:31 06:55 06:55 Creatine Kinase 59 CK-MB (CK-2) 0.57 Troponin I < 0.012 < 0.012 NT-Pro-B Natriuret Pep 2450 H 12/15/19 12/15/19 12/15/19 13:20 13:20 18:40 Creatine Kinase 56 56 CK-MB (CK-2) 0.65 Troponin I < 0.012 NT-Pro-B Natriuret Pep 12/15/19 12/16/19 18:40 05:02 Creatine Kinase CK-MB (CK-2) 0.51 Troponin I < 0.012 NT-Pro-B Natriuret Pep 2230 H Impressions: Chest X-Ray 12/14/19 19:20 IMPRESSION: Findings suggest mild pulmonary edema. copyright 2010 [employer]- All Rights Reserved Assessment and Plan - Diagnosis (1) Acute pulmonary edema with congestive heart failure Is this a current diagnosis for this admission?: Yes Plan: 12/16/2019-patient admitted for pulmonary edema secondary to CHF exacerbation. Cardiology consult was requested. Patient is receiving Lasix 40 mg IV every 12 hours. Urinary output is good. Patient is also receiving morphine as needed for diuresis. Echocardiogram that was done of this month shows EF of 55 to 60%. Right ventricle systolic function is borderline reduced. So patient has chronic right heart failure. 12/17/2019-net negative fluid balance. Per Dr. Crowe will start BiDil every 8 hours. 1.5 L fluid restriction. Continue low-fat low-salt diet. 12/18/2019-patient is on Lasix 40 mg IV twice a day. Echocardiogram shows EF of 55 to 60% with reduced right ventricular systolic function. Patient is on fluid restriction. Creatinine bumped to 3 today. Plan is to recheck the labs tomorrow and possible discharge tomorrow. (2) Acute kidney injury superimposed on chronic kidney disease Is this a current diagnosis for this admission?: Yes Plan: 12/16/2019-creatinine peaked to 3.07 and improved to 2.74 today. Patient has a stage III kidney disease. She follows with Dr. Min as an outpatient. Patient is urinating well. 12/17/2019-creatinine is slightly higher today. Nephrology continues to follow. 12/18/2019-nephrology on board. Patient has a stage III kidney disease. Creatinine today is 3.0. On Lasix 40 mg IV twice a day. (3) Anemia associated with stage 3 chronic renal failure Is this a current diagnosis for this admission?: No Plan: 12/16/2019-patient has history of chronic anemia due to CKD. Latest hemoglobin is 8.6. And is to closely monitor the labs today. On admission hemoglobin is 9.7. No signs of bleeding present. 12/17/2019-hemoglobin was 8.6 yesterday. Will recheck tomorrow. 12/18/2019-patient has history of anemia of chronic disease hemoglobin is 9.1 today. Stable. (4) CKD (chronic kidney disease) Is this a current diagnosis for this admission?: No Plan: 12/16/2019-patient has history of chronic kidney disease stage III follows [address] Min. 12/18/2019-creatinine today is 3.0. Patient has stage III kidney disease. Nephrology is following the patient daily basis. Patient is receiving Lasix 40 mg IV twice a day. Urinary output is 2.15 L today with a negative balance of 890 mL. (5) Obstructive sleep apnea Is this a current diagnosis for this admission?: No Plan: 12/08/2019-patient has obstructive sleep apnea and BiPAP. Please resume the BiPAP while she was asleep during the hospital stay. 12/17/2019-continue BiPAP. At night and if sleeping during the day. (6) Morbid obesity Is this a current diagnosis for this admission?: No Plan: 12/08/2019-patient BMI is 40 diet exercise weight loss lifestyle modifications di scussed with the patient. 12/17/2019-most realistic weight loss modality would be aggressive dietary management at this time. - Plan Summary Summary: Patient will be admitted to the [facility] where she will receive routine supportive and symptomatic cares. She will be admitted on the congestive heart failure protocol. Cardiology consultation with Dr. Crowe will be obtained. Laboratory and evaluation will be obtained as per the congestive heart failure protocol. She will receive Lasix 40 mg IV every 12 hours and 1 g of 2% nitroglycerin ointment will be applied topically every 6 hours. She will receive morphine sulfate 2 mg IV every hour as needed for severe dyspnea. She will receive supplemental oxygen via nasal cannula with the possible use of n oninvasive airway pressure support devices such as BiPAP. The patient will be placed on BiPAP while asleep for her sleep apnea. She will receive Ativan 1 mg IV every 4 hours as needed anxiety or restlessness. She will receive morphine sulfate 2 to 4 mg IV every 2 hours as needed for pain. She will have before meals and at bedtime Accu-Cheks performed with sliding scale insulin to cover hyperglycemia and a hypoglycemic protocol in place. CBCs, metabolic profiles, magnesium levels and additional laboratory and/or radiographic evaluations will be obtained as needed. Patient will be placed on a cardiac, prerenal and diabetic restricted diet. Patient's home medications will be restarted, as appropriate, when her medication list has been verified and reconciled. - Time Anticipated Discharge Disposition: Home with Home Health Anticipated Discharge Timeframe: within 48 hours
--- NOTE | 2019-12-18 12:47 | RADIOLOGY REPORT (SQ) ---
EXAM DESCRIPTION: CHEST SINGLE VIEW IMAGES COMPLETED DATE/TIME: 12/18/2019 11:24 am REASON FOR STUDY: chf COMPARISON: 12/14/2019 NUMBER OF VIEWS: One view. TECHNIQUE: Single frontal radiographic image of the chest acquired. LIMITATIONS: None. FINDINGS: LUNGS AND PLEURA: Improved aeration in both lungs. Mild residual edema. No infiltrate. MEDIASTINUM AND HEART: Stable heart size and mediastinal structures. BONY STRUCTURES: No acute findings. HARDWARE: CABG. OTHER: No other significant finding. IMPRESSION: Improving pulmonary edema. TECHNICAL DOCUMENTATION: JOB ID: [id number] Reading location - IP[facility]workstation name: [email or web address]
--- NOTE | 2019-12-18 15:49 | PDOC PROGRESS REPORT ---
Subjective Progress Note for:: 12/18/19 Subjective:: Patient was seen sitting up in her bed at the time of examination. She is currently feeling better as of right now. She is still requiring oxygen. She claims SOB has improved. She currently has no chest pain, n/v/d/c. Appetite is normal according to her. Reason For Visit: ACUTE PULMONARY EDEMA WITH CONGESTIVE HEART Physical Exam Vital Signs: Temp Pulse Resp BP Pulse Ox 98.3 F 59 L 16 151/39 H 97 12/18/19 11:52 12/18/19 14:00 12/18/19 13:28 12/18/19 11:52 12/18/19 13:28 Intake & Output 12/17/19 12/18/19 12/19/19 06:59 06:59 06:59 Intake Total 1609 1235 240 Output Total 1675 2125 550 Balance -66 -890 -310 Weight 105.8 kg 112.3 kg General appearance: PRESENT: no acute distress, well-developed, well-nourished Mouth exam: PRESENT: moist, neck supple Neck exam: ABSENT: JVD, tracheal deviation Respiratory exam: PRESENT: crackles - in the bases, rales. ABSENT: clear to auscultation ricki, rhonchi, wheezes Cardiovascular exam: PRESENT: +S1, +S2 GI/Abdominal exam: PRESENT: soft. ABSENT: tenderness Extremities exam: PRESENT: pedal edema, +1 edema - /trace+. ABSENT: +2 edema Neurological exam: PRESENT: alert, awake, oriented to person, oriented to place, oriented to time, oriented to situation Psychiatric exam: PRESENT: appropriate affect, normal mood Skin exam: PRESENT: dry, intact, warm. ABSENT: cyanosis Results Laboratory Results: 12/18/19 04:00 12/18/19 04:00 12/18/19 12/18/19 12/18/19 04:00 04:00 13:20 WBC 5.5 RBC 3.06 L Hgb 9.1 L Hct 27.2 L MCV 89 MCH 29.6 MCHC 33.3 RDW 17.2 H Plt Count 163 Seg Neutrophils % 66.4 Sodium 134.4 L Potassium 4.5 Chloride 98 Carbon Dioxide 27 Anion Gap 9 BUN 86 H Creatinine 2.99 H Est GFR ( Amer) 19 L Glucose 128 H Calcium 8.9 Phosphorus 5.0 H Magnesium 2.5 H Albumin 3.6 Stool Occult Blood NEGATIVE 12/14/19 12/15/19 12/15/19 19:31 06:55 06:55 Creatine Kinase 59 CK-MB (CK-2) 0.57 Troponin I < 0.012 < 0.012 NT-Pro-B Natriuret Pep 2450 H 12/15/19 12/15/19 12/15/19 13:20 13:20 18:40 Creatine Kinase 56 56 CK-MB (CK-2) 0.65 Troponin I < 0.012 NT-Pro-B Natriuret Pep 12/15/19 12/16/19 18:40 05:02 Creatine Kinase CK-MB (CK-2) 0.51 Troponin I < 0.012 NT-Pro-B Natriuret Pep 2230 H Impressions: Chest X-Ray 12/18/19 00:00 IMPRESSION: Improving pulmonary edema. Assessment & Plan - Diagnosis (1) Acute kidney injury superimposed on chronic kidney disease Is this a current diagnosis for this admission?: Yes Plan: Creatinine is slightly increased from yesterday. Will look to back her furosemide down to prevent overdiuresis. Creatinine is stable. I do believe that she is stable and could be followed up on her creatinine as outpatient. (2) Acute respiratory failure with hypoxia Is this a current diagnosis for this admission?: Yes Plan: COVID negative, still has some fluid on. Will look to to adjust the furosemide to 20mg BID and see how much urine she produces. Do not want to overdiuresis her. (3) Acute pulmonary edema with congestive heart failure Is this a current diagnosis for this admission?: Yes Plan: still has some fluid on. Will look to to adjust the furosemide to 20mg BID and see how much urine she produces. Do not want to overdiuresis her. (4) Anemia associated with stage 3 chronic renal failure Is this a current diagnosis for this admission?: No Plan: looks to be related to low iron levels. Improving with IV injectofer. (5) Hypertension Qualifiers: Hypertension type: essential hypertension Qualified Code(s): I10 - Essential (primary) hypertension Is this a current diagnosis for this admission?: Yes Plan: improving with fluid being removed (7) Renal mass, right Plan: see consulting note (8) Obstructive sleep apnea Is this a current diagnosis for this admission?: No Plan: on bipap at night.
[2019-12-18] MEDS: INSULIN REG, HUMAN 100 UNIT/ML 3 ML VIAL (PYX) SUBCUT PRN ×2 (16:48→22:00)
[2019-12-18] MEDS: LEVOFLOXACIN 500 MG/D5W RTU 500 MG/100 ML RTUPB IV SCH (17:46)
[2019-12-18] MEDS: MAG HYDROX/AL HYDROX/SIMETH SUSP 30 ML UDCUP PO PRN (21:47)
[2019-12-18] MEDS: ATORVASTATIN CALCIUM 40 MG TABLET PO SCH (21:48)
[2019-12-19] MEDS: NITROGLYCERIN 2% OINTMENT 1 GM PACKET TP SCH ×5 (00:08→23:30)
[2019-12-19] MEDS: ISOSORB DINIT/HYDRALAZINE HCL 20-37.5 MG TABLET PO SCH ×3 (05:21→21:28)
[2019-12-19] MEDS: ACETAMINOPHEN 325 MG TABLET PO PRN ×2 (05:21→21:28)
[2019-12-19] MEDS: PANTOPRAZOLE SODIUM 40 MG TABLET.DR PO SCH (05:21)
[2019-12-19] MEDS: HEPARIN SOD (PORCINE) 5,000 UNIT/ML 1 ML VIAL SUBCUT SCH ×3 (05:22→21:29)
[2019-12-19] MEDS ORDERED: INSULIN GLARGINE,HUM.REC.ANLOG 1,000 UNIT/10 ML VIAL (PYX) SUBCUT ONE (08:45)
[2019-12-19 10:08] LABS: ANION GAP 8 (5-19); BLOOD UREA NITROGEN 86 mg/dL (7-20); CALCIUM 8.8 mg/dL (8.4-10.2); CARBON DIOXIDE 28 mmol/L (22-30); CHLORIDE 99 mmol/L (98-107); GLUCOSE 130 mg/dL (75-110); POTASSIUM 4.5 mmol/L (3.6-5.0)
[2019-12-19] MEDS: INSULIN GLARGINE,HUM.REC.ANLOG 1,000 UNIT/10 ML VIAL SUBCUT SCH (13:37)
[2019-12-19] MEDS: LACTULOSE SYRUP 20 GM/30 ML UDCUP PO SCH ×2 (13:39→19:01)
[2019-12-19] MEDS: CARVEDILOL 12.5 MG TABLET PO SCH ×2 (13:40→21:28)
[2019-12-19] MEDS: DOCUSATE SODIUM 100 MG CAPSULE PO SCH (13:40)
[2019-12-19] MEDS: AMLODIPINE BESYLATE 10 MG TABLET PO SCH (13:41)
[2019-12-19] MEDS: ASPIRIN 81 MG TABLET, ENT COATED PO SCH (13:41)
[2019-12-19] MEDS: GABAPENTIN 100 MG CAPSULE PO SCH ×3 (13:41→21:33)
[2019-12-19] MEDS: ALLOPURINOL 100 MG TABLET PO SCH (13:42)
[2019-12-19] MEDS: CLOPIDOGREL BISULFATE 75 MG TABLET PO SCH (13:42)
[2019-12-19] MEDS: MULTIVITAMIN TABLET PO SCH (13:42)
[2019-12-19] MEDS: FUROSEMIDE INJ/PF 40 MG/4 ML SDV IV SCH (14:08)
--- NOTE | 2019-12-19 15:57 | PDOC PROGRESS REPORT ---
Subjective Progress Note for:: 12/19/19 Subjective:: Patient is lying down in bed comfortably. She states that she is 'ready to go home". She did have some nausea this morning though. She admits that she still has some intermittent shortness of breath but admits that she feels much better than she when she was admitted. She denies any chest pains. Her appetite is not great. She is still making adequate amount of urine around 1650 mL for the last 24 hours. Reason For Visit: ACUTE PULMONARY EDEMA WITH CONGESTIVE HEART Physical Exam Vital Signs: Temp Pulse Resp BP Pulse Ox 98.5 F 61 16 150/46 H 97 12/19/19 03:40 12/19/19 11:34 12/19/19 11:34 12/19/19 03:40 12/19/19 11:34 Intake & Output 12/18/19 12/19/19 12/20/19 06:59 06:59 06:59 Intake Total 1235 490 Output Total 2125 1650 Balance -890 -1160 Weight 112.3 kg 106 kg Exam: General appearance: PRESENT: no acute distress, cooperative, well-developed, well-nourished, obese Head exam: PRESENT: atraumatic, normocephalic Eye exam: PRESENT: conjunctiva slightly pale, PERRLA. ABSENT: scleral icterus Neck exam: ABSENT: JVD Respiratory exam: PRESENT: Diminished breath sounds. ABSENT: crackles, rales, rhonchi, unlabored, wheezes Cardiovascular exam: PRESENT: Regular rate rhythm -+S1, +S2. ABSENT: diastolic murmur, systolic murmur GI/Abdominal exam: PRESENT: normal bowel sounds, soft. ABSENT: guarding, mass, tenderness Extremities exam: Trace bilateral lower extremity pitting edema Neurological exam: PRESENT: alert, awake, oriented to person, place and time. Skin exam: PRESENT: dry, warm, Cardiovascular exam: PRESENT: +S1, +S2 GI/Abdominal exam: PRESENT: soft. ABSENT: tenderness Results Laboratory Results: 12/18/19 04:00 12/19/19 09:02 12/18/19 12/19/19 13:20 09:02 Sodium 135.4 L Potassium 4.5 Chloride 99 Carbon Dioxide 28 Anion Gap 8 BUN 86 H Creatinine 3.44 H Est GFR ( Amer) 16 L Glucose 130 H Calcium 8.8 Stool Occult Blood NEGATIVE 12/14/19 12/15/19 12/15/19 19:31 06:55 06:55 Creatine Kinase 59 CK-MB (CK-2) 0.57 Troponin I < 0.012 < 0.012 NT-Pro-B Natriuret Pep 2450 H 12/15/19 12/15/19 12/15/19 13:20 13:20 18:40 Creatine Kinase 56 56 CK-MB (CK-2) 0.65 Troponin I < 0.012 NT-Pro-B Natriuret Pep 12/15/19 12/16/19 18:40 05:02 Creatine Kinase CK-MB (CK-2) 0.51 Troponin I < 0.012 NT-Pro-B Natriuret Pep 2230 H Impressions: Chest X-Ray 12/18/19 00:00 IMPRESSION: Improving pulmonary edema. Assessment & Plan - Diagnosis (1) Acute kidney injury superimposed on chronic kidney disease Is this a current diagnosis for this admission?: Yes Plan: Likely secondary to acute prerenal issues so in relation congestive heart failure. Patient's creatinine is gone from 3.07 improving to 2.74 but today has gone up again to 3.44 after aggressive diuresis and negative fluid balance since admission. Lasix was decreased to 20 mg IV every 12 hours yesterday but due to further elevation of creatinine, I agree with holding the diuretics for now and monitor the patient closely including the kidney function. Patient does not require any acute renal replacement therapy at this time. (2) Acute pulmonary edema with congestive heart failure Is this a current diagnosis for this admission?: Yes Plan: Echocardiogram showed an EF of 55 to 60% with borderline reduced right ventricular systolic function. Patient was seen by relationship specialist, Dr. Crowe. (3) Acute respiratory failure with hypoxia Is this a current diagnosis for this admission?: Yes (4) Anemia Is this a current diagnosis for this admission?: Yes Plan: Due to combination of anemia and chronic kidney disease and iron deficiency. Stool for occult blood is negative. Patient given a dose of IV Injectafer on December 16. Will start her on Retacrit and give her 20,000 units today. (5) Obstructive sleep apnea Is this a current diagnosis for this admission?: Yes (6) Chronic kidney disease, stage 3 Is this a current diagnosis for this admission?: Yes (7) Renal mass, right Is this a current diagnosis for this admission?: Yes Plan: Status post radiation therapy and followed at [facility]. (8) DM2 (diabetes mellitus, type 2) Is this a current diagnosis for this admission?: Yes (9) Hypertension Qualifiers: Hypertension type: essential hypertension Qualified Code(s): I10 - Essential (primary) hypertension Is this a current diagnosis for this admission?: Yes Plan: Fairly controlled. (10) RENETTA treated with BiPAP Is this a current diagnosis for this admission?: Yes (11) Morbid obesity Is this a current diagnosis for this admission?: No - Time Time with patient: 15-25 minutes
[2019-12-19] MEDS ORDERED: EPOETIN ALFA-EPBX 10,000 UNIT/ML VIAL (NON-ESRD) SUBCUT ONE ×2 (16:30→20:00)
--- NOTE | 2019-12-19 17:39 | PDOC PROGRESS REPORT ---
Subjective Progress Note for:: 12/19/19 Subjective:: 74 year old female who presented the emergency room with a 3-day history of dyspnea. She admits progressively worsening dyspnea over the course of the last 2 days becoming severe on the afternoon of 06/15/2019. Her dyspnea was worsened on exertion, was accompanied by orthopnea and wheezing, and was associated with leg swelling and a subjective fever that resolved with Tylenol. Her dyspnea did not improve with her nebulizer treatments at home. She denies other associated or accompanying signs and symptoms. She admits prior similar episodes. She has not identified any additional aggravating or ameliorating factors for her dyspnea. EMS found her to have an O2 sat less than 80 on room air at the time of their arrival. In the emergency room patient was found to have pulmonary edema on her chest x-ray, and acute kidney injury and hypoxic respiratory failu re. She was subsequently admitted to the hospital for further evaluation and treatment on the congestive heart failure protocol. 12/19/2019. Saw patient this morning comfortably sitting in bed no apparent distress, stating that she was nauseous this morning and did not have her breakfast otherwise denies any fever, chills, nausea, gets winded easily when she exerts herself, however she feels like she is ready to go home, denies any fever, chills, vomiting, diarrhea, constipation or any urinary symptoms. Reason For Visit: ACUTE PULMONARY EDEMA WITH CONGESTIVE HEART Physical Exam Vital Signs: Temp Pulse Resp BP Pulse Ox 98.5 F 61 16 150/46 H 97 12/19/19 03:40 12/19/19 11:34 12/19/19 11:34 12/19/19 03:40 12/19/19 11:34 Intake & Output 12/18/19 12/19/19 12/20/19 06:59 06:59 06:59 Intake Total 1235 490 200 Output Total 2125 1650 350 Balance -890 -1160 -150 Weight 112.3 kg 106 kg General appearance: PRESENT: no acute distress, obese, well-developed, well- nourished Head exam: PRESENT: atraumatic, normocephalic Respiratory exam: PRESENT: clear to auscultation ricki. ABSENT: rales, rhonchi, wheezes Cardiovascular exam: PRESENT: RRR. ABSENT: diastolic murmur, rubs, systolic murmur GI/Abdominal exam: PRESENT: normal bowel sounds, soft. ABSENT: distended, guarding, mass, organolmegaly, rebound, tenderness Musculoskeletal exam: PRESENT: other - Left AKA Neurological exam: PRESENT: alert, awake, oriented to person, oriented to place, oriented to time, oriented to situation, CN II-XII grossly intact. ABSENT: motor sensory deficit Results Laboratory Results: 12/18/19 04:00 12/19/19 09:02 12/19/19 09:02 Sodium 135.4 L Potassium 4.5 Chloride 99 Carbon Dioxide 28 Anion Gap 8 BUN 86 H Creatinine 3.44 H Est GFR ( Amer) 16 L Glucose 130 H Calcium 8.8 12/14/19 12/15/19 12/15/19 19:31 06:55 06:55 Creatine Kinase 59 CK-MB (CK-2) 0.57 Troponin I < 0.012 < 0.012 NT-Pro-B Natriuret Pep 2450 H 12/15/19 12/15/19 12/15/19 13:20 13:20 18:40 Creatine Kinase 56 56 CK-MB (CK-2) 0.65 Troponin I < 0.012 NT-Pro-B Natriuret Pep 12/15/19 12/16/19 18:40 05:02 Creatine Kinase CK-MB (CK-2) 0.51 Troponin I < 0.012 NT-Pro-B Natriuret Pep 2230 H Impressions: Chest X-Ray 12/18/19 00:00 IMPRESSION: Improving pulmonary edema. Assessment and Plan - Diagnosis (1) Acute pulmonary edema with congestive heart failure Is this a current diagnosis for this admission?: Yes Plan: 12/16/2019-patient admitted for pulmonary edema secondary to CHF exacerbation. Cardiology consult was requested. Patient is receiving Lasix 40 mg IV every 12 hours. Urinary output is good. Patient is also receiving morphine as needed for diuresis. Echocardiogram that was done of this month shows EF of 55 to 60%. Right ventricle systolic function is borderline reduced. So patient has chronic right heart failure. 12/17/2019-net negative fluid balance. Per Dr. Crowe will start BiDil every 8 hours. 1.5 L fluid restriction. Continue low-fat low-salt diet. 12/18/2019-patient is on Lasix 40 mg IV twice a day. Echocardiogram shows EF of 55 to 60% with reduced right ventricular systolic function. Patient is on fluid restriction. Creatinine bumped to 3 today. Plan is to recheck the labs tomorrow and possible discharge tomorrow. (2) Acute kidney injury superimposed on chronic kidney disease Is this a current diagnosis for this admission?: Yes Plan: 12/16/2019-creatinine peaked to 3.07 and improved to 2.74 today. Patient has a stage III kidney disease. She follows with Dr. Min as an outpatient. Patient is urinating well. 12/17/2019-creatinine is slightly higher today. Nephrology continues to follow. 12/18/2019-nephrology on board. Patient has a stage III kidney disease. Creatinine today is 3.0. On Lasix 40 mg IV twice a day. (3) Anemia associated with stage 3 chronic renal failure Is this a current diagnosis for this admission?: No Plan: 12/16/2019-patient has history of chronic anemia due to CKD. Latest hemoglobin is 8.6. And is to closely monitor the labs today. On admission hemoglobin is 9.7. No signs of bleeding present. 12/17/2019-hemoglobin was 8.6 yesterday. Will recheck tomorrow. 12/18/2019-patient has history of anemia of chronic disease hemoglobin is 9.1 today. Stable. (4) Chronic kidney disease, stage 3 Is this a current diagnosis for this admission?: Yes Plan: 12/17/2019-patient of Dr. Min. Nephrology is consulting. (5) Morbid obesity Is this a current diagnosis for this admission?: No Plan: 12/08/2019-patient BMI is 40 diet exercise weight loss lifestyle modifications discussed with the patient. 12/17/2019-most realistic weight loss modality would be aggressive dietary management at this time. (6) Obstructive sleep apnea Is this a current diagnosis for this admission?: Yes Plan: 12/08/2019-patient has obstructive sleep apnea and BiPAP. Please resume the BiPAP while she was asleep during the hospital stay. 12/17/2019-continue BiPAP. At night and if sleeping during the day. - Plan Summary Summary: Patient will be admitted to the [facility] where she will receive routine supportive and symptomatic cares. She will be admitted on the congestive heart failure protocol. Cardiology consultation with Dr. Crowe will be obtained. Laboratory and evaluation will be obtained as per the congestive heart failure protocol. She will receive Lasix 40 mg IV every 12 hours and 1 g of 2% nitroglycerin ointment will be applied topically every 6 hours. She will receive morphine sulfate 2 mg IV every hour as needed for severe dyspnea. She will receive supplemental oxygen via nasal cannula with the possible use of noninvasive airway pressure support devices such as BiPAP. The patient will be placed on BiPAP while asleep for her sleep apnea. She will receive Ativan 1 mg IV every 4 hours as needed anxiety or restlessness. She will receive morphine sulfate 2 to 4 mg IV every 2 hours as needed for pain. She will have before meals and at bedtime Accu-Cheks performed with sliding scale insulin to cover hyperglycemia and a hypoglycemic protocol in place. CBCs, metabolic profiles, magnesium levels and additional laboratory and/or radiographic evaluations will be obtained as needed. Patient will be placed on a cardiac, prerenal and diabetic restricted diet. Patient's home medications will be restarted, as appropriate, when her medication list has been verified and reconciled. - Time Time Spent with patient: 15-24 minutes Medications reviewed and adjusted accordingly: Yes Anticipated Discharge Disposition: Home with Home Health Anticipated Discharge Timeframe: within 24 hours
[2019-12-19] MEDS: LEVOFLOXACIN 500 MG/D5W RTU 500 MG/100 ML RTUPB IV SCH (19:13)
[2019-12-19] MEDS: ATORVASTATIN CALCIUM 40 MG TABLET PO SCH (21:28)
[2019-12-19] MEDS: INSULIN REG, HUMAN 100 UNIT/ML 3 ML VIAL (PYX) SUBCUT PRN (21:29)
[2019-12-20] MEDS: ISOSORB DINIT/HYDRALAZINE HCL 20-37.5 MG TABLET PO SCH ×2 (05:38→13:49)
[2019-12-20] MEDS: HEPARIN SOD (PORCINE) 5,000 UNIT/ML 1 ML VIAL SUBCUT SCH ×2 (05:38→13:49)
[2019-12-20] MEDS: PANTOPRAZOLE SODIUM 40 MG TABLET.DR PO SCH (05:38)
[2019-12-20] MEDS: NITROGLYCERIN 2% OINTMENT 1 GM PACKET TP SCH ×2 (05:38→13:49)
[2019-12-20 06:25] LABS: ABSOLUTE EOSINOPHILS # (AUTO) 0.2 10^3/uL (0.0-0.6); ABSOLUTE LYMPHOCYTES (AUTO) 0.8 10^3/uL (0.5-4.7); ABSOLUTE MONOCYTES (AUTO) 0.7 10^3/uL (0.1-1.4); ABSOLUTE NEUT (AUTO) 4.3 10^3/uL (1.7-8.2); BASOPHILS % (AUTO) 0.6 % (0-2); EOSINOPHILS % (AUTO) 2.6 % (0-6); HEMATOCRIT 26.1 % (36.0-47.0); HEMOGLOBIN 8.7 g/dL (12.0-15.5); LYMPHOCYTES % (AUTO) 13.2 % (13-45); MEAN CORPUSCULAR HEMOGLOBIN 29.7 pg (27.0-33.4); MEAN CORPUSCULAR HGB CONC 33.5 g/dL (32.0-36.0); MEAN CORPUSCULAR VOLUME 89 fl (80-97); PLATELET COUNT 153 10^3/uL (150-450); RED BLOOD COUNT 2.94 10^6/uL (3.72-5.28); RED CELL DISTRIBUTION WIDTH 17.4 % (11.5-14.0); SEGMENTED NEUTROPHILS % (AUTO) 71.6 % (42-78); TOTAL CELLS COUNTED % (AUTO) 100 %
[2019-12-20 06:52] LABS: ANION GAP 6 (5-19); BLOOD UREA NITROGEN 86 mg/dL (7-20); CALCIUM 8.5 mg/dL (8.4-10.2); CARBON DIOXIDE 27 mmol/L (22-30); CHLORIDE 101 mmol/L (98-107); GLUCOSE 129 mg/dL (75-110); POTASSIUM 4.7 mmol/L (3.6-5.0)
[2019-12-20] MEDS: INSULIN GLARGINE,HUM.REC.ANLOG 1,000 UNIT/10 ML VIAL SUBCUT SCH (09:12)
[2019-12-20] MEDS ORDERED: INSULIN GLARGINE,HUM.REC.ANLOG 1,000 UNIT/10 ML VIAL SUBCUT SCH (10:00)
[2019-12-20] MEDS: AMLODIPINE BESYLATE 10 MG TABLET PO SCH (10:37)
[2019-12-20] MEDS: DOCUSATE SODIUM 100 MG CAPSULE PO SCH (10:37)
[2019-12-20] MEDS: CLOPIDOGREL BISULFATE 75 MG TABLET PO SCH (10:37)
[2019-12-20] MEDS: ASPIRIN 81 MG TABLET, ENT COATED PO SCH (10:37)
[2019-12-20] MEDS: MULTIVITAMIN TABLET PO SCH (10:37)
[2019-12-20] MEDS: GABAPENTIN 100 MG CAPSULE PO SCH (10:37)
[2019-12-20] MEDS: CARVEDILOL 12.5 MG TABLET PO SCH (10:37)
[2019-12-20] MEDS: ALLOPURINOL 100 MG TABLET PO SCH (10:37)
[2019-12-20] MEDS: LACTULOSE SYRUP 20 GM/30 ML UDCUP PO SCH (10:42)
[2019-12-20 13:46] VITALS: BP 166/61
== END 2019-12-20 14:29 | disposition home health service (06) | DRG 291 ==
LOC: ER 17:17 → EH 12-15 02:30 → ICU 12-15 04:27 → 3N 12-15 19:28 → 3S 12-17 18:54
PROVIDERS: ADMIT Emergency Medicine; ATTEND Registered Nurse
DX: I13.0 Hypertensive heart and chronic kidney disease with heart failure and stage 1 through stage 4 chronic kidney disease, or unspecified chronic kidney disease (principal); J96.01 Acute respiratory failure with hypoxia; C64.9 Malignant neoplasm of unspecified kidney, except renal pelvis; N17.9 Acute kidney failure, unspecified; Z68.41 Body mass index [BMI] 40.0-44.9, adult; I50.9 Heart failure, unspecified; I25.10 Atherosclerotic heart disease of native coronary artery without angina pectoris; E11.22 Type 2 diabetes mellitus with diabetic chronic kidney disease; N18.3 Chronic kidney disease, stage 3 (moderate); D63.1 Anemia in chronic kidney disease; E78.00 Pure hypercholesterolemia, unspecified; E03.9 Hypothyroidism, unspecified; E11.42 Type 2 diabetes mellitus with diabetic polyneuropathy; N28.89 Other specified disorders of kidney and ureter; G47.33 Obstructive sleep apnea (adult) (pediatric); E66.01 Morbid (severe) obesity due to excess calories; Z20.828 Contact with and (suspected) exposure to other viral communicable diseases; Z89.512 Acquired absence of left leg below knee; Z79.2 Long term (current) use of antibiotics; Z79.01 Long term (current) use of anticoagulants; Z79.82 Long term (current) use of aspirin; Z79.4 Long term (current) use of insulin; Z79.899 Other long term (current) drug therapy
CPT/HCPCS: 36415; 71045; 78580; 80048; 80053; 80061; 80069; 81001; 82272; 82550; 82553; 82607; 82728; 82746; 82962; 83036; 83540; 83550; 83735; 83880; 84443; 84481; 84484; 85025; 85045; 85379; 85610; 85730; 87086; 87635; 93005; 93010; 94640; 94660; 96374; 99285; A9540; C9803; J0360; J1439; J1644; J1815; J1940; J1956; J2270; J2405; J3490; J7050; Q5106; Q9969

== ENCOUNTER → 2020-02-02 | Outpatient (CLI) | payer MEDICARE, OTHER ==
[2020-02-02 15:31] LABS: HEMOGLOBIN 11.1 g/dL (12.0-15.5); MEAN CORPUSCULAR HEMOGLOBIN 30.1 pg (27.0-33.4); MEAN CORPUSCULAR HGB CONC 33.6 g/dL (32.0-36.0); MEAN CORPUSCULAR VOLUME 90 fl (80-97); PLATELET COUNT 169 10^3/uL (150-450); RED BLOOD COUNT 3.68 10^6/uL (3.72-5.28); RED CELL DISTRIBUTION WIDTH 18.2 % (11.5-14.0); WHITE BLOOD COUNT 4.1 10^3/uL (4.0-10.5)
[2020-02-02 15:35] LABS: APPEARANCE,URINE SLIGHTLY-CLOUDY; BILIRUBIN,URINE NEGATIVE (NEGATIVE); COLOR,URINE STRAW; GLUCOSE, URINE NEGATIVE (NEGATIVE); KETONES,URINE NEGATIVE (NEGATIVE); LEUKOCYTE ESTERASE,URINE LARGE (NEGATIVE); NITRITE,URINE NEGATIVE (NEGATIVE); PROTEIN,URINE 100 mg/dL (NEGATIVE); UROBILINOGEN,URINE NEGATIVE mg/dL (<2.0)
[2020-02-02 15:48] LABS: ALBUMIN 4.4 g/dL (3.5-5.0); ANION GAP 10 (5-19); BLOOD UREA NITROGEN 94 mg/dL (7-20); CALCIUM 9.2 mg/dL (8.4-10.2); CARBON DIOXIDE 26 mmol/L (22-30); CHLORIDE 106 mmol/L (98-107); GLUCOSE 138 mg/dL (75-110); IRON(TIBC) 52.4 ug/dL (37-170); PHOSPHORUS 5.4 mg/dL (2.5-4.5)
== END ==
LOC: OD 14:38
PROVIDERS: ATTEND Physician Assistant Medical
DX: E11.22 Type 2 diabetes mellitus with diabetic chronic kidney disease (principal); N18.4 Chronic kidney disease, stage 4 (severe); D50.8 Other iron deficiency anemias; R80.1 Persistent proteinuria, unspecified
CPT/HCPCS: 36415; 80069; 81001; 82728; 83540; 83550; 83970; 85027

== ENCOUNTER → 2020-03-06 | Outpatient (CLI) | payer MEDICARE, OTHER ==
[2020-03-06 11:09] LABS: ALBUMIN 4.2 g/dL (3.5-5.0); ANION GAP 11 (5-19); BLOOD UREA NITROGEN 79 mg/dL (7-20); CALCIUM 9.2 mg/dL (8.4-10.2); CARBON DIOXIDE 26 mmol/L (22-30); CHLORIDE 105 mmol/L (98-107); GLUCOSE 135 mg/dL (75-110); PHOSPHORUS 5.4 mg/dL (2.5-4.5); POTASSIUM 4.5 mmol/L (3.6-5.0)
== END ==
LOC: OD 09:52
PROVIDERS: ATTEND Physician Assistant Medical
DX: N18.4 Chronic kidney disease, stage 4 (severe) (principal)
CPT/HCPCS: 36415; 80069

== ENCOUNTER 2020-03-28 05:27 | Emergency (ER) | payer MEDICARE, OTHER ==
[2020-03-28 06:40] LABS: ABSOLUTE EOSINOPHILS # (AUTO) 0.1 10^3/uL (0.0-0.6); ABSOLUTE LYMPHOCYTES (AUTO) 0.8 10^3/uL (0.5-4.7); ABSOLUTE MONOCYTES (AUTO) 0.5 10^3/uL (0.1-1.4); ABSOLUTE NEUT (AUTO) 3.2 10^3/uL (1.7-8.2); BASOPHILS % (AUTO) 0.6 % (0-2); HEMATOCRIT 29.4 % (36.0-47.0); HEMOGLOBIN 9.8 g/dL (12.0-15.5); LYMPHOCYTES % (AUTO) 17.6 % (13-45); MEAN CORPUSCULAR HEMOGLOBIN 30.2 pg (27.0-33.4); MEAN CORPUSCULAR HGB CONC 33.3 g/dL (32.0-36.0); MEAN CORPUSCULAR VOLUME 91 fl (80-97); MONOCYTES % (AUTO) 11.4 % (3-13); PLATELET COUNT 165 10^3/uL (150-450); RED BLOOD COUNT 3.24 10^6/uL (3.72-5.28); RED CELL DISTRIBUTION WIDTH 16.1 % (11.5-14.0); SEGMENTED NEUTROPHILS % (AUTO) 67.4 % (42-78); TOTAL CELLS COUNTED % (AUTO) 100 %; WHITE BLOOD COUNT 4.7 10^3/uL (4.0-10.5)
[2020-03-28] MEDS ORDERED: FUROSEMIDE INJ/PF 40 MG/4 ML SDV IV ONE (06:44)
[2020-03-28] MEDS ORDERED: MORPHINE SULFATE 10 MG/ML INJ IV ONE (06:44)
[2020-03-28] MEDS ORDERED: NITROGLYCERIN 2% OINTMENT 1 GM PACKET TP ONE (06:45)
--- NOTE | 2020-03-28 07:05 | RADIOLOGY REPORT (SQ) ---
CHEST X-RAY 1 VIEW on 03/28/2020 at 6:29 AM CLINICAL INDICATION: Shortness of breath COMPARISON: 12/18/2019 FINDINGS: The patient is status post median sternotomy and CABG. Mild cardiomegaly is noted. Trace pleural effusions may be present. Minimal vascular congestion is noted. There is mild linear atelectasis or scarring in the left midlung. Fusion hardware is noted in the lower cervical spine. IMPRESSION: Findings suggesting very mild changes of CHF.
[2020-03-28 07:24] LABS: NT PRO BNP 3100 pg/mL (<125)
[2020-03-28 07:29] LABS: TROPONIN I < 0.012 ng/mL
[2020-03-28 08:10] LABS: APPEARANCE,URINE CLEAR; BILIRUBIN,URINE NEGATIVE (NEGATIVE); COLOR,URINE YELLOW; GLUCOSE, URINE NEGATIVE (NEGATIVE); KETONES,URINE NEGATIVE (NEGATIVE); LEUKOCYTE ESTERASE,URINE NEGATIVE (NEGATIVE); NITRITE,URINE NEGATIVE (NEGATIVE); PROTEIN,URINE 100 mg/dL (NEGATIVE); URINE SPECIFIC GRAVITY 1.011; UROBILINOGEN,URINE NEGATIVE mg/dL (<2.0)
[2020-03-28 08:50] LABS: ALBUMIN 4.1 g/dL (3.5-5.0); ALKALINE PHOSPHATASE 102 U/L (38-126); ANION GAP 11 (5-19); ASPARTATE AMINO TRANSFERASE 23 U/L (14-36); BILIRUBIN,DIRECT 0.2 mg/dL (0.0-0.4); BILIRUBIN,TOTAL 0.5 mg/dL (0.2-1.3); BLOOD UREA NITROGEN 98 mg/dL (7-20); CALCIUM 9.1 mg/dL (8.4-10.2); CARBON DIOXIDE 26 mmol/L (22-30); CHLORIDE 104 mmol/L (98-107); GLUCOSE 152 mg/dL (75-110); POTASSIUM 4.9 mmol/L (3.6-5.0); TOTAL PROTEIN 7.1 g/dL (6.3-8.2)
[2020-03-28] MEDS ORDERED: FUROSEMIDE INJ/PF 20 MG/2 ML SDV IV ONE (10:37)
--- NOTE | 2020-03-28 12:08 | ER Document Report ---
Entered by JULIEN BISHOP SCRIBE 03/28/20 0639 Acting as scribe for:SÁNCHEZ DORMAN MD ED Respiratory Problem - General Chief Complaint: Shortness Of Breath Stated Complaint: SHORTNESS OF BREATH Time Seen by Provider: 03/28/20 06:28 Primary Care Provider: LUIS OCASIO PA-C [ALLIED HEALTH PROFESSIONAL] - Follow up as needed Information source: Patient Notes: This 74 year old female patient presents to the emergency department today with a chief complaint of shortness of breath. Patient states she woke room her sleep this morning gasping for air and could not lay supine to go back to sleep from shortness of breath. Patient reports history of CHF, HTN, DM2, CKD, HLD, CAD, CABG x3 in 2015, and sleep apnea. Patient states her last stress test was 4 or 5 months ago. Patient states she has been retaining more fluid recently in her bilateral hands and face, then increased her Lasix from 40 mg to 80 mg per day. Patient reports chills and denies fevers. TRAVEL OUTSIDE OF THE [place] IN LAST 30 DAYS: No - Related Data Allergies/Adverse Reactions: cephalexin monohydrate [From Keflex] Allergy (Unknown, Verified 11/18/19 19:49) nausea/vomiting metformin [Metformin] Allergy (Unknown, Verified 11/18/19 19:49) nausea/vomiting Sulfa (Sulfonamide Antibiotics) Allergy (Unknown, Verified 11/18/19 19:49) itching/rash promethazine [From Phenergan] Adverse Reaction (Mild, Verified 11/18/19 19:49) Hallucinations Home Medications: lasix, lantus, allupurinol, asa, plavix, vit D, gabapentin, coreg.,. hydralizine, atorvastatin, Past Medical History - General Information source: Patient - Social History Smoking Status: Never Smoker Cigarette use (# per day): No Family History: CAD, DM, Hypertension - Past Medical History Cardiac Medical History: Reports: Hx Congestive Heart Failure, Hx Coronary Artery Disease, Hx Hypercholesterolemia, Hx Hypertension, Hx Peripheral Vascular Disease, Hx Heart Murmur Pulmonary Medical History: Reports: Hx Pneumonia, Hx Sleep Apnea - Currently not using CPAP. Endocrine Medical History: Reports: Hx Diabetes Mellitus Type 2, Hx Hypothyroidism - Being followed by cigar packer and grader in [place]. On no medicine for this. 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 denies: Fever EENT: No symptoms reported Cardiovascular: No symptoms reported Respiratory: See HPI, Short of breath Gastrointestinal: No symptoms reported Genitourinary: No symptoms reported Female Genitourinary: No symptoms reported Musculoskeletal: See HPI, Other - hands and face swelling Skin: No symptoms reported Hematologic/Lymphatic: No symptoms reported Neurological/Psychological: No symptoms reported -: Yes All other systems reviewed and negative Physical Exam - Vital signs Vitals: Temp Pulse Resp BP Pulse Ox 97.7 F 72 24 H 158/76 H 96 03/28/20 05:42 03/28/20 05:42 03/28/20 05:42 03/28/20 05:42 03/28/20 05:42 - General General appearance: Appears well, Alert - HEENT Head: Normocephalic, Atraumatic Eyes: Normal Pupils: PERRL - Respiratory Respiratory status: No respiratory distress Chest status: Nontender Chest palpation: Normal Notes: Diminished breath sounds bilaterally. - Cardiovascular Rhythm: Regular Heart sounds: Normal auscultation, S1 appreciated, S2 appreciated - Abdominal Inspection: Obese Distension: No distension Bowel sounds: Normal Tenderness: Nontender - Extremities General upper extremity: Normal inspection, Normal ROM General lower extremity: No: Edema Notes: Left lower extremity BKA with prosthesis. - Neurological Neuro grossly intact: Yes Cognition: Normal Orientation: AAOx4 Keke Coma Scale Eye Opening: Spontaneous [place] Coma Scale Verbal: Oriented Keke Coma Scale Motor: Obeys Commands Donnellson Coma Scale Total: 15 Speech: Normal Sensory: Normal - Psychological Associated symptoms: Normal affect, Normal mood - Skin Skin Temperature: Warm Skin Moisture: Dry Skin Color: Normal Course - Re-evaluation Re-evalutation: 03/28/20 08:04 Patient reports she feels better at this time. Less shortness of breath and easy breathing at this time. 03/28/20 12:04 Patient sats are 97% on room air and patient is lying flat conversations without interruptions of shortness of breath. - Vital Signs Vital signs: Temp Pulse Resp BP Pulse Ox 97.7 F 72 14 177/86 H 95 03/28/20 05:42 03/28/20 05:42 03/28/20 11:02 03/28/20 11:02 03/28/20 11:02 03/28/20 08:04 Vital signs stable afebrile pulse ox 97% room air. - Laboratory Result Diagrams: 03/28/20 06:30 03/28/20 08:19 Laboratory results interpreted by me: 03/28/20 03/28/20 03/28/20 06:30 06:30 07:23 RBC 3.24 L Hgb 9.8 L Hct 29.4 L RDW 16.1 H BUN Creatinine Est GFR ( Amer) Est GFR (MDRD) Non-Af Glucose NT-Pro-B Natriuret Pep 3100 H Urine Protein 100 H 03/28/20 08:19 RBC Hgb Hct RDW BUN 98 H Creatinine 3.44 H Est GFR ( Amer) 16 L Est GFR (MDRD) Non-Af 13 L Glucose 152 H NT-Pro-B Natriuret Pep Urine Protein Laboratories consistent with chronic renal failure and congestive heart failure. - Diagnostic Test Radiology reviewed: Image reviewed, Reports reviewed Radiology results interpreted by me: 03/28/20 08:04 Chest X-Ray 03/28/20 06:05 IMPRESSION: Findings suggesting very mild changes of CHF. Chest x-ray consistent with mild changes of CHF. - EKG Interpretation by Me Additional EKG results interpreted by me: 03/28/20 08:05 Twelve-lead EKG done today at 606 shows a sinus bradycardia rate of 54 first- degree AV block QRS prolonged. QT interval within normal range. Left axis deviation no evidence for an acute PA. Discharge - Discharge Clinical Impression: CHF (congestive heart failure), Hypertension, Chronic kidney disease, stage 3 Condition: Stable Disposition: HOME, SELF-CARE Additional Instructions: Congestive Heart Failure You have been diagnosed as having congestive heart failure (CHF). CHF occurs when the heart is unable to pump blood efficiently, leading to fluid buildup in the veins and lungs. Typical symptoms are swelling of the legs, shortness of breath on minor exertion, and fatigue. CHF is treated with salt restriction, medicine to eliminate excess water and salt from the body, and medication to help the heart contract more efficiently. Eliminate added salt and salty foods in your diet. Decrease your activity until excess fluid has been eliminated. It will also be helpful to raise the head of your bed so you can sleep more easily. Keep a daily record of your weight. This will help your physician monitor your progress. Once extra water has been eliminated, light aerobic exercise daily -- such as walking -- will be helpful (unless your physician has told you to restrict activity for other reasons). Be sure to follow up with the physician as instructed. Contact the doctor at once if you worsen in any way. No new prescriptions. Continue your same medications. Follow-up with Dr. Min. Referrals: LUIS OCASIO PA-C [ALLIED HEALTH PROFESSIONAL] - Follow up as needed I personally performed the services described in the documentation, reviewed and edited the documentation which was dictated to the scribe in my presence, and it accurately records my words and actions.
[2020-03-28 12:50] VITALS: BP 179/68
--- NOTE | 2020-03-28 18:03 | EKG REPORT ---
SEVERITY:- ABNORMAL ECG - SINUS RHYTHM FIRST DEGREE AV BLOCK LEFT BUNDLE BRANCH BLOCK : Confirmed by: Jaleel Corcoran MD 28-Mar-2020 18:01:30
== END 2020-03-28 12:20 | disposition home or self-care (01) ==
LOC: ER 05:27
DX: I13.0 Hypertensive heart and chronic kidney disease with heart failure and stage 1 through stage 4 chronic kidney disease, or unspecified chronic kidney disease (principal); I50.9 Heart failure, unspecified; N18.30 Chronic kidney disease, stage 3 unspecified; E11.22 Type 2 diabetes mellitus with diabetic chronic kidney disease; E11.51 Type 2 diabetes mellitus with diabetic peripheral angiopathy without gangrene; I25.10 Atherosclerotic heart disease of native coronary artery without angina pectoris; R68.83 Chills (without fever); I44.0 Atrioventricular block, first degree; E78.5 Hyperlipidemia, unspecified; E78.00 Pure hypercholesterolemia, unspecified; M10.9 Gout, unspecified; Z79.4 Long term (current) use of insulin; Z79.899 Other long term (current) drug therapy; Z79.82 Long term (current) use of aspirin; Z79.02 Long term (current) use of antithrombotics/antiplatelets; Z89.512 Acquired absence of left leg below knee; Z95.1 Presence of aortocoronary bypass graft; Z88.1 Allergy status to other antibiotic agents; Z88.2 Allergy status to sulfonamides
CPT/HCPCS: 93005; 96376; 99285; 51702; 96374; 96375; 36415; 82550; 85025; 80053; 81001; 84484; 83880; 71045; 93010; A9270; J1940 ×2; J2270

== ENCOUNTER 2020-04-06 15:31 | Observation (INO) | payer MEDICARE, OTHER ==
--- NOTE | 2020-04-06 16:05 | ER Document Report ---
ED Medical Screen (RME) - General Chief Complaint: Shortness Of Breath Stated Complaint: SHORT OF BREATH,CHEST PAIN Time Seen by Provider: 04/06/20 15:59 Primary Care Provider: MARTIN WICK MD [Primary Care Provider] - Follow up as needed Mode of Arrival: Wheelchair Information source: Patient Notes: 74-year-old female presents to ED for cough congestion short of breath wheezing. She states she has been feeling very weak tired and sick lately. States she does have kidney insufficiency diabetes congestive heart failure and has swelling to the arms and legs from the CHF. States she does go out in public. She states she has been feeling chills and body aches. The patient was evaluated during the global Covid 19 pandemic, and that diagnosis was suspected /considered upon their initial presentation. Their evaluation, treatment and testing was consistent with current guidelines for patients who present with complaints or symptoms that may be related to Covid 19. I have greeted and performed a rapid initial assessment of this patient. A comprehensive ED assessment and evaluation of the patient, analysis of test results and completion of medical decision making process will be conducted by an additional ED providers. TRAVEL OUTSIDE OF THE [place] IN LAST 30 DAYS: No - Related Data Allergies/Adverse Reactions: cephalexin monohydrate [From Keflex] Allergy (Unknown, Verified 11/18/19 19:49) nausea/vomiting metformin [Metformin] Allergy (Unknown, Verified 11/18/19 19:49) nausea/vomiting Sulfa (Sulfonamide Antibiotics) Allergy (Unknown, Verified 11/18/19 19:49) itching/rash promethazine [From Phenergan] Adverse Reaction (Mild, Verified 11/18/19 19:49) Hallucinations Past Medical History - Past Medical History Cardiac Medical History: Reports: Hx Congestive Heart Failure, Hx Coronary Artery Disease, Hx Hypercholesterolemia, Hx Hypertension, Hx Peripheral Vascular Disease, Hx Heart Murmur Denies: Hx Atrial Fibrillation, Hx Heart Attack, Hx Pulmonary Embolism Pulmonary Medical History: Reports: Hx Pneumonia, Hx Sleep Apnea - Currently not using CPAP. Denies: Hx Asthma, Hx Bronchitis, Hx COPD, Hx Respiratory Failure, Hx Tuberculosis Neurological Medical History: Denies: Hx Cerebrovascular Accident, Hx Seizures Endocrine Medical History: Reports: Hx Diabetes Mellitus Type 2, Hx Hypothyroidism - Being followed by video production intern in [place]. On no medicine for this.. Denies: Hx Diabetes Mellitus Type 1, Hx Hyperthyroidism Renal/ Medical History: Denies: Hx End Stage Renal Disease, Hx Kidney Stones, Hx Ovarian Cysts, Hx Peritoneal Dialysis, Hx Pelvic Inflammatory Disease Malignancy Medical History: Reports: Hx Renal (Kidney) Cancer. Denies: Hx Breast Cancer, Hx Cervical Cancer, Hx Leukemia, Hx Lung Cancer, Hx Ovarian Cancer GI Medical History: Denies: Hx Cirrhosis, Hx Crohn's Disease, Hx Gastroesophageal Reflux Disease, Hx Hepatitis, Hx Hiatal Hernia, Hx Irritable Bowel, Hx Liver Failure, Hx Pancreatitis, Hx Ulcer, Hx Ulcerative Colitis Musculoskeltal Medical History: Reports Hx Arthritis, Denies Hx Fibromyalgia, Reports Hx Gout, Denies Hx Muscular Dystrophy Skin Medical History: Denies Hx Eczema, Denies Hx MRSA, Denies Hx Psoriasis Psychiatric Medical History: Denies: Hx Depression Traumatic Medical History: Denies: Hx Fractures Infectious Medical History: Denies: Hx Hepatitis, Hx HIV Past Surgical History: Reports: Hx Appendectomy, Hx Cardiac Catheterization, Hx Cardiac Surgery, Hx Coronary Artery Bypass Graft - X3, July 07, 2014, Hx Gynecologic Surgery, Hx Herniorrhaphy, Hx Hysterectomy, Hx Orthopedic Surgery - 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 Denies: Hx Bowel Surgery, Hx Section, Hx Cholecystectomy, Hx Colostomy, Hx Gastric Bypass Surgery, Hx Mastectomy, Hx Open Heart Surgery, Hx Pacemaker, Hx Tonsillectomy, Hx Tubal Ligation - Immunizations Hx Diphtheria, Pertussis, Tetanus Vaccination: Yes Physical Exam - Vital signs Vitals: Temp Pulse Resp BP Pulse Ox 98.4 F 63 20 171/89 H 92 04/06/20 15:44 04/06/20 15:44 04/06/20 15:44 04/06/20 15:44 04/06/20 15:44 Course - Vital Signs Vital signs: Temp Pulse Resp BP Pulse Ox 98.4 F 63 20 171/89 H 92 04/06/20 15:44 04/06/20 15:44 04/06/20 15:44 04/06/20 15:44 04/06/20 15:44 Doctor's Discharge - Discharge Referrals: MARTIN WICK MD [Primary Care Provider] - Follow up as needed
[2020-04-06 17:12] LABS: ABSOLUTE EOSINOPHILS # (AUTO) 0.2 10^3/uL (0.0-0.6); ABSOLUTE LYMPHOCYTES (AUTO) 0.8 10^3/uL (0.5-4.7); ABSOLUTE MONOCYTES (AUTO) 0.6 10^3/uL (0.1-1.4); ABSOLUTE NEUT (AUTO) 4.7 10^3/uL (1.7-8.2); BASOPHILS % (AUTO) 0.8 % (0-2); EOSINOPHILS % (AUTO) 3.2 % (0-6); HEMATOCRIT 30.2 % (36.0-47.0); HEMOGLOBIN 9.9 g/dL (12.0-15.5); LYMPHOCYTES % (AUTO) 13.1 % (13-45); MEAN CORPUSCULAR HEMOGLOBIN 29.8 pg (27.0-33.4); MEAN CORPUSCULAR HGB CONC 32.8 g/dL (32.0-36.0); MEAN CORPUSCULAR VOLUME 91 fl (80-97); PLATELET COUNT 195 10^3/uL (150-450); RED BLOOD COUNT 3.33 10^6/uL (3.72-5.28); RED CELL DISTRIBUTION WIDTH 17.2 % (11.5-14.0); SEGMENTED NEUTROPHILS % (AUTO) 73.9 % (42-78); TOTAL CELLS COUNTED % (AUTO) 100 %; WHITE BLOOD COUNT 6.4 10^3/uL (4.0-10.5)
--- NOTE | 2020-04-06 17:20 | RADIOLOGY REPORT (SQ) ---
EXAM DESCRIPTION: CHEST SINGLE VIEW IMAGES COMPLETED DATE/TIME: 04/06/2020 4:27 pm REASON FOR STUDY: Cough congestion fever chills history CHF diabetes COMPARISON: 03/28/2020 EXAM PARAMETERS: NUMBER OF VIEWS: One view. TECHNIQUE: Single frontal radiographic view of the chest acquired. RADIATION DOSE: NA LIMITATIONS: None. FINDINGS: LUNGS AND PLEURA: Increased interstitial markings predominantly at the lung bases. Left m id lung scarring. Trace fluid within the right minor fissure. A small right-sided pleural effusion may be present. No pneumothorax. MEDIASTINUM AND HILAR STRUCTURES: No masses. Contour normal. HEART AND VASCULAR STRUCTURES: Cardiomegaly with central vascular congestion. BONES: No acute findings. HARDWARE: Midline surgical changes. OTHER: No other significant finding. IMPRESSION: Constellation of findings suggests CHF exacerbation. Infectious etiology is not exclude d. TECHNICAL DOCUMENTATION: JOB ID: [id number] 2010 [employer].- All Rights Reserved Reading location - IP/workstation name: [email or web address]
[2020-04-06 17:37] LABS: ALBUMIN 4.4 g/dL (3.5-5.0); ALKALINE PHOSPHATASE 128 U/L (38-126); ANION GAP 15 (5-19); ASPARTATE AMINO TRANSFERASE 26 U/L (14-36); BILIRUBIN,DIRECT 0.2 mg/dL (0.0-0.4); BILIRUBIN,TOTAL 0.6 mg/dL (0.2-1.3); BLOOD UREA NITROGEN 97 mg/dL (7-20); CALCIUM 8.9 mg/dL (8.4-10.2); CARBON DIOXIDE 22 mmol/L (22-30); CHLORIDE 104 mmol/L (98-107); GLUCOSE 197 mg/dL (75-110); POTASSIUM 4.9 mmol/L (3.6-5.0); TOTAL PROTEIN 7.5 g/dL (6.3-8.2)
[2020-04-06 17:39] LABS: A TYPE INFLUENZA AG NEGATIVE (NEGATIVE); B INFLUENZA AG NEGATIVE (NEGATIVE)
[2020-04-06] MEDS ORDERED: FUROSEMIDE INJ/PF 40 MG/4 ML SDV IV ONE (18:18)
[2020-04-06] MEDS ORDERED: IPRATROPIUM/ALBUTEROL 0.5-2.5 MG/3 ML AMPUL NEB PRN (18:28)
[2020-04-06] MEDS ORDERED: ACETAMINOPHEN 325 MG TABLET PO PRN (18:32)
[2020-04-06] MEDS ORDERED: ONDANSETRON HCL INJ/PF 4 MG/2 ML SDV IV PRN (18:32)
[2020-04-06] MEDS ORDERED: AZITHROMYCIN 250 MG TABLET PO ONE (18:32)
[2020-04-06] MEDS ORDERED: DEXTROSE 50%-WATER 25 GM/50 ML DISP.SYRIN IV PRN ×2 (18:37)
[2020-04-06] MEDS ORDERED: GLUCAGON,HUMAN RECOMB 1 MG INJ IM PRN (18:37)
[2020-04-06] MEDS ORDERED: DEXTROSE 40% GEL 15 GM TUBE PO PRN ×2 (18:37)
--- NOTE | 2020-04-06 18:43 | ER Document Report ---
ED General - General Chief Complaint: Shortness Of Breath Stated Complaint: SHORT OF BREATH,CHEST PAIN Time Seen by Provider: 04/06/20 15:59 Primary Care Provider: MARTIN WICK MD [Primary Care Provider] - Follow up as needed Mode of Arrival: Wheelchair Information source: Patient TRAVEL OUTSIDE OF THE [place] IN LAST 30 DAYS: No - HPI Notes: Patient presents complaining of shortness of breath. She states she has had this shortness of breath for approximately 2 to 3 days. She states she has noticed she has had a lot of wheezing as well. She is also had some subjective fever and chills. She had a nonproductive cough. Symptoms are worse with exertion and better with rest. They have been severe in intensity and relat ively constant. She states she also has a history of congestive heart failure. She states she has been trying some breathing treatments at home with no relief. She is not on home oxygen. - Related Data Allergies/Adverse Reactions: cephalexin monohydrate [From Keflex] Allergy (Unknown, Verified 11/18/19 19:49) nausea/vomiting metformin [Metformin] Allergy (Unknown, Verified 11/18/19 19:49) nausea/vomiting Sulfa (Sulfonamide Antibiotics) Allergy (Unknown, Verified 11/18/19 19:49) itching/rash promethazine [From Phenergan] Adverse Reaction (Mild, Verified 11/18/19 19:49) Hallucinations Past Medical History - General Information source: Patient - Social History Smoking Status: Former Smoker Frequency of alcohol use: None Drug Abuse: None Family History: CAD, DM, Hypertension - Past Medical History Cardiac Medical History: Reports: Hx Congestive Heart Failure, Hx Coronary Artery Disease, Hx Hypercholesterolemia, Hx Hypertension, Hx Peripheral Vascular Disease, Hx Heart Murmur Denies: Hx Atrial Fibrillation, Hx Heart Attack, Hx Pulmonary Embolism Pulmonary Medical History: Reports: Hx Pneumonia, Hx Sleep Apnea - Currently not using CPAP. Denies: Hx Asthma, Hx Bronchitis, Hx COPD, Hx Respiratory Failure, Hx Tuberculosis Neurological Medical History: Denies: Hx Cerebrovascular Accident, Hx Seizures Endocrine Medical History: Reports: Hx Diabetes Mellitus Type 2, Hx Hypothyroidism - Being followed by [facility] in [place]. On no medicine for this.. Denies: Hx Diabetes Mellitus Type 1, Hx Hyperthyroidism Renal/ Medical History: Denies: Hx End Stage Renal Disease, Hx Kidney Stones, Hx Ovarian Cysts, Hx Peritoneal Dialysis, Hx Pelvic Inflammatory Disease Malignancy Medical History: Reports: Hx Renal (Kidney) Cancer. Denies: Hx Breast Cancer, Hx Cervical Cancer, Hx Leukemia, Hx Lung Cancer, Hx Ovarian Cancer GI Medical History: Denies: Hx Cirrhosis, Hx Crohn's Disease, Hx Gastroesophageal Reflux Disease, Hx Hepatitis, Hx Hiatal Hernia, Hx Irritable Bowel, Hx Liver Failure, Hx Pancreatitis, Hx Ulcer, Hx Ulcerative Colitis Musculoskeletal Medical History: Reports Hx Arthritis, Denies Hx Fibromyalgia, Reports Hx Gout, Denies Hx Muscular Dystrophy Skin Medical History: Denies Hx Eczema, Denies Hx MRSA, Denies Hx Psoriasis Psychiatric Medical History: Denies: Hx Depression Traumatic Medical History: Denies: Hx Fractures Infectious Medical History: Denies: Hx Hepatitis, Hx HIV Past Surgical History: Reports: Hx Appendectomy, Hx Cardiac Catheterization, Hx Cardiac Surgery, Hx Coronary Artery Bypass Graft - X3, July 07, 2014, Hx Gynecologic Surgery, Hx Herniorrhaphy, Hx Hysterectomy, Hx Orthopedic Surgery - 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 Denies: Hx Bowel Surgery, Hx Section, Hx Cholecystectomy, Hx Colostomy, Hx Gastric Bypass Surgery, Hx Mastectomy, Hx Open Heart Surgery, Hx Pacemaker, Hx Tonsillectomy, Hx Tubal Ligation - Immunizations Hx Diphtheria, Pertussis, Tetanus Vaccination: Yes Hx Pneumococcal Vaccination: 02/18/11 Review of Systems - Review of Systems Constitutional: Chills, Fever, Weakness Cardiovascular: denies: Chest pain, Palpitations Respiratory: Cough, Short of breath -: Yes All other systems reviewed and negative Physical Exam - Vital signs Vitals: Temp Pulse Resp BP Pulse Ox 98.4 F 63 20 171/89 H 92 04/06/20 15:44 04/06/20 15:44 04/06/20 15:44 04/06/20 15:44 04/06/20 15:44 Interpretation: Hypertensive, Hypoxic - General General appearance: Alert, Anxious In distress: Moderate - HEENT Head: Normocephalic, Atraumatic Eyes: Normal Pupils: PERRL - Respiratory Respiratory status: Respiratory distress - Moderate Chest status: Nontender Breath sounds: Wheezing Chest palpation: Normal - Cardiovascular Rhythm: Regular Heart sounds: Normal auscultation Murmur: No - Abdominal Inspection: Normal Distension: No distension Bowel sounds: Normal Tenderness: Nontender Organomegaly: No organomegaly - Back Back: Normal, Nontender - Extremities General upper extremity: Normal inspection, Nontender, Normal color, Normal ROM, Normal temperature General lower extremity: Nontender, Normal color, Normal ROM, Normal temperature. No: Sumaya's sign - Neurological Neuro grossly intact: Yes Cognition: Normal Orientation: AAOx4 [place] Coma Scale Eye Opening: Spontaneous [place] Coma Scale Verbal: Oriented [place] Coma Scale Motor: Obeys Commands [place] Coma Scale Total: 15 Speech: Normal - Psychological Associated symptoms: Normal affect, Normal mood - Skin Skin Temperature: Warm Skin Moisture: Dry Skin Color: Normal Course - Re-evaluation Re-evalutation: 04/06/20 18:42 Patient presents with URI symptoms consisting of fever chills cough and shortness of breath. Presentation seems most consistent with a CHF exacerbation versus infectious etiology. Some type of viral syndrome seems very likely given her constellation of symptoms. She has been tested for Covid and at this time this is pending. She has no known Covid exposures. Patient does have desaturation with any type of exertion. The patient was evaluated during a global COVID-19 pandemic and that diagnosis was suspected/considered upon their initial presentation. Their evaluation, treatment and testing was consistent with current guidelines for patients who present with complaints or symptoms and may be related to COVID-19. 04/06/20 18:44 - Vital Signs Vital signs: Temp Pulse Resp BP Pulse Ox 98.4 F 63 18 172/52 H 100 04/06/20 15:44 04/06/20 15:44 04/06/20 17:02 04/06/20 17:02 04/06/20 17:02 - Laboratory Result Diagrams: 04/06/20 16:30 04/06/20 16:30 Laboratory results interpreted by me: 04/06/20 04/06/20 16:30 16:30 RBC 3.33 L Hgb 9.9 L Hct 30.2 L RDW 17.2 H BUN 97 H Creatinine 3.43 H Est GFR ( Amer) 16 L Est GFR (MDRD) Non-Af 13 L Glucose 197 H Magnesium 3.1 H Alkaline Phosphatase 128 H - Diagnostic Test Radiology reviewed: Image reviewed, Reports reviewed - EKG Interpretation by Me EKG shows normal: Sinus rhythm Rate: Normal - 62 Rhythm: NSR [place]/QRS: LBBB When compared to previous EKG there are: No significant change Discharge - Discharge Clinical Impression: Person under investigation for COVID-19 CHF (congestive heart failure) Qualifiers: Heart failure type: unspecified Heart failure chronicity: acute on chronic Qualified Code(s): I50.9 - Heart failure, unspecified Condition: Serious Disposition: ADMITTED INPATIENT Admitting Provider: Isabel (Hospitalist) Unit Admitted: Telemetry Referrals: MARTIN WICK MD [Primary Care Provider] - Follow up as needed
[2020-04-06 19:00] LABS: C-REACTIVE PROTEIN 19.3 mg/L (<10.0)
[2020-04-06 19:08] LABS: D-DIMER 1.54 ug/mL (0.00-0.50)
--- NOTE | 2020-04-06 19:43 | PDOC H&P ---
History of Present Illness Admission Date/PCP: MARTIN WICK Patient complains of: SOB History of Present Illness: JAQUELIN SKELTON is a 74 year old female with CAD s/p CABG, HTN, HLD, insulin dependent DM2, CKD stage IV, PAD s/p L BKA, RENETTA on APAP who presented to the ED with SOB, MAHAJAN, wheezing. She reports that she was seen by nephrology 1 month ago. At that time, she was taking Lasix 40 mg daily + an additional 40 mg dose if she was having increasing SOB or edema. About 2 weeks ago, she was seen in the ED for SOB, and her labs for notable for NINI. She says that her data center technician called her after seeing her labs from the ED and told her to stop taking BID Lasix and instead only take a single daily dose. Since then, she reports that she has had progressively worsening edema of her BUE, BLE, abdomen and face associated with SOB, MAHAJAN. Yesterday, her SOB, MAHAJAN and wheezing progressed to the point where she was no longer able to walk and required using a wheelchair to get around. Today, she presented to the ED for further evaluation. She denies chest pain or pressure, palpitations, pre-syncope, syncope, falls. She has had no sick contacts. Denies fevers, chills, but does endorse generalized weakness. She had had no other recent medication changes or hospitalizations. She lives with her , daughter and granddaughter and they are all well. Past Medical History Cardiac Medical History: Reports: Congestive Heart Failure, Coronary Artery Disease, Myocardial Infarction, Hyperlipidema, Hypertension, Peripheral Vascular Disease, Heart Murmur Denies: Atrial Fibrillation, Pulmonary Embolism Pulmonary Medical History: Reports: Pneumonia, Sleep Apnea - Currently not using CPAP. Denies: Asthma, Bronchitis, Chronic Obstructive Pulmonary Disease (COPD), Respiratory Failure, Tuberculosis Neurological Medical History: Denies: Ischemic CVA, Seizures Endocrine Medical History: Reports: Diabetes Mellitus Type 2, Hypothyroidism - Being followed by print press operator in [place]. On no medicine for this., Obesity Denies: Diabetes Mellitus Type 1, Hyperthyroidism Renal/ Medical History: Reports: Chronic Kidney Disease Denies: End Stage Renal Disease Malignancy Medical History: Denies: Breast Cancer, Cervical Cancer, Leukemia, Lung Cancer, Ovarian Cancer GI Medical History: Denies: Cirrhosis, Crohn's Disease, Gastroesophageal Reflux Disease, Hepatitis, Hiatal Hernia, Ulcerative Colitis Musculoskeltal Medical History: Reports: Arthritis, Gout Denies: Fibromyalgia Skin Medical History: Denies: Eczema, Psoriasis Psychiatric Medical History: Denies: Depression Hematology: Reports: Anemia Denies: Hemophilia, Sickle Cell Disease, Bleeding Tendencies Infectious Medical History: Denies: HIV Past Surgical History Past Surgical History: Reports: Appendectomy, Cardiac Catheterization, Coronary Artery Bypass Graft - X3, July 07, 2014, Herniorrhaphy, Hysterectomy, Or thopedic Surgery - 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 on July 2016 revision 11/12/19, Vascular Surgery, Other - Cervical fusion Denies: Amputation, Section, Cholecystectomy, Colostomy, Gastric Bypass Surgery, Mastectomy, Pacemaker, Tonsillectomy, Tubal Ligation Social History Information Source: Patient Lives with: Family Smoking Status: Former Smoker Frequency of Alcohol Use: None Hx Recreational Drug Use: No Drugs: None Hx Prescription Drug Abuse: No - Advance Directive Resuscitation Status: Full Code Family History Family History: CAD, DM, Hypertension Parental Family History Reviewed: Yes Children Family History Reviewed: Yes Sibling(s) Family History Reviewed.: Yes Medication/Allergy Home Medications: Allopurinol [Zyloprim 100 mg Tablet] 100 mg PO DAILY 03/13/19 Aspirin [Ecotrin 81 mg EC Tablet] 81 mg PO DAILY 03/13/19 Atorvastatin Calcium [Lipitor 40 mg Tablet] 40 mg PO QHS 03/13/19 Clopidogrel Bisulfate [Plavix 75 mg Tablet] 75 mg PO DAILY 03/13/19 Furosemide [Lasix 40 mg Tablet] 80 mg PO QAM 03/13/19 Gabapentin [Neurontin 100 mg Capsule] 100 mg PO Q12 03/13/19 Insulin Glargine,Hum.rec.anlog [Lantus Insulin 100 Unit/1 ml 10 ml] 35 unit SUBCUT QAM 03/13/19 Amlodipine Besylate [Norvasc 10 mg Tablet] 10 mg PO DAILY 12/15/19 Apidra Solostar 0 units SUBCUT .SLIDING SCALE 12/15/19 Carvedilol 25 mg PO Q12 12/15/19 Furosemide [Lasix 40 mg Tablet] 40 mg PO QPM 12/15/19 Lactulose 20 gm PO BID 12/15/19 Multivitamin [Tab-A-Mahnaz (Multiple Vitamin) Tablet] 1 tab PO DAILY 12/15/19 Ergocalciferol (Vitamin D2) [Drisdol 50,000 unit (1.25MG) Capsule] 50,000 unit PO WE@1000 12/16/19 Hydralazine HCl [Apresoline 50 mg Tablet] 50 mg PO Q12 30 Days #60 tablet 12/20/19 Allergies/Adverse Reactions: cephalexin monohydrate [From Keflex] Allergy (Unknown, Verified 11/18/19 19:49) nausea/vomiting metformin [Metformin] Allergy (Unknown, Verified 11/18/19 19:49) nausea/vomiting Sulfa (Sulfonamide Antibiotics) Allergy (Unknown, Verified 11/18/19 19:49) itching/rash promethazine [From Phenergan] Adverse Reaction (Mild, Verified 11/18/19 19:49) Hallucinations Review of Systems Constitutional: PRESENT: fatigue, weakness. ABSENT: chills, fever(s) Cardiovascular: PRESENT: dyspnea on exertion, edema. ABSENT: chest pain, palpitations Respiratory: PRESENT: dyspnea. ABSENT: cough, hemoptysis, sputum Gastrointestinal: PRESENT: bloating Genitourinary: ABSENT: dysuria Integumentary: ABSENT: diaphoresis Neurological: PRESENT: weakness. ABSENT: confusion, dizziness, frequent falls, syncope Psychiatric: ABSENT: suicidal ideation Physical Exam Vital Signs: Temp Pulse Resp BP Pulse Ox 98.4 F 63 18 172/52 H 100 04/06/20 15:44 04/06/20 15:44 04/06/20 17:02 04/06/20 17:02 04/06/20 17:02 General appearance: PRESENT: cooperative, obese. ABSENT: no acute distress Head exam: PRESENT: atraumatic Eye exam: PRESENT: periorbital swelling. ABSENT: conjunctival injection Mouth exam: PRESENT: moist Throat exam: ABSENT: post pharyngeal erythema Neck exam: PRESENT: JVD Respiratory exam: PRESENT: crackles, tachypnea, wheezes Cardiovascular exam: PRESENT: RRR GI/Abdominal exam: PRESENT: distended, soft. ABSENT: guarding, rebound, tenderness Gentrourinary exam: ABSENT: indwelling catheter Extremities exam: PRESENT: +2 edema Musculoskeletal exam: PRESENT: other - L BKA Neurological exam: PRESENT: alert, awake, oriented to person, oriented to place, oriented to time, oriented to situation Psychiatric exam: PRESENT: appropriate affect Skin exam: ABSENT: rash Results Laboratory Results: 04/06/20 16:30 04/06/20 16:30 04/06/20 04/06/20 16:30 16:30 WBC 6.4 RBC 3.33 L Hgb 9.9 L Hct 30.2 L MCV 91 MCH 29.8 MCHC 32.8 RDW 17.2 H Plt Count 195 Seg Neutrophils % 73.9 Sodium 140.9 Potassium 4.9 Chloride 104 Carbon Dioxide 22 Anion Gap 15 BUN 97 H Creatinine 3.43 H Est GFR ( Amer) 16 L Glucose 197 H Calcium 8.9 Magnesium 3.1 H Total Bilirubin 0.6 AST 26 Alkaline Phosphatase 128 H Total Protein 7.5 Albumin 4.4 04/06/20 04/06/20 16:30 16:30 Troponin I < 0.012 NT-Pro-B Natriuret Pep 2980 H Impressions: Chest X-Ray 04/06/20 16:08 IMPRESSION: Constellation of findings suggests CHF exacerbation. Infectious etiology is not excluded. Assessment and Plan - Diagnosis (1) Acute respiratory failure with hypoxia Is this a current diagnosis for this admission?: Yes (2) Person under investigation for COVID-19 Is this a current diagnosis for this admission?: Yes (3) Acute kidney injury superimposed on chronic kidney disease Is this a current diagnosis for this admission?: Yes (4) Anasarca Is this a current diagnosis for this admission?: Yes (5) Anemia associated with stage 3 chronic renal failure Is this a current diagnosis for this admission?: Yes (6) CHF exacerbation Qualifiers: Heart failure type: unspecified Qualified Code(s): I50.9 - Heart failure, unspecified Is this a current diagnosis for this admission?: Yes (7) Morbid obesity Is this a current diagnosis for this admission?: Yes (8) DM2 (diabetes mellitus, type 2) Qualifiers: Diabetes mellitus technician terminal and repeater insulin use: with mcc use Is this a current diagnosis for this admission?: Yes (9) Hypertension Qualifiers: Hypertension type: essential hypertension Qualified Code(s): I10 - Essential (primary) hypertension Is this a current diagnosis for this admission?: Yes (10) RENETTA treated with BiPAP Is this a current diagnosis for this admission?: Yes - Plan Summary Summary: Acute on Chronic Diastolic CHF: recent TTE in 11/2019 showed normal EF, no or major valvular regurg. Her recent medication adjustments are likely the cause of her symptoms. She has no evidence for recent ischemic event. EKG without ischemic changes and troponin negative. She also does not endorse symptoms of an arrhythmia. - telemetry - 2 g/day sodium restriction - 2 L/day fluid restriction - Lasix 40 mg IV BID for goal net -2 L/day - metolazone 5 mg PO once - strict I/O and daily weight Acute Hypoxemic Respiratory Failure: likely due to acute on chronic diastolic CHF. Plan as per above. Anasarca: likely due to acute on chronic diastolic CHF. Plan as per above. NINI on CKD Stage 3 (versus progression of CKD): likely due to ADHF and anticipate some improvement with diuresis. - consult nephrology - renally dose meds - avoid nephrotoxins Suspect COVID-19 Infection: given elevated inflammatory markers and hypoxemia, patient was tested in the ED. Results pending. - airborne precautions RENETTA - CPAP while sleeping DM2 - restart Lantus at 30 units qAM - SSI TIDAC + HS Anemia of CKD: stable - no signs of active bleeding Generalized Weakness - fall precautions - consider PT consult Constipation - uses Lactulose PRN at home DVT ppx: heparin - Time Time Spent with patient: 35 or more minutes Anticipated Discharge Disposition: Home, Self Care Anticipated Discharge Timeframe: within 48 hours
[2020-04-06] MEDS ORDERED: METOLAZONE 5 MG TABLET PO ONE (20:00)
[2020-04-06] MEDS ORDERED: LACTULOSE SYRUP 20 GM/30 ML UDCUP PO PRN (21:11)
[2020-04-06] MEDS: INSULIN LISPRO 100 UNIT/ML 3 ML VIAL SUBCUT SCH (21:43)
[2020-04-06] MEDS: HEPARIN SOD (PORCINE) 5,000 UNIT/ML 1 ML VIAL SUBCUT SCH (21:43)
[2020-04-06] MEDS ORDERED: AMLODIPINE BESYLATE 10 MG TABLET PO SCH (22:00)
[2020-04-06] MEDS ORDERED: ISOSORBIDE MONONITRATE 60 MG TAB.ER.24H PO SCH (22:00)
[2020-04-06 23:36] LABS: APPEARANCE,URINE CLEAR; BILIRUBIN,URINE NEGATIVE (NEGATIVE); COLOR,URINE STRAW; GLUCOSE, URINE NEGATIVE (NEGATIVE); KETONES,URINE NEGATIVE (NEGATIVE); LEUKOCYTE ESTERASE,URINE TRACE (NEGATIVE); NITRITE,URINE NEGATIVE (NEGATIVE); PROTEIN,URINE 30 mg/dL (NEGATIVE); URINE SPECIFIC GRAVITY 1.008; UROBILINOGEN,URINE NEGATIVE mg/dL (<2.0)
[2020-04-07] MEDS: HEPARIN SOD (PORCINE) 5,000 UNIT/ML 1 ML VIAL SUBCUT SCH ×2 (05:52→15:41)
[2020-04-07] MEDS ORDERED: FUROSEMIDE INJ/PF 40 MG/4 ML SDV IV SCH ×2 (08:00)
[2020-04-07 08:25] LABS: ABSOLUTE EOSINOPHILS # (AUTO) 0.1 10^3/uL (0.0-0.6); ABSOLUTE LYMPHOCYTES (AUTO) 0.6 10^3/uL (0.5-4.7); ABSOLUTE MONOCYTES (AUTO) 0.6 10^3/uL (0.1-1.4); ABSOLUTE NEUT (AUTO) 2.8 10^3/uL (1.7-8.2); BASOPHILS % (AUTO) 0.8 % (0-2); EOSINOPHILS % (AUTO) 3.3 % (0-6); HEMATOCRIT 27.5 % (36.0-47.0); MEAN CORPUSCULAR HEMOGLOBIN 29.7 pg (27.0-33.4); MEAN CORPUSCULAR HGB CONC 32.8 g/dL (32.0-36.0); MEAN CORPUSCULAR VOLUME 90 fl (80-97); MONOCYTES % (AUTO) 14.2 % (3-13); PLATELET COUNT 175 10^3/uL (150-450); RED BLOOD COUNT 3.05 10^6/uL (3.72-5.28); RED CELL DISTRIBUTION WIDTH 16.7 % (11.5-14.0); SEGMENTED NEUTROPHILS % (AUTO) 66.7 % (42-78); TOTAL CELLS COUNTED % (AUTO) 100 %; WHITE BLOOD COUNT 4.3 10^3/uL (4.0-10.5)
[2020-04-07 08:43] LABS: ALBUMIN 3.9 g/dL (3.5-5.0); ALKALINE PHOSPHATASE 107 U/L (38-126); ANION GAP 12 (5-19); ASPARTATE AMINO TRANSFERASE 20 U/L (14-36); BILIRUBIN,DIRECT 0.1 mg/dL (0.0-0.4); BILIRUBIN,TOTAL 0.7 mg/dL (0.2-1.3); BLOOD UREA NITROGEN 100 mg/dL (7-20); CALCIUM 8.8 mg/dL (8.4-10.2); CARBON DIOXIDE 23 mmol/L (22-30); CHLORIDE 106 mmol/L (98-107); GLUCOSE 144 mg/dL (75-110); TOTAL PROTEIN 6.8 g/dL (6.3-8.2)
[2020-04-07] MEDS: INSULIN LISPRO 100 UNIT/ML 3 ML VIAL SUBCUT SCH ×2 (09:12→10:52)
[2020-04-07] MEDS ORDERED: DEXAMETHASONE SOD PHOS INJ 10 MG/1 ML VIAL IV SCH (10:00)
[2020-04-07] MEDS ORDERED: DEXAMETHASONE SOD PHOSPHATE INJ 4 MG/1 ML VIAL IV SCH (10:00)
[2020-04-07] MEDS ORDERED: ZINC SULFATE 220 MG CAPSULE PO SCH (10:00)
[2020-04-07] MEDS ORDERED: CHOLECALCIFEROL (D3) 1,000 UNIT (25 MCG) TABLET PO SCH (10:00)
[2020-04-07] MEDS ORDERED: ASPIRIN 81 MG TABLET, ENT COATED PO SCH (10:00)
[2020-04-07] MEDS ORDERED: ASCORBIC ACID 500 MG TABLET PO SCH (10:00)
[2020-04-07] MEDS ORDERED: ALLOPURINOL 100 MG TABLET PO SCH (10:00)
--- NOTE | 2020-04-07 10:09 | EKG REPORT ---
SEVERITY:- ABNORMAL ECG - SINUS RHYTHM LEFT BUNDLE BRANCH BLOCK : Confirmed by: Roxi Anderson MD 07-Apr-2020 10:08:56
[2020-04-07] MEDS ORDERED: CARVEDILOL 12.5 MG TABLET PO ONE (13:30)
[2020-04-07] MEDS ORDERED: HYDRALAZINE HCL 50 MG TABLET PO ONE (13:30)
--- NOTE | 2020-04-07 14:52 | PDOC DISCHARGE SUMMARY ---
Impression - Admit/DC Date/PCP Admission Date/Primary Care Provider: 04/06/20 19:14 MARTIN WICK Discharge Date: 04/07/20 - Discharge Diagnosis (1) Acute respiratory failure with hypoxia Is this a current diagnosis for this admission?: Yes (2) Person under investigation for COVID-19 Is this a current diagnosis for this admission?: Yes (3) Acute kidney injury superimposed on chronic kidney disease Is this a current diagnosis for this admission?: Yes (4) Anasarca Is this a current diagnosis for this admission?: Yes (5) Anemia associated with stage 3 chronic renal failure Is this a current diagnosis for this admission?: Yes (6) CHF exacerbation Is this a current diagnosis for this admission?: Yes (7) Morbid obesity Is this a current diagnosis for this admission?: Yes (8) DM2 (diabetes mellitus, type 2) Is this a current diagnosis for this admission?: Yes (9) Hypertension Is this a current diagnosis for this admission?: Yes (10) RENETTA treated with BiPAP Is this a current diagnosis for this admission?: Yes - Assessment Summary: JAQUELIN SKELTON is a 74 year old female with CAD s/p CABG, HTN, HLD, insulin dependent DM2, CKD stage IV, PAD s/p L BKA, RENETTA on APAP who presented to the ED with SOB, MAHAJAN, wheezing. She reports that she was seen by nephrology 1 month ago. At that time, she was taking Lasix 40 mg daily + an additional 40 mg dose if she was having increasing SOB or edema. About 2 weeks ago, she was seen in the ED for SOB, and her labs for notable for NINI. She says that her learning and development intern called her after seeing her labs from the ED and told her to stop taking BID Lasix and instead only take a single daily dose. Since then, she reports that she has had progressively worsening edema of her BUE, BLE, abdomen and face associated with SOB, MAHAJAN. Yesterday, her SOB, MAHAJAN and wheezing progressed to the point where she was no longer able to walk and required using a wheelchair to get around. Today, she presented to the ED for further evaluation. She denies chest pain or pressure, palpitations, pre-syncope, syncope, falls. She has had no sick contacts. Denies fevers, chills, but does endorse generalized weakness. She had had no other recent medication changes or hospitalizations. She lives with her , daughter and granddaughter and they are all well. Acute on Chronic Diastolic CHF: recent TTE in 11/2019 showed normal EF, no or major valvular regurg. Her recent medication adjustments are likely the cause of her symptoms. She had no evidence for recent ischemic event. EKG without ischemic changes and troponin negative. She also did not endorse symptoms consistent with an arrhythmia. She received diuresis with Lasix 80 mg IV BID and a single dose of metolazone 5 mg, with subsequent rapid improvement in her SOB and MAHAJAN. Upon discharge, her home dose of Lasix was doubled. Acute Hypoxemic Respiratory Failure: due to acute on chronic diastolic CHF. Resolved with diuresis. Anasarca: likely due to acute on chronic diastolic CHF. Improved with diuresis. NINI on CKD Stage 3 (versus progression of CKD): likely due to ADHF and anticipate continued improvement with ongoing diuresis. Suspect COVID-19 Infection: given elevated inflammatory markers and hypoxemia, patient was tested in the ED. Results pending at the time of discharge. Anemia of CKD: stable, no signs of active bleeding. Patient's care and hospital course was discussed with her outpatient learning and development intern, Dr. Min. We have agreed to double her home Lasix dose from 40 to 80 mg daily. She was advised to start weighing herself regularly and follow a strict low sodium diet. She will follow up with her PCP within 1 week and her learning and development intern JOLIE for repeat BMP. - Additional Information Resuscitation Status: Full Code Discharge Diet: Cardiac, Diabetic, Other (Comments) Discharge Activity: Activity As Tolerated, Balance Activity w/Rest, Weigh Daily Referrals: MARTIN WICK MD [Primary Care Provider] - Follow up as needed Home Medications: Allopurinol [Zyloprim 100 mg Tablet] 100 mg PO DAILY 03/13/19 Aspirin [Ecotrin 81 mg EC Tablet] 81 mg PO DAILY 03/13/19 Atorvastatin Calcium [Lipitor 40 mg Tablet] 40 mg PO QHS 03/13/19 Clopidogrel Bisulfate [Plavix 75 mg Tablet] 75 mg PO DAILY 03/13/19 Furosemide [Lasix 40 mg Tablet] 80 mg PO QAM 03/13/19 Gabapentin [Neurontin 100 mg Capsule] 100 mg PO Q12 03/13/19 Insulin Glargine,Hum.rec.anlog [Lantus Insulin 100 Unit/1 ml 10 ml] 35 unit SUBCUT QAM 03/13/19 Amlodipine Besylate [Norvasc 10 mg Tablet] 10 mg PO DAILY 12/15/19 Carvedilol 25 mg PO Q12 12/15/19 Multivitamin [Tab-A-Mahnaz (Multiple Vitamin) Tablet] 1 tab PO DAILY 12/15/19 Ergocalciferol (Vitamin D2) [Drisdol 50,000 unit (1.25MG) Capsule] 50,000 unit PO WE@1000 12/16/19 Hydralazine HCl [Apresoline 50 mg Tablet] 50 mg PO Q12 30 Days #60 tablet 12/20/19 Calcitriol [Rocaltrol] 0.25 mcg PO MOWEFR 04/07/20 History of Present Illiness History of Present Illness: JAQUELIN SKELTON is a 74 year old female with CAD s/p CABG, HTN, HLD, insulin dependent DM2, CKD stage IV, PAD s/p L BKA, RENETTA on APAP who presented to the ED with SOB, MHAAJAN, wheezing. Physical Exam Vital Signs: Temp Pulse Resp BP Pulse Ox 98.7 F 63 12 177/58 H 100 04/07/20 06:31 04/06/20 15:44 04/07/20 10:32 04/07/20 10:32 04/07/20 10:32 Intake & Output 04/06/20 04/07/20 04/08/20 06:59 06:59 06:59 Output Total 700 480 Balance -700 -480 Weight 110.5 kg Results Laboratory Results: WBC 4.3 10^3/uL (4.0-10.5) 04/07/20 07:56 RBC 3.05 10^6/uL (3.72-5.28) L 04/07/20 07:56 Hgb 9.0 g/dL (12.0-15.5) L 04/07/20 07:56 Hct 27.5 % (36.0-47.0) L 04/07/20 07:56 MCV 90 fl (80-97) 04/07/20 07:56 MCH 29.7 pg (27.0-33.4) 04/07/20 07:56 MCHC 32.8 g/dL (32.0-36.0) 04/07/20 07:56 RDW 16.7 % (11.5-14.0) H 04/07/20 07:56 Plt Count 175 10^3/uL (150-450) 04/07/20 07:56 Lymph % (Auto) 15.0 % (13-45) 04/07/20 07:56 Mayes % (Auto) 14.2 % (3-13) H 04/07/20 07:56 Eos % (Auto) 3.3 % (0-6) 04/07/20 07:56 Baso % (Auto) 0.8 % (0-2) 04/07/20 07:56 Absolute Neuts (auto) 2.8 10^3/uL (1.7-8.2) 04/07/20 07:56 Absolute Lymphs (auto) 0.6 10^3/uL (0.5-4.7) 04/07/20 07:56 Absolute Monos (auto) 0.6 10^3/uL (0.1-1.4) 04/07/20 07:56 Absolute Eos (auto) 0.1 10^3/uL (0.0-0.6) 04/07/20 07:56 Absolute Basos (auto) 0.0 10^3/uL (0.0-0.2) 04/07/20 07:56 Seg Neutrophils % 66.7 % (42-78) 04/07/20 07:56 Fibrinogen 386 mg/dL (209-497) 04/06/20 16:30 D-Dimer 1.54 ug/mL (0.00-0.50) H 04/06/20 16:30 Sodium 140.9 mmol/L (137-145) 04/07/20 07:56 Potassium 5.0 mmol/L (3.6-5.0) 04/07/20 07:56 Chloride 106 mmol/L (98-107) 04/07/20 07:56 Carbon Dioxide 23 mmol/L (22-30) 04/07/20 07:56 Anion Gap 12 (5-19) 04/07/20 07:56 BUN 100 mg/dL (7-20) H 04/07/20 07:56 Creatinine 3.26 mg/dL (0.52-1.25) H 04/07/20 07:56 Est GFR ( Amer) 17 (>60) L 04/07/20 07:56 Est GFR (MDRD) Non-Af 14 (>60) L 04/07/20 07:56 Glucose 144 mg/dL (75-110) H 04/07/20 07:56 POC Glucose 143 mg/dL (70-110) H 04/07/20 10:50 Calcium 8.8 mg/dL (8.4-10.2) 04/07/20 07:56 Magnesium 3.1 mg/dL (1.6-2.3) H 04/06/20 16:30 Ferritin 298.00 ng/mL (11.1-264.0) H 04/06/20 16:30 Total Bilirubin 0.7 mg/dL (0.2-1.3) 04/07/20 07:56 Direct Bilirubin 0.1 mg/dL (0.0-0.4) 04/07/20 07:56 Neonat Total Bilirubin Not Reportable 04/07/20 07:56 Neonat Direct Bilirubin Not Reportable 04/07/20 07:56 Neonat Indirect Bili Not Reportable 04/07/20 07:56 AST 20 U/L (14-36) 04/07/20 07:56 ALT 22 U/L (<35) 04/07/20 07:56 Alkaline Phosphatase 107 U/L (38-126) 04/07/20 07:56 Lactate Dehydrogenase 276 U/L (120-246) H 04/06/20 16:30 Troponin I < 0.012 ng/mL 04/06/20 16:30 C-Reactive Protein 19.3 mg/L (<10.0) H 04/06/20 16:30 NT-Pro-B Natriuret Pep 2980 pg/mL (<125) H 04/06/20 16:30 Total Protein 6.8 g/dL (6.3-8.2) 04/07/20 07:56 Albumin 3.9 g/dL (3.5-5.0) 04/07/20 07:56 Urine Color STRAW 04/06/20 23:19 Urine Appearance CLEAR 04/06/20 23:19 Urine pH 5.0 (5.0-9.0) 04/06/20 23:19 Ur Specific [place] 1.008 04/06/20 23:19 Urine Protein 30 mg/dL (NEGATIVE) H 04/06/20 23:19 Urine Glucose (UA) NEGATIVE mg/dL (NEGATIVE) 04/06/20 23:19 Urine Ketones NEGATIVE mg/dL (NEGATIVE) 04/06/20 23:19 Urine Blood NEGATIVE (NEGATIVE) 04/06/20 23:19 Urine Nitrite NEGATIVE (NEGATIVE) 04/06/20 23:19 Urine Bilirubin NEGATIVE (NEGATIVE) 04/06/20 23:19 Urine Urobilinogen NEGATIVE mg/dL (<2.0) 04/06/20 23:19 Ur Leukocyte Esterase TRACE (NEGATIVE) H 04/06/20 23:19 Urine WBC (Auto) 4 /HPF 04/06/20 23:19 Urine RBC (Auto) 1 /HPF 04/06/20 23:19 U Hyaline Cast (Auto) 2 /LPF 04/06/20 23:19 Urine Bacteria (Auto) TRACE /HPF 04/06/20 23:19 Squamous Epi Cells Auto 2 /HPF 04/06/20 23:19 Urine Mucus (Auto) RARE /LPF 04/06/20 23:19 Urine Ascorbic Acid NEGATIVE (NEGATIVE) 04/06/20 23:19 Influenza A (Rapid) NEGATIVE (NEGATIVE) 04/06/20 16:51 Influenza B (Rapid) NEGATIVE (NEGATIVE) 04/06/20 16:51 04/06/20 04/06/20 16:30 16:30 Troponin I < 0.012 NT-Pro-B Natriuret Pep 2980 H Impressions: Chest X-Ray 04/06/20 16:08 IMPRESSION: Constellation of findings suggests CHF exacerbation. Infectious etiology is not excluded. Stroke Is this a Stroke Patient?: No Acute Heart Failure Is this a Heart Failure Patient?: Yes Documentation of LVEF assessment?: Yes LVEF: LVEF Greater Than 40% Anticoagulant Therapy: N/A
[2020-04-07 15:56] VITALS: BP 155/76
== END 2020-04-07 15:45 | disposition home or self-care (01) ==
LOC: ER 15:31 → EH 19:14
PROVIDERS: ADMIT Hospitalist; ATTEND Physician Assistant
DX: J96.01 Acute respiratory failure with hypoxia (principal); I13.0 Hypertensive heart and chronic kidney disease with heart failure and stage 1 through stage 4 chronic kidney disease, or unspecified chronic kidney disease; E11.22 Type 2 diabetes mellitus with diabetic chronic kidney disease; N18.30 Chronic kidney disease, stage 3 unspecified; I50.33 Acute on chronic diastolic (congestive) heart failure; N17.9 Acute kidney failure, unspecified; D63.1 Anemia in chronic kidney disease; R60.1 Generalized edema; E66.01 Morbid (severe) obesity due to excess calories; G47.33 Obstructive sleep apnea (adult) (pediatric); Z79.4 Long term (current) use of insulin; Z20.828 Contact with and (suspected) exposure to other viral communicable diseases; Z87.891 Personal history of nicotine dependence; Z88.8 Allergy status to other drugs, medicaments and biological substances; Z88.2 Allergy status to sulfonamides
CPT/HCPCS: 93005; 99285; 96374; 36415 ×2; 82962 ×2; 82728; 83615; 83735; 85025 ×2; 85384; 86140; 80053 ×2; 81001; 84484; 85379; 87804; 83880; 71045; 93010; 94660; G0378 ×2; U0003; A9270 ×11; J1644 ×2; J1100; J1940 ×2; J3490; C9803; 87635